=== PATIENT | female | born 1985 | race Hispanic/Latino ===

== ENCOUNTER 2020-01-22 12:43 | Outpatient (CLI) | payer MEDICARE, MEDICAID, SELFPAY ==
--- NOTE | ~2020-01-22 | US_ITS ---
EXAMINATION: US retroperitoneal comp DATE: 01/22/2020 13:31 INDICATION: Oliguria TECHNIQUE: Multiple ultrasound grayscale images of the kidneys were obtained. COMPARISON: None. FINDINGS: Again seen is enlargement of both kidneys secondary to innumerable anechoic cysts in both kidneys. Th e right kidney measures 6.4 x 8.5 by at least 9.5 cm and the left kidney measures 5.4 x 7.[address] 11.0 cm. The lengths of both kidneys appear underestimated with the true length of the kidneys not demonstrated on any single image. There is no hydronephrosis in either kidney. There is twinkle art ifact at a few locations in the lower pole of the left kidney consistent with renal stones. There vance ears be a hypoechoic fluid debris level in the dependent aspect of the otherwise normal bladder. IMPRESSION: 1. Polycystic kidney disease. No hydronephrosis. 2. Suggestion of layering debris in the dependent bladder. Correlate with urinalysis. Reviewed, dictated and finalized at location B. IMPRESSION: 1. Polycystic kidney disease. No hydronephrosis. 2. Suggestion of layering debris in the dependent bladder. Correlate with urina lysis.
== END 2020-01-22 12:44 | disposition home or self-care (01) ==
LOC: ANHIMG 12:49
PROVIDERS: PCP Nurse Practitioner Family; Visit Provider Nurse Practitioner Adult Health
DX: R34 Anuria and oliguria (principal); Q61.3 Polycystic kidney, unspecified
CPT/HCPCS: 76770

== ENCOUNTER 2020-02-01 11:21 | Outpatient (CLI) | payer MEDICARE, MEDICAID, SELFPAY ==
--- NOTE | ~2020-02-01 | XR_ITS ---
EXAMINATION: XR chest 1V EXAM DATE: 02/01/2020 11:52 INDICATION: Mid chest pain. TECHNIQUE: Portable AP frontal chest x-ray was obtained. Comparison is made to prior examination from 06/15/2018. FINDINGS: The lungs are clear. There are no pleural effusions. Cardiac silhouette is prominent but magnified on this AP technique. There is no pneumothorax suspected. Thoracolumbar Sewell rods. IMPRESSION: No acute cardiopulmonary findings. Reviewed, dictated and finalized at location B. UTIVE MEETING MANAGER
== END 2020-02-01 11:22 | disposition home or self-care (01) ==
PROVIDERS: PCP Nurse Practitioner Family; Visit Provider Nurse Practitioner Family
DX: R07.89 Other chest pain (principal)
CPT/HCPCS: 71045

== ENCOUNTER 2020-02-05 11:10 | Outpatient (CLI) | payer MEDICARE, MEDICAID, SELFPAY ==
--- NOTE | ~2020-02-05 | US_ITS ---
EXAMINATION: US retroperitoneal comp DATE: 02/05/2020 12:00 INDICATION: Oliguria TECHNIQUE: Multiple ultrasound grayscale images of the kidneys were obtained. COMPARISON: 01/22/2020 FINDINGS: The right kidney measures 12.3 x 7.9 x 7.3 cm. The left kidney measures at least 12.0 cm length by 8. 1 x 7.0 cm in maximal orthogonal dimensions with the upper pole partially obscured by shadowing bowel gas. Again seen are numerous anechoic cysts in both kidneys consistent with known history of polycys tic kidney disease. The largest renal cysts measures 3.0 cm in maximal diameter on the right and 3.4 cm on the left. There is no hydronephrosis in either kidney. No shadowing stones identified. Again seen is a hypoechoic likely layering debris without internal flow on color Doppler in the dependent a spect of the otherwise normal bladder. Small amount of fluid at the right adnexa along side the right ovary which is visualized on cine images with multiple small anechoic ovarian cysts/follicles, the l argest measuring up to 3.3 cm. IMPRESSION: 1. Polycystic kidney disease. No hydronephrosis. 2. Persistent focal lytic likely layering debris in the dependent bladder. Reviewed, dictated and finalized at location A. HOOKER
== END 2020-02-05 11:11 | disposition home or self-care (01) ==
PROVIDERS: PCP Nurse Practitioner Family; Visit Provider Nurse Practitioner Adult Health
DX: R34 Anuria and oliguria (principal); Q61.3 Polycystic kidney, unspecified
CPT/HCPCS: 76770

== ENCOUNTER 2022-04-29 12:41 | Outpatient (CLI) | payer OTHER, SELFPAY ==
--- NOTE | ~2022-04-29 | US_ITS ---
EXAMINATION: US renal BI DATE: 04/29/2022 14:03 INDICATION: Polycystic kidney disease TECHNIQUE: Multiple grayscale and Doppler ultrasound images of the kidneys were obtained. COMPARISON: 02/05/2020 FINDINGS: The right kidney measures 18.7 x 8.5 x 9.2 cm. There are innumerable cysts of the right kid mark. The left kidney measures 15.7 x 10.0 x 11.8 cm. There are innumerable cysts of the left kidney, the largest which measures 7.7 cm. The kidneys demonstrate normal parenchymal echogenicity. There is no hydronephrosis. The bladder is normal. IMPRESSION: 1. Polycystic kidney disease. No hydronephrosis identified. Reviewed, dictated and finalized at location L. AGE COMPILATION CLERK
--- NOTE | ~2022-04-29 | XR_ITS ---
EXAMINATION: XR lumbar spine 2-3V DATE: 04/29/2022 13:06 INDICATION: Low back pain TECHNIQUE: Two views of the lumbar spine were obtained. COMPARISON: CT, 02/06/2018 FINDINGS: There are changes of posterior thoracic through sacroiliac fusion. Bone alignment is normal . No fracture is identified. 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 There is moderate loss of intervert ebral disc space height throughout the visualized thoracic and lumbar spine. IMPRESSION: 1. Changes of posterior fusion and moderate thoracic and lumbar spondylosis without acute findings id entified. Reviewed, dictated and finalized at location L. [employer] NET DEVELOPER IMPRESSION: 1. Changes of posterior fusion and moderate thoracic and lumbar spondylosis wit hout acute findings identified.
== END 2022-04-29 12:42 | disposition home or self-care (01) ==
PROVIDERS: PCP Nurse Practitioner Family
DX: Q61.3 Polycystic kidney, unspecified (principal); Z98.1 Arthrodesis status; M47.894 Other spondylosis, thoracic region; M47.896 Other spondylosis, lumbar region
CPT/HCPCS: 72100; 76775

== ENCOUNTER 2024-09-05 10:51 | Outpatient (CLI) | payer MEDICARE, OTHER, SELFPAY ==
--- NOTE | ~2024-09-05 | US_ITS ---
Renal-Bladder ultrasound Clinical History: Polycystic kidneys COMPARISON: 04/29/2022 Technique: Real-time sonographic imaging of the kidneys and urinary bladder was performed. Findings: The right kidney measures 13.3 cm in length and the left kidney measures 15.1 cm. There is no hydronephrosis or renal calculus identified. Both kidneys are largely replaced by innumerable cyst s. The intervening parenchyma is echogenic.. The urinary bladder is moderately distended at the time of this exam. No intraluminal echoes are iden tified. No abnormal wall thickening is seen. Impression: Polycystic kidney disease with chronic medical renal disease. No definite hydronephrosis. Reviewed, dictated and finalized at location M. Impression: Polycystic kidney disease with chronic medical renal disease. No definite hydronephrosis.
--- OUTSIDE RECORDS SUMMARY | 2024-09-05 12:57 | XMS_ITS | Data Portability ---
Author Organization [facility]ore[facility] Address [address] [place] [address] Assessment No assessment recorded. Plan of Treatment Reminders Order Date Submit Date Provider Last Modified By Organization Details Last Modified Time Details Appointments None recorded. Lab CMP, serum or plasma 2015 016 [facility], [address], [address], [place], [address], 6 17:11:41 lipid panel, serum 2015 016 [facility], [address], [place], [address], 6 17:11:40 CBC w/ auto diff 2015 016 [facility], [address], [address], [place], [address], 6 17:11:41 unlisted lab - TSH reflex to t4f 2015 016 [facility], [address], [address], [place], [address], 6 15:53:54 CBC w/ auto diff 2015 016 [facility], [address], [address], [place], [address], 6 14:53:40 CMP, serum or plasma 2015 016 [facility], [address], [place], [address], 6 14:53:40 lipid panel, serum 2015 016 [facility], [address], [address], [place], [address], 6 14:53:41 Referral None recorded. Procedures None recorded. Surgeries None recorded. Imaging ultrasound , kidney - PCKD 2015 016 [facility], [address] [place], [address], 15:44:29 Medication Orders Metamucil (sugar) oral powder 2015 016 [facility], [address] [facility], [place], [address], 14:46:57 Patient TargetsNo targets recorded. Patient Instructions Encounter Date Encounter Id Patient Instructions Last Modified By Organization Details Last Modified Time 09/01/2015 [id number] constipation: care instructions mringor Not available 09/01/2015 17:49:18 Annual influenza vaccine was highly recommended. [facility] 09/01/2015 14:42:02 Reason for Referral None Reported. Results Created Date Observation Date Name Description Value Unit Range Abnormal Flag Note LastModifiedBy Organization Detail LastModifiedTime 09/23/19 16 09/24/2015 lipid panel , serum cholesterol, total 189 mg/dL 100-19 9 Not Available [facility] ([facility]) [address] [place], [address], 09/24/2015 17:11:40 09/23/19 16 09/24/2015 lipid panel , serum triglyceride s 151 mg/dL 0-149 above high normal Not Available [facility] ([facility]) [address] [place], [address], 09/24/2015 17:11:40 09/23/19 16 09/24/2015 lipid panel , serum LDL chol. (direct) 107 mg/dL 0-99 above high normal Not Available [facility] ([facility]) [address] [facility], [place], [address], 09/24/2015 17:11:40 09/23/19 16 09/24/2015 lipid panel , serum HDL cholesterol 57 mg/dL >39 ACCOR DING TO ATP-I II GUIDE LINES , HDL-C >59 MG/DL IS CONSI DERED A NEGAT JETT RISK FACTO R FOR CHD. Not Available [facility] ([facility]) [address] [facility], [place], [address], 09/24/2015 17:11:40 09/23/19 16 09/24/2015 lipid panel , serum VLDL cholesterol shivani 30 mg/dL 5-40 Not Available [facility] ([facility]) [address] [facility], [place], [address], 09/24/2015 17:11:40 09/23/19 16 09/24/2015 lipid panel , serum LDL cholesterol calc 102 mg/dL 0-99 above high normal Not Available [facility] ([facility]) [address] [facility], [place], [address], 09/24/2015 17:11:40 09/23/19 16 09/24/2015 lipid panel , serum comment: [employer] Not Available [facility] ([facility]) [address] [facility], [place], [address], 09/24/2015 17:11:40 09/23/19 16 09/24/2015 lipid panel , serum LDL/HDL ratio 1.8 ratio _unit s 0.0-3. 2 LDL/H DL RATIO MEN WOMEN 1/2 AVG.R ISK 1.0 1.5 AVG.R ISK 3.6 3.2 2X AVG.R ISK 6.2 5.0 3X AVG.R ISK 8.0 6.1 Not Available [facility] ([facility]) [address] [facility] [place], [address], 09/24/2015 17:11:40 09/23/19 16 09/24/2015 CBC w/ auto diff WBC 8.5 x10e3 /uL 3.4-10 .8 Not Available [facility] ([facility]) [address] [facility] [place], [address], 09/24/2015 17:11:41 09/23/19 16 09/24/2015 CBC w/ auto diff RBC 4.34 x10e6 /uL 3.77-5 .28 Not Available [facility] ([facility]) [address] [facility] [place], [address], 09/24/2015 17:11:41 09/23/19 16 09/24/2015 CBC w/ auto diff hemoglobin 10.3 g/dL 11.1-1 5.9 below low normal Not Available [facility] ([facility]) [address] [facility] [place], [address], 09/24/2015 17:11:41 09/23/19 16 09/24/2015 CBC w/ auto diff hematocrit 31.7 % 34.0-4 6.6 below low normal Not Available [facility] ([facility]) [address] [facility] [place], [address], 09/24/2015 17:11:41 09/23/19 16 09/24/2015 CBC w/ auto diff MCV 73 fL 79-97 below low normal Not Available [facility] ([facility]) [address] [facility] [place], [address], 09/24/2015 17:11:41 09/23/19 16 09/24/2015 CBC w/ auto diff MCH 23.7 pg 26.6-3 3.0 below low normal Not Available [facility] ([facility]) [address] [facility] [place], [address], 09/24/2015 17:11:41 09/23/19 16 09/24/2015 CBC w/ auto diff MCHC 32.5 g/dL 31.5-3 5.7 Not Available [facility] ([facility]) [address], [place], [address], 09/24/2015 17:11:41 09/23/19 16 09/24/2015 CBC w/ auto diff RDW 20.3 % 12.3-1 5.4 above high normal Not Available [facility] ([facility]) [address], [place], [address], 09/24/2015 17:11:41 09/23/19 16 09/24/2015 CBC w/ auto diff platelets 242 x10e3 /uL 150-37 9 Not Available [facility] ([facility]) [address] [facility], [place], [address], 09/24/2015 17:11:41 09/23/19 16 09/24/2015 CBC w/ auto diff neutrophils 68 % Not Available [facility] ([facility]) [address] [facility], [place], [address], 09/24/2015 17:11:41 09/23/19 16 09/24/2015 CBC w/ auto diff lymphs 26 % Not Available [facility] ([facility]) [address] [facility], [place], [address], 09/24/2015 17:11:41 09/23/19 16 09/24/2015 CBC w/ auto diff monocytes 5 % Not Available [facility] ([facility]) [address] [facility], [place], [address], 09/24/2015 17:11:41 09/23/19 16 09/24/2015 CBC w/ auto diff eos 1 % Not Available [facility] ([facility]) [address] [facility], [place], [address], 09/24/2015 17:11:41 09/23/19 16 09/24/2015 CBC w/ auto diff basos 0 % Not Available [facility] ([facility]) [address] [place], [address], 09/24/2015 17:11:41 09/23/19 16 09/24/2015 CBC w/ auto diff immature cells [employer] Not Available [facility] ([facility]) [address] [place], [address], 09/24/2015 17:11:41 09/23/19 16 09/24/2015 CBC w/ auto diff neutrophils (absolute) 5.6 x10e3 /uL 1.4-7. 0 Not Available [facility] ([facility]) [address] [place], [address], 09/24/2015 17:11:41 09/23/19 16 09/24/2015 CBC w/ auto diff lymphs (absolute) 2.2 x10e3 /uL 0.7-3. 1 Not Available [facility] ([facility]) [address] [place], [address], 09/24/2015 17:11:41 09/23/19 16 09/24/2015 CBC w/ auto diff monocytes(ab solute) 0.5 x10e3 /uL 0.1-0. 9 Not Available [facility] ([facility]) [address] [place], [address], 09/24/2015 17:11:41 09/23/19 16 09/24/2015 CBC w/ auto diff eos (absolute) 0.1 x10e3 /uL 0.0-0. 4 Not Available [facility] ([facility]) [address] [place], [address], 09/24/2015 17:11:41 09/23/19 16 09/24/2015 CBC w/ auto diff baso (absolute) 0.0 x10e3 /uL 0.0-0. 2 Not Available [facility] ([facility]) [address] [facility] [place], [address], 09/24/2015 17:11:41 09/23/19 16 09/24/2015 CBC w/ auto diff immature granulocytes 0 % Not Available [facility] ([facility]) [address] [facility] [place], [address], 09/24/2015 17:11:41 09/23/19 16 09/24/2015 CBC w/ auto diff immature grans (abs) 0.0 x10e3 /uL 0.0-0. 1 Not Available [facility] ([facility]) [address] [facility], [place], [address], 09/24/2015 17:11:41 09/23/19 16 09/24/2015 CBC w/ auto diff NRBC [employer] Not Available [facility] ([facility]) [address] [place], [address], 09/24/2015 17:11:41 09/23/19 16 09/24/2015 CBC w/ auto diff hematology comments: [employer] Not Available [facility] ([facility]) [address] [facility], [place], [address], 09/24/2015 17:11:41 09/23/19 16 09/24/2015 CMP, serum or plasm a glucose, serum 92 mg/dL 65-99 Not Available [facility] ([facility]) [address] [place], [address], 09/24/2015 17:11:41 09/23/19 16 09/24/2015 CMP, serum or plasm a BUN 28 mg/dL 6-20 above high normal Not Available [facility] ([facility]) [address] [place], [address], 09/24/2015 17:11:41 09/23/19 16 09/24/2015 CMP, serum or plasm a creatinine, serum 2.05 mg/dL 0.57-1 .00 above high normal Not Available [facility] ([facility]) [address] [facility] [place], [address], 09/24/2015 17:11:41 09/23/19 16 09/24/2015 CMP, serum or plasm a eGFR if nonafricn AM 32 mL/mi n/1.7 3 >59 below low normal Not Available [facility] ([facility]) [address] [facility] [place], [address], 09/24/2015 17:11:41 09/23/19 16 09/24/2015 CMP, serum or plasm a eGFR if africn AM 37 mL/mi n/1.7 3 >59 below low normal Not Available [facility] ([facility]) [address] [facility] [place], [address], 09/24/2015 17:11:41 09/23/19 16 09/24/2015 CMP, serum or plasm a BUN/creatini ne ratio 14 8-20 Not Available [facility] ([facility]) [address] [facility] [place], [address], 09/24/2015 17:11:41 09/23/19 16 09/24/2015 CMP, serum or plasm a sodium, serum 141 mmol/ L 134-14 4 Not Available [facility] ([facility]) [address] [facility] [place], [address], 09/24/2015 17:11:41 09/23/19 16 09/24/2015 CMP, serum or plasm a potassium, serum 4.9 mmol/ L 3.5-5. 2 Not Available [facility] ([facility]) [address] [facility] [place], [address], 09/24/2015 17:11:41 09/23/19 16 09/24/2015 CMP, serum or plasm a chloride, serum 104 mmol/ L 97-108 Not Available [facility] ([facility]) [address] [facility] [place], [address], 09/24/2015 17:11:41 09/23/19 16 09/24/2015 CMP, serum or plasm a carbon dioxide, total 16 mmol/ L 18-29 below low normal Not Available [facility] ([facility]) [address] [facility] [place], [address], 09/24/2015 17:11:41 09/23/19 16 09/24/2015 CMP, serum or plasm a calcium, serum 9.3 mg/dL 8.7-10 .2 Not Available [facility] ([facility]) [address] [place], [address], 09/24/2015 17:11:41 09/23/19 16 09/24/2015 CMP, serum or plasm a protein, total, serum 7.8 g/dL 6.0-8. 5 Not Available [facility] ([facility]) [address] [facility] [place], [address], 09/24/2015 17:11:41 09/23/19 16 09/24/2015 CMP, serum or plasm a albumin, serum 4.6 g/dL 3.5-5. 5 Not Available [facility] ([facility]) [address] [facility] [place], [address], 09/24/2015 17:11:41 09/23/19 16 09/24/2015 CMP, serum or plasm a globulin, total 3.2 g/dL 1.5-4. 5 Not Available [facility] ([facility]) [address] [place], [address], 09/24/2015 17:11:41 09/23/19 16 09/24/2015 CMP, serum or plasm a A/G ratio 1.4 1.1-2. 5 Not Available [facility] ([facility]) [address] [facility] [place], [address], 09/24/2015 17:11:41 09/23/19 16 09/24/2015 CMP, serum or plasm a bilirubin, total 0.2 mg/dL 0.0-1. 2 Not Available [facility] ([facility]) [address] [facility], [place], [address], 09/24/2015 17:11:41 09/23/19 16 09/24/2015 CMP, serum or plasm a alkaline phosphatase, S 82 IU/L 39-117 Not Available [facility] ([facility]) [address] [facility], [place], [address], 09/24/2015 17:11:41 09/23/19 16 09/24/2015 CMP, serum or plasm a AST (SGOT) 14 IU/L 0-40 Not Available [facility] ([facility]) [address] [facility], [place], [address], 09/24/2015 17:11:41 09/23/19 16 09/24/2015 CMP, serum or plasm a ALT (SGPT) 13 IU/L 0-32 Not Available [facility] ([facility]) [address] [facility], [place], [address], 09/24/2015 17:11:41 09/03/19 16 08/03/2012 elect akhil fagan am No observ ation record ed. [facility], [place], [address], 09/05/2015 09:33:34 09/05/19 16 09/05/2015 US kidne ys bilat marlo TURNER,NA RCIZJarvis FLANAGAN 8823 ADMIT/ SERVIC E DATE: ACCT: [id number] DISCHA RGE DATE: : 1985 SEX: F ORD SITE: [facility] PT TYPE: REG CLI SAMMIE BERGMAN MD: Katy ACOSTA MD STUDY DATE REPORT # ORDER # EXT ORDER ID [id number] 6.001 PROC CODE: KIDNEY BI PROCED URE DESCRI PTION: US KIDNEY S BILATE RAL ====== ====== ==IMPR ESSION :===== ====== = ADVANC ED POLYCY STIC REPLAC EMENT OF BOTH KIDNEY S. NO OBSTRU CTIVE UROPAT HY WITH JET FLOW PHENOM ENON FROM BOTH RIGHT AND LEFT URETER S OBSERV ED IN THE URINAR Y BLADDE R AND DUPLEX IMAGIN G. ====== ====== ====== ====== ====== ====== = EXAMIN ATION: RENAL ULTRAS OUND ACCESS ION: [id number] EXAM DATE/T SAMUEL: 016 10:15 AM CLINIC AL HISTOR Y: POLYCY STIC RENAL DISEAS E. COMPAR THOR: 014 TECHNI QUE: RIGHT AND LEFT KIDNEY S WERE EVALUA SARAH WITH TRANSA BDOMIN AL ULTRAS ONOGRA PHY. FINDIN GS: THE RIGHT KIDNEY MEASUR ES 15.8 X 10.5 X 10 CM WITH CYSTIC REPLAC EMENT OF THE RENAL PARENC HYMA CONSIS TENT WITH ADULT POLYCY STIC KIDNEY DISEAS E. NO OBVIOU S OBSTRU CTIVE UROPAT HY IS SEEN. THE LEFT KIDNEY MEASUR ES 15.4 X 8.6 X 9.7 WITH CYSTIC REPLAC EMENT OF THE RENAL PARENC HYMA CONSIS TENT WITH ADULT POLYCY STIC KIDNEY DISEAS E. NO OBVIOU S OBSTRU CTIVE UROPAT HY IS SEEN. THERE IS JET FLOW PHENOM ENON AND THE BLADDE R FROM THE RIGHT AND LEFT URETER S ON DUPLEX IMAGIN G OVER THE URINAR Y BLADDE R. ELECTR ONICAL LY SIGNED BY: HAYLEY MARTIN IER6/ 1:53 PM [facility], [place], [address], 09/23/2015 10:25:58 09/05/19 16 12/07/2013 ultra sound , kidne y No observ ation record ed. [facility] Scheduling 1 [facility], [place], [address], 09/23/2015 10:25:58 03/12/20 16 03/12/2016 ultra sound , kidne y No observ ation record ed. [facility], [place], [address], 03/14/2016 15:48:07 Result Notes None recorded. Problems Name Problem SNOMED Code Status Onset Date Resolution Date Notes Provider Name and Address Organization Details Recorded Time Benign hypertension 61264912 Active Abdirahman Acosta MD Attn: Zachary marcus,[address] [facility], [place], [address], [facility] 6 14:46:56 Polycystic kidney disease, adult type Active Abdirahman Acosta MD Attn: Zachary marcus,[address] 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, [place], [address], [facility] 6 14:46:56 Constipation 70703906 Active Abdirahman Acosta MD Attn: Zachary marcus,[address] [facility], [place], [address], [facility] 6 10:41:33 Congenital postural scoliosis 19443292 Active Abdirahman Acosta MD Attn: Zachary velazquez,[address] 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, [place], [address], [facility] 6 14:46:56 Anemia 105425072 Active Abdirahman Acosta MD Attn: Zachary velazquez,[address] [facility], [place], [address], [facility] 6 10:41:33 Hyperkalemia 08998993 Active Abdirahman Acosta MD Attn: Zachary velazquez,[address] [facility], [place], [address], [facility] 6 10:41:33 Chronic progressive renal failure 801586728 Active Abdirahman Acosta MD Attn: Zachary velazquez,[address] [facility], [place], [address], [facility] 6 10:41:33 Eruption 243340160 Active Abdirahman Acosta MD Attn: Zachary velazquez,[address] [facility], [place], [address], [facility] 6 10:41:33 Problem Notes None recorded. Procedures Surgical History Date Name Laterality Status Provider Name and Address Organization Details Recorded Time 06/18/2014 Other completed Abdirahman Acosta MD Attn: Accounting,[address] [place], [place], [address] [place] [address], [facility] 09/01/2015 13:54:44 Other completed Abdirahman Acosta MD Attn: Accounting,[address] [place], [address], [facility] 09/01/2015 14:19:29 Imaging Results None recorded. Procedure Notes None recorded. Medical Equipment None Reported. Allergies Allergen ID Allergen Name Allergen Category Reaction Reaction Severity Criticality Documentation Date Start Date Code Code System Note Provider Name and Address Organization Details Recorded Time 21744 bacitraci n / neomycin / polymyxin B medicatio n rash mild Not available 09/01/2015 80518 9 RxNorm [facility] 6 14:06:48 Medications Name Sig Start Date Stop Date Status Note LastModified by Organization Details LastModified Time ferrous sulfate 325 mg (65 mg iron) tablet Take 1 tablet 3 times a day by oral route. active Not Available Not Available No t Available triamcinolone acetonide 0.1 % topical ointment APPLY A THIN LAYER TO THE AFFECTED AREA(S) BY TOPICAL ROUTE 2 TIMES PER DAY active Not Available Not Available No t Available polyethylene glycol 1000 (bulk) powder active Not Available Not Availabl e Not Available docusate sodium 100 mg capsule Take 1 capsule every day by oral route. active Not Available Not Available No t Available Metamucil (sugar) oral powder Take 1 tsp every day by oral route for 30 days. 2015 active Not Available Not Available Not Avai lable lactulose 10 gram/15 mL (15 mL) oral solution Take 30 mL 3 times a day by oral route. active Not Available Not Available No t Available Vitals Date Recorded Body temperature Heart rate Respiratory rate Systolic blood pressure Diastolic blood pressure Provider Name and Address Organization Details Last Updated DateTime 97.1 [degF] 64 /min 16 /min 142 mm[Hg] 84 mm[Hg] June ELAYNE Jama [facility] 14:06:47 Date Recorded Oxygen saturation Oxygen saturation in Arterial blood by Pulse oximetry Body temperature Heart rate Systolic blood pressure Diastolic blood pressure Provider Name and Address Organization Details Last Updated DateTime 100 % 100 % 97.4 [degF] 86 /min 138 mm[Hg] 74 mm[Hg] June ELAYNE Jama [facility] 10:07:37 Social History Question Answer Notes LastModified by M-Audioizat ion Details LastModified Time Tobacco Smoking Status Never Smoker [facility] 09/01/2015 14:06:47 Do You Have An Advance Directive? No Information not available 09/01/2015 What Is Your Level Of Caffeine Consumption? Occasional Information not available 09/01/2015 How Much Tobacco Do You Chew? None Information not available 09/01/2015 Are There Any Guns Present In Your Home? No Information not available 09/01/2015 Hard Of Hearing Or Deaf In One Or Both Ears? No Information not available 09/01/2015 Legally Blind In One Or Both Eyes? No Information not available 09/01/2015 Marital Status Single Informatio n not available 09/01/2015 Performs Monthly Self-breast Exam? No Information not available 09/01/2015 Seat Belts Used Routinely Yes Information not available 09/01/2015 Smoke Alarm In Home Yes Information not available 09/01/2015 How Much Tobacco Do You Smoke? No Information not available 09/01/2015 Do You Use Sunscreen Routinely? Yes Information not available 09/01/2015 Sex: Unknown Functional Status Question Answer Note LastModified by Organization D etails LastModified Time What is your level of alcohol consumption? None Information not available 09/01/2015 Mental Status None recorded. Family History Nothing Reported. Medical History Condition Response Coronary Artery Disease N Other N High Blood Pressure Y Kidney or Bladder Problems Y Thyroid Problems N GI Problems N Depression N COPD N Blood Clots N Skin Problems N Anemia N Heart Attack ([place]) N Anxiety Disorder N Diabetes N Muscle, Joint, or Bone Problems N Seizures/Epilepsy Y Acid Reflux (GERD) N Cancer N Stroke N Asthma N Allergies N High Cholesterol N Hepatitis N Liver Disease Y Headaches N Heart Failure N Osteoporosis N Gynecological HistoryNo gynecological history recorded. Obstetrics History GPAL:G 0 P 0 0 0 0 Past Encounters Encounter ID Performer Location Encounter Start Date Encounter Closed Date Diagnosis/Indication Diagnosis SNOMED-CT Code Diagnosis ICD10 Code Diagnosis Note [id number] Abdirahman Acosta MD [facility] (Adult Med) [address] [place] [phone] 09/01/2015 13:49:33 09/02/2015 09:47:50 General examination of patient 087910102 Z00.01 29 y/o WF who presents with her mother, she previously saw Dr. Araujo ~ 2 years ago in [place], [place]. The records from her admission to [place] in May 2014 were reviewed. Benign hypertension 1072 5009 I10 Polycystic kidney disease, adult type 30885700 Q61.2 Diagnosed on US at [facility], she was seen by Dr. Trang lópez. Her mother would let us know where they would like her to follow up, either with Dr. Hartman or with her dad's doctor in [place]. Obtain follow up US for now. Spastic ce rebral palsy 977783724 G80.0 Multiple surgical procedures ~ 50 mainly orthopedic in nature. Constipation 46972870 K5 9.00 Discussed Congenital postural scoliosis 02441443 Q67.5 Congenital pelvic obliquity 298069132 Q74.2 [id number] MD Shyanne Olivas (Adult Med) [address] [place] [phone] 09/23/2015 09:47:37 09/23/2015 18:16:21 Anemia 923611139 D64.9 Constipation 25773323 K5 9.00 Discussed Hyperkalemia 14726897 E8 7.5 Polycystic kidney disease, adult type 66484091 Q61.2 Diagnosed on at [facility], the US results were discussed and she is scheduled to be seen at [facility] Chronic pr ogressive renal failure [id number] [id number] Eruption [id number] R21 On Triamcinol one Health Concerns Section Related Observation LastModified by Organization Detai ls LastModified Time None Recorded Concern Status LastModified by Organization Details LastModified Time None Recorded Advance Directives Directive N: Payers Encounter Date Sequence Insurance Name Policy Number Policy Pierce Covered Member ID Pierce Member ID Guarantor Name 09/01/2015 1 [place] Anne Collins [id number] 1 Anne Collins 09/23/2015 1 [place] Anne Collins [id number] Anne Collins OBGyn Episode No OBEpisode recorded.
--- OUTSIDE RECORDS SUMMARY | 2024-09-05 12:58 | XMS_ITS ---
Author Organization [facility] ([facility]) Address [address] [place] [id number] Care Team Providers Care Steeple Jack Name Role Phone Unavailable Unavailable Unavailable Allergies, Adverse Reactions, Alerts Allergy Name Allergy Type Status Severity Reaction(s) Onset Date Inactive Date Treating Clinician Comments No Known Allergies Allergy Active 2021-12 14:03:0 3 Medications Ordered Medication Name Filled Medication Name Start Date Stop Date Current Medication? Ordering Clinician Indication Dosage Frequency Signature (SIG) Comments Components Mircera 08-02 14:05: 50 Yes [id number] Number of Repeats Allowed: Frequency: PALOMA dosing, every three to four weeks Oxygen 06-01 18:00: 43 Yes [id number] Number of Repeats Allowed: Frequency: Every hour as needed acetaminoph en 06-01 17:59: 59 Yes [id number] Number of Repeats Allowed: Frequency: Every 4 hours as needed Venofer 06-01 17:59: 18 Yes [id number] Number of Repeats Allowed: Frequency: Every monthDoses Ordered: Maintenanc e Dose 100 Milligram Route: Intravenou s Cefdinir 11-03 19:14: 27 Yes Number of Repeats Allowed: 3Frequency : One time a day Amoxicillin 09-22 19:36: 11 Yes Number of Repeats Allowed: Frequency: One time only traMADol-Ac etaminophen 06-11 18:54: 51 Yes Number of Repeats Allowed: Frequency: Every six hours tiZANidine HCl 06-11 18:51: 24 Yes Number of Repeats Allowed: Frequency: Every eight hours Cholecalcif magda 12-17 05:00: 00 Yes Number of Repeats Allowed: Frequency: One time a day Gentamicin Sulfate 06-25 05:00: 00 Yes Number of Repeats Allowed: Frequency: One time a day Problems This patient has no known problems. Procedures Procedure Date / Time Performed Performing Clinician Charlotte hou Details PD Catheter 2017-10-18 05:00:00 Access Site Lower Quadrant (Righ t) Access Use Start Date 2021-06-18 05:00:0 0 DIALYSIS TREATMENT INFORMATION Conventional Hemodialysis Date Type Treatment Start Date Treatment End Date Pre-Treatment Vitals Post-Treatment Vitals Weight Gain BFR DFR Actual UF Dialysis Access September 04, 2024 [facility] BP Sitting (Pre-Dialysis) 125/76 mmHg Sitting Heart Rate Pre-Dialysis 105 BPM Temperature Pre-Dialysis 97.2 degF Weight Pre-Dialysis 26 kg September 04, 2024 [facility] September 03, 2024 [facility] September 02, 2024 [facility] September 01, 2024 [facility] August 31, 2024 [facility] August 30, 2024 [facility] August 29, 2024 [facility] August 28, 2024 [facility] August 27, 2024 [facility] August 26, 2024 [facility] August 25, 2024 [facility] August 24, 2024 [facility] August 23, 2024 [facility] August 22, 2024 [facility] August 21, 2024 [facility] August 20, 2024 [facility] August 19, 2024 [facility] August 18, 2024 [facility] August 17, 2024 [facility]CP BP Sitting (Pre-Dialysis) 130/92 mmHg Sitting Heart Rate Pre-Dialysis 102 BPM Temperature Pre-Dialysis 98.1 degF Weight Pre-Dialysis 26.1 kg August 17, 2024 [facility] August 16, 2024 [facility] August 15, 2024 [facility] August 14, 2024 [facility] August 13, 2024 [facility] August 12, 2024 [facility] August 11, 2024 [facility] August 10, 2024 [facility]D August 09, 2024 [facility]D August 08, 2024 [facility]D August 07, 2024 [facility]CPD August 06, 2024 [facility] August 05, 2024 [facility] August 04, 2024 [facility] August 03, 2024 [facility] August 02, 2024 [facility] August 01, 2024 [facility] July 31, 2024 [facility] BP Sitting (Pre-Dialysis) 142/101 mmHg Sitting Heart Rate Pre-Dialysis 100 BPM Temperature Pre-Dialysis 97.8 degF Weight Pre-Dialysis 26 kg July 31, 2024 [facility] July 30, 2024 [facility] July 29, 2024 [facility] July 28, 2024 [facility] July 27, 2024 [facility] July 26, 2024 [facility] July 25, 2024 [facility] July 24, 2024 [facility] July 23, 2024 [facility] July 22, 2024 [facility] July 21, 2024 [facility] July 20, 2024 [facility] BP Sitting (Pre-Dialysis) 142/107 mmHg Sitting Heart Rate Pre-Dialysis 78 BPM Temperature Pre-Dialysis 97.6 degF Weight Pre-Dialysis 26.1 kg July 20, 2024 [facility] BP Sitting (Pre-Dialysis) 142/107 mmHg Sitting Heart Rate Pre-Dialysis 78 BPM Temperature Pre-Dialysis 97.6 degF Weight Pre-Dialysis 26.1 kg July 20, 2024 [facility] July 19, 2024 [facility] July 18, 2024 [facility] July 17, 2024 [facility] July 16, 2024 [facility] July 15, 2024 [facility] July 14, 2024 [facility] July 13, 2024 [facility]D July 12, 2024 [facility]D July 11, 2024 [facility]D July 10, 2024 [facility] July 09, 2024 [facility] July 08, 2024 [facility]D July 07, 2024 [facility]D July 06, 2024 [facility]D July 05, 2024 [facility]D July 04, 2024 [facility]D July 03, 2024 [facility] July 02, 2024 [facility]D July 01, 2024 [facility] June 30, 2024 [facility] June 29, 2024 [facility] June 28, 2024 [facility] June 27, 2024 [facility]D June 26, 2024 [facility] June 25, 2024 [facility] June 24, 2024 [facility] June 23, 2024 [facility] June 22, 2024 [facility] June 21, 2024 [facility] June 20, 2024 [facility] June 19, 2024 [facility] June 18, 2024 [facility] June 17, 2024 [facility] June 16, 2024 [facility] June 15, 2024 [facility] BP Sitting (Pre-Dialysis) 110/88 mmHg Sitting Heart Rate Pre-Dialysis 80 BPM Temperature Pre-Dialysis 97.6 degF Weight Pre-Dialysis 26 kg June 15, 2024 [facility] June 14, 2024 [facility] June 13, 2024 [facility]CPD June 12, 2024 [facility]D June 11, 2024 [facility]CPD June 10, 2024 [facility]CPD June 09, 2024 [facility]CPD June 08, 2024 [facility]CPD June 07, 2024 [facility]CPD June 06, 2024 [facility]CPD June 05, 2024 [facility]CPD June 04, 2024 [facility]CPD June 03, 2024 [facility]CPD June 02, 2024 [facility]CPD June 01, 2024 [facility]CPD May 31, 2024 [facility] BP Sitting (Pre-Dialysis) 108/98 mmHg Sitting Heart Rate Pre-Dialysis 82 BPM Temperature Pre-Dialysis 97.7 degF Weight Pre-Dialysis 25.9 kg May 31, 2024 [facility] May 30, 2024 [facility]D May 29, 2024 [facility]CPD May 28, 2024 [facility]CPD May 27, 2024 [facility]CPD May 26, 2024 [facility]CPD May 25, 2024 [facility]CPD May 24, 2024 [facility]CPD May 23, 2024 [facility] May 22, 2024 [facility] May 21, 2024 [facility]CPD May 20, 2024 [facility] May 19, 2024 [facility]CPD May 18, 2024 [facility] BP Sitting (Pre-Dialysis) 138/100 mmH g Sitting Heart Rate Pre-Dialysis 80 BPM Temperature Pre-Dialysis 98.3 degF Weight Pre-Dialysis 26 kg May 18, 2024 [facility] May 17, 2024 [facility]CPD May 16, 2024 [facility]CPD May 15, 2024 [facility]CPD May 14, 2024 [facility]CPD May 13, 2024 [facility]D May 12, 2024 [facility]CPD May 11, 2024 CCPD May 10, 2024 CCPD May 09, 2024 CCPD May 08, 2024 [facility] BP Sitting (Pre-Dialysis) 148/90 mmHg Sitting Heart Rate Pre-Dialysis 100 BPM Temperature Pre-Dialysis 99.5 degF Weight Pre-Dialysis 25.8 kg May 08, 2024 [facility]CP[facility] May 07, 2024 [facility]CPD May 06, 2024 [facility]CPD May 05, 2024 CCPD May 04, 2024 CCPD May 03, 2024 CCPD May 02, 2024 CCPD May 01, 2024 CCPD April 30, 2024 CCPD April 29, 2024 [facility]CPD April 28, 2024 CCPD April 27, 2024 CCPD April 27, 2024 CCPD April 26, 2024 CCPD April 25, 2024 CCPD April 24, 2024 CCPD April 23, 2024 CCPD April 22, 2024 [facility]CPD April 21, 2024 CCPD April 20, 2024 CCPD April 19, 2024 CCPD April 18, 2024 CCPD April 17, 2024 CCPD April 16, 2024 CCPD April 15, 2024 CCPD April 14, 2024 CCPD April 13, 2024 CCPD April 12, 2024 CCPD April 11, 2024 CCPD April 10, 2024 CCPD April 09, 2024 CCPD April 08, 2024 CCPD April 07, 2024 CCPD April 06, 2024 CCPD April 05, 2024 CCPD April 04, 2024 [facility]CPD April 03, 2024 [facility]CPD April 02, 2024 CCPD April 01, 2024 CCPD March 31, 2024 [facility]CPD March 30, 2024 [facility] BP Sitting (Pre-Dialysis) 134/83 mmHg Sitting Heart Rate Pre-Dialysis 76 BPM Temperature Pre-Dialysis 98.2 degF Weight Pre-Dialysis 27.3 kg March 30, 2024 [facility] March 29, 2024 [facility]D March 28, 2024 [facility]CPD March 27, 2024 [facility]CPD March 26, 2024 [facility]CPD March 25, 2024 CCPD March 24, 2024 CCPD March 23, 2024 CCPD March 22, 2024 CCPD March 21, 2024 [facility]CPD March 20, 2024 [facility]CPD March 19, 2024 CCPD March 18, 2024 [facility]CPD March 17, 2024 [facility]CPD March 16, 2024 [facility] BP Sitting (Pre-Dialysis) 86/70 mmHg Sitting Heart Rate Pre-Dialysis 66 BPM Temperature Pre-Dialysis 98 degF Weight Pre-Dialysis 26 kg March 16, 2024 [facility]CPD March 15, 2024 [facility]CPD March 14, 2024 CCPD March 13, 2024 CCPD March 12, 2024 [facility]CPD March 11, 2024 CCPD March 10, 2024 CCPD March 09, 2024 CCPD March 08, 2024 CCPD March 07, 2024 CCPD March 06, 2024 CCPD March 05, 2024 CCPD March 04, 2024 CCPD March 03, 2024 CCPD March 02, 2024 CCPD March 01, 2024 [facility]CPD February 29, 2024 [facility]D February 28, 2024 [facility]D February 27, 2024 [facility]CPD February 26, 2024 [facility]D February 25, 2024 CCPD February 24, 2024 CCPD February 23, 2024 CCPD February 22, 2024 CCPD February 21, 2024 [facility]CPD February 20, 2024 [facility]CPD February 19, 2024 [facility]CPD February 18, 2024 [facility]CPD February 17, 2024 CCPD February 16, 2024 CCPD February 15, 2024 CCPD February 14, 2024 CCPD February 13, 2024 CCPD February 12, 2024 CCPD February 11, 2024 CCPD February 10, 2024 CCPD February 09, 2024 CCPD February 08, 2024 [facility]CPD February 07, 2024 [facility]CPD February 06, 2024 [facility]D February 05, 2024 [facility]D February 04, 2024 [facility]D February 03, 2024 [facility]CPD February 02, 2024 CCP BP Sitting (Pre-Dialysis) 113/62 mmHg Sitting Heart Rate Pre-Dialysis 88 BPM Temperature Pre-Dialysis 98.4 degF Weight Pre-Dialysis 27.4 kg February 02, 2024 [facility] February 01, 2024 [facility]D January 31, 2024 [facility]CPD January 30, 2024 [facility]CPD January 29, 2024 [facility]D January 28, 2024 [facility]D January 27, 2024 [facility]D January 26, 2024 [facility]CPD January 25, 2024 [facility]CPD January 24, 2024 [facility]D BP Sitting (Pre-Dialysis) 130/88 mmHg Sitting Heart Rate Pre-Dialysis 90 BPM Temperature Pre-Dialysis 98.2 degF Weight Pre-Dialysis 26 kg January 24, 2024 [facility] January 23, 2024 [facility] January 22, 2024 [facility]CPD January 21, 2024 [facility]D January 20, 2024 [facility]D January 19, 2024 [facility]D January 18, 2024 [facility]D January 17, 2024 [facility]D January 16, 2024 [facility]D January 15, 2024 [facility]CPD January 14, 2024 [facility]CPD January 13, 2024 [facility]D January 12, 2024 [facility]CPD January 11, 2024 [facility]CPD January 10, 2024 [facility]CPD January 09, 2024 CCPD January 08, 2024 CCPD January 07, 2024 CCPD January 06, 2024 CCPD January 05, 2024 CCPD January 04, 2024 CCPD January 03, 2024 CCPD January 02, 2024 CCPD January 01, 2024 CCPD December 31, 2023 CCPD December 30, 2023 CCPD December 29, 2023 [facility]D December 28, 2023 [facility]D December 27, 2023 [facility]D December 26, 2023 [facility] December 25, 2023 [facility]D December 24, 2023 [facility]D December 23, 2023 [facility]D December 22, 2023 [facility] BP Sitting (Pre-Dialysis) 100/78 mmH g Sitting Heart Rate Pre-Dialysis 90 BPM Temperature Pre-Dialysis 97.1 degF Weight Pre-Dialysis 26.4 kg December 22, 2023 [facility] December 21, 2023 [facility] December 20, 2023 [facility] BP Sitting (Pre-Dialysis) 99/80 mmHg Sitting Heart Rate Pre-Dialysis 100 BPM Temperature Pre-Dialysis 98.3 degF Weight Pre-Dialysis 26.2 kg December 20, 2023 [facility] BP Sitting (Pre-Dialysis) 99/80 mmHg Sitting Heart Rate Pre-Dialysis 100 BPM Temperature Pre-Dialysis 98.3 degF Weight Pre-Dialysis 26.2 kg December 20, 2023 [facility]CPD December 19, 2023 [facility]D December 18, 2023 [facility]D December 17, 2023 [facility]CPD December 16, 2023 [facility]CPD December 15, 2023 CCPD December 14, 2023 CCPD December 13, 2023 CCPD December 12, 2023 CCPD December 11, 2023 CCPD December 10, 2023 CCPD December 09, 2023 CCPD December 08, 2023 CCPD December 07, 2023 CCPD December 06, 2023 CCPD December 05, 2023 CCPD December 04, 2023 CCPD December 03, 2023 CCPD December 02, 2023 [facility]D December 01, 2023 C[facility]D November 30, 2023 CCPD November 29, 2023 [facility]CPD November 28, 2023 [facility]CPD November 27, 2023 [facility]D November 26, 2023 [facility]D November 25, 2023 [facility]D November 24, 2023 [facility]D November 23, 2023 [facility]CPD November 22, 2023 [facility] BP Sitting (Pre-Dialysis) 103/82 mmHg Sitting Heart Rate Pre-Dialysis 90 BPM Temperature Pre-Dialysis 99.3 degF Weight Pre-Dialysis 24.4 kg November 22, 2023 [facility] November 21, 2023 [facility]D November 20, 2023 [facility]D November 19, 2023 [facility]D November 18, 2023 [facility]D November 17, 2023 [facility]CPD November 16, 2023 CCPD November 15, 2023 [facility]CPD November 14, 2023 [facility]CPD November 13, 2023 [facility]CPD November 12, 2023 [facility]CPD November 11, 2023 [facility]CPD November 10, 2023 [facility]D November 09, 2023 [facility]CPD November 08, 2023 [facility]D BP Sitting (Pre-Dialysis) 113/86 mmHg Sitting Heart Rate Pre-Dialysis 91 BPM Temperature Pre-Dialysis 98 degF Weight Pre-Dialysis 25.4 kg November 08, 2023 [facility]D November 07, 2023 [facility]D November 06, 2023 [facility]D November 05, 2023 [facility]D November 04, 2023 [facility]CPD November 03, 2023 [facility]CPD November 02, 2023 [facility]D November 01, 2023 CCPD October 31, 2023 CCPD October 30, 2023 CCPD October 29, 2023 [facility]CPD October 28, 2023 [facility]CPD October 27, 2023 [facility]CPD October 26, 2023 [facility]D October 25, 2023 [facility] BP Sitting (Pre-Dialysis) 112/87 mmHg Sitting Heart Rate Pre-Dialysis 96 BPM Temperature Pre-Dialysis 98.8 degF Weight Pre-Dialysis 24.6 kg October 25, 2023 [facility]CPD October 24, 2023 [facility]D October 23, 2023 [facility]D October 22, 2023 [facility]D October 21, 2023 [facility]D October 20, 2023 [facility]D October 19, 2023 [facility]D October 18, 2023 CCPD 2023 CCPD October 16, 2023 C[facility]D October 15, 2023 [facility]D October 14, 2023 [facility]D October 13, 2023 [facility]D October 12, 2023 [facility]D October 11, 2023 [facility]CPD October 10, 2023 [facility]D October 09, 2023 [facility]CPD October 08, 2023 [facility]D October 07, 2023 [facility]D October 06, 2023 [facility]CPD October 05, 2023 [facility]CPD October 04, 2023 [facility] BP Sitting (Pre-Dialysis) 142/99 mmHg Sitting Heart Rate Pre-Dialysis 88 BPM Temperature Pre-Dialysis 97.3 degF Weight Pre-Dialysis 27.7 kg October 04, 2023 [facility]D October 03, 2023 [facility]D October 02, 2023 [facility]D October 01, 2023 CCPD September 30, 2023 [facility]D September 29, 2023 [facility]D September 28, 2023 [facility]D September 27, 2023 [facility]D September 26, 2023 [facility]D September 25, 2023 [facility]D September 24, 2023 [facility]CPD September 23, 2023 [facility] BP Sitting (Pre-Dialysis) 135/62 mmHg Sitting Heart Rate Pre-Dialysis 82 BPM Temperature Pre-Dialysis 97.7 degF Weight Pre-Dialysis 28 kg September 23, 2023 [facility]D September 22, 2023 [facility]D September 21, 2023 [facility]D September 20, 2023 [facility]D September 19, 2023 [facility]D September 18, 2023 [facility]D September 17, 2023 [facility]D September 16, 2023 [facility]D September 15, 2023 [facility]D September 14, 2023 [facility] BP Sitting (Pre-Dialysis) 94/61 mmHg Sitting Heart Rate Pre-Dialysis 76 BPM Temperature Pre-Dialysis 97.8 degF Weight Pre-Dialysis 27.4 kg September 14, 2023 [facility]D September 13, 2023 [facility]D September 12, 2023 [facility]D September 11, 2023 [facility]D September 10, 2023 [facility]D September 09, 2023 [facility]D September 08, 2023 [facility]CPD September 07, 2023 [facility] BP Sitting (Pre-Dialysis) 125/88 mmHg Sitting Heart Rate Pre-Dialysis 90 BPM Temperature Pre-Dialysis 98.5 degF Weight Pre-Dialysis 28.6 kg September 07, 2023 [facility]D September 06, 2023 [facility]D September 05, 2023 [facility] September 04, 2023 [facility]D September 03, 2023 [facility] September 02, 2023 [facility]D September 01, 2023 [facility]D August 31, 2023 [facility] BP Sitting (Pre-Dialysis) 112/88 mmHg Sitting Heart Rate Pre-Dialysis 91 BPM Temperature Pre-Dialysis 98.7 degF Weight Pre-Dialysis 28.6 kg August 31, 2023 [facility]D August 30, 2023 [facility]D August 29, 2023 [facility]D August 28, 2023 CCPD August 27, 2023 CCPD August 26, 2023 C[facility]D August 25, 2023 CCPD August 24, 2023 CCPD August 24, 2023 CCPD August 23, 2023 CCPD August 22, 2023 CCPD August 21, 2023 CCPD August 20, 2023 CCPD August 19, 2023 C[facility]D August 18, 2023 C[facility]D August 17, 2023 C[facility]D August 16, 2023 CCPD August 15, 2023 CCPD August 14, 2023 CCPD August 13, 2023 CCPD August 11, 2023 CCPD August 10, 2023 CCPD August 09, 2023 CCPD August 08, 2023 CCPD August 07, 2023 CCPD August 06, 2023 CCPD August 05, 2023 [facility]D August 04, 2023 [facility]CPD August 03, 2023 [facility] BP Sitting (Pre-Dialysis) 108/51 mmHg Sitting Heart Rate Pre-Dialysis 52 BPM Temperature Pre-Dialysis 98.5 degF Weight Pre-Dialysis 28.5 kg August 03, 2023 [facility] August 02, 2023 [facility]D August 01, 2023 [facility]D July 31, 2023 CCPD July 30, 2023 CCPD July 29, 2023 CCPD July 28, 2023 CCPD July 27, 2023 CCPD July 26, 2023 CCPD July 25, 2023 CCPD July 24, 2023 C[facility]D July 23, 2023 CCPD July 22, 2023 CCPD July 21, 2023 CCPD July 20, 2023 [facility] BP Sitting (Pre-Dialysis) 138/93 mmHg Sitting Heart Rate Pre-Dialysis 82 BPM Temperature Pre-Dialysis 98.8 degF Weight Pre-Dialysis 27.3 kg July 20, 2023 [facility]CPD July 19, 2023 [facility] July 18, 2023 [facility]D July 17, 2023 [facility]D July 16, 2023 [facility]CPD July 15, 2023 [facility]D July 14, 2023 [facility]D July 13, 2023 [facility] BP Sitting (Pre-Dialysis) 140/101 mmHg Sitting Heart Rate Pre-Dialysis 91 BPM Temperature Pre-Dialysis 99.2 degF Weight Pre-Dialysis 28.5 kg July 13, 2023 [facility]CPD July 12, 2023 [facility]D July 11, 2023 CCPD July 10, 2023 CCPD July 09, 2023 CCPD July 08, 2023 CCPD July 06, 2023 CCPD July 05, 2023 CCPD July 04, 2023 CCPD July 03, 2023 CCPD July 02, 2023 CCPD July 01, 2023 CCPD June 30, 2023 CCPD June 29, 2023 CCPD June 28, 2023 CCPD June 27, 2023 CCPD June 26, 2023 CCPD June 25, 2023 CCPD June 24, 2023 CCPD June 23, 2023 CCPD June 22, 2023 [facility]D BP Sitting (Pre-Dialysis) 128/97 mmHg Sitting Heart Rate Pre-Dialysis 89 BPM Temperature Pre-Dialysis 99.3 degF Weight Pre-Dialysis 28.5 kg June 22, 2023 [facility]CPD June 21, 2023 CCPD June 20, 2023 CCPD June 19, 2023 CCPD June 18, 2023 CCPD June 17, 2023 CCPD June 16, 2023 CCPD June 15, 2023 CCPD June 14, 2023 CCPD June 13, 2023 CCPD June 12, 2023 CCPD June 11, 2023 CCPD June 10, 2023 CCPD June 09, 2023 CCPD June 08, 2023 CCPD June 07, 2023 CCPD June 06, 2023 CCPD June 05, 2023 CCPD June 04, 2023 CCPD June 03, 2023 CCPD June 02, 2023 CCPD June 01, 2023 [facility]D BP Sitting (Pre-Dialysis) 132/95 mmHg Sitting Heart Rate Pre-Dialysis 103 BPM Temperature Pre-Dialysis 98.5 degF Weight Pre-Dialysis 26.3 kg June 01, 2023 [facility]CPD May 31, 2023 CCPD May 30, 2023 CCPD May 29, 2023 CCPD May 28, 2023 CCPD May 27, 2023 CCPD May 26, 2023 CCPD May 25, 2023 CCPD May 24, 2023 CCPD May 23, 2023 CCPD May 22, 2023 CCPD May 21, 2023 CCPD May 20, 2023 CCPD May 19, 2023 CCPD May 18, 2023 CCPD May 17, 2023 CCPD May 16, 2023 CCPD May 15, 2023 CCPD May 14, 2023 CCPD May 13, 2023 CCPD May 12, 2023 CCPD May 11, 2023 CCPD May 10, 2023 CCPD May 09, 2023 CCPD May 08, 2023 CCPD May 07, 2023 CCPD May 06, 2023 CCPD May 05, 2023 CCPD May 04, 2023 CCPD May 03, 2023 CCP BP Sitting (Pre-Dialysis) 122/94 mmHg Sitting Heart Rate Pre-Dialysis 80 BPM Temperature Pre-Dialysis 97.9 degF Weight Pre-Dialysis 28.6 kg May 03, 2023 [facility]CPD May 02, 2023 CCPD May 01, 2023 CCPD April 30, 2023 CCPD April 29, 2023 CCPD April 28, 2023 CCPD April 27, 2023 CCPD April 26, 2023 CCPD April 25, 2023 CCPD April 24, 2023 CCPD April 23, 2023 CCPD April 22, 2023 CCPD April 21, 2023 CCPD April 20, 2023 CCPD April 19, 2023 CCPD April 18, 2023 CCPD April 17, 2023 CCPD April 16, 2023 CCPD April 15, 2023 CCPD April 14, 2023 CCPD April 13, 2023 [facility]D BP Sitting (Pre-Dialysis) 126/95 mmHg Sitting Heart Rate Pre-Dialysis 75 BPM Temperature Pre-Dialysis 97.5 degF Weight Pre-Dialysis 28 kg April 13, 2023 CCPD April 12, 2023 [facility]D April 11, 2023 CCPD April 10, 2023 CCPD April 09, 2023 CCPD April 08, 2023 CCPD April 07, 2023 CCPD April 06, 2023 CCPD April 05, 2023 CCPD April 04, 2023 [facility] BP Sitting (Pre-Dialysis) 133/86 mmHg Sitting Heart Rate Pre-Dialysis 73 BPM Temperature Pre-Dialysis 98.7 degF Weight Pre-Dialysis 28.4 kg April 04, 2023 [facility]D April 03, 2023 [facility]D April 02, 2023 CCPD April 01, 2023 CCPD March 31, 2023 CCPD March 30, 2023 CCPD March 29, 2023 CCPD March 28, 2023 CCPD March 27, 2023 CCPD March 26, 2023 CCPD March 25, 2023 CCPD March 24, 2023 CCPD March 23, 2023 CCPD March 22, 2023 CCPD March 21, 2023 CCPD March 19, 2023 CCPD March 18, 2023 CCPD March 17, 2023 C[facility]D March 16, 2023 CCPD March 15, 2023 CCPD March 14, 2023 CCPD March 13, 2023 CCPD March 12, 2023 C[facility]D March 11, 2023 CCPD March 09, 2023 C[facility]D March 08, 2023 CCPD March 07, 2023 [facility]D BP Sitting (Pre-Dialysis) 139/99 mmHg Sitting Heart Rate Pre-Dialysis 89 BPM Temperature Pre-Dialysis 98.1 degF Weight Pre-Dialysis 28.9 kg March 07, 2023 [facility]CPD March 04, 2023 [facility]CPD March 03, 2023 CCPD March 02, 2023 CCPD March 01, 2023 C[facility]D February 28, 2023 C[facility]D February 27, 2023 C[facility]D February 26, 2023 CCPD February 25, 2023 CCPD February 24, 2023 CCPD February 23, 2023 C[facility]D February 22, 2023 [facility]D February 21, 2023 [facility] BP Sitting (Pre-Dialysis) 136/92 mmHg Sitting Heart Rate Pre-Dialysis 88 BPM Temperature Pre-Dialysis 99.1 degF Weight Pre-Dialysis 29.4 kg February 21, 2023 [facility]D February 20, 2023 [facility]D February 19, 2023 [facility]D February 18, 2023 [facility]D February 17, 2023 CCPD February 16, 2023 C[facility]D February 15, 2023 C[facility]D February 14, 2023 C[facility]D February 13, 2023 [facility]D February 12, 2023 [facility]D February 11, 2023 [facility] BP Sitting (Pre-Dialysis) 135/89 mmHg Sitting Heart Rate Pre-Dialysis 95 BPM Temperature Pre-Dialysis 97.8 degF Weight Pre-Dialysis 28.9 kg February 11, 2023 [facility]D February 10, 2023 [facility]D February 09, 2023 [facility]CPD February 08, 2023 [facility]CPD February 07, 2023 CCPD February 06, 2023 CCPD February 05, 2023 CCPD February 04, 2023 [facility]D BP Sitting (Pre-Dialysis) 141/90 mmHg Sitting Heart Rate Pre-Dialysis 94 BPM Temperature Pre-Dialysis 98.5 degF Weight Pre-Dialysis 28.7 kg February 04, 2023 [facility]CPD February 03, 2023 [facility]D February 02, 2023 [facility]CPD February 01, 2023 CCPD January 31, 2023 CCPD January 30, 2023 CCPD January 29, 2023 CCPD January 27, 2023 CCPD January 26, 2023 [facility]D January 25, 2023 CCPD January 24, 2023 [facility]D BP Sitting (Pre-Dialysis) 145/86 mmHg Sitting Heart Rate Pre-Dialysis 95 BPM Temperature Pre-Dialysis 97.7 degF Weight Pre-Dialysis 28.9 kg January 24, 2023 [facility] January 22, 2023 [facility]D January 20, 2023 CCPD January 19, 2023 CCPD January 18, 2023 CCPD January 17, 2023 CCPD January 16, 2023 CCPD January 15, 2023 CCPD January 14, 2023 CCPD January 13, 2023 CCPD January 12, 2023 [facility]CPD January 11, 2023 CCPD January 10, 2023 [facility]D BP Sitting (Pre-Dialysis) 148/104 mmHg Sitting Heart Rate Pre-Dialysis 85 BPM Temperature Pre-Dialysis 98.9 degF Weight Pre-Dialysis 29 kg January 10, 2023 [facility]CPD January 08, 2023 [facility]D January 07, 2023 CCPD January 05, 2023 CCPD January 04, 2023 CCPD January 03, 2023 CCPD January 02, 2023 CCPD January 01, 2023 CCPD December 31, 2022 CCPD December 30, 2022 CCPD December 29, 2022 CCPD December 28, 2022 CCPD December 27, 2022 CCPD December 26, 2022 [facility]CPD December 25, 2022 [facility]CPD December 24, 2022 [facility]CPD December 23, 2022 [facility]CPD December 22, 2022 [facility]D December 21, 2022 [facility]CPD December 20, 2022 [facility]D BP Sitting (Pre-Dialysis) 136/95 mmH g Sitting Heart Rate Pre-Dialysis 95 BPM Temperature Pre-Dialysis 98.1 degF Weight Pre-Dialysis 28.1 kg December 20, 2022 [facility]CPD December 19, 2022 [facility]D December 18, 2022 [facility]CPD December 17, 2022 CCPD December 16, 2022 CCPD December 15, 2022 CCPD December 14, 2022 CCPD December 13, 2022 CCPD December 12, 2022 CCPD December 11, 2022 CCPD December 10, 2022 CCPD December 09, 2022 CCPD December 08, 2022 CCPD December 07, 2022 CCPD December 06, 2022 [facility]D BP Sitting (Pre-Dialysis) 152/94 mmH g Sitting Heart Rate Pre-Dialysis 96 BPM Temperature Pre-Dialysis 98.9 degF Weight Pre-Dialysis 28 kg December 06, 2022 [facility]CPD December 05, 2022 [facility]CPD December 04, 2022 CCPD December 03, 2022 CCPD December 02, 2022 CCPD December 01, 2022 CCPD November 30, 2022 CCPD November 29, 2022 CCPD November 28, 2022 CCPD November 27, 2022 CCPD November 26, 2022 C[facility]D November 25, 2022 CCPD November 24, 2022 [facility]CPD November 23, 2022 CCPD November 22, 2022 [facility]CPD BP Sitting (Pre-Dialysis) 136/85 mmHg Sitting Heart Rate Pre-Dialysis 84 BPM Temperature Pre-Dialysis 97.5 degF Weight Pre-Dialysis 28.6 kg November 22, 2022 [facility]CPD November 21, 2022 CCPD November 20, 2022 CCPD November 19, 2022 CCPD November 18, 2022 CCPD November 17, 2022 CCPD November 16, 2022 CCPD November 15, 2022 CCPD November 14, 2022 CCPD November 13, 2022 CCPD November 12, 2022 CCPD November 11, 2022 CCPD November 10, 2022 CCPD November 09, 2022 CCPD November 08, 2022 [facility]CPD BP Sitting (Pre-Dialysis) 138/100 mmHg Sitting Heart Rate Pre-Dialysis 84 BPM Temperature Pre-Dialysis 97.3 degF Weight Pre-Dialysis 28.6 kg November 08, 2022 CCPD November 07, 2022 CCPD November 06, 2022 CCPD November 05, 2022 CCPD November 04, 2022 CCPD November 03, 2022 CCPD November 02, 2022 CCPD November 01, 2022 CCPD October 31, 2022 CCPD October 30, 2022 CCPD October 29, 2022 [facility] October 28, 2022 [facility] October 27, 2022 [facility] October 26, 2022 [facility] October 25, 2022 [facility] BP Sitting (Pre-Dialysis) 155/99 mmHg Sitting Heart Rate Pre-Dialysis 90 BPM Temperature Pre-Dialysis 97 degF Weight Pre-Dialysis 28.5 kg October 25, 2022 [facility] October 24, 2022 [facility] October 23, 2022 [facility] October 22, 2022 [facility] October 21, 2022 [facility] October 20, 2022 [facility] October 19, 2022 [facility] October 18, 2022 [facility] 2022 [facility] October 16, 2022 [facility] October 15, 2022 [facility] October 14, 2022 [facility] October 13, 2022 [facility] October 12, 2022 [facility] October 11, 2022 [facility] October 10, 2022 [facility] October 09, 2022 [facility] October 08, 2022 [facility] BP Sitting (Pre-Dialysis) 102/81 mmHg Sitting Heart Rate Pre-Dialysis 89 BPM Temperature Pre-Dialysis 98.9 degF Weight Pre-Dialysis 28.6 kg October 08, 2022 [facility] October 07, 2022 [facility] October 06, 2022 [facility] October 05, 2022 [facility] October 04, 2022 [facility] October 03, 2022 [facility] October 02, 2022 [facility] October 01, 2022 [facility] September 29, 2022 [facility] September 27, 2022 [facility] September 26, 2022 [facility] September 24, 2022 [facility] September 22, 2022 [facility] September 21, 2022 [facility] September 20, 2022 [facility] BP Sitting (Pre-Dialysis) 144/93 mmHg Sitting Heart Rate Pre-Dialysis 88 BPM Temperature Pre-Dialysis 97.8 degF Weight Pre-Dialysis 28.4 kg September 20, 2022 [facility] September 19, 2022 [facility] September 18, 2022 [facility] September 17, 2022 [facility] September 16, 2022 [facility] September 15, 2022 [facility] September 14, 2022 [facility] September 13, 2022 [facility] September 12, 2022 [facility] September 11, 2022 [facility] September 10, 2022 [facility] September 09, 2022 [facility] September 08, 2022 [facility] September 07, 2022 [facility] September 06, 2022 [facility] BP Sitting (Pre-Dialysis) 118/87 mmHg Sitting Heart Rate Pre-Dialysis 79 BPM Temperature Pre-Dialysis 97.9 degF Weight Pre-Dialysis 28.3 kg September 06, 2022 [facility] September 05, 2022 [facility] September 04, 2022 [facility] September 03, 2022 [facility] September 02, 2022 [facility] September 01, 2022 [facility] August 31, 2022 [facility] August 30, 2022 [facility] August 29, 2022 [facility] August 28, 2022 [facility] August 27, 2022 [facility] August 26, 2022 [facility] August 25, 2022 [facility] August 24, 2022 [facility] August 23, 2022 [facility] August 22, 2022 [facility] August 21, 2022 [facility] August 20, 2022 [facility] August 19, 2022 [facility] August 18, 2022 [facility] August 17, 2022 [facility] August 16, 2022 [facility] August 15, 2022 [facility] August 14, 2022 [facility] August 13, 2022 [facility] August 12, 2022 [facility] August 11, 2022 [facility] August 10, 2022 [facility] August 09, 2022 [facility] August 08, 2022 [facility] August 07, 2022 [facility] August 06, 2022 [facility] August 05, 2022 [facility] August 04, 2022 [facility] August 03, 2022 [facility] August 02, 2022 [facility] BP Sitting (Pre-Dialysis) 129/95 mmHg Sitting Heart Rate Pre-Dialysis 86 BPM Temperature Pre-Dialysis 97.2 degF Weight Pre-Dialysis 27.5 kg August 02, 2022 [facility] August 01, 2022 [facility] July 31, 2022 [facility] July 30, 2022 [facility] July 29, 2022 [facility] July 28, 2022 [facility] July 27, 2022 [facility] July 26, 2022 [facility] July 25, 2022 [facility] July 24, 2022 [facility] July 23, 2022 [facility] July 22, 2022 [facility] July 21, 2022 [facility] July 20, 2022 [facility] July 19, 2022 [facility] BP Sitting (Pre-Dialysis) 128/99 mmHg Sitting Heart Rate Pre-Dialysis 86 BPM Temperature Pre-Dialysis 98.1 degF Weight Pre-Dialysis 27 kg July 19, 2022 [facility] July 18, 2022 [facility] July 17, 2022 [facility] July 16, 2022 [facility] July 15, 2022 [facility] July 14, 2022 [facility] July 13, 2022 [facility] July 12, 2022 [facility] July 11, 2022 [facility] July 10, 2022 [facility] July 09, 2022 [facility] BP Sitting (Pre-Dialysis) 123/87 mmHg Sitting Heart Rate Pre-Dialysis 85 BPM Temperature Pre-Dialysis 97.2 degF Weight Pre-Dialysis 26.5 kg July 09, 2022 [facility] July 08, 2022 [facility] July 07, 2022 [facility] July 06, 2022 [facility] July 05, 2022 [facility] July 04, 2022 [facility] July 03, 2022 [facility] July 02, 2022 [facility] July 01, 2022 [facility] June 30, 2022 [facility] June 29, 2022 [facility] June 28, 2022 [facility] June 27, 2022 [facility] June 26, 2022 [facility] June 25, 2022 [facility] June 24, 2022 [facility] BP Sitting (Pre-Dialysis) 106/81 mmHg Sitting Heart Rate Pre-Dialysis 89 BPM Temperature Pre-Dialysis 98 degF Weight Pre-Dialysis 28.7 kg June 24, 2022 [facility] June 23, 2022 [facility] June 22, 2022 [facility] June 21, 2022 [facility] June 20, 2022 [facility] June 19, 2022 [facility] June 18, 2022 [facility] June 17, 2022 [facility] June 16, 2022 [facility] June 15, 2022 [facility] June 14, 2022 [facility] June 13, 2022 [facility] June 12, 2022 [facility] June 11, 2022 [facility] BP Sitting (Pre-Dialysis) 129/100 mmHg Sitting Heart Rate Pre-Dialysis 98 BPM Temperature Pre-Dialysis 99.1 degF Weight Pre-Dialysis 28.3 kg June 11, 2022 [facility] June 10, 2022 [facility] June 09, 2022 [facility] June 08, 2022 [facility] June 07, 2022 [facility] June 06, 2022 [facility] June 05, 2022 [facility] June 04, 2022 [facility] June 03, 2022 [facility] June 02, 2022 [facility] June 01, 2022 [facility] May 31, 2022 [facility] May 30, 2022 [facility] May 29, 2022 [facility] May 28, 2022 [facility] May 27, 2022 [facility] May 26, 2022 [facility] May 25, 2022 [facility] May 24, 2022 [facility] BP Sitting (Pre-Dialysis) 135/78 mmHg Sitting Heart Rate Pre-Dialysis 85 BPM Temperature Pre-Dialysis 97.8 degF Weight Pre-Dialysis 28.4 kg May 24, 2022 [facility] May 23, 2022 [facility] May 22, 2022 [facility] May 21, 2022 [facility] May 20, 2022 [facility] May 19, 2022 [facility] May 18, 2022 [facility] May 17, 2022 [facility] BP Sitting (Pre-Dialysis) 135/87 mmHg Sitting Heart Rate Pre-Dialysis 73 BPM Temperature Pre-Dialysis 97.5 degF Weight Pre-Dialysis 28.6 kg May 17, 2022 [facility] May 16, 2022 [facility] May 15, 2022 [facility] May 14, 2022 [facility] May 13, 2022 [facility] May 12, 2022 [facility] May 11, 2022 [facility] BP Sitting (Pre-Dialysis) 142/85 mmHg Sitting Heart Rate Pre-Dialysis 70 BPM Temperature Pre-Dialysis 98.5 degF Weight Pre-Dialysis 28.7 kg May 11, 2022 [facility] May 10, 2022 [facility] BP Sitting (Pre-Dialysis) 147/98 mmHg Sitting Heart Rate Pre-Dialysis 72 BPM Temperature Pre-Dialysis 99.1 degF Weight Pre-Dialysis 28.7 kg May 10, 2022 [facility] May 09, 2022 [facility] May 07, 2022 [facility] May 06, 2022 [facility] May 05, 2022 [facility] May 04, 2022 [facility] May 03, 2022 [facility] May 02, 2022 [facility] May 01, 2022 [facility] April 30, 2022 [facility] April 29, 2022 [facility] April 28, 2022 [facility] April 27, 2022 [facility] April 26, 2022 [facility] BP Sitting (Pre-Dialysis) 140/85 mmHg Sitting Heart Rate Pre-Dialysis 87 BPM Temperature Pre-Dialysis 98.7 degF Weight Pre-Dialysis 29 kg April 26, 2022 [facility] April 25, 2022 [facility] April 24, 2022 [facility] April 23, 2022 [facility] April 22, 2022 [facility] April 20, 2022 [facility] April 19, 2022 [facility] April 18, 2022 [facility] April 17, 2022 [facility] April 16, 2022 [facility] April 15, 2022 [facility] April 14, 2022 [facility] BP Sitting (Pre-Dialysis) 123/89 mmHg Sitting Heart Rate Pre-Dialysis 90 BPM Temperature Pre-Dialysis 98.8 degF Weight Pre-Dialysis 28.4 kg April 14, 2022 [facility] April 13, 2022 [facility] April 12, 2022 [facility] April 11, 2022 [facility] April 10, 2022 [facility] April 09, 2022 [facility] April 08, 2022 [facility] April 07, 2022 [facility] April 06, 2022 [facility] April 05, 2022 [facility] April 04, 2022 [facility] April 03, 2022 [facility] April 02, 2022 [facility] April 01, 2022 [facility] March 31, 2022 [facility] March 30, 2022 [facility] March 29, 2022 [facility] March 28, 2022 [facility] March 27, 2022 [facility] March 26, 2022 [facility] March 25, 2022 [facility] BP Sitting (Pre-Dialysis) 128/88 mmHg Sitting Heart Rate Pre-Dialysis 71 BPM Temperature Pre-Dialysis 97.8 degF Weight Pre-Dialysis 28.7 kg March 25, 2022 [facility] March 24, 2022 [facility] March 23, 2022 [facility] March 22, 2022 [facility] March 21, 2022 [facility] March 20, 2022 [facility] March 19, 2022 [facility] March 18, 2022 [facility] March 17, 2022 [facility] March 16, 2022 [facility] March 15, 2022 [facility] March 14, 2022 [facility] March 13, 2022 [facility] March 12, 2022 [facility] March 11, 2022 [facility] March 10, 2022 [facility] March 09, 2022 [facility] BP Sitting (Pre-Dialysis) 141/100 mmH g Sitting Heart Rate Pre-Dialysis 83 BPM Temperature Pre-Dialysis 97.8 degF Weight Pre-Dialysis 29 kg March 09, 2022 [facility] March 08, 2022 [facility] March 07, 2022 [facility] DIALYSIS ORDER Dialysis Procedure Orders Type of Dialysis Procedure Order Order Date/Time Observations [facility], 2024 Target Weight 26 kg Ordered Access Type Peritoneal dialysis catheter Vendor Sharp Total Fill Volume per 24 Hour 8000 mL Target Cycler Total Time 8hr Treatment Location Display At Patient's Home Target Weight with Prescribed Day Fill N o Training Element No Training Incremental Increase Flag No Day Exchange Delivery Method No Day Exch jose martin Overnight Exchange Delivery Method Cycle r Overnight Exchange Number of Exchanges 5 Overnight Exchange Calcium 2.5 mEq/L Overnight Exchange Magnesium 0.5 mEq/L Overnight Exchange Target Dwell TimeOver night Exchange Info 1 hr 30 Min Fill Number: 1 pd_solution_strength_code_id Varied-See Instruction(s) fill_instruction varied per fluid sta tus Fill Number: 2 fill_volume pd_solution_strength_code_id Varied-See Instruction(s) fill_instruction varied per fluid sta tus Fill Number: 3 fill_volume pd_solution_strength_code_id Varied-See Instruction(s) fill_instruction varied per fluid sta tus Fill Number: 4 fill_volume pd_solution_strength_code_id Varied-See Instruction(s) fill_instruction varied per fluid sta tus Fill Number: 5 fill_volume pd_solution_strength_code_id Varied-See Instruction(s) fill_instruction varied per fluid sta tus Results Adequacy Description Draw Date Result/Unit Status Ref Range Result Comments PCR PD FEMALE 2024-08-02 05:18:34 31 g/day F NPCR PD FEMALE 2024-08-02 05:18:34 1.04 G/KG/D F Urea Gen Rate 2024-08-02 05:18:34 5.9 GM/D F KT/V TOTAL (F) 2024-08-02 05:18:34 2.01 Kt/V F L/WK/1.73 TOTAL 2024-08-02 05:18:34 54.05 L/WK/B F PNA (PD) 2024-08-02 05:18:34 45.3 g/day F NPNA-PD FEMALE 2024-08-02 05:18:34 1.52 G/KG/D F KT/V PDF (F) 2024-08-02 05:18:34 2.01 Kt/V F L/WK PDF CC 2024-08-02 05:18:34 29.16 L/wk F L/WK/1.73 PDF 2024-08-02 05:18:34 54.05 L/WK/B F Urea nitrogen [Mass/volume] in Peritoneal fluid --24 hours post peritoneal dialysis 2024-08-02 03:33:26 52 mg/dL F Creatinine [Mass/volume] in Peritoneal dialysis fluid 2024-08-02 03:33:26 2.96 mg/dL F L/WK/1.73 RESID 2024-08-01 21:02:32 0 L/WK/B F UREA CLR UR 2024-08-01 21:02:32 0 mL/min F KT/V RESID (F) 2024-08-01 21:02:32 0 Kt/V F L/WK RESID CC 2024-08-01 21:02:32 0 L/wk F BUN/CREAT 2024-08-01 21:02:32 14.7 Calc F 8.2-46.0 UREA CLR UR/BSA 2024-08-01 21:02:32 0 mL/min F 64.0-99.0 CRE CLR UR/BSA 2024-08-01 21:02:32 0 mL/min F 75.0-115.0 CRE CLR UR 2024-08-01 21:02:32 0 mL/min F 88.0-128.0 Creatinine [Mass/volume] in Serum or Plasma 2024-08-01 21:01:24 5.45 mg/dL F 0.5-1.1 Urea nitrogen [Mass/volume] in Serum or Plasma 2024-08-01 21:01:24 80 mg/dL F 9.0-23.0 TBW GATES FEML 2024-08-01 19:26:04 17.35 Liters F BSA BRITTANY 2024-08-01 19:26:04 0.93 sq m F BODY WEIGHT (LBS) 2024-07-31 19:11:18 57.2 lbs F MINIMUM GOAL: KT/V PD 2024-07-31 19:11:18 1.7 F HEIGHT IN INCHES 2024-07-31 19:11:18 48 Inches F AMPUTATE FACTOR 2024-07-31 19:11:18 0 F COLLECTION TIME FOR URINE 2024-07-31 19:11:17 1440 min F TOTAL VOLUME-24 HR URINE 2024-07-31 19:11:17 0 mL F Total Volume of EFFL/DIAL 2024-07-31 19:11:17 7671 mLs F BUN/CREAT 2024-03-31 20:47:25 10.1 Calc F 8.2-46.0 Creatinine [Mass/volume] in Serum or Plasma 2024-03-31 20:34:16 6.85 mg/dL F 0.5-1.1 Urea nitrogen [Mass/volume] in Serum or Plasma 2024-03-31 20:34:16 69 mg/dL F 9.0-23.0 BUN/CREAT 2023-04-15 03:35:32 8.8 Calc F 8.2-46.0 Creatinine [Mass/volume] in Serum or Plasma 2023-04-15 03:35:22 7.93 mg/dL F 0.5-1.1 Urea nitrogen [Mass/volume] in Serum or Plasma 2023-04-15 03:35:22 70 mg/dL F 9.0-23.0 BUN/CREAT 2023-04-09 03:06:21 9.4 Calc F 8.2-46.0 Creatinine [Mass/volume] in Serum or Plasma 2023-04-09 03:05:10 6.91 mg/dL F 0.5-1.1 Urea nitrogen [Mass/volume] in Serum or Plasma 2023-04-09 03:05:10 65 mg/dL F 9.0-23.0 BUN/CREAT 2022-09-07 21:34:38 10.9 Calc F 8.2-46.0 Creatinine [Mass/volume] in Serum or Plasma 2022-09-07 21:34:11 8.13 mg/dL F 0.5-1.1 Urea nitrogen [Mass/volume] in Serum or Plasma 2022-09-07 21:34:11 89 mg/dL F 9.0-23.0 BUN/CREAT 2022-06-13 00:28:09 8.6 Calc F 8.2-46.0 Creatinine [Mass/volume] in Serum or Plasma 2022-06-13 00:27:14 7.12 mg/dL F 0.5-1.1 Urea nitrogen [Mass/volume] in Serum or Plasma 2022-06-13 00:27:14 61 mg/dL F 9.0-23.0 BUN/CREAT Urea nitrogen [Mass/volume] in Serum or Plasma Creatinine [Mass/volume] in Serum or Plasma Anemia Description Draw Date Result/Unit Status Ref Range Result Comments HCT CALC HGBX3 2024-09-05 17:26:11 21.3 % F 37.0-47.0 Hematocrit [Volume Fraction] of Blood by Automated count 2024-09-05 17:25:08 22.2 % F 37.0-47.0 MCH [Entitic mass] by Automated count 2024-09-05 17:25:08 29.2 pg F 25.9-34.2 Erythrocyte distribution width [Ratio] by Automated count 2024-09-05 17:25:08 13.9 % F 11.0-15.0 Reticulocytes/100 erythrocytes in Blood by Automated count 2024-09-05 17:25:08 2.66 % F 0.7-2.5 Hemoglobin [Mass/volume] in Blood 2024-09-05 17:25:08 7.1 g/dL F 12.0-16.0 MCV [Entitic volume] by Automated count 2024-09-05 17:25:08 91.3 fL F 80.0-100.0 MCHC [Mass/volume] by Automated count 2024-09-05 17:25:08 32 g/dL F 29.6-35.3 Erythrocytes [#/volume] in Blood by Automated count 2024-09-05 17:25:08 2.43 x 10^6 cells/uL F 3.85-5.2 Platelets [#/volume] in Blood by Automated count 2024-09-05 17:25:08 379 x 10^3 cells/uL F 140.0-450.0 IRON SATURATION 2024-08-02 01:10:49 31 % F 16.0-46.0 TIBC 2024-08-02 01:10:49 242 ug/dL F 250.0-425.0 Iron [Mass/volume] in Serum or Plasma 2024-08-01 23:37:46 74 ug/dL F 50.0-170.0 Iron binding capacity.unsaturated [Mass/volume] in Serum or Plasma 2024-08-01 23:37:46 168 ug/dL F 80.0-375.0 Ferritin [Mass/volume] in Serum or Plasma 2024-08-01 22:07:03 F CANCELED - TEST CANCELED HCT CALC HGBX3 2024-08-01 20:09:31 24.9 % F 37.0-47.0 Reticulocytes/100 erythrocytes in Blood by Automated count 2024-08-01 20:08:11 1.68 % F 0.7-2.5 Hemoglobin [Mass/volume] in Blood 2024-08-01 20:08:11 8.3 g/dL F 12.0-16.0 Platelets [#/volume] in Blood by Automated count 2024-08-01 20:08:11 348 x 10^3 cells/uL F 140.0-450.0 Erythrocyte distribution width [Ratio] by Automated count 2024-08-01 20:08:11 13.3 % F 11.0-15.0 MCH [Entitic mass] by Automated count 2024-08-01 20:08:11 29.1 pg F 25.9-34.2 MCHC [Mass/volume] by Automated count 2024-08-01 20:08:11 32.4 g/dL F 29.6-35.3 Erythrocytes [#/volume] in Blood by Automated count 2024-08-01 20:08:11 2.86 x 10^6 cells/uL F 3.85-5.2 Hematocrit [Volume Fraction] of Blood by Automated count 2024-08-01 20:08:11 25.7 % F 37.0-47.0 MCV [Entitic volume] by Automated count 2024-08-01 20:08:11 89.6 fL F 80.0-100.0 Ferritin [Mass/volume] in Serum or Plasma 2024-04-01 07:51:10 453 ng/mL F 10.0-291.0 IRON SATURATION 2024-04-01 06:45:22 29 % F 16.0-46.0 TIBC 2024-04-01 06:45:22 213 ug/dL F 250.0-425.0 Iron [Mass/volume] in Serum or Plasma 2024-04-01 06:35:37 61 ug/dL F 50.0-170.0 Iron binding capacity.unsaturated [Mass/volume] in Serum or Plasma 2024-04-01 06:35:32 152 ug/dL F 80.0-375.0 HCT CALC HGBX3 2024-03-31 18:40:26 27.6 % F 37.0-47.0 Reticulocytes/100 erythrocytes in Blood by Automated count 2024-03-31 18:39:17 1.46 % F 0.7-2.5 Erythrocyte distribution width [Ratio] by Automated count 2024-03-31 18:39:17 13.9 % F 11.0-15.0 Hemoglobin [Mass/volume] in Blood 2024-03-31 18:39:17 9.2 g/dL F 12.0-16.0 Platelets [#/volume] in Blood by Automated count 2024-03-31 18:39:17 349 x 10^3 cells/uL F 140.0-450.0 MCH [Entitic mass] by Automated count 2024-03-31 18:39:17 29.6 pg F 25.9-34.2 MCHC [Mass/volume] by Automated count 2024-03-31 18:39:17 31.9 g/dL F 29.6-35.3 Hematocrit [Volume Fraction] of Blood by Automated count 2024-03-31 18:39:17 28.9 % F 37.0-47.0 Erythrocytes [#/volume] in Blood by Automated count 2024-03-31 18:39:17 3.11 x 10'6 cells/uL F 3.85-5.2 MCV [Entitic volume] by Automated count 2024-03-31 18:39:17 92.8 fL F 80.0-100.0 IRON SATURATION 2023-04-15 08:36:14 50 % F 16.0-46.0 TIBC 2023-04-15 08:36:14 251 ug/dL F 250.0-425.0 Iron binding capacity.unsaturated [Mass/volume] in Serum or Plasma 2023-04-15 08:33:00 125 ug/dL F 80.0-375.0 Ferritin [Mass/volume] in Serum or Plasma 2023-04-15 05:31:27 578 ng/mL F 10.0-291.0 Iron [Mass/volume] in Serum or Plasma 2023-04-15 05:29:12 126 ug/dL F 50.0-170.0 HCT CALC HGBX3 2023-04-14 21:35:09 28.5 % F 37.0-47.0 Reticulocytes/100 erythrocytes in Blood by Automated count 2023-04-14 21:34:34 5.23 % F 0.7-2.5 Hemoglobin [Mass/volume] in Blood 2023-04-14 21:34:34 9.5 g/dL F 12.0-16.0 Erythrocyte distribution width [Ratio] by Automated count 2023-04-14 21:34:34 15.1 % F 11.0-15.0 Platelets [#/volume] in Blood by Automated count 2023-04-14 21:34:34 346 x 10^3 cells/uL F 140.0-450.0 MCH [Entitic mass] by Automated count 2023-04-14 21:34:34 29.8 pg F 25.9-34.2 MCHC [Mass/volume] by Automated count 2023-04-14 21:34:34 33.5 g/dL F 29.6-35.3 Erythrocytes [#/volume] in Blood by Automated count 2023-04-14 21:34:34 3.18 x 10'6 cells/uL F 3.85-5.2 Hematocrit [Volume Fraction] of Blood by Automated count 2023-04-14 21:34:34 28.2 % F 37.0-47.0 MCV [Entitic volume] by Automated count 2023-04-14 21:34:34 88.9 fL F 80.0-100.0 HCT CALC HGBX3 2023-04-09 08:35:09 F RECOLLECT - OUTDATED SPECIMEN IRON SATURATION 2023-04-09 08:35:09 F RECOLLECT - OUTDATED SPECIMEN TIBC 2023-04-09 08:35:09 F RECOLLECT - OUTDATED SPECIMEN Hemoglobin [Mass/volume] in Blood 2023-04-09 08:13:38 F RECOLLECT - OUTDATED SPECIMEN MCH [Entitic mass] by Automated count 2023-04-09 08:13:38 F RECOLLECT - OUTDATED SPECIMEN Hematocrit [Volume Fraction] of Blood by Automated count 2023-04-09 08:13:38 F RECOLLECT - OUTDATED SPECIMEN Erythrocytes [#/volume] in Blood by Automated count 2023-04-09 08:13:38 F RECOLLECT - OUTDATED SPECIMEN Platelets [#/volume] in Blood by Automated count 2023-04-09 08:13:38 F RECOLLECT - OUTDATED SPECIMEN MCV [Entitic volume] by Automated count 2023-04-09 08:13:38 F RECOLLECT - OUTDATED SPECIMEN MCHC [Mass/volume] by Automated count 2023-04-09 08:13:38 F RECOLLECT - OUTDATED SPECIMEN Erythrocyte distribution width [Ratio] by Automated count 2023-04-09 08:13:38 F RECOLLECT - OUTDATED SPECIMEN Reticulocytes/100 erythrocytes in Blood by Automated count 2023-04-09 08:13:38 F RECOLLECT - OUTDATED SPECIMEN Ferritin [Mass/volume] in Serum or Plasma 2023-04-09 08:10:27 F RECOLLECT - OUTDATED SPECIMEN Iron [Mass/volume] in Serum or Plasma 2023-04-09 08:10:27 F RECOLLECT - OUTDATED SPECIMEN Iron binding capacity.unsaturated [Mass/volume] in Serum or Plasma 2023-04-09 08:10:27 F RECOLLECT - OUTDATED SPECIMEN IRON SATURATION 2022-09-08 02:04:21 27 % F 16.0-46.0 TIBC 2022-09-08 02:04:21 259 ug/dL F 250.0-425.0 Iron [Mass/volume] in Serum or Plasma 2022-09-08 02:04:00 70 ug/dL F 50.0-170.0 Iron binding capacity.unsaturated [Mass/volume] in Serum or Plasma 2022-09-08 02:04:00 189 ug/dL F 80.0-375.0 HCT CALC HGBX3 2022-09-07 22:33:06 30.6 % F 37.0-47.0 Reticulocytes/100 erythrocytes in Blood by Automated count 2022-09-07 22:32:09 1.19 % F 0.7-2.5 Erythrocyte distribution width [Ratio] by Automated count 2022-09-07 22:32:09 14.9 % F 11.0-15.0 Hemoglobin [Mass/volume] in Blood 2022-09-07 22:32:09 10.2 g/dL F 12.0-16.0 Platelets [#/volume] in Blood by Automated count 2022-09-07 22:32:09 434 x 10^3 cells/uL F 140.0-450.0 MCH [Entitic mass] by Automated count 2022-09-07 22:32:09 29.7 pg F 25.9-34.2 Erythrocytes [#/volume] in Blood by Automated count 2022-09-07 22:32:09 3.44 x 10'6 cells/uL F 3.85-5.2 MCHC [Mass/volume] by Automated count 2022-09-07 22:32:09 32.4 g/dL F 29.6-35.3 Hematocrit [Volume Fraction] of Blood by Automated count 2022-09-07 22:32:09 31.6 % F 37.0-47.0 MCV [Entitic volume] by Automated count 2022-09-07 22:32:09 91.9 fL F 80.0-100.0 Ferritin [Mass/volume] in Serum or Plasma 2022-09-07 21:55:14 634 ng/mL F 10.0-291.0 IRON SATURATION 2022-06-13 03:29:47 32 % F 16.0-46.0 TIBC 2022-06-13 03:29:47 221 ug/dL F 250.0-425.0 Iron binding capacity.unsaturated [Mass/volume] in Serum or Plasma 2022-06-13 03:20:25 150 ug/dL F 80.0-375.0 Iron [Mass/volume] in Serum or Plasma 2022-06-13 03:20:24 71 ug/dL F 50.0-170.0 HCT CALC HGBX3 2022-06-13 02:15:07 31.2 % F 37.0-47.0 Reticulocytes/100 erythrocytes in Blood by Automated count 2022-06-13 02:14:09 0.64 % F 0.8-2.1 Erythrocyte distribution width [Ratio] by Automated count 2022-06-13 02:14:09 15.6 % F 11.0-15.0 Hemoglobin [Mass/volume] in Blood 2022-06-13 02:14:09 10.4 g/dL F 12.0-16.0 MCH [Entitic mass] by Automated count 2022-06-13 02:14:09 31.2 pg F 27.0-31.0 MCHC [Mass/volume] by Automated count 2022-06-13 02:14:09 33.9 g/dL F 32.0-36.0 Hematocrit [Volume Fraction] of Blood by Automated count 2022-06-13 02:14:09 30.6 % F 37.0-47.0 Erythrocytes [#/volume] in Blood by Automated count 2022-06-13 02:14:09 3.34 x 10'6 cells/uL F 4.2-5.4 Platelets [#/volume] in Blood by Automated count 2022-06-13 02:14:09 292 x 10^3 cells/uL F 150.0-400.0 MCV [Entitic volume] by Automated count 2022-06-13 02:14:09 91.8 fL F 80.0-100.0 Ferritin [Mass/volume] in Serum or Plasma 2022-06-12 23:51:15 667 ng/mL F 10.0-291.0 Iron binding capacity.unsaturated [Mass/volume] in Serum or Plasma TIBC IRON SATURATION Iron [Mass/volume] in Serum or Plasma Ferritin [Mass/volume] in Serum or Plasma FluidBP Description Draw Date Result/Unit Status Ref Range Result Comments Sodium [Moles/volume] in Serum or Plasma 2024-08-01 23:37:46 141 mEq/L F 132.0-146.0 Sodium [Moles/volume] in Serum or Plasma 2024-04-01 06:35:23 140 mEq/L F 132.0-146.0 Sodium [Moles/volume] in Serum or Plasma 2023-04-15 05:29:12 141 mEq/L F 132.0-146.0 Sodium [Moles/volume] in Serum or Plasma 2023-04-09 08:10:27 F RECOLLECT - OUTDATED SPECIMEN Sodium [Moles/volume] in Serum or Plasma 2022-09-07 21:34:11 142 mEq/L F 132.0-146.0 Sodium [Moles/volume] in Serum or Plasma 2022-06-13 00:27:14 138 mEq/L F 132.0-146.0 Sodium [Moles/volume] in Serum or Plasma General Description Draw Date Result/Unit Status Ref Range Result Comments FIDEL PD 2024-08-02 05:18:34 4 g/day F Aspartate aminotransferase [Enzymatic activity/volume] in Serum or Plasma 2024-08-01 21:01:24 16 U/L F 0.0-33.0 Alanine aminotransferase [Enzymatic activity/volume] in Serum or Plasma 2024-08-01 21:01:24 13 U/L F 10.0-49.0 Aluminum [Mass/volume] in Serum or Plasma 2024-04-03 15:18:12 10 ug/L F 0.0-9.0 Aspartate aminotransferase [Enzymatic activity/volume] in Serum or Plasma 2024-03-31 20:34:16 11 U/L F 0.0-33.0 Aspartate aminotransferase [Enzymatic activity/volume] in Serum or Plasma 2023-04-15 03:35:22 16 U/L F 0.0-33.0 Aspartate aminotransferase [Enzymatic activity/volume] in Serum or Plasma 2023-04-09 03:05:47 F RECOLLECT - OUTDATED SPECIMEN Aluminum [Mass/volume] in Serum or Plasma 2023-04-08 20:27:27 10 ug/L F 0.0-9.0 Aspartate aminotransferase [Enzymatic activity/volume] in Serum or Plasma 2022-09-07 21:34:11 14 U/L F 0.0-33.0 Aspartate aminotransferase [Enzymatic activity/volume] in Serum or Plasma 2022-06-13 00:27:14 16 U/L F 0.0-33.0 Aspartate aminotransferase [Enzymatic activity/volume] in Serum or Plasma Alanine aminotransferase [Enzymatic activity/volume] in Serum or Plasma InfectionVaccination Description Draw Date Result/Unit Status Ref Range Result Comments Basophils/100 leukocytes in Blood by Automated count 2024-09-05 17:25:08 0.6 % F Lymphocytes/100 leukocytes in Blood by Automated count 2024-09-05 17:25:08 32.4 % F Eosinophils [#/volume] in Blood by Automated count 2024-09-05 17:25:08 242 Cells/uL F 0.0-700.0 Basophils [#/volume] in Blood by Automated count 2024-09-05 17:25:08 45 Cells/uL F 0.0-400.0 Eosinophils/100 leukocytes in Blood by Automated count 2024-09-05 17:25:08 3.2 % F Monocytes/100 leukocytes in Blood by Automated count 2024-09-05 17:25:08 3.2 % F Leukocytes [#/volume] in Blood by Automated count 2024-09-05 17:25:08 7.6 x 10^3 cells/uL F 4.0-11.0 Neutrophils/100 leukocytes in Blood by Automated count 2024-09-05 17:25:08 60.5 % F Neutrophils [#/volume] in Blood by Automated count 2024-09-05 17:25:08 4580 Cells/uL F 2000.0-8800. 0 Lymphocytes [#/volume] in Blood by Automated count 2024-09-05 17:25:08 2453 Cells/uL F 620.0-3660.0 Monocytes [#/volume] in Blood by Automated count 2024-09-05 17:25:08 242 Cells/uL F 0.0-1100.0 Basophils/100 leukocytes in Blood by Automated count 2024-08-01 20:08:11 0.3 % F Neutrophils/100 leukocytes in Blood by Automated count 2024-08-01 20:08:11 62.6 % F Eosinophils/100 leukocytes in Blood by Automated count 2024-08-01 20:08:11 3.8 % F Lymphocytes/100 leukocytes in Blood by Automated count 2024-08-01 20:08:11 29.4 % F Monocytes/100 leukocytes in Blood by Automated count 2024-08-01 20:08:11 3.9 % F Monocytes [#/volume] in Blood by Automated count 2024-08-01 20:08:11 313 Cells/uL F 0.0-1100.0 Basophils [#/volume] in Blood by Automated count 2024-08-01 20:08:11 24 Cells/uL F 0.0-400.0 Eosinophils [#/volume] in Blood by Automated count 2024-08-01 20:08:11 305 Cells/uL F 0.0-700.0 Neutrophils [#/volume] in Blood by Automated count 2024-08-01 20:08:11 5027 Cells/uL F 2000.0-8800. 0 Leukocytes [#/volume] in Blood by Automated count 2024-08-01 20:08:11 8 x 10^3 cells/uL F 4.0-11.0 Lymphocytes [#/volume] in Blood by Automated count 2024-08-01 20:08:11 2361 Cells/uL F 620.0-3660.0 Eosinophils/100 leukocytes in Blood by Automated count 2024-03-31 18:39:17 1.7 % F Basophils/100 leukocytes in Blood by Automated count 2024-03-31 18:39:17 0.3 % F Monocytes/100 leukocytes in Blood by Automated count 2024-03-31 18:39:17 3.2 % F Neutrophils/100 leukocytes in Blood by Automated count 2024-03-31 18:39:17 62.3 % F Lymphocytes/100 leukocytes in Blood by Automated count 2024-03-31 18:39:17 32.5 % F Monocytes [#/volume] in Blood by Automated count 2024-03-31 18:39:17 241 Cells/uL F 0.0-1100.0 Eosinophils [#/volume] in Blood by Automated count 2024-03-31 18:39:17 128 Cells/uL F 0.0-700.0 Basophils [#/volume] in Blood by Automated count 2024-03-31 18:39:17 23 Cells/uL F 0.0-400.0 Neutrophils [#/volume] in Blood by Automated count 2024-03-31 18:39:17 4691 Cells/uL F 2000.0-8800. 0 Leukocytes [#/volume] in Blood by Automated count 2024-03-31 18:39:17 7.5 x 10^3 cells/uL F 4.0-11.0 Lymphocytes [#/volume] in Blood by Automated count 2024-03-31 18:39:17 2447 Cells/uL F 620.0-3660.0 Neutrophils/100 leukocytes in Blood by Automated count 2023-04-14 21:34:34 57.1 % F Monocytes/100 leukocytes in Blood by Automated count 2023-04-14 21:34:34 2.3 % F Eosinophils/100 leukocytes in Blood by Automated count 2023-04-14 21:34:34 2.8 % F Lymphocytes/100 leukocytes in Blood by Automated count 2023-04-14 21:34:34 36.8 % F Basophils/100 leukocytes in Blood by Automated count 2023-04-14 21:34:34 0.9 % F Monocytes [#/volume] in Blood by Automated count 2023-04-14 21:34:34 132 Cell/uL F 0.0-1100.0 Basophils [#/volume] in Blood by Automated count 2023-04-14 21:34:34 52 Cell/uL F 0.0-400.0 Eosinophils [#/volume] in Blood by Automated count 2023-04-14 21:34:34 161 Cell/uL F 0.0-700.0 Neutrophils [#/volume] in Blood by Automated count 2023-04-14 21:34:34 3283 Cell/uL F 2000.0-8800. 0 Leukocytes [#/volume] in Blood by Automated count 2023-04-14 21:34:34 5.8 x 10^3 cells/uL F 4.0-11.0 Lymphocytes [#/volume] in Blood by Automated count 2023-04-14 21:34:34 2116 Cell/uL F 620.0-3660.0 Basophils [#/volume] in Blood by Automated count 2023-04-09 08:13:38 F RECOLLECT - OUTDATED SPECIMEN Lymphocytes/100 leukocytes in Blood by Automated count 2023-04-09 08:13:38 F RECOLLECT - OUTDATED SPECIMEN Basophils/100 leukocytes in Blood by Automated count 2023-04-09 08:13:38 F RECOLLECT - OUTDATED SPECIMEN Leukocytes [#/volume] in Blood by Automated count 2023-04-09 08:13:38 F RECOLLECT - OUTDATED SPECIMEN Neutrophils/100 leukocytes in Blood by Automated count 2023-04-09 08:13:38 F RECOLLECT - OUTDATED SPECIMEN Neutrophils [#/volume] in Blood by Automated count 2023-04-09 08:13:38 F RECOLLECT - OUTDATED SPECIMEN Monocytes [#/volume] in Blood by Automated count 2023-04-09 08:13:38 F RECOLLECT - OUTDATED SPECIMEN Eosinophils [#/volume] in Blood by Automated count 2023-04-09 08:13:38 F RECOLLECT - OUTDATED SPECIMEN Eosinophils/100 leukocytes in Blood by Automated count 2023-04-09 08:13:38 F RECOLLECT - OUTDATED SPECIMEN Lymphocytes [#/volume] in Blood by Automated count 2023-04-09 08:13:38 F RECOLLECT - OUTDATED SPECIMEN Monocytes/100 leukocytes in Blood by Automated count 2023-04-09 08:13:38 F RECOLLECT - OUTDATED SPECIMEN Lymphocytes/100 leukocytes in Blood by Automated count 2022-09-07 22:32:09 21.5 % F Eosinophils/100 leukocytes in Blood by Automated count 2022-09-07 22:32:09 1.3 % F Basophils/100 leukocytes in Blood by Automated count 2022-09-07 22:32:09 0.5 % F Neutrophils/100 leukocytes in Blood by Automated count 2022-09-07 22:32:09 73.2 % F Monocytes/100 leukocytes in Blood by Automated count 2022-09-07 22:32:09 3.6 % F Monocytes [#/volume] in Blood by Automated count 2022-09-07 22:32:09 334.8 Cell/uL F 0.0-1100.0 Basophils [#/volume] in Blood by Automated count 2022-09-07 22:32:09 46.5 Cell/uL F 0.0-400.0 Eosinophils [#/volume] in Blood by Automated count 2022-09-07 22:32:09 120.9 Cell/uL F 0.0-700.0 Neutrophils [#/volume] in Blood by Automated count 2022-09-07 22:32:09 6807.6 Cell/uL F 2000.0-8800. 0 Leukocytes [#/volume] in Blood by Automated count 2022-09-07 22:32:09 9.3 x 10^3 cells/uL F 4.0-11.0 Lymphocytes [#/volume] in Blood by Automated count 2022-09-07 22:32:09 1999.5 Cell/uL F 620.0-3660.0 Eosinophils/100 leukocytes in Blood by Automated count 2022-06-13 02:14:09 3.8 % F Monocytes/100 leukocytes in Blood by Automated count 2022-06-13 02:14:09 3.8 % F Basophils/100 leukocytes in Blood by Automated count 2022-06-13 02:14:09 0.9 % F Neutrophils/100 leukocytes in Blood by Automated count 2022-06-13 02:14:09 61.3 % F Lymphocytes/100 leukocytes in Blood by Automated count 2022-06-13 02:14:09 30.2 % F Monocytes [#/volume] in Blood by Automated count 2022-06-13 02:14:09 218.5 Cell/uL F 0.0-1100.0 Basophils [#/volume] in Blood by Automated count 2022-06-13 02:14:09 51.75 Cell/uL F 0.0-400.0 Eosinophils [#/volume] in Blood by Automated count 2022-06-13 02:14:09 218.5 Cell/uL F 0.0-700.0 Lymphocytes [#/volume] in Blood by Automated count 2022-06-13 02:14:09 1736.5 Cell/uL F 1100.0-4800. 0 Neutrophils [#/volume] in Blood by Automated count 2022-06-13 02:14:09 3524.75 Cell/uL F 2000.0-8800. 0 Leukocytes [#/volume] in Blood by Automated count 2022-06-13 02:14:09 5.8 x 10^3 cells/uL F 4.5-11.0 MineralBone Disorder Description Draw Date Result/Unit Status Ref Range Result Comments CA CORRECTED 2024-08-02 13:57:24 9.6 mg/dL F CA/PHOS PRODUCT 2024-08-02 01:10:49 75.7 Calc F 21.0-53.0 CA*PO4 CORRCTD 2024-08-02 01:10:49 81.8 Calc F 21.0-53.0 Phosphate [Mass/volume] in Serum or Plasma 2024-08-01 23:37:46 8.5 mg/dL F 2.4-5.1 Calcium [Mass/volume] in Serum or Plasma 2024-08-01 23:37:46 8.9 mg/dL F 8.7-10.4 Parathyrin.intact [Mass/volume] in Serum or Plasma 2024-08-01 22:07:03 F CANCELED - TEST CANCELED Magnesium [Mass/volume] in Serum or Plasma 2024-08-01 21:01:24 2 mg/dL F 1.3-2.7 Alkaline phosphatase [Enzymatic activity/volume] in Serum or Plasma 2024-08-01 21:01:24 109 U/L F 46.0-116.0 CA CORRECTED 2024-04-01 06:46:43 9.4 mg/dL F CA/PHOS PRODUCT 2024-04-01 06:45:22 91.4 Calc F 21.0-53.0 CA*PO4 CORRCTD 2024-04-01 06:45:22 98.9 Calc F 21.0-53.0 Phosphate [Mass/volume] in Serum or Plasma 2024-04-01 06:35:37 10.5 mg/dL F 2.4-5.1 Calcium [Mass/volume] in Serum or Plasma 2024-04-01 06:35:37 8.7 mg/dL F 8.7-10.4 Parathyrin.intact [Mass/volume] in Serum or Plasma 2024-03-31 20:50:21 1942 pg/mL F 18.0-80.0 Magnesium [Mass/volume] in Serum or Plasma 2024-03-31 20:34:16 2.2 mg/dL F 1.3-2.7 Alkaline phosphatase [Enzymatic activity/volume] in Serum or Plasma 2024-03-31 20:34:16 116 U/L F 46.0-116.0 CA CORRECTED 2023-04-15 05:37:02 8.4 mg/dL F CA*PO4 CORRCTD 2023-04-15 05:33:30 37.8 Calc F 21.0-53.0 CA/PHOS PRODUCT 2023-04-15 05:33:30 34.7 Calc F 21.0-53.0 Parathyrin.intact [Mass/volume] in Serum or Plasma 2023-04-15 05:31:27 662 pg/mL F 18.0-80.0 Calcium [Mass/volume] in Serum or Plasma 2023-04-15 05:31:04 7.7 mg/dL F 8.7-10.4 Magnesium [Mass/volume] in Serum or Plasma 2023-04-15 03:35:22 2.3 mg/dL F 1.3-2.7 Phosphate [Mass/volume] in Serum or Plasma 2023-04-15 03:35:22 4.5 mg/dL F 2.4-5.1 Alkaline phosphatase [Enzymatic activity/volume] in Serum or Plasma 2023-04-15 03:35:22 95 U/L F 46.0-116.0 CA/PHOS PRODUCT 2023-04-09 08:23:20 see comments F 21.0-53.0 Unable to Calculate. CA*PO4 CORRCTD 2023-04-09 08:23:20 see comments F 21.0-53.0 Unable to Calculate. Calcium [Mass/volume] in Serum or Plasma 2023-04-09 08:10:27 F RECOLLECT - OUTDATED SPECIMEN Parathyrin.intact [Mass/volume] in Serum or Plasma 2023-04-09 08:10:27 F RECOLLECT - OUTDATED SPECIMEN Phosphate [Mass/volume] in Serum or Plasma 2023-04-09 03:05:47 F RECOLLECT - OUTDATED SPECIMEN Alkaline phosphatase [Enzymatic activity/volume] in Serum or Plasma 2023-04-09 03:05:47 F RECOLLECT - OUTDATED SPECIMEN Magnesium [Mass/volume] in Serum or Plasma 2023-04-09 03:05:47 F RECOLLECT - OUTDATED SPECIMEN CA CORRECTED 2022-09-08 02:07:43 9.7 mg/dL F CA/PHOS PRODUCT 2022-09-08 02:04:21 79.2 Calc F 21.0-53.0 CA*PO4 CORRCTD 2022-09-08 02:04:21 84.4 Calc F 21.0-53.0 Calcium [Mass/volume] in Serum or Plasma 2022-09-08 02:04:00 9.1 mg/dL F 8.7-10.4 Parathyrin.intact [Mass/volume] in Serum or Plasma 2022-09-07 21:55:14 1010 pg/mL F 18.0-80.0 Magnesium [Mass/volume] in Serum or Plasma 2022-09-07 21:34:11 2.2 mg/dL F 1.3-2.7 Phosphate [Mass/volume] in Serum or Plasma 2022-09-07 21:34:11 8.7 mg/dL F 2.4-5.1 Alkaline phosphatase [Enzymatic activity/volume] in Serum or Plasma 2022-09-07 21:34:11 93 U/L F 46.0-116.0 CA CORRECTED 2022-06-13 05:02:34 9 mg/dL F CA/PHOS PRODUCT 2022-06-13 03:29:47 52.1 Calc F 21.0-53.0 CA*PO4 CORRCTD 2022-06-13 03:29:47 55.8 Calc F 21.0-53.0 Calcium [Mass/volume] in Serum or Plasma 2022-06-13 03:20:24 8.4 mg/dL F 8.7-10.4 Magnesium [Mass/volume] in Serum or Plasma 2022-06-13 00:27:14 2.2 mg/dL F 1.3-2.7 Phosphate [Mass/volume] in Serum or Plasma 2022-06-13 00:27:14 6.2 mg/dL F 2.4-5.1 Alkaline phosphatase [Enzymatic activity/volume] in Serum or Plasma 2022-06-13 00:27:14 103 U/L F 46.0-116.0 Parathyrin.intact [Mass/volume] in Serum or Plasma 2022-06-12 23:51:15 380 pg/mL F 18.0-80.0 Magnesium [Mass/volume] in Serum or Plasma CA CORRECTED Phosphate [Mass/volume] in Serum or Plasma CA/PHOS PRODUCT Alkaline phosphatase [Enzymatic activity/volume] in Serum or Plasma Parathyrin.intact [Mass/volume] in Serum or Plasma CA*PO4 CORRCTD Calcium [Mass/volume] in Serum or Plasma CA CORRECTED F Nutrition Description Draw Date Result/Unit Status Ref Range Result Comments Potassium [Moles/volume] in Serum or Plasma 2024-08-01 23:37:46 4.5 mEq/L F 3.5-5.5 A/G RATIO 2024-08-01 21:02:32 1.2 Calc F 1.0-2.5 GLOBULIN 2024-08-01 21:02:32 2.6 g/dL F 0.9-5.0 Lactate dehydrogenase [Enzymatic activity/volume] in Serum or Plasma 2024-08-01 21:01:24 191 U/L F 120.0-246.0 Bicarbonate [Moles/volume] in Serum or Plasma 2024-08-01 21:01:24 28 mEq/L F 20.0-31.0 Albumin [Mass/volume] in Serum or Plasma by Bromocresol green (BCG) dye binding method 2024-08-01 21:01:24 3.1 g/dL F 3.4-4.8 Protein [Mass/volume] in Serum or Plasma 2024-08-01 21:01:24 5.7 g/dL F 5.7-8.2 Cobalamin (Vitamin B12) [Mass/volume] in Serum or Plasma 2024-04-01 07:51:16 577 pg/mL F 211.0-911.0 Folate [Mass/volume] in Serum or Plasma 2024-04-01 07:51:16 10.2 ng/mL F 5.5-16.0 Potassium [Moles/volume] in Serum or Plasma 2024-04-01 06:35:23 4.1 mEq/L F 3.5-5.5 VLDL-CHOL(CALC) 2024-03-31 20:47:25 39 mg/dL F 0.0-29.0 LDL-CHOLESTEROL 2024-03-31 20:47:25 163 mg/dL F 0.0-99.0 GLOBULIN 2024-03-31 20:47:25 2.5 g/dL F 0.9-5.0 A/G RATIO 2024-03-31 20:47:25 1.2 Calc F 1.0-2.5 CHOL/HDL RATIO 2024-03-31 20:47:25 5.4 Calc F 3.3-5.0 Protein [Mass/volume] in Serum or Plasma 2024-03-31 20:34:16 196 mg/dL F 0.0-149.0 Cholesterol [Mass/volume] in Serum or Plasma 2024-03-31 20:34:16 248 mg/dL F 0.0-199.0 Lactate dehydrogenase [Enzymatic activity/volume] in Serum or Plasma 2024-03-31 20:34:16 168 U/L F 120.0-246.0 Bicarbonate [Moles/volume] in Serum or Plasma 2024-03-31 20:34:16 24 mEq/L F 20.0-31.0 Albumin [Mass/volume] in Serum or Plasma by Bromocresol green (BCG) dye binding method 2024-03-31 20:34:16 3.1 g/dL F 3.4-4.8 Cholesterol in HDL [Mass/volume] in Serum or Plasma 2024-03-31 20:34:16 46 mg/dL F 40.0-60.0 Protein [Mass/volume] in Serum or Plasma 2024-03-31 20:34:16 5.6 g/dL F 5.7-8.2 Cobalamin (Vitamin B12) [Mass/volume] in Serum or Plasma 2023-04-15 06:36:01 486 pg/mL F 211.0-911.0 Folate [Mass/volume] in Serum or Plasma 2023-04-15 06:36:01 8.2 ng/mL F 5.5-16.0 Potassium [Moles/volume] in Serum or Plasma 2023-04-15 05:29:12 3.8 mEq/L F 3.5-5.5 VLDL-CHOL(CALC) 2023-04-15 03:35:32 34 mg/dL F 0.0-29.0 LDL-CHOLESTEROL 2023-04-15 03:35:32 155 mg/dL F 0.0-99.0 A/G RATIO 2023-04-15 03:35:32 1.3 Calc F 1.0-2.5 GLOBULIN 2023-04-15 03:35:32 2.3 g/dL F 0.9-5.0 CHOL/HDL RATIO 2023-04-15 03:35:32 4 Calc F 3.3-5.0 Protein [Mass/volume] in Serum or Plasma 2023-04-15 03:35:22 172 mg/dL F 0.0-149.0 Cholesterol [Mass/volume] in Serum or Plasma 2023-04-15 03:35:22 253 mg/dL F 0.0-199.0 Lactate dehydrogenase [Enzymatic activity/volume] in Serum or Plasma 2023-04-15 03:35:22 185 U/L F 120.0-246.0 Bicarbonate [Moles/volume] in Serum or Plasma 2023-04-15 03:35:22 29 mEq/L F 20.0-31.0 Albumin [Mass/volume] in Serum or Plasma by Bromocresol green (BCG) dye binding method 2023-04-15 03:35:22 3.1 g/dL F 3.4-4.8 Cholesterol in HDL [Mass/volume] in Serum or Plasma 2023-04-15 03:35:22 64 mg/dL F 40.0-60.0 Protein [Mass/volume] in Serum or Plasma 2023-04-15 03:35:22 5.4 g/dL F 5.7-8.2 VLDL-CHOL(CALC) 2023-04-09 08:35:09 F RECOLLECT - OUTDATED SPECIMEN LDL-CHOLESTEROL 2023-04-09 08:35:09 F RECOLLECT - OUTDATED SPECIMEN CHOL/HDL RATIO 2023-04-09 08:35:09 F RECOLLECT - OUTDATED SPECIMEN Potassium [Moles/volume] in Serum or Plasma 2023-04-09 08:10:27 F RECOLLECT - OUTDATED SPECIMEN Folate [Mass/volume] in Serum or Plasma 2023-04-09 05:39:52 F RECOLLECT - OUTDATED SPECIMEN Cobalamin (Vitamin B12) [Mass/volume] in Serum or Plasma 2023-04-09 05:39:52 F RECOLLECT - OUTDATED SPECIMEN A/G RATIO 2023-04-09 03:06:21 see comments F 1.0-2.5 Unable to Calculate. GLOBULIN 2023-04-09 03:06:21 see comments F 0.9-5.0 Unable to Calculate. Lactate dehydrogenase [Enzymatic activity/volume] in Serum or Plasma 2023-04-09 03:05:47 F RECOLLECT - OUTDATED SPECIMEN Cholesterol in HDL [Mass/volume] in Serum or Plasma 2023-04-09 03:05:47 F RECOLLECT - OUTDATED SPECIMEN Protein [Mass/volume] in Serum or Plasma 2023-04-09 03:05:47 F RECOLLECT - OUTDATED SPECIMEN Bicarbonate [Moles/volume] in Serum or Plasma 2023-04-09 03:05:47 F RECOLLECT - OUTDATED SPECIMEN Protein [Mass/volume] in Serum or Plasma 2023-04-09 03:05:47 F RECOLLECT - OUTDATED SPECIMEN Cholesterol [Mass/volume] in Serum or Plasma 2023-04-09 03:05:47 F RECOLLECT - OUTDATED SPECIMEN Albumin [Mass/volume] in Serum or Plasma by Bromocresol green (BCG) dye binding method 2023-04-09 03:05:47 F RECOLLECT - OUTDATED SPECIMEN GLOBULIN 2022-09-07 21:34:38 2.6 g/dL F 0.9-5.0 A/G RATIO 2022-09-07 21:34:38 1.3 Calc F 1.0-2.5 Lactate dehydrogenase [Enzymatic activity/volume] in Serum or Plasma 2022-09-07 21:34:11 210 U/L F 120.0-246.0 Bicarbonate [Moles/volume] in Serum or Plasma 2022-09-07 21:34:11 28 mEq/L F 20.0-31.0 Albumin [Mass/volume] in Serum or Plasma by Bromocresol green (BCG) dye binding method 2022-09-07 21:34:11 3.3 g/dL F 3.4-4.8 Potassium [Moles/volume] in Serum or Plasma 2022-09-07 21:34:11 4.2 mEq/L F 3.5-5.5 Protein [Mass/volume] in Serum or Plasma 2022-09-07 21:34:11 5.9 g/dL F 5.7-8.2 GLOBULIN 2022-06-13 00:28:09 2.6 g/dL F 0.9-5.0 A/G RATIO 2022-06-13 00:28:09 1.2 Calc F 1.0-2.5 Potassium [Moles/volume] in Serum or Plasma 2022-06-13 00:27:14 3.8 mEq/L F 3.5-5.5 Lactate dehydrogenase [Enzymatic activity/volume] in Serum or Plasma 2022-06-13 00:27:14 202 U/L F 120.0-246.0 Bicarbonate [Moles/volume] in Serum or Plasma 2022-06-13 00:27:14 30 mEq/L F 20.0-31.0 Albumin [Mass/volume] in Serum or Plasma by Bromocresol green (BCG) dye binding method 2022-06-13 00:27:14 3.2 g/dL F 3.4-4.8 Protein [Mass/volume] in Serum or Plasma 2022-06-13 00:27:14 5.8 g/dL F 5.7-8.2 Protein [Mass/volume] in Serum or Plasma Lactate dehydrogenase [Enzymatic activity/volume] in Serum or Plasma GLOBULIN Albumin [Mass/volume] in Serum or Plasma by Bromocresol green (BCG) dye binding method Potassium [Moles/volume] in Serum or Plasma A/G RATIO Bicarbonate [Moles/volume] in Serum or Plasma Encounters No encounter information to report Immunizations Ordered Immunization Name Filled Immunization Name Date Status Comments Refusal Reason TST-PPD intradermal 2024-07-20 15:20:00 Pneumococcal conjugate PCV20, polysaccharide QIX003 conjugate, adjuvant, PF 2024-02-02 16:30:00 Influenza, MDCK, trivalent, preservative 2024-01-24 18:30:00 TB Skin Test 2023-08-01 05:00:00 TST-PPD intradermal 2022-06-11 16:15:00 Plan of Treatment Planned Activity Provider Planned Date Details Commen ts Future Scheduled Test Cary Maier 2025-03-28 06:00:00 Cobalamin (Vitamin B12) [Mass/volume] in Serum or Plasma [code = 2132-9] Diagnostic Test Pending Cary Maier 2024-08-03 06:17:43 Hemoglobin [Mass/volume] in Blood [code = 718-7] Future Scheduled Test Cary Maier 2025-03-28 06:00:00 Folate [Mass/volume] in Serum or Plasma [code = 2284-8] Future Scheduled Test Cary Maier 2025-03-28 06:00:00 Aluminum [Mass/volume] in Serum or Plasma [code = 5574-9] Diagnostic Test Pending Cary Maier 2024-06-26 05:00:00 Parathyrin.intact [Mass/volume] in Serum or Plasma [code = 2731-8] Diagnostic Test Pending Cary Maier 2024-08-02 06:16:19 Calcium [Mass/volume] in Serum or Plasma [code = 21822-8] Diagnostic Test Pending Cary Maier 2024-06-26 05:00:00 Reticulocytes/100 erythrocytes in Blood by Automated count [code = 00112-5] Diagnostic Test Pending Cary Maier 2024-06-14 06:16:33 Alanine aminotransferase [Enzymatic activity/volume] in Serum or Plasma [code = 1742-6] Diagnostic Test Pending Cary Maier 2024-06-26 05:00:00 Ferritin [Mass/volume] in Serum or Plasma [code = 2276-4] Diagnostic Test Pending Cary Maier [facility] 2024-06-01 17:59:35 CCPD [code = PET509] Diet Order Cary Nguyen y [facility] June 06, 2024 Diet Calorie 40 kcal/kg Fluid Value 1000 mL/d Phosphorus Value 700 mg/d Potassium Value 2500 mg/d Protein Value 1.5 gm/kg Sodium Value 2000 mg/d Calculated Weight 34 kg
--- OUTSIDE RECORDS SUMMARY | 2024-09-05 12:59 | XMS_ITS | Data Portability ---
Author Organization [facility] [email or web address], Main Office Address [address] [place] [address] Care Team Providers Care Refrigerating Engineer Head Name Role Phone NORA PATEL Primary Care Provider [phone] Assessment No assessment recorded. Plan of Treatment Reminders Order Date Submit Date Provider Last Modified By Organization Details Last Modified Time Details Appointments None recorded. Lab CBC w/ auto diff [address] (Lab), [address] [place] [address], [id number], 5 17:28:24 CMP, serum or plasma [address] (Lab), [address] [place] [address], [id number], 5 17:28:24 lipid panel, serum [address] (Lab), [address] [place], [address], 5 08:47:56 TSH + free T4, serum [address] (Lab), [address] [place] [address], [address], 5 17:28:25 hepatitis C Ab, serum [address] (Lab), [address] [place] [address], [address], 5 08:47:56 HbA1c (hemoglobi n A1c), blood [address] (Lab), [address] [place] [address], [address], 5 08:47:56 ferritin, serum or plasma [address] (Lab), [address] [place] [address], [address], 5 08:47:56 iron, serum [address] (Lab), [address] [place] [address], [address], 5 08:47:56 TIBC (total iron-trey ng capacity), serum [address] (Lab), [address] [place] [address], [address], 5 08:47:56 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 2024 025 [email or web address] Mckinley Alvarado DPM, [address] [facility], [address], [place], [address], 5 08:58:02 Procedures None recorded. Surgeries None recorded. Imaging None recorded. Medication Orders Linzess 72 mcg capsule 2024 025 [facility] #[id number], [address], [place], [address], 5 17:24:16 tramadol 37.5 mg-acetami nophen 325 mg tablet 2024 025 [facility]acy #[id number], [address], [place], [address], 5 17:24:17 ciprofloxa ariel 500 mg tablet 2023 024 [id number], [address], [place], [address], 5 16:58:40 Linzess 72 mcg capsule 2023 024 [id number], [address], [place], [address], 4 14:30:40 Patient TargetsNo targets recorded. Patient Instructions Encounter Date Encounter Id Patient Instructions Last Modified By Organization Details Last Modified Time 11/10/2023 [id number] wheelchair seating services* [email or web address] Not available 03/15/2024 12:07:39 04/10/2024 [id number] Follow up in 3 months-Medicare Wellness Visit Prescription sent to pharmacy Obtain labs Tests: Referral: Dr. 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 Referring Physician: Nora Patel, Internal Medicine, Encounter Date: 04/10/2024 Results Created Date Observation Date Name Description Value Unit Range Abnormal Flag Note LastModifiedBy Organization Detail LastModifiedTime 04/29/1904/29/2022 XR, lumba r spine No observ ation record ed. [id number], [address], 05/26/2022 01:07:20 04/29/19 23 04/29/2022 US, renal No observ ation record ed. [id number], [address], 05/26/2022 01:07:20 Result Notes None recorded. 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 Nora Patel APRN [address], [address], [place], [address], [place] [facility] 4 13:27:10 Vitamin D deficiency 69087137 Active 2016 Nora Patel APRN [address], [address], [place], [address], [place] [facility] 4 13:27:14 Acquired polycystic kidney disease 49446308 Active 2018 Nora Patel APRN [address], [address], [place], [address], [place] [facility] 4 13:26:59 Dystrophia unguium 42085719 Active 2021 Nora Patel APRN [address], [address], [place], [address], [place] [facility] 4 13:27:47 Iron deficiency anemia 78461962 Active 2016 Nora Patel APRN [address], [address], [place], [address], [place] [facility] 4 13:27:06 Cerebral palsy 457557478 Completed 202204/10/2024 Nora Patel APRN [address], [address], [place], [address], [place] [facility] 5 17:22:48 Recurrent urinary tract infection 132447140 Active 2023 Nora Patel APRN [address], [address], [place], [address], [place] [facility] 4 13:27:08 Chronic peritoneal dialysis Active 2024 Nora Patel APRN [address], [address], [place], [address], [place] [facility] 5 17:05:41 Neuropathy 449807431 Active 2024 Nora Patel APRN [address], [address], [place], [address], [employer] 5 17:12:11 Chronic constipatio n 641228537 Active 2024 Nora Patel APRN [address], [address], [place], [address], [employer] [facility] [employer] 5 17:13:52 Chronic pain 65600317 Active 2024 Nora Patel APRN [address], [address], [place], [address], [employer] 5 17:23:13 Problem Notes None recorded. Procedures Surgical History Date Name Laterality Status Provider Name and Address Organization Details Recorded Time Orthopedic Surgery completed Not Available [facility] 05/26/2022 00:50:48 Imaging Results None recorded. Procedure Notes None recorded. Medical Equipment None Reported. Allergies Allergen ID Allergen Name Allergen Category Reaction Reaction Severity Criticality Documentation Date Start Date Code Code System Note Provider Name and Address Organization Details Recorded Time 1469 bacitraci n / neomycin / polymyxin B medicatio n Not available Not available Not available 05/26/2022 03377 9 RxNorm Not Available [facility] 3 01:06:45 Medications Name Sig Start Date Stop Date Status Note LastModified by Organization Details LastModified Time carisoprodo l 350 mg tablet Take 1 tablet 3 times a day by oral route as needed for 30 days. 09/29 completed Not Available Not Available Not Available amoxicillin 500 mg capsule TAKE 4 CAPSULES BY MOUTH 1 HOUR PRIOR TO DENTAL APPOINTME NT & 1 CAPSULE EVERY 6 HOURS AFTER X 2DOSES 11/09 completed Not Available Not Available Not Available furosemide 40 mg tablet TAKE 1 TABLET BY MOUTH EVERY DAY 11/09 completed Not Available Not Available Not Available fluconazole 100 mg tablet TAKE 1 TABLET BY MOUTH EVERY DAY FOR 7 DAYS active Not Available Not Available No t Available terbinafine HCl 1 % topical cream ASAEL EXT TO THE AFFECTED AND SURROUNDI NG AREAS QD active Not Available Not Available No t Available tizanidine 2 mg tablet TAKE 1 TABLET BY MOUTH EVERY 8 HOURS NEEDED FOR BACK PAIN 04/10 completed Not Available Not Available Not Available azithromyci n 250 mg tablet TAKE 2 TABLETS BY MOUTH TODAY, THEN TAKE 1 TABLET DAILY FOR 4 DAYS DIRECTED active Not Available Not Available No t Available tramadol 37.5 mg-acetamin ophen 325 mg tablet TK 1-2 TS PO D PRN. 2024 active Not Available Not Available Not Avai lable nystatin 100,000 unit/gram topical ointment active Not Available Not Available Not Available tizanidine 4 mg tablet 04/10 completed Not Available Not Available Not Available albuterol sulfate 1.25 mg/3 mL solution for nebulizatio n Inhale 3 mL 3 times a day by inhalatio n route. 07/12 completed Not Available Not Available Not Available cephalexin 250 mg capsule TAKE 1 CAPSULE BY MOUTH TWICE A DAY FOR 10 DAYS 11/09 completed Not Available Not Available Not Available minocycline 100 mg capsule Take 1 capsule every day by oral route for 30 days. 11/09 completed Not Available Not Available Not Available fluconazole 200 mg tablet active Not Available Not Available Not Available ciprofloxac in 250 mg tablet TAKE 1 TABLET BY MOUTH EVERY DAY 11/09 completed Not Available Not Available Not Available dextrometho rphan-guaif enesin 10 mg-100 mg/5 mL oral syrup Take 10 mL every 4 hours by oral route as needed. 07/12 completed Not Available Not Available Not Available amlodipine 5 mg tablet TK 1 T PO QD 01/28 completed Not Available Not Available Not Available ciprofloxac in 500 mg tablet TAKE 1 TABLET BY MOUTH EVERY 12 HOURS FOR 7 DAYS 04/10 completed Not Available Not Available Not Available clindamycin 1 %-benzoyl peroxide 5 % topical gel APPLY TO AFFECTED AREA TWICE A DAY IN THE MORNING AND IN THE EVENING 11/09 completed Not Available Not Available Not Available sulfamethox azole 800 mg-trimetho prim 160 mg tablet Take 1 tablet twice a day by oral route. active Not Available Not Available No t Available tramadol 50 mg tablet TAKE 1 TABLET BY MOUTH EVERY 6 HOURS NEEDED FOR PAIN 04/10 completed Not Available Not Available Not Available amoxicillin 500 mg tablet Take 1 tablet twice a day by oral route for 7 days. 03/24 completed Not Available Not Available Not Available Macrobid 100 mg capsule Take 1 capsule every 12 hours by oral route for 7 days. active Not Available Not Available No t Available Depo-Car Dumper a 150 mg/mL intramuscul ar suspension Inject 1 mL every 3 months by intramusc ular route. 04/10 completed Not Available Not Available Not Available ciprofloxac in 0.3 % eye drops INSTILL 1 DROP INTO AFFECTED EYE(S) BY OPHTHALMI C ROUTE EVERY 2 HOURSWHIL E AWAKE FOR 2 DAYS THEN 1 DROP EVERY 4 HRS WHILE AWAKE FOR 5 DAYS active Not Available Not Available No t Available sodium bicarbonate 650 mg tablet TK 1 T PO BID WC 08/09 completed Not Available Not Available Not Available hydrocodone 7.5 mg-acetamin ophen 325 mg tablet TAKE 1 TABLET BY MOUTH EVERY 6 HOURS NEEDED FOR PAIN 04/10 completed Not Available Not Available Not Available cephalexin 500 mg capsule TK ONE C PO BID 06/27 completed Not Available Not Available Not Available ferrous sulfate 325 mg (65 mg iron) tablet Take 1 tablet every day by oral route. 07/12 completed Not Available Not Available Not Available nitrofurant oin macrocrysta l 100 mg capsule TAKE 1 CAPSULE BY MOUTH EVERY DAY FOR UTI SYMPTOMS 11/09 completed Not Available Not Available Not Available losartan 25 mg tablet Take 1 tablet every day by oral route for 30 days. 07/12 completed Not Available Not Available Not Available gentamicin 0.1 % topical cream APPLY 1 APPLICATI ON ONTO THE AFFECTED AREA(S) ONCE DAILY active Not Available Not Available No t Available polyethylen e glycol 3350 17 gram/dose oral powder MIX AND DRINK 17 GRAMS BY MOUTH EVERY DAY active Not Available Not Available No t Available methylpredn isolone 4 mg tablets in a dose pack TK UTD 07/12 completed Not Available Not Available Not Available cefdinir 300 mg capsule TAKE 1 CAPSULE BY MOUTH EVERY DAY 11/09 completed Not Available Not Available Not Available amoxicillin 500 mg-potassiu m clavulanate 125 mg tablet TAKE 1 TABLET BY MOUTH EVERY DAY FOR 7 DAYS active Not Available Not Available No t Available Vitamin D3 25 mcg (1,000 unit) capsule Take 1 capsule every day by oral route. 07/12 completed Not Available Not Available Not Available lactulose 10 gram/15 mL oral solution 01/28 completed Not Available Not Available Not Available Tylenol 07/12 completed Not Available Not Available Not Available Stool Softener 07/12 completed Not Available Not Available Not Available oseltamivir 30 mg capsule 05/28 completed Not Available Not Available Not Available sevelamer carbonate 0.8 gram oral powder packet MIX IN 2-3 OZ OF COLD LIQUID AND DRINK 3 TIMES DAILY WITH MEALS active Not Available Not Available No t Available Linzess 145 mcg capsule TAKE 1 CAPSULE BY MOUTH EVERY DAY 11/09 completed Not Available Not Available Not Available Linzess 290 mcg capsule TK 1 C PO D 01/28 completed Not Available Not Available Not Available PreviDent 5000 Booster Plus 1.1 % dental paste U UTD 05/28 completed Not Available Not Available Not Available Velphoro 500 mg chewable tablet TAKE 1 TABLET BY MOUTH 3 (THREE) TIMES A DAY WITH MEALS 04/10 completed Not Available Not Available Not Available Linzess 72 mcg capsule Take 1 capsule every day by oral route. active Not Available Not Available No t Available Vitals Date Recorded Body height Body temperature Heart rate Oxygen saturation Oxygen saturation in Arterial blood by Pulse oximetry Provider Name and Address Organization Details Last Updated DateTime 5 142.24 cm 97.4 [degF] 85 /min 97 % 97 % Nayana Schofield MA [place] [employer] [facility] [email or web address] 5 16:57:36 Date Recorded Body height Body mass index (BMI) Body weight Body temperature Heart rate Oxygen saturation Oxygen saturation in Arterial blood by Pulse oximetry Systolic blood pressure Diastolic blood pressure Provider Name and Address Organization Details Last Updated DateTime 3 142.24 cm 14.1 kg/m2 97993.3 2 g 98.1 [degF] 87 /min 98 % 98 % 122 mm[Hg] 68 mm[Hg] Monie Blake MA [email or web address] 3 14:59:31 Date Recorded Body temperature Heart rate Oxygen saturation Oxygen saturation in Arterial blood by Pulse oximetry Systolic blood pressure Diastolic blood pressure Provider Name and Address Organization Details Last Updated DateTime 4 98.3 [degF] 79 /min 96 % 96 % 118 mm[Hg] 72 mm[Hg] Laurel Almanzar RN [facility] [email or web address] 4 14:04:47 Date Recorded Body height Heart rate Systolic blood pressure Diastolic blood pressure Provider Name and Address Organization Details Last Updated DateTime 01/07/2022 142.24 cm 58 /min 125 mm[Hg] 58 mm[Hg] Not Available [facility] 05/26/2022 00:53:54 Date Recorded Body mass index (BMI) Body height Oxygen saturation Oxygen saturation in Arterial blood by Pulse oximetry Heart rate Body temperature Body weight Systolic blood pressure Diastolic blood pressure Provider Name and Address Organization Details Last Updated DateTime 2 14.1 kg/m2 142.24 cm 96 % 96 % 89 /min 97.9 [degF] 18382.3 2 g 121 mm[Hg] 82 mm[Hg] Not Available [facility] 3 00:53:54 Social History Question Answer Notes LastModified by Organizat ion Details LastModified Time Tobacco Smoking Status Never Smoker Not Available [facility] 05/26/2022 00:47:15 Do You Have An Advance Directive? No [id number] Information not available 05/26/2022 If You Are , What Was Your Level Of Alcohol Consumption Prior To ? None [id number] Information not available 05/26/2022 What Is Your Level Of Caffeine Consumption? Occasional [id number] 9068 Information not available 05/26/2022 How Much Tobacco Do You Chew? None MIGRATION.[id number] 2469 Information not available 05/26/2022 In The 14 Days Before Symptom Onset, Have You Had Close Contact With A Laboratory-confirm ed COVID-19 While That Case Was Ill? No [id number].[id number] Information not available 05/26/2022 In The 14 Days Before Symptom Onset, Have You Had Close Contact With A Person Who Is Under Investigation For COVID-19 While That Person Was Ill? No [id number].545605 [id number] Information not available 05/26/2022 Which Illicit Or Recreational Drugs Have You Used? None [id number].[id number] Information not available 05/26/2022 Do You Use Insect Repellent Routinely? Yes MIGRATION.302501 6594 Information not available 05/26/2022 Are You Following A Low Salt Diet? No MIGRATION.597181 6605 Information not available 05/26/2022 What Was The Date Of Your Most Recent Tobacco Screening? 04/10/2024 Information not available 04/10/2024 What Is Your Relationship Status? Single Information not available 04/10/2024 Do You Have Smoke And Carbon Monoxide Detectors In Your Home? Yes [id number].[id number] 1874 Information not available 05/26/2022 How Much Tobacco Do You Smoke? No MIGRATION.021408 6151 Information not available 05/26/2022 Do You Use Sunscreen Routinely? Yes MIGRATION.261382 3989 Information not available 05/26/2022 Has Tobacco Cessation Counseling Been Provided? No MIGRATION.518519 4211 Information not available 05/26/2022 Have You Recently Traveled Abroad? No MIGRATION.132063 5376 Information not available 05/26/2022 Do You Have Any Dietary Restrictions? Yes MIGRATION.555260 5909 Information not available 05/26/2022 Sex: Unknown Functional Status Question Answer Note LastModified by [employer] Details LastModified Time Do you use any illicit or recreational drugs? No MIGRATION.630799 5751 Information not available 05/26/2022 Do you or have you ever used any other forms of tobacco or nicotine? No MIGRATION.187932 0755 Information not available 05/26/2022 What is your level of alcohol consumption? None MIGRATION.818239 5258 Information not available 05/26/2022 Do you or have you ever used smokeless tobacco? Never used smokeless tobacco MIGRATION.406344 4945 Information not available 05/26/2022 Are you currently employed? No Information not available 04/10/2024 Do you or have you ever used e-cigarettes or vape? Never used electronic cigarettes MIGRATION.369981 0924 Information not available 05/26/2022 What is your exercise level? None MIGRATION.878986 6004 Information not available 05/26/2022 Mental Status Question Answer Note LastModified by Organizat ion Details LastModified Time Do you feel stressed (tense, restless, nervous, or anxious, or unable to sleep at night)? [id number] [id number] Information not available 05/26/2022 Family History Relationship Description Onset Age of this Age Resolved Age Notes LastModified by Organization Details LastModified Time Maternal Grandmother Diabetes mellitus [id number] Not available 05/26/2022 00:50:51 Brother Diabetes mellitus [id number] Not available 05/26/2022 00:50:51 Medical History No medical history recorded. Gynecological HistoryNo gynecological history recorded. Obstetrics History GPAL:G 0 P 0 0 0 0 Type Value Multiple Births 0 Full Term 0 Induced 0 Spontaneous 0 Premature 0 Living 0 Ectopics 0 Total 0 Immunizations Vaccine Type Date Status Note Provider Nam e and Address Organization Details Recorded Time Tdap 3 completed Monie Blake MA [facility] [place] [facility] 05/28/2022 08:47:19 Influenza, split virus, quadrivalent, preservative 0 completed Not Available [facility] 05/26/2022 01:06:34 Influenza, split virus, quadrivalent, PF 7 completed Not Available [facility] 05/26/2022 01:06:34 Past Encounters Encounter ID Performer Location Encounter Start Date Encounter Closed Date Diagnosis/Indication Diagnosis SNOMED-CT Code Diagnosis ICD10 Code Diagnosis Note [id number] NATALIA Ordonez [facility] Primary Care [address] [place] [address] 05/28/2020 00:00:00 05/28/2020 21:01:22 [id number] NATALIA Ordonez [address] [place] [address] 09/16/2020 00:00:00 09/17/2020 18:50:26 [id number] Aguilar Navarro MD [facility]_[address] [address] 09/19/2020 00:00:00 09/19/2020 13:08:16 [id number] Lucinda Dickinson MD [facility]_[address] [place] [address] 11/18/2020 00:00:00 11/18/2020 21:28:49 [id number] Lucinda Dickinson MD [facility]_[address] [place] [address] 04/09/2021 00:00:00 04/09/2021 17:15:48 [id number] Mckinley Alvarado DPM [facility] Pod[facility] [place] [address] [place] [address] 08/06/2021 00:00:00 08/06/2021 15:50:28 [id number] Mckinley Alvarado DPM [facility] Pod[facility] [place] [address] [place] [address] 01/07/2022 00:00:00 01/21/2022 09:08:33 [id number] Lucinda Dickinson MD S_[facility] Primary Care [facility] [address] [address] [facility] [place] [address] 01/13/2022 00:00:00 01/13/2022 15:19:53 [id number] DAVID Proctor [facility] Primary [facility] [address] [place] [address] 05/26/2022 14:36:25 05/27/2022 11:48:09 Administration of diphtheria, pertussis, and tetanus vaccine 641678836 Z23 Already administer ed with order from old chart. Cerebral palsy 172352759 G80.9 Mom would like orders for new wheelchair that is hopefully senior technical support engineer in weight and new mattress. She would like to use [facility], states that is where thy have gotten it previously but she is going to check with them first and if not there will let us know DME company she would like to use.Martina t wheelchair is over 5 years old, she has been given other wheelchair s but they are molded to her body and she cannot use them for long because of the change in her muscle wasting/co ntractures which cause to much discomfort . Acquired p olycystic kidney disease 78226320 N28.1 Followed by nephrology (Dr. Gates). Increasing pain. Mom would like to get scripts back for tramadol and tizanidine . Paper scripts given today. [id number] CARISA Vale S_[facility] Primary Care [facility] [address] [facility] [address] [facility] [place] [place] [address] 11/10/2023 13:59:31 11/10/2023 15:11:56 Recurrent urinary tract infection 589966383 N39.0 Referral needed 25871917 9 Z76.89 Renewal of prescription 090281193 Z76.0 Acquired p olycystic kidney disease 14838318 N28.1 in home dialysis daily [id number] Cal davis MD [facility] [address] [facility] [place] [address] 04/10/2024 16:41:32 04/10/2024 17:29:29 Iron deficiency anemia 33087888 D50.9 Diabetes m ellitus screening 629004494 Z13.1 Hyperlipid emia screening 549462776 Z13.220 Screening for disorder 355687578 Z13.9 Thyroid di sorder screening 927984641 Z13.29 Hepatitis C screening 41 5209612 Z11.59 Neuropathy 803147432 G62 .9 Chronic constipation 236 629162 K59.09 Cerebral palsy 128030457 G80.9 Chronic pain 86860976 G8 9.29 Health Concerns Section Related Observation LastModified by Organization Detai ls LastModified Time None Recorded Concern Status LastModified by Organization Details LastModified Time None Recorded Advance Directives Directive N: Payers Encounter Date Sequence Insurance Name Policy Number Policy Pierce Covered Member ID Pierce Member ID Guarantor Name 05/26/2022 1 [facility] [place]IC[place] - [place]ICAID REPLACEMENT [facility] [id number] Anne Collins [id number] Anne Collins 11/10/2023 1 [facility] [place] - [place] [id number] Anne Collins [id number] Anne Collins 04/10/2024 1 [facility] [place] - [place] REPLAC[place] [facility] [id number] Anne Collins [id number] Anne Collins Notes Date Note Type Note Provider Name and Address Organization Details Recorded Time 05/26/2022 text/html Pt. accompanied by mother, here for f/u on cerebral palsy and getting new wheelchair. Mom also states she has seemed to be increased pain. She has also talked to her dialysis doctor and would like to get the TDAP shot. DAVID Proctor [address], [address], [place], [address], [employer] 05/26/2022 18:56:10 11/10/2023 text/html Patient is a 38 year old female that presents to the office in wheelchair with mother who is patient's caregiver. Patient has CP and follows up primarily with [facility]Patient is on daily dialysis that mother completes at home. Mom reports patient has cyst between buttock and vagina. Mother defers me examining area due to patient being on period. Mother reports she believes patient has UTI due to decrease in urine output which is patient's primary symptom of UTI due to being under developed. Mother denies foul odor. Mother reports patient use to see urology but due to a bad experience she no longer sees them and does not wish to see a new one. NATALIA Vale-C [address], [address], [place], [address], [facility] [employer] [facility] [employer] 11/10/2023 15:41:05 04/10/2024 text/html Anne presents today to establish care. Mother states that patient has a nodule on her left buttock. Small non-movable spongy nodule noted to left buttock at the ischium. Patient is very tiny individual with minimal muscle mass and no fat deposits. Nora Patel APRN [address], [facility] [address], [place], [address], [facility] [employer] [facility] [employer] 04/10/2024 17:26:14 OBGyn Episode No OBEpisode recorded.
== END 2024-09-05 10:52 | disposition home or self-care (01) ==
PROVIDERS: Visit Provider Internal Medicine Nephrology
DX: Q61.2 Polycystic kidney, adult type (principal); N18.9 Chronic kidney disease, unspecified
CPT/HCPCS: 76770

== ENCOUNTER 2024-12-02 17:49 | Emergency (ER) | payer OTHER, SELFPAY ==
--- OUTSIDE RECORDS SUMMARY | 2024-07-20 05:32 | XMS_ITS ---
Author Organization [facility] Address [address] [place] [phone] Care Team Providers Care Human Relations Manager Name Role Phone ROSIE MAIER Primary Care Provider [phone] ROSIE MAIER Unavailable Unavailable Problems Problem Type SNOMED Code ICD Code Onset Dates Problem Status W/U Status Risk Notes Problem End stage renal disease (48846970) End stage renal disease (N18.6) Active confirmed Problem Dependence on renal dialysis (086751503) Dependence on renal dialysis (Z99.2) Active confirmed Problem Underweight (502632433) Low body weight due to inadequate caloric intake (R63.6) Active confirmed Problem Chronic kidney disea se (906504994) Chronic kidney disease, unspecified (N18.9) Active confirmed Problem Anemia in chronic kidney disease (121852437) Anemia in chronic kidney disease (D63.1) Active confirmed Problem Hyperparathyroidism due to renal insufficiency (79995523) Hyperparathyroi dism, 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) Active confirmed 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 Problem 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) Active confirmed Problem Kidney, polycystic, 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) Active confirmed Encounters Encounter Location Date Provider Diagnosis [facility] [address] [place] [phone] 07/20/2024 ROSIE DARRION End stage renal disease N18.6 ; Dependence on renal dialysis Z99.2 ; Low body weight due to inadequate caloric intake R63.6 ; Chronic kidney disease, unspecified N18.9 ; Anemia in chronic kidney disease D63.1 ; Hyperparathyroidism, secondary renal N25.81 ; Spastic quadriplegic cerebral palsy G80.0 ; Moderate muscular atrophy M62.50 and Kidney, polycystic, autosomal dominant Q61.2 Assessments Encounter Date Diagnosis (ICD Code) Assessment Notes Treatment Notes Treatment Clinical Notes Section Notes 07/20/2024 End stage renal disease (ICD-10 - N18.6) 07/20/2024 Dependence on renal dialysis (ICD-10 - Z99.2) 07/20/2024 Low body weight due to inadequate caloric intake (ICD-10 - R63.6) 07/20/2024 Chronic kidney disease, unspecified (ICD-10 - N18.9) 07/20/2024 Anemia in chronic kidney disease (ICD-10 - D63.1) 07/20/2024 Hyperparathyroidi sm, secondary renal (ICD-10 - N25.81) 07/20/2024 Spastic quadriplegic cerebral palsy (ICD-10 - G80.0) 07/20/2024 Moderate muscular atrophy (ICD-10 - M62.50) 07/20/2024 Kidney, polycystic, autosomal dominant (ICD-10 - Q61.2) Plan Of Treatment Pending Test Test Name Order Date Ultrasound : Kidneys and Bladder 025 Progress Notes * YAMINI HSUB:1985 (39 yo F)Acc No.[id number]:07/20/2024 Progress Notes Patient: RIGOBERTO JAMA Provider: Wood Maier MD :1985 A ge:38 Y S ex:Female Date:07/20/2024 Address:[address] [place] [address] Subjective: * Chief Complaints: * * Medical History: Objective: * Vitals: Assessment: * Assessment: 1. E nd stage renal disease - N18.6 (Primary) 2 . D ependence on renal dialysis - Z99.2 3 . L ow body weight due to inadequate caloric intake - R63.6 ? 4 . C hronic kidney disease, unspecified - N18.9 5 . A nemia in chronic kidney disease - D63.1 6 . H yperparathyroidism, secondary renal - N25.81? 7. S pastic quadriplegic cerebral palsy - G80.0 8 . M oderate muscular atrophy - M62.50 9 . K idney, polycystic, autosomal dominant - Q61.2 Plan: * Treatment: * Billing Information: * Visit Code: * Procedure Codes: * Electronic signature of CODEY MAIER MD on 12/02/2024 at 06:58 PM CDT Sign off status: Pending * Provider: Wood Maier MD Date: 0 07/20/2024 Generated for Tasha pope/Keyla/Ariana on: 0 12/02/2024 06:58 PM CDT
--- NOTE | ~2024-12-02 | CT_ITS ---
EXAMINATION: CT abdomen pelvis w con DATE: 12/02/2024 21:38 INDICATION: Right inguinal crease swelling. Protrusion on back. History of chest pain, end-stage renal disease with polycystic kidney disease on peritoneal dialysis TECHNIQUE: Computed tomography (CT) of the abdomen and pelvis was performed with intravenous contrast. The dose-length product was 195.75 mGy-cm. COMPARISON: 02/06/2018 FINDINGS: Extensive hardware in the thoracolumbar spine which extends into the sacroiliac joints which causes extensive surrounding artifact which severely limits evaluation. Hardware is noted in the right proximal femur. Small opacities in the lower lungs. There is free intraperitoneal air in the abdomen and pelvis presumably due to history of peritoneal dialysis. Small amount of fluid in the abdomen and pelvis. Evidence of polycystic kidney disease. Large amount of stool in the rectum. No obvious dilated bowel loops. Visualized spleen is unremarkable. There is a 2.6 cm low-density lesion in the liver which was not seen in the prior study. In addition, there are a few additional too small to characterize low-attenuation lesions in the right lobe of the liver. An ultrasound of liver is suggested for further assessment. Pancreas is not visualized. No obvious dilated bowel loops. The level degenerative change in the visualized spine. Bones appear osteopenic. Thickening of the kay of the sigmoid colon. IMPRESSION: 1. Severely limited study as detailed above. 2. Thickening of the kay of the sigmoid colon. Differential includes incomplete bowel wall distention, colitis or mass. 3. Large amount of stool in the rectum. 4. There is free intraperitoneal air in the abdomen and pelvis presumably due to peritoneal dialysis. 5. Small amount of fluid in the abdomen and pelvis. 6. Evidence of polycystic kidney disease similar to the prior study. 7. There is a 2.6 cm low-density lesion in the liver which was not seen in the prior study. In addition, there are a few additional new too small to characterize low-attenuation lesions in the right lobe of the liver. An ultrasound of liver is suggested for further assessment. Reviewed, dictated and finalized at location Q. IMPRESSION: 1. Severely limited study as detailed above. 2. Thickening of the kay of the sigmoid colon. Differential includes incomple te bowel wall distention, colitis or mass. 3. Large amount of stool in the rectum. 4. There is free intraperitoneal air in the abdomen and pelvis presumably due t o peritoneal dialysis. 5. Small amount of fluid in the abdomen and pelvis. 6. Evidence of polycystic kidney disease similar to the prior study. 7. There is a 2.6 cm low-density lesion in the liver which was not seen in the prior study. In addition, there are a few additional new too small to character ize low-attenuation lesions in the right lobe of the liver. An ultrasound of [facility] is suggested for further assessment.
[2024-12-02 17:51] VITALS: BP 146/99; PULSE 114; RESP 18; TEMP 36.7; O2SAT 100
[2024-12-02 18:13] VITALS: BP 162/102; PULSE 95; RESP 20; TEMP 36.6
--- NOTE | 2024-12-02 18:34 | ED_ITS ---
HPI - Wound/Laceration General Chief Complaint: Wound/Laceration Stated Complaint: cyst near groin Time Seen by Provider: 12/02/24 18:07 Source: patient and other (guardian/caregiver) Mode of arrival: wheelchair Limitations: physical limitation History of Present Illness HPI narrative: Patient presents with concern for a cyst/lesion/growth near her groin. History of cerebral palsy and polycystic kidney disease for which she undergoes peritoneal dialysis nightly. This lesion was first noticed months ago. Only started complaining of it being painful on Tuesday. No appreciable drainage. A PCP in either Feb 2024 or Mar 2024 saw it and had discussed a dermatology referral but they didn't hear anything more. Saw a new PCP SENIOR PROGRAMMER on Tuesday who also appreciated the area in question. Discussed imaging but unclear what outcome was. Patient's rabble furnace tender is Dr Kristen ren [facility] in [place], no changes to her PD instructions/diasylate in years. History of spinal fusion and guardian also concerned about a growth on patient's back, unsure if bone or hardware. Deny the groin lesion to be red or pruritic. LMP approx 1 year ago, attributed to dialysis. No fevers or hills. Guardian also feels patient is a bit more puffy in her proximal thighs. Family note that when the ED RN looked at the area in question, the same growth/lesion at the groin was not seen by any of them any longer but present again. Related Data Allergies Allergy/AdvReac Type Severity Reaction Status Date / Time bacitracin Allergy Unknown BLISTERS Verified 12/02/24 18:18 neomycin Allergy Unknown BLISTERS Verified 12/02/24 18:18 polymyxin B Allergy Unknown BLISTERS Verified 12/02/24 18:18 [facility] Past Medical History Medical History Peritoneal dialysis catheter in place Polycystic kidney disease Cerebral palsy Surgical History Surgical History (Updated 12/02/24 @ 23:20 by Carole Liang MD) H/O Spinal surgery Social History Social History Smoking status: Never smoker Exam 2 Narrative: GENERAL: and in no acute distress. Thin, especially prominent bony structures in distal extremities (wrists/shins/etc) HEAD: atraumatic. EYES: Non injected, non icteric ENT: Nares clear, no rhinorrhea or epistaxis. Gross auditory acuity intact. NECK: No meningismus. CHEST: Speaking in full sentences. No respiratory distress. Strong femoral pulse on the right. HEART: Tachycardic rate and rhythm. . ABDOMEN: Soft, nondistended. Peritoneal dialysis catheter in place - clean/warm/dry/intat. No rigidity or guarding. EXTREMITIES: Contractures. BACK: Stage I decubitus ulcer. Also prominent firm palpable area, immobile but overlying skin intact and without overlying erythema. SKIN: Warm, dry. : Normal female external genitalia. Right inguinal crease with mild swelling, lymphadenopathy. Skin intact, edema is mild; area is hyperemic but without luis cellulitis and no induration present. No vesicles. No drainage. NEURO: Alert and oriented. Answering questions. Following commands. PSYCH: Congruent mood and affect. Course Vital Signs Vital signs: Vital Signs Temperature 98.1 F 12/02/24 17:51 Pulse Rate 114 H 12/02/24 17:51 Respiratory Rate 18 12/02/24 17:51 Blood Pressure 146/99 H 12/02/24 17:51 Pulse Oximetry 100 12/02/24 17:51 Oxygen Delivery Room Air 12/02/24 17:51 Temperature 97.9 F 12/02/24 18:13 Pulse Rate 95 12/02/24 23:10 Respiratory Rate 17 12/02/24 23:10 Blood Pressure 159/110 H 12/02/24 20:15 Pulse Oximetry 100 12/02/24 23:10 Oxygen Delivery Room Air 12/02/24 18:13 MDM - Wound/Laceration MDM Narrative Medical decision making narrative: Patient presents with guardian, concern for a growth/lesion noticed in right groin. ESRD on PD. Not seen on initial assessment by nurse but present (though small) on mine. In the emergency department she is afebrile vital signs notable for tachycardia hypertension. HR within normal limits on reassessment without interval intervention, HTN worse though. CRP and ESR elevated. Labs are consistent with patient's known end-stage renal disease from her polycystic kidney disease for which she is already on peritoneal dialysis daily. Patient has hypokalemia. Oral repletion ordered although will keep dose relatively low given ESRD. Normal magnesium. I did discuss with Stat Rad radiologist Murphy Vila at approximately 23:10 that patient has a history of spinal fusion surgeries and undergoes peritoneal dialysis for history ESRD d/t PCKD, the latter providing explanation for pneumoperitoneum. He notes that no skin marker was used (recommends in the future adhering a paperclip) to address the protrusion on the back. Otherwise, no clear emergent etiology of patient's symptoms. Advised follow up outpatient. SHe does have stool burden so bowel regiment prescribed. Stable for discharge. Differential Diagnosis Differential diagnosis: Likely abscess, abrasion and other (considered perirectal/perianal abscesses, bartholin gland cyst, labial cyst/abscess; lymphadenopathy; ascites; lymphedema) Lab Data Attestation: I reviewed the patient's lab results. Lab results narrative: CBC with mild abnormalities on the differential but otherwise without leukocytosis, anemia, thrombocytopenia Lactic acid normal 12/02/24 19:18 12/02/24 19:19 Labs: Lab Results 12/02/24 12/02/24 12/02/24 Range/Units 19:17 19:18 19:19 WBC 5.9 (4.5-10.0) K/mm3 RBC 4.78 (4.2-5.4) M/mm3 Hgb 13.4 (12.0-15.0) g/dL Hct 42.8 (37.0-47.0) % MCV 89.5 (80-100) fl MCH 28.0 (26-34) pg MCHC 31.3 L (32-36) g/dl RDW 13.2 (11.5-14.5) % Plt Count 309 (150-375) k/mm3 MPV 9.4 (7.4-10.4) fl Immature Gran % (Auto) 0.3 (0-0.5) % Neut % (Auto) 67.4 (45.5-73.1) % Lymph % (Auto) 25.5 (18.3-44.2) % [place] % (Auto) 5.5 (2.6-8.5) % Eos % (Auto) 1.0 (0-4.4) % Baso % (Auto) 0.3 (0.2-1.2) % Lymph # (Auto) 1.49 (0.9-3.2) K/mm3 [place] # (Auto) 0.3 (0.1-0.6) K/mm3 Eos # (Auto) 0.1 (0-0.3) K/mm3 Baso # (Auto) 0.0 (0.0-0.1) K/mm3 Abs Immat Gran (auto) 0.02 (0.00-0.031) K/mm3 Absolute Neuts (auto) 3.9 (1.3-6.7) K/mm3 Absolute Nucleated RBC 0.000 (0.0-0.012) K/mm3 Nucleated RBC % 0.0 (0.0-0.2) % ESR 53 H (0-20) mm/hr Sodium 132 L (137-145) mmol/L Potassium 3.1 L (3.4-5.0) mmol/L Chloride 96 L (98-107) mmol/L Carbon Dioxide 27 (22-30) mmol/L Anion Gap 9 (4-12) mmol/L BUN 55 H (7-17) mg/dL Creatinine 4.54 H (0.7-1.0) mg/dL Estim Creat Clear Calc Not Reportable Estimated GFR 11 L (59 - ) Glucose 91 (65-110) mg/dL Lactic Acid 0.9 (0.7-2.0) mmol/L Calcium 8.7 (8.4-10.2) mg/dL Magnesium 1.9 (1.6-2.3) mg/dL Total Bilirubin 0.4 (0.2-1.3) mg/dL AST 25 (14-36) U/L ALT 11 (6-35) U/L Alkaline Phosphatase 136 H (38-126) U/L C-Reactive Protein 8.3 H (<1.0) mg/dL Total Protein 6.0 L (6.3-8.2) g/dL Albumin 2.8 L (3.5-5.1) g/dL Imaging Data Radiologist's impression: CT STat Rad Abd Pelvis w/ contrast: Compared to prior from 02/06/2018. Severely limited due to artifact from extensive spine hardware, no metal artifact reduction technique images obtained. Peritoneal dialysis catheter with expected mild pneumoperitoneum, cannot exclude bowel perforation though this is thought less likely. Mild anasarca without definite fluid collection. Prominent rectal stool ball could be a cause for urinary retention. Mildly distended urinary bladder. Consider repeat with oral and IV contrast and metal artifact reduction techniques with marker on area of cutaneous concern. Bilateral palpable polycystic kidney disease limited evaluation. Possible enterocolitis or incidental bowel appearance. Discharge Plan Discharge Clinical Impression: Swelling of inguinal region, CRP elevated, Elevated erythrocyte sedimentation rate, ESRD on peritoneal dialysis, Hypokalemia, Rectal fullness due to feces Patient Disposition: Home Condition: Stable Instructions: Antibiotic Form, Constipation (ED), High Fiber Diet (ED), Dialysis Nutrition Plan (DC), Hypokalemia (ED), End Stage Kidney Disease (ED), Groin Pain (ED) Additional Instructions: Unclear cause of the episodic swelling in the right groin/inguinal crease. Possibly inflammatory versus small degree of slight volume overload. Follow up with rabble furnace tender to discuss if, in the future, patient's peritoneal regimen/diasylate needs to be altered. For now, continue performing PD as instructed and take all medications as prescribed. For patient's weight, 450mg acetaminophen every 6 hours (i.e. 4 times per day) is safe to take for pain Otherwise, follow up with new primary care provider and, if they proceed with dermatology referral, follow through with that. Incidentally, There was a fair amount of stool in the rectum ; this degree of constipation can cause discomfort. Use bowel regimen combination of fiber/psyllium/Metamucil, supplement with Miralax, and use laxatives/suppositories as necessary. Return to the emergency department with any new or worsening symptoms. Patient Language: Macedonian Prescriptions: New Metamucil 3.4 gram/5.4 gram powder 1 tbsp PO DAILY Qty: 660 0RF Rx Instructions: mix into at least 8 oz of water or juice before administering polyethylene glycol 3350 [Miralax] 17 gram/dose powder 17 g PO DAILY Qty: 119 0RF bisacodyl [Dulcolax (bisacodyl)] 10 mg suppository 10 mg RECTAL DAILY PRN (Reason: constipation) Qty: 12 0RF Follow-up/Referrals: Dr Peterson [Other] Referral Note: rabble furnace tender PHYSICIAN,MATERIAL CONTROLLER [Non-Staff, Internal Medicine] Stand Alone Forms: Work/School Release IP Time of Disposition: 23:33
--- OUTSIDE RECORDS SUMMARY | 2024-12-02 18:58 | XMS_ITS | Clinical Summary ---
Author Organization [facility] Address [address] [place] [address] Care Team Providers Care Sandblaster Paint Sprayer Name Role Phone Field, Alex Bernstein BLACK TOP MACHINE OPERATOR-DEHYDRATOR Primary Care Provider Source Comments [facility],non-owned Affiliates and Associated Physician Practices is amultiple site organization consisting of ambulatory clinics and hospital sitesin [place], [place], [place]. This disclosure is being madepursuant to the Care Everywhere program and may not contain all information available regarding this patient. Last updated 17.[facility] Allergies Active Allergy Reactions Criticality Noted Date Comments Occclugk-Fkcgzatxgd-Udwcxrgdm Rash Medium 2017 Medications * Be aware that medications may not be up to date on this document. Alwaysverify current medications with the patient. gentamicin (GARAMYCIN) 0.1 % cream Apply to affected area once daily 1 Active furosemide (LASIX) 40 MG tablet Take 40 mg by mouth once daily 2 Active cinacalcet (SENSIPAR) 30 MG tablet Take 30 mg by mouth daily with breakfast Active sevelamer carbonate (RENVELA) 0.8 GM pwd packet sevelamer carbonate 0.8 gram oral powder packet MIX IN 2-3 OUNCES OF COLD LIQUID AND DRINK 3 TIMES DAILY WITH MEALS Active HYDROcodone-ji taminophen (NORCO) 7.5-325 MG tablet Take 1 (one) tablet by mouth every 6 hours as needed for Pain 30 tablet 2 Active Additional Information Patient not taking.Reported on 11/05/2021 clindamycin-mahin zoyl peroxide (Benzaclin) 1-5 % gel clindamycin 1 %-benzoyl peroxide 5 % topical gel APPLY TO AFFECTED AREA TWICE A DAY IN THE MORNING AND IN THE EVENING Active Active Problems No known active problems Family History Medical History Relation Name Comments Diabetes - Type 1 Brother Diabetes - Type 2 Maternal Grandmother Relation Name Status Comments Brother Maternal Grandmother Social History Tobacco Use Types Packs/Day Years Used Date Smoking Tobacco: Never Smokeless Tobacco: Never Tobacco Cessation:Counseling Given: No Alcohol Use Standard Drinks/Week Comments Never 0 (1 standard drink = 0.6 oz pur e alcohol) AUDIT-C Answer Date Recorded Q1: How often do you have a drink containing alcohol? Never 10/22/2021 Q2: How many drinks containi ng alcohol do you have on a typical day when you are drinking? Patient does not drink Q3: How often do you have si x or more drinks on one occasion? Never 10/22/2021 Comments No Sex and Gender Information Value Date Recorded Sex Assigned at Not on file Legal Sex Female 5:33 AM LAST DIPPER Gender Identity Not on file Sexual Orientation Not on file Last Filed Vital Signs Vital Sign Reading Time Taken Comments Blood Pressure 117/87 10/22/2021 12:17 PM CDT Pulse 97 10/22/2021 12:17 PM CDT Temperature 36.5 C (97.7 F) 10/22/2021 11:45 AM CDT Respiratory Rate 18 10/22/2021 12:17 PM CDT Oxygen Saturation 100% 10/22/2021 12:17 PM CDT Inhaled Oxygen Concentration - - Weight 28.3 kg (62 lb 8 oz) 10/22/2021 8:56 AM C DT stated Height 121.9 cm (4') 10/22/2021 8:56 AM CDT Body Mass Index 19.07 10/22/2021 8:56 AM CDT Plan of Treatment Health Maintenance Due Date Last Done Comments LIPID TESTING 1984 MAMMOGRAM 1984 HIV SCREENING 10/18/1999 HEPATITIS C SCREENING 10/13/2002 DTAP/TDAP/TD VACCINES (1 - Tdap) 10/18/2003 HEPATITIS B VACCINE (1 of 3 - 19+ 3-dose series) 10/18/2003 HPV VACCINE (1 - 3-dose SCDM series) 10/18/2011 DEPRESSION SCREENING 03/28/2024 COVID-19 VACCINE (2023-2 5 season) 2024 INFLUENZA VACCINE (#1) 2024 0, 02/22/2017 ZOSTER VACCINE (1 of 2) 2034 HIB VACCINE Aged Out No longer eligi ble based on patient's age to complete this topic MENINGOCOCCAL (Group B) VACCINE SHARED DECISION-MAKING Aged Out No longer eligible based on patient's age to complete this topic MENINGOCOCCAL GROUPS A/C/Y/W VACCINE Aged Out No longer eligible b ased on patient's age to complete this topic PNEUMOCOCCAL VACCINE Aged Out No long er eligible based on patient's age to complete this topic Medical Devices Implanted Type Area Certified Pedorthotist Device Identifier Shelf Expiration Date Model / Serial / Lot Cath Dlys 62cm Qn Crlcth Peritoneum 2 Implanted:Qty: 1 on 10/22/2021 by Sam Reardon MD at [facility] N/A: Abdomen Covidien 03/13/2024 [id number] / / [id number] Cath Dlys 15fr 112.8cm 2 Cuf Clp Adpr Implanted:Qty: 1 on 10/22/2021 by Sam Reardon MD at [facility] N/A: Abdomen Covidien 09/07/2024 [id number] / / [id number] Insurance [facility] [place] MEDICARE DUAL ADV [place] Care Teams Sandblaster Paint Sprayer Relationship Specialty Start Date End Date Alex Field, BLACK TOP MACHINE OPERATOR-DEHYDRATOR [address] [place] [address] PCP - General Nurse Practitioner Family 10/05/21
--- OUTSIDE RECORDS SUMMARY | 2024-12-02 18:58 | XMS_ITS | Patient Health Record ---
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 Problem End stage renal disease (61218853) End stage renal disease (N18.6) Active confirmed Problem Chronic kidney disea se (833532263) Chronic kidney disease, unspecified (N18.9) Active confirmed Problem Dependence on renal dialysis (004564174) Dependence on renal dialysis (Z99.2) Active confirmed Problem Hyperparathyroidism due to renal insufficiency (06579390) Hyperparathyroi dism, 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) Active confirmed Problem Underweight (973511960) Low body weight due to inadequate caloric intake (R63.6) Active confirmed Problem 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) Active confirmed Problem Kidney, polycystic, 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
--- OUTSIDE RECORDS SUMMARY | 2024-12-02 18:59 | XMS_ITS | Clinical Summary ---
Author Organization [facility] Address [facility] [place] [address] Care Team Providers Care Technical Solution Architect Name Role Phone None, Provider MD Primary Care Provider Unavaila ble Allergies Active Allergy Reactions Criticality Noted Date Comments Neomycin-Bacitracin Zn-Polymyx Rash,Contact Dermatitis Low 01/31/2018 Prochlorperazine Unknown White Petrolatum Rash Medium 03/08/2018 Medications LINZESS 290 MCG capsule Take 1 tablet by mouth daily. 3 8 Active lactulose 10 GM/15ML solution Take 1 mL by mouth as needed for Constipation . 2 8 Active polyethylene glycol powder Take 1 g by mouth as needed for Constipation . 5 8 Active Calcium Citrate-Vitamin D (CALCITRATE PLUS D OR) Take 25 mcg/day by mouth daily. Active Sucroferric Oxyhydroxide (VELPHORO) 500 MG Chew Tab Chew 1 tablet by mouth daily. Active amlodipine 5 MG tablet TK 1 T PO QD 8 Active senna-docusate 8.6-50 MG tablet 2 times daily. 6 Active Phenylephrine-Min eral Oil-Pet 0.25-14-71.9 % Ointment 8 Active cholecalciferol (D3-50) 61376 units capsule Take 50,000 Units by mouth. Active calcitriol 0.25 MCG capsule Take 0.25 mcg by mouth daily. Active lactulose (ENULOSE) 10 GM/15ML solution Take 10 g by mouth. 6 Active traMADol-acetamin ophen 37.5-325 MG tabletIndications :Pain of both hip joints Take 2 tablets by mouth once as needed. 30 tablet 9 Active Active Problems Problem Noted Date Diagnosed Date Dystonia 03/01/2018 Seizure ([facility]) 03/01/2018 Cerebral palsy, unspecified ([facility]) Polycystic kidney disease 01/31/2018 CKD, patient preferred treat ment modality peritoneal dialysis 01/31/2018 Chronic constipation 01/31/2018 History of hip surgery 01/31/2018 Anemia of chronic disease 06/20/2017 ESRD on dialysis ([facility]) 12/08/2015 Renal osteodystrophy 12/08/2015 Scoliosis 12/27/2013 Arthralgia of hip 06/16/2009 Family History Medical History Relation Comments Depression Brother Kidney Disease Father Depression Maternal Grandfather Depression Maternal Grandmother Depression Paternal Grandfather Depression Paternal Grandmother Relation Status Comments Brother Type 1 Father Maternal Grandfather type2 Maternal Grandmother Type 2 Paternal Grandfather type2 Paternal Grandmother type2 Social History Tobacco Use Types Packs/Day Years Used Date Smoking Tobacco: Never Smokeless Tobacco: Never Tobacco Cessation:Counseling Given: No Alcohol Use Standard Drinks/Week Comments No 0 (1 standard drink = 0.6 oz pur e alcohol) AUDIT-C Answer Date Recorded Frequency of Alcohol Consumption Never 02/01/2018 Average Number of Drinks Not on file 018 Frequency of Binge Drinking Not on file 09/2017 Comments No Sex and Gender Information Value Date Recorded Sex Assigned at Not on file Legal Sex Female 6:28 PM CDT Gender Identity Not on file Sexual Orientation Not on file Last Filed Vital Signs Vital Sign Reading Time Taken Comments Blood Pressure 100/62 06/15/2018 1:09 PM CDT Pulse 100 06/15/2018 1:09 PM CDT Temperature 38.2 C (100.8 F) 06/15/2018 1:09 PM CDT Respiratory Rate 16 06/15/2018 1:09 PM CDT Oxygen Saturation 96% 06/15/2018 1:09 PM CDT Inhaled Oxygen Concentration - - Weight 31.9 kg (70 lb 6.4 oz) 01/31/2018 4:25 PM BUSINESS SYSTEMS CONSULTANT Height 134.6 cm (4' 5) 01/31/2018 4:25 PM BUSINESS SYSTEMS CONSULTANT Body Mass Index 17.62 01/31/2018 4:25 PM BUSINESS SYSTEMS CONSULTANT Plan of Treatment Health Maintenance Due Date Last Done Comments Annual Physical 10/18/1987 Hepatitis C 2002 DTaP, Tdap and Td Vaccines ( 1 - Tdap) 10/18/2003 Hepatitis B Vaccines (1 of 3 - 19+ 3-dose series) 10/18/2003 HPV Vaccines (1 - 3-dose SCD M series) 10/18/2011 Cervical Cancer Screening Pa p with HPV Testing (Age 30 to 64) Every 5 Years 2014 Cervical Cancer Screening with HPV 2014 Mammogram Screening 2024 COVID-19 Vaccine ( - 2023-2 5 season) 2024 Cervical Cancer Screening Pa p Smear (Age 30 to 64) Every 3 Years 02/01/2028 Postp oned from 1984 (Patient Refused) Meningococcal B Vaccine Aged Out No l onger eligible based on patient's age to complete this topic Meningococcal Vaccine Aged Out No torsten ericka eligible based on patient's age to complete this topic Pneumococcal Vaccine: Pediat rics (0 to 5 Years) and At-Risk Patients (6 to 49 Years) Aged Out No longer eligi ble based on patient's age to complete this topic RSV Immunizations Under 20 Months Aged Out No longer eligible based on patient's age to complete this topic Insurance MEDICARE MEDICAID Care Teams Technical Solution Architect Relationship Specialty Start Date End Date None, Provider, PCP - General UNKNOWN PHYSICIAN SPECIALTY 02/22/23
[2024-12-02 19:24] LABS: Hematocrit 42.8 % (37.0-47.0); Hemoglobin 13.4 g/dL (12.0-15.0); Immature Granulocyte Percent A 0.3 % (0-0.5); Lymphocytes Absolute Auto 1.49 K/mm3 (0.9-3.2); Mean Corpuscular HGB Conc 31.3 g/dl (32-36); Mean Corpuscular Hemoglobin 28.0 pg (26-34); Mean Corpuscular Volume 89.5 fl (80-100); Nucleated Red Blood Cells Absolute Auto 0.000 K/mm3 (0.0-0.012); Nucleated Red Blood Cells Perc 0.0 % (0.0-0.2); Platelet Count Result 309 k/mm3 (150-375); Red Blood Count 4.78 M/mm3 (4.2-5.4); White Blood Count 5.9 K/mm3 (4.5-10.0)
[2024-12-02 19:30] VITALS: BP 148/110; PULSE 110; RESP 21; O2SAT 100
--- NOTE | 2024-12-02 19:30 | PC.NURSE ---
assumed care of patient after receiving bedside report from BRIGID guerra @ 0129.
[2024-12-02] MEDS: ACETAMINOPHEN ELIXIR 325 MG/10.15 ML UDC 450 MG PO (19:35)
[2024-12-02 19:40] LABS: Alanine Aminotransferase 11 U/L (6-35); Albumin Level 2.8 g/dL (3.5-5.1); Alkaline Phosphatase 136 U/L (38-126); Anion Gap 9 mmol/L (4-12); Aspartate Amino Transferase 25 U/L (14-36); Bilirubin,Total 0.4 mg/dL (0.2-1.3); Blood Urea Nitrogen 55 mg/dL (7-17); CRP 8.3 mg/dL (<1.0); Calcium 8.7 mg/dL (8.4-10.2); Carbon Dioxide 27 mmol/L (22-30); Chloride 96 mmol/L (98-107); Glucose 91 mg/dL (65-110); Potassium 3.1 mmol/L (3.4-5.0); Sodium 132 mmol/L (137-145); Total Protein 6.0 g/dL (6.3-8.2)
[2024-12-02 19:52] LABS: Estimated Glomerular Filt Rate 11
[2024-12-02 20:15] VITALS: BP 159/110; PULSE 101; RESP 20; O2SAT 100
[2024-12-02 20:18] LABS: Magnesium 1.9 mg/dL (1.6-2.3)
[2024-12-02] MEDS: POTASSIUM BICARBONATE 25 MEQ TABEF 50 MEQ PO (20:31)
[2024-12-02 23:10] VITALS: PULSE 95; RESP 17; O2SAT 100
--- NOTE | 2024-12-03 00:28 | PC.NURSE ---
Patient mother refuses dulcolax dosage stating that she needs to check if it is compatible with her peritoneal dialysis. Pt mother stated she would rather give her some medication that she has at home.
== END 2024-12-03 00:31 | disposition home or self-care (01) ==
PROVIDERS: Emergency Provider Student in an Organized Health Care Education/Training Program
DX: R22.2 Localized swelling, mass and lump, trunk (principal); R79.82 Elevated C-reactive protein (CRP); R70.0 Elevated erythrocyte sedimentation rate; E87.6 Hypokalemia; N18.6 End stage renal disease; Z99.2 Dependence on renal dialysis; G80.9 Cerebral palsy, unspecified; Q61.3 Polycystic kidney, unspecified
CPT/HCPCS: 36415; 74177; 80053; 83605; 83735; 85025; 85652; 86140; 99284; A9270; Q9967

== ENCOUNTER 2024-12-16 13:29 | Inpatient (IN) | payer OTHER, SELFPAY ==
--- OUTSIDE RECORDS SUMMARY | 2024-07-20 05:32 | XMS_ITS ---
Author Organization [facility] Address [address] [place] [phone] Care Team Providers Care Engineering Officer Name Role Phone ROSIE MAIER Primary Care Provider [phone] ROSIE MAIER Unavailable Unavailable Problems Problem Type SNOMED Code ICD Code Onset Dates Problem Status W/U Status Risk Notes Problem End stage renal disease (23910501) End stage renal disease (N18.6) Active confirmed Problem Dependence on renal dialysis (786709427) Dependence on renal dialysis (Z99.2) Active confirmed Problem Underweight (571241202) Low body weight due to inadequate caloric intake (R63.6) Active confirmed Problem Chronic kidney disea se (006550835) Chronic kidney disease, unspecified (N18.9) Active confirmed Problem Anemia in chronic kidney disease (428006426) Anemia in chronic kidney disease (D63.1) Active confirmed Problem Hyperparathyroidism due to renal insufficiency (55753340) Hyperparathyroi dism, 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) Active confirmed Problem Spastic quadriplegic cerebral palsy (53261212) 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 Problem 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) Active confirmed Problem Kidney, polycystic, 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) Active confirmed Encounters Encounter Location Date Provider Diagnosis [facility] [address] [place] [phone] 07/20/2024 ROSIE DARRION End stage renal disease [...] Notes * YAMINI HSUB:1985 (39 yo F)Acc No.[id number]:07/20/2024 Progress Notes Patient: RIGOBERTO JAMA Provider: Wood Maier MD :1985 A ge:38 Y S ex:Female Date:07/20/2024 Address:[address] [place] [address] Subjective: * Chief Complaints: * * Medical [...] Electronic signature of CODEY MAIER MD on 12/16/2024 at 01:34 PM CDT Sign off status: Pending * Provider: Wood Maier MD Date: 0 07/20/2024 Generated for Tasha pope/Keyla/Ariana on: 0 12/16/2024 01:34 PM CDT
[2024-12-16] VITALS (38 sets, daily range): BP systolic 118–137; BP diastolic 92–105; PULSE 84–114; RESP 12–29; TEMP 36.6; O2SAT 92–100
--- NOTE | ~2024-12-16 | XR_ITS ---
EXAMINATION: XR chest 1V portable COMPARISON: No comparisons available. HISTORY: concern for aspiration FINDINGS: There are scattered perihilar interstitial airspace opacities. No pneumothorax. Heart is normal size. Mediastinal and hilar contours are within normal limits. Fusion noted of the visualized spine. Miscellaneous: None Impression: Early bilateral pneumonia Reviewed, dictated and finalized at location A. Impression: Early bilateral pneumonia
--- NOTE | ~2024-12-16 | CT_ITS ---
EXAMINATION: CT chest abdomen pelvis w con DATE: 12/19/2024 15:18 INDICATION: Nocturia peritonitis TECHNIQUE: Computed tomography (CT) of the chest, abdomen, and pelvis was performed with 100 mL Omnipaque-350 intravenous contrast. Automated exposure control and iterative reconstruction technique were employed. The dose-length product was 255.01 mGy-cm. COMPARISON: CT dated 12/16/2024 FINDINGS: CHEST CT: Extensive posterior spinal fusion extending from T2 through S1 with bilateral vertical rods with combination of mammographic wires and pedicle screws and right iliac screw. This results in streak artifact and paraspinal predominance the chest, abdomen and pelvis. Small lung volumes. Small posterior layering left pleural effusion with mild dependent atelectasis in the left lower lobe. Small calcified nodule in the right upper lobe consistent with old granulomatous disease. No suspicious pulmonary nodules, pneumonia, pulmonary edema or right- sided pleural effusion. Heart size is normal. No pericardial effusion. Thoracic aorta is normal in caliber with no dissection. No pathologically enlarged thoracic lymphadenopathy. ABDOMEN/PELVIS CT: Multiple low-attenuation hepatic cysts the largest measuring 2.4 cm. Spleen, pancreas and bilateral adrenal glands are normal. There is peripheral calcification associated with numerous renal cysts which have essentially completely replaced both kidneys. No dilated bowel to suggest obstruction. Small amount of ascites throughout the abdomen and pelvis with peritoneal dialysis catheter coiled in the anterior left lower quadrant. Chronic dependently layering milk of calcium including several of the renal cysts as well as in the bladder. Extensive body wall edema. 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 Lateral plate and screw with femoral neck screw fixation at the proximal right femur. Increased lucency consistent with loosening surrounding the distal aspect of the right iliac screw with unchanged nondisplaced fracture extending across the inferomedial aspect of the right iliac wing, portions of which appear to remain ununited. IMPRESSION: 1. Evaluation limited by extensive streak artifact throughout the chest, abdomen and pelvis related to extensive T2-S1 posterior spinal fusion. There appears to chronic loosening of an associated right iliac screw with. Chronic healing fracture extends across the inferomedial aspect of the right iliac wing. 2. Extensive body wall edema with small amount of ascites and small left pleural effusion. The ascites may be related to peritoneal dialysis with dialysis catheter coiled in the left lower quadrant. 3. 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 Reviewed, dictated and finalized at location A. IMPRESSION: 1. Evaluation limited by extensive streak artifact throughout the chest, abdome n and pelvis related to extensive T2-S1 posterior spinal fusion. There appears to chronic loosening of an associated right iliac screw with. Chronic healing f racture extends across the inferomedial aspect of the right iliac wing. 2. Extensive body wall edema with small amount of ascites and small left pleura l effusion. The ascites may be related to peritoneal dialysis with dialysis cat heter coiled in the left lower quadrant. 3. Likely autosomal dominant polycystic kidney disease with bilateral kidneys e ssentially completely replaced by multiple large renal cysts.
--- NOTE | ~2024-12-16 | CT_ITS ---
[facility] Collins EXAMINATION: CT abdomen pelvis w con COMPARISON: None HISTORY: LLQ pain TECHNIQUE: Axial images were obtained through the abdomen, pelvis post administration of IV contrast. Oral contrast was also administered. Coronal reconstruction images were obtained from the axial views. CT scan performed using dose optimization techniques including the following automated exposure control; adjustment of mA and/or kV; use of iterative reconstruction technique. Automatic exposure control was used to reduce radiation dose. Permanent radiation dose record is archived to PACS. FINDINGS: CT abdomen: LUNG BASES: The lung bases are clear. The visualized portions of the heart and pericardium are unremarkable. LIVER: Simple and complex appearing liver cysts the largest right ovary 2 x 2 cm. SPLEEN: Unremarkable. KIDNEYS: Right Kidney: Right kidney replaced by innumerable simple, complex and hemorrhagic renal cysts. Left Kidney: Left kidney replaced by innumerable simple, complex and hemorrhagic renal cysts. ADRENAL GLANDS: Adrenal glands not clearly evaluated. PANCREAS: Pancreas limited by artifact. GALLBLADDER/BILIARY: Gallbladder contracted. STOMACH AND ESOPHAGUS: There is hyperemia noted of the distal gastric mucosa with relative distention of the distal stomach. BOWEL/MESENTERY: No colitis or diverticulitis. The appendix is not clearly identified. There are mildly thickened several small bowel loops. There is a peritoneal dialysis catheter terminating in the pelvis. ADENOPATHY/RETROPERITONEUM: No lymphadenopathy. AORTA/VASCULATURE: Normal caliber aorta. FREE FLUID OR FREE AIR: Small amount of free fluid in the pelvis.. CT pelvis: SOLID ORGANS/REPRODUCTIVE: The uterine cavity is prominent. No gross adnexal mass. BLADDER: Within normal limits. OSSEOUS STRUCTURES: Postsurgical changes noted in the proximal right femur with deformity noted of the pelvis. There are postsurgical changes noted in the lumbar spine with scoliosis, artifact limits evaluation. No gross fracture identified with no gross sclerotic or lytic lesions. OVERLYING SOFT TISSUES: Moderate soft tissue anasarca. IMPRESSION: 1. Intra-abdominal free air which may relate to the patient's peritoneal dialysis catheter however distinction from a viscus perforation is limited and extensive artifact also obscures evaluation. Follow-up is recommended to assess as clinically warranted. 2. Incidental findings above Reviewed, dictated and finalized at location A. IMPRESSION: 1. Intra-abdominal free air which may relate to the patient's peritoneal dialys is catheter however distinction from a viscus perforation is limited and extens melody artifact also obscures evaluation. Follow-up is recommended to assess as cl inically warranted. 2. Incidental findings above
--- OUTSIDE RECORDS SUMMARY | 2024-12-16 13:33 | XMS_ITS | Patient Health Record ---
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 Problem End stage renal disease (28015096) End stage renal disease (N18.6) Active confirmed Problem Chronic kidney disea se (146280189) Chronic kidney disease, unspecified (N18.9) Active confirmed Problem Dependence on renal dialysis (050925702) Dependence on renal dialysis (Z99.2) Active confirmed Problem Hyperparathyroidism due to renal insufficiency (31277031) Hyperparathyroi dism, 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) Active confirmed Problem Underweight (618886633) Low body weight due to inadequate caloric intake (R63.6) Active confirmed Problem 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) Active confirmed Problem Kidney, polycystic, 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) Active confirmed Encounters Encounter Location Date Provider Diagnosis [facility] [address] [phone] 07/20/2024 ROSIE KOTHARI End stage renal disease [...] Insured Coverage Start Date Coverage End Date [facility] [address] [place], [place] [id number] RIGOBERTO HOYT Self - patient is the insured
--- OUTSIDE RECORDS SUMMARY | 2024-12-16 13:35 | XMS_ITS | Clinical Summary ---
Author Organization [facility] Address [facility] [place] [address] Care Team Providers Care Photographic Press Screwmaker Name Role Phone None, Provider MD Primary [...] 0.25-14-71.9 % Ointment 8 Active cholecalciferol (D3-50) 78337 units capsule Take 50,000 Units by mouth. Active calcitriol 0.25 MCG capsule Take 0.25 mcg by mouth daily. Active lactulose (ENULOSE) 10 GM/15ML solution Take 10 g by mouth. 6 Active traMADol-acetamin ophen 37.5-325 MG tabletIndications :Pain of both hip joints Take 2 tablets by mouth once as needed. 30 tablet 9 Active Active Problems Problem Noted Date Diagnosed Date Dystonia 03/01/2018 Seizure ([facility]) 03/01/2018 Cerebral palsy, unspecified ([facility]) Polycystic kidney disease 01/31/2018 CKD, patient preferred treat ment modality peritoneal dialysis 01/31/2018 Chronic constipation 01/31/2018 History of hip surgery 01/31/2018 Anemia of chronic disease 06/20/2017 ESRD on dialysis ([facility]) 12/08/2015 Renal osteodystrophy 12/08/2015 Scoliosis 12/27/2013 [...] (70 lb 6.4 oz) 01/31/2018 4:25 PM [employer] CONDITIONING INST[employer]ER Height 134.6 cm (4' 5) 01/31/2018 4:25 PM [employer] CONDITIONING INST[employer]ER Body Mass Index 17.62 01/31/2018 4:25 PM [employer] CONDITIONING INST[employer]ER Plan of Treatment Health Maintenance Due Date [...] this topic Insurance MEDICARE MEDICAID Care Teams Photographic Press Screwmaker Relationship Specialty Start Date End Date None, Provider, PCP - General UNKNOWN PHYSICIAN SPECIALTY 02/22/23
--- NOTE | 2024-12-16 14:52 | ED.GENADULT ---
HPI - General Adult General Chief complaint: Nausea/Vomiting/Diarrhea <Mariam Dykes APRN - Last Filed: 12/19/24 19:09> Stated complaint: infection? <Mariam Dykes APRN - Last Filed: 12/19/24 19:09> Time Seen by Provider: 12/16/24 14:16 <Mariam Dykes APRN - Last Filed: 12/19/24 19:09> History of Present Illness HPI narrative: Patient is a 39-year-old female who presents to the ER with complaints of left lower quadrant abdominal pain. Her mother reports she was here 2 weeks ago with abdominal pain. She reports they did a CT scan and noted that patient was constipated. Patient's mother reports she noticed patient's peritoneal bag was cloudy approximately 1-1/2 weeks ago so they brought her to the clinic and she was placed on ciprofloxacin and Diflucan. Her mother reports that the cultures have come back negative but patient has continued on ciprofloxacin. Patient's mother reports she has been vomiting every other night. She also reports patient has had a bowel movement every day and this morning she had a ?large one. Patient's mother denies any recent fevers, diarrhea, new onset back pain, or cough. Her mother endorses a history of peritoneal dialysis, cerebral palsy, and labial abscess. <Mariam Dykes APRN - Last Filed: 12/19/24 19:09> Related Data Home medications: Home Medications ?Medication ?Instructions ?Recorded ?Confirmed ?Last Taken ?Type calcium carbonate 500 mg PO BID-TID 12/17/24 12/17/24 Unknown History cholecalciferol (vitamin D3) 25 1,000 unit PO DAILY 12/17/24 12/17/24 Unknown History mcg (1,000 unit) capsule (Vitamin D3) cinacalcet 60 mg tablet 60 mg PO DAILY 12/17/24 12/17/24 12/16/24 History ciprofloxacin HCl 250 mg tablet 250 mg PO BID 12/17/24 12/17/24 12/16/24 History ferric citrate 210 mg iron tablet 210 mg PO TID 12/17/24 12/17/24 12/16/24 History (Auryxia) ferric citrate 210 mg iron tablet 210 mg PO TID 12/17/24 12/17/2425 History (Auryxia) fluconazole 100 mg tablet 100 mg PO Q48H 12/17/24 12/17/24 12/13/24 History tramadol 37.5 mg-acetaminophen 325 1 - 2 tablet PO ONCE PRN pain 12/17/24 12/17/24 Unknown History mg tablet <Mariam Dykes APRN - Last Filed: 12/19/24 19:09> Allergies/adverse reactions: Allergies Allergy/AdvReac Type Severity Reaction Status Date / Time bacitracin Allergy Unknown BLISTERS Verified 12/17/24 05:21 neomycin Allergy Unknown BLISTERS Verified 12/17/24 05:21 polymyxin B Allergy Unknown BLISTERS Verified 12/17/24 05:21 <Mariam Dykes APRN - Last Filed: 12/19/24 19:09> Review of Systems Review of Systems: All systems reviewed & are unremarkable except as noted in HPI and below <Mariam Dykes APRN - Last Filed: 12/19/24 19:09> [facility] Past Medical History Medical History: Medical History (Updated 12/18/24 @ 10:19 by Yefir Bush MD) Hypertension DJD (degenerative joint disease) Dystonia Underweight Anemia End stage renal disease Scoliosis Peritoneal dialysis catheter in place Polycystic kidney disease Cerebral palsy <Mariam Dykes APRN - Last Filed: 12/19/24 19:09> Surgical History Surgical History: Surgical History H/O Spinal surgery <Mariam Dykes APRN - Last Filed: 12/19/24 19:09> Family History Family History: Family History Grandparent Bipolar 1 disorder Mother COPD (chronic obstructive pulmonary disease) Father Polycystic dysplastic kidney Sibling Depression Other Depression <Mariam Dykes APRN - Last Filed: 12/19/24 19:09> Social History Social History: Social History Smoking status: Never smoker Alcohol intake: never Substance use: never Spiritual care concerns: No <Mariam Dykes APRN - Last Filed: 12/19/24 19:09> Exam Narrative: GENERAL: Thin, especially prominent bony structures in distal extremities (wrists/shins/etc), in no acute distress. HEAD: Normocephalic, atraumatic. NECK: Supple. No adenopathy, no masses. RESPIRATORY: Airway patent, respirations nonlabored. Clear to auscultation bilaterally, no rales, rhonchi, wheezing. CARDIOVASCULAR: Tachycardia without murmurs, rubs, or gallops. Peripheral pulses 2+ and equal bilaterally. ABDOMINAL: Soft, left lower quadrant tenderness, + distended. Normoactive BS, Peritoneal dialysis catheter in place - clean/warm/dry/intact. MUSCULOSKELETAL: Moves all extremities. + contractures SKIN: Warm, dry, normal color. No rashes. NEURO: A&O X3. Speech clear. PSYCHIATRIC: Appropriate mood and affect. Normal interaction. : Normal female external genitalia. Skin intact. <Mariam Dykes APRN - Last Filed: 12/19/24 19:09> Course BENDING ROLL HAND/PA Physician Supervision This visit was performed by both a physician and an APC. I performed all aspects of the MDM as documented. <Scotty Watson MD - Last Filed: 12/20/24 07:09> Vital Signs Vital signs: Vital Signs Temperature 97.8 F 12/16/24 14:11 Pulse Rate 104 H 12/16/24 14:11 Respiratory Rate 18 12/16/24 14:11 Blood Pressure 118/92 H 12/16/24 14:11 Pulse Oximetry 98 12/16/24 14:11 Temperature 96.3 F L 12/20/24 06:00 Pulse Rate 87 12/20/24 06:00 Respiratory Rate 18 12/20/24 06:00 Blood Pressure 127/88 12/20/24 06:00 Pulse Oximetry 98 12/20/24 06:00 Oxygen Delivery Room Air 12/19/24 08:00 <Mariam Dykes APRN - Last Filed: 12/19/24 19:09> Vital Signs Temperature 97.8 F 12/16/24 14:11 Pulse Rate 104 H 12/16/24 14:11 Respiratory Rate 18 12/16/24 14:11 Blood Pressure 118/92 H 12/16/24 14:11 Pulse Oximetry 98 12/16/24 14:11 Temperature 96.3 F L 12/20/24 06:00 Pulse Rate 87 12/20/24 06:00 Respiratory Rate 18 12/20/24 06:00 Blood Pressure 127/88 12/20/24 06:00 Pulse Oximetry 98 12/20/24 06:00 Oxygen Delivery Room Air 12/19/24 08:00 <Scotty Watson MD - Last Filed: 12/20/24 07:09> Vital Signs Temperature 97.8 F 12/16/24 14:11 Pulse Rate 104 H 12/16/24 14:11 Respiratory Rate 18 12/16/24 14:11 Blood Pressure 118/92 H 12/16/24 14:11 Pulse Oximetry 98 12/16/24 14:11 Temperature 96.3 F L 12/20/24 06:00 Pulse Rate 87 12/20/24 06:00 Respiratory Rate 18 12/20/24 06:00 Blood Pressure 127/88 12/20/24 06:00 Pulse Oximetry 98 12/20/24 06:00 Oxygen Delivery Room Air 12/19/24 08:00 <Kim Gold MD - Last Filed: 12/17/24 02:23> Procedures EJ/Peripheral Line Arm R: EJ/Peripheral Line Date: 12/17/24 <Kim Gold MD - Last Filed: 12/17/24 02:23> EJ/Peripheral Line Time: 02:22 <Kim Gold MD - Last Filed: 12/17/24 02:23> Skin Cleansed in Sterile Fashion: Yes <Kim Gold MD - Last Filed: 12/17/24 02:23> Ultrasound Guided: Yes <Kim Gold MD - Last Filed: 12/17/24 02:23> Size (gauge): 18 <Kim Gold MD - Last Filed: 12/17/24 02:23> IV Secured and Dressing Applied: Yes <Kim Gold MD - Last Filed: 12/17/24 02:23> Patient Tolerated Procedure: well and no complications <Kim Gold MD - Last Filed: 12/17/24 02:23> Medical Decision Making MDM Narrative Medical decision making narrative: Patient is a 39-year-old female who presents to the ER with complaints of left lower quadrant abdominal pain. Her mother reports she was here 2 weeks ago with abdominal pain. She reports they did a CT scan and noted that patient was constipated. Patient's mother reports she noticed patient's peritoneal bag was cloudy approximately 1-1/2 weeks ago so they brought her to the clinic and she was placed on ciprofloxacin and Diflucan. Her mother reports that the cultures have come back negative but patient has continued on ciprofloxacin. Patient's mother reports she has been vomiting every other night. She also reports patient has had a bowel movement every day and this morning she had a ?large one. Patient's mother denies any recent fevers, diarrhea, new onset back pain, or cough. Her mother endorses a history of peritoneal dialysis, cerebral palsy, and labial abscess. Labs Ordered: CBC, CMP, magnesium, ionized calcium, PTT, INR, lactic acid, CRP UA collected via purewick as nursing staff was unable to cath pt for a sample. Imaging Ordered: CT abdomen pelvis, chest x-ray Medications Ordered: Calcium gluconate 1 g IV, calcium gluconate 2 g IV, potassium chloride 40 mEq IV, potassium chloride 40 mEq p.o. Results: Patient's CBC is unremarkable for any acute abnormalities. Her coags were unremarkable. Patient's chemistry indicates a sodium of 130, potassium of 2.6, BUN of 39, creatinine of 4.46, GFR of 11, calcium of 5.7. Her alk-phos was 146. Patient's C-reactive protein was 6.3. Her total protein was 5.6 and albumin 2.4. Patient's lipase was 77. Urinalysis 2+ protein, 3+ blood, trace leukocytes, 21-50 rbcs. Pt's CRP is 6.3. Patient's CT scan indicates 1. Intra-abdominal free air which may relate to the patient's peritoneal dialysis catheter however distinction from a viscus perforation is limited and extensive artifact also obscures evaluation. Follow-up is recommended to assess as clinically warranted. 2. Incidental findings above Patient's chest x-ray indicates Early bilateral pneumonia Diagnosis: Hypocalcemia, hypokalemia, hyponatremia, left lower quadrant abdominal pain, early bilateral pneumonia Consults: 1800-spoke with Dr. Bush, who reports he will consult on pt. He reports he does not think he will be able to round up [employer] nurses to do pt's dialysis tonight, but they will plan to perform dialysis tomorrow once he speaks with pt's driver license agent, Dr. Maier. Dr. Bush reports all patients with peritoneal dialysis have some air in their abdomen and doesn't think general surgery will intervene. 1829- Spoke with hospitalist, ODALIS Sylvester, who had concerns about admitting pt to the hospital d/t her low calcium. Plan to re-draw pt's BMP after calcium gluconate administration and re-evaluate. Pt's calcium levels remain at 5.7 after first dose of Calcium gluconate 1g, so pt will receive Calcium gluconate 2g. 2014-Spoke with Dr. Bush again, who reports he will manage pt's kidneys and her electrolyte, but understands pt has multiple complicated issues and does not want the hospitalist to admit the pt to this hospital if they aren't comfortable with the admission. 2029- Spoke with Dr. Goodwin for further clarification on pt's diagnosis and condition. He reports he will speak to Dr. Bush about admission to the hospital. Dr. Goodwin also requests pt's BMP be redrawn after her second calcium administration. 2429- Pt's repeat BMP indicates a calcium of 6.1. Dr. Goodwin reports pt can be admitted to the med/surg floor with telemetry. He would also like Dr. Bsuh consulted for further orders at this time. Pt's chest x-ray indicates she has early pneumonia, so pt will be treated with IV abx. MDM: Patient's blood in her urine is most likely due to trauma to her urethra when nurses were attempting to collect a urine sample and were unable to obtain an I & O sample. Results of imaging and lab work shared with patient and her family. It was advised patient be admitted to the hospital for further evaluation and treatment. Patient's family verbalized understanding and is in agreement with plan. CRITICAL CARE ADDENDUM: Indication: electrolyte abnormalities Time type: intermittent I provided a total of 55 minutes of critical care excluding separately billable procedures. This includes time w/ EMS, initial bedside evaluation, reviewing old records, review of testing done while under my care, discussion w/ the family, nurses, salon sales consultant and guiding the patient?s care while in the emergency department. Approximate time distribution: 15 minutes ? Initial evaluation, d/w involved parties, attempting to gather old records. 10 minutes ? Documenting medical record 10 minutes ? Review of results (EKGs, labs, imaging) 10 minutes ? Serial repeat bedside evaluation 10 minutes ? Discussing case with multiple providers Please see main chart for details. 0220- Pt vomited x 1. She reports she does not feel as though she is going to vomit again. Pt also had diarrhea x 1. Her mother reports this is the first time she has had diarrhea, but pt has been on Ciprofloxacin so her stool will be sent for c. difficile. 0245- Call placed to Dr. Bush for consult on orders. Pt vomited for a second time. Zofran IV ordered. Dr. Goodwin in ER to evaluate pt. He requests pt receive Meropenem and Vancomycin IV to treat possible peritonitis. This visit was performed by both a physician and an APC. I performed all aspects of the MDM as documented. <Mariam Dykes APRN - Last Filed: 12/19/24 19:09> Patient is a 39-year-old female who presents to the ER with complaints of left lower quadrant abdominal pain. Her mother reports she was here 2 weeks ago with abdominal pain. She reports they did a CT scan and noted that patient was constipated. Patient's mother reports she noticed patient's peritoneal bag was cloudy approximately 1-1/2 weeks ago so they brought her to the clinic and she was placed on ciprofloxacin and Diflucan. Her mother reports that the cultures have come back negative but patient has continued on ciprofloxacin. Patient's mother reports she has been vomiting every other night. She also reports patient has had a bowel movement every day and this morning she had a ?large one. Patient's mother denies any recent fevers, diarrhea, new onset back pain, or cough. Her mother endorses a history of peritoneal dialysis, cerebral palsy, and labial abscess. Labs Ordered: CBC, CMP, magnesium, ionized calcium, PTT, INR, lactic acid, CRP Imaging Ordered: CT abdomen pelvis, chest x-ray Medications Ordered: Results: Diagnosis: Risks: HEART score, PECARN score, CURB-65 score Consults: 1800 This visit was performed by both a physician and an APC. I performed all aspects of the MDM as documented. <Scotty Watson MD - Last Filed: 12/20/24 07:09> Differential Diagnosis Differential Diagnosis: Hyponatremia, hypocalcemia, hypokalemia, small-bowel obstruction, gastroenteritis, sepsis <Mariam Dykes, AUTOMATIC CHIEF - Last Filed: 12/19/24 19:09> Vital Signs Vital Signs: Vital Signs Temperature 97.8 F 12/16/24 14:11 Pulse Rate 104 H 12/16/24 14:11 Respiratory Rate 18 12/16/24 14:11 Blood Pressure 118/92 H 12/16/24 14:11 Pulse Oximetry 98 12/16/24 14:11 Temperature 96.3 F L 12/20/24 06:00 Pulse Rate 87 12/20/24 06:00 Respiratory Rate 18 12/20/24 06:00 Blood Pressure 127/88 12/20/24 06:00 Pulse Oximetry 98 12/20/24 06:00 Oxygen Delivery Room Air 12/19/24 08:00 <Mariam Dykes, AUTOMATIC CHIEF - Last Filed: 12/19/24 19:09> Vital Signs Temperature 97.8 F 12/16/24 14:11 Pulse Rate 104 H 12/16/24 14:11 Respiratory Rate 18 12/16/24 14:11 Blood Pressure 118/92 H 12/16/24 14:11 Pulse Oximetry 98 12/16/24 14:11 Temperature 96.3 F L 12/20/24 06:00 Pulse Rate 87 12/20/24 06:00 Respiratory Rate 18 12/20/24 06:00 Blood Pressure 127/88 12/20/24 06:00 Pulse Oximetry 98 12/20/24 06:00 Oxygen Delivery Room Air 12/19/24 08:00 <Scotty Watson MD - Last Filed: 12/20/24 07:09> Vital Signs Temperature 97.8 F 12/16/24 14:11 Pulse Rate 104 H 12/16/24 14:11 Respiratory Rate 18 12/16/24 14:11 Blood Pressure 118/92 H 12/16/24 14:11 Pulse Oximetry 98 12/16/24 14:11 Temperature 96.3 F L 12/20/24 06:00 Pulse Rate 87 12/20/24 06:00 Respiratory Rate 18 12/20/24 06:00 Blood Pressure 127/88 12/20/24 06:00 Pulse Oximetry 98 12/20/24 06:00 Oxygen Delivery Room Air 12/19/24 08:00 <Kim Gold MD - Last Filed: 12/17/24 02:23> Lab Data Lab results reviewed: Yes I reviewed the patient's lab results. <Mariam Dykes APRN - Last Filed: 12/19/24 19:09> Result diagrams: 12/20/24 05:38 12/20/24 05:38 <Mariam Dykes APRN - Last Filed: 12/19/24 19:09> Labs: Lab Results 12/16/24 12/16/24 12/16/24 Range/Units 15:26 21:27 21:36 WBC 8.9 (4.5-10.0) K/mm3 RBC 4.76 (4.2-5.4) M/mm3 Hgb 13.4 (12.0-15.0) g/dL Hct 42.4 (37.0-47.0) % MCV 89.1 (80-100) fl MCH 28.2 (26-34) pg MCHC 31.6 L (32-36) g/dl RDW 13.9 (11.5-14.5) % Plt Count 333 (150-375) k/mm3 MPV 8.8 (7.4-10.4) fl Immature Gran % (Auto) 0.7 H (0-0.5) % Neut % (Auto) 72.6 (45.5-73.1) % Lymph % (Auto) 20.2 (18.3-44.2) % [place] % (Auto) 4.8 (2.6-8.5) % Eos % (Auto) 1.2 (0-4.4) % Baso % (Auto) 0.5 (0.2-1.2) % Lymph # (Auto) 1.79 (0.9-3.2) K/mm3 [place] # (Auto) 0.4 (0.1-0.6) K/mm3 Eos # (Auto) 0.1 (0-0.3) K/mm3 Baso # (Auto) 0.0 (0.0-0.1) K/mm3 Abs Immat Gran (auto) 0.06 H (0.00-0.031) K/mm3 Absolute Neuts (auto) 6.5 (1.3-6.7) K/mm3 Absolute Nucleated RBC 0.000 (0.0-0.012) K/mm3 Nucleated RBC % 0.0 (0.0-0.2) % PT 13.0 (11.1-14.7) Seconds INR 1.0 APTT 30.3 (22.3-36.8) Seconds Sodium 130 L 130 L (137-145) mmol/L Potassium 2.6 L* 4.8 (3.4-5.0) mmol/L Chloride 92 L 99 (98-107) mmol/L Carbon Dioxide 30 25 (22-30) mmol/L Anion Gap 8 6 (4-12) mmol/L BUN 39 H D 37 H (7-17) mg/dL Creatinine 4.46 H 4.04 H (0.7-1.0) mg/dL Estim Creat Clear Calc Not Reportable Not Reportable Estimated GFR 11 L 12 L (59 - ) Glucose 97 82 (65-110) mg/dL POC Capillary Glucose (65-105) mg/dl Lactic Acid 1.0 (0.7-2.0) mmol/L Calcium 5.7 L* 5.7 L* (8.4-10.2) mg/dL Ionized Calcium Cancelled Phosphorus (2.5-4.5) mg/dL Magnesium 1.7 (1.6-2.3) mg/dL Total Bilirubin 0.2 (0.2-1.3) mg/dL AST 20 (14-36) U/L ALT 11 (6-35) U/L Alkaline Phosphatase 146 H (38-126) U/L C-Reactive Protein 6.3 H (<1.0) mg/dL Total Protein 5.6 L (6.3-8.2) g/dL Albumin 2.4 L (3.5-5.1) g/dL Lipase (23-300) U/L Procalcitonin ng/mL Urine Color Yellow (Yellow) Urine Appearance Cloudy H (Clear) Urine pH 8.5 (5.0-9.0) Ur Specific [place] 1.008 (1.001-1.035) Urine Protein 2+ H (Negative) mg/dL Urine Glucose (UA) Negative (Negative) mg/dL Urine Ketones Negative (Negative) mg/dL Ur Blood (Man) 3+ H (Negative) Urine Nitrate Negative (Negative) Urine Bilirubin Negative (Negative) Urine Urobilinogen 0.2 (<2.0) mg/dL Leukocyte Esterase Rfl Trace H (Negative) HUMPHREY/UL Urine RBC 21-50 H (0-2) /hpf Urine WBC 0-5 (0-3) /hpf Ur Squamous Epith Cells Occasional (Few) /hpf Urine Bacteria None seen /hpf Urine Casts 3-5 Peritoneal Source Peritoneal Color (Colorless) Peritoneal Appearance (Clear) Peritoneal RBC (0-57009) /uL [place] Nuc Cells (0-500) /uL Periton Neutrophils (0-25) % Periton Lymphocytes % Peritoneal Monocytes % Nasal MRSA (PCR) (NOT DETECTE) Random Vancomycin (10-20) ug/mL Influenza A (RT-PCR) (Negative) Influenza B (RT-PCR) (Negative) RSV (RT-PCR) (Negative) SARS-CoV-2 RNA (RT-PCR) (Negative) 12/17/24 12/17/24 12/17/24 Range/Units 00:45 05:31 05:58 WBC 10.3 H (4.5-10.0) K/mm3 RBC 4.57 (4.2-5.4) M/mm3 Hgb 13.0 (12.0-15.0) g/dL Hct 42.4 (37.0-47.0) % MCV 92.8 (80-100) fl MCH 28.4 (26-34) pg MCHC 30.7 L (32-36) g/dl RDW 14.3 (11.5-14.5) % Plt Count 321 (150-375) k/mm3 MPV 9.1 (7.4-10.4) fl Immature Gran % (Auto) 0.5 (0-0.5) % Neut % (Auto) 82.8 H (45.5-73.1) % Lymph % (Auto) 11.5 L (18.3-44.2) % [place] % (Auto) 4.3 (2.6-8.5) % Eos % (Auto) 0.6 (0-4.4) % Baso % (Auto) 0.3 (0.2-1.2) % Lymph # (Auto) 1.19 (0.9-3.2) K/mm3 [place] # (Auto) 0.4 (0.1-0.6) K/mm3 Eos # (Auto) 0.1 (0-0.3) K/mm3 Baso # (Auto) 0.0 (0.0-0.1) K/mm3 Abs Immat Gran (auto) 0.05 H (0.00-0.031) K/mm3 Absolute Neuts (auto) 8.6 H (1.3-6.7) K/mm3 Absolute Nucleated RBC 0.000 (0.0-0.012) K/mm3 Nucleated RBC % 0.0 (0.0-0.2) % PT (11.1-14.7) Seconds INR APTT (22.3-36.8) Seconds Sodium 131 L 132 L (137-145) mmol/L Potassium 5.2 H 4.8 (3.4-5.0) mmol/L Chloride 102 103 (98-107) mmol/L Carbon Dioxide 25 22 (22-30) mmol/L Anion Gap 4 7 (4-12) mmol/L BUN 36 H 38 H (7-17) mg/dL Creatinine 4.21 H 4.26 H (0.7-1.0) mg/dL Estim Creat Clear Calc Not Reportable Not Reportable Estimated GFR 12 L 12 L (59 - ) Glucose 93 89 (65-110) mg/dL POC Capillary Glucose (65-105) mg/dl Lactic Acid (0.7-2.0) mmol/L Calcium 6.1 L 5.8 L* (8.4-10.2) mg/dL Ionized Calcium Phosphorus 4.2 (2.5-4.5) mg/dL Magnesium 1.6 1.7 (1.6-2.3) mg/dL Total Bilirubin 0.2 (0.2-1.3) mg/dL AST 19 (14-36) U/L ALT 9 (6-35) U/L Alkaline Phosphatase 134 H (38-126) U/L C-Reactive Protein (<1.0) mg/dL Total Protein 4.9 L (6.3-8.2) g/dL Albumin 2.1 L (3.5-5.1) g/dL Lipase 77 (23-300) U/L Procalcitonin 1.2 ng/mL Urine Color (Yellow) Urine Appearance (Clear) Urine pH (5.0-9.0) Ur Specific [place] (1.001-1.035) Urine Protein (Negative) mg/dL Urine Glucose (UA) (Negative) mg/dL Urine Ketones (Negative) mg/dL Ur Blood (Man) (Negative) Urine Nitrate (Negative) Urine Bilirubin (Negative) Urine Urobilinogen (<2.0) mg/dL Leukocyte Esterase Rfl (Negative) HUMPHREY/UL Urine RBC (0-2) /hpf Urine WBC (0-3) /hpf Ur Squamous Epith Cells (Few) /hpf Urine Bacteria /hpf Urine Casts Peritoneal Source Peritoneal Color (Colorless) Peritoneal Appearance (Clear) Peritoneal RBC (0-92910) /uL Periton Nuc Cells (0-500) /uL Periton Neutrophils (0-25) % Periton Lymphocytes % Peritoneal Monocytes % Nasal MRSA (PCR) Not detected (NOT DETECTE) Random Vancomycin (10-20) ug/mL Influenza A (RT-PCR) Negative (Negative) Influenza B (RT-PCR) Negative (Negative) RSV (RT-PCR) Negative (Negative) SARS-CoV-2 RNA (RT-PCR) Negative (Negative) 12/17/24 12/17/24 12/17/24 Range/Units 07:49 10:55 11:23 WBC (4.5-10.0) K/mm3 RBC (4.2-5.4) M/mm3 Hgb (12.0-15.0) g/dL Hct (37.0-47.0) % MCV (80-100) fl MCH (26-34) pg MCHC (32-36) g/dl RDW (11.5-14.5) % Plt Count (150-375) k/mm3 MPV (7.4-10.4) fl Immature Gran % (Auto) (0-0.5) % Neut % (Auto) (45.5-73.1) % Lymph % (Auto) (18.3-44.2) % [place] % (Auto) (2.6-8.5) % Eos % (Auto) (0-4.4) % Baso % (Auto) (0.2-1.2) % Lymph # (Auto) (0.9-3.2) K/mm3 [place] # (Auto) (0.1-0.6) K/mm3 Eos # (Auto) (0-0.3) K/mm3 Baso # (Auto) (0.0-0.1) K/mm3 Abs Immat Gran (auto) (0.00-0.031) K/mm3 Absolute Neuts (auto) (1.3-6.7) K/mm3 Absolute Nucleated RBC (0.0-0.012) K/mm3 Nucleated RBC % (0.0-0.2) % PT (11.1-14.7) Seconds INR APTT (22.3-36.8) Seconds Sodium (137-145) mmol/L Potassium (3.4-5.0) mmol/L Chloride (98-107) mmol/L Carbon Dioxide (22-30) mmol/L Anion Gap (4-12) mmol/L BUN (7-17) mg/dL Creatinine (0.7-1.0) mg/dL Estim Creat Clear Calc Estimated GFR (59 - ) Glucose (65-110) mg/dL POC Capillary Glucose 105 126 H (65-105) mg/dl Lactic Acid (0.7-2.0) mmol/L Calcium 5.9 L* (8.4-10.2) mg/dL Ionized Calcium Phosphorus (2.5-4.5) mg/dL Magnesium (1.6-2.3) mg/dL Total Bilirubin (0.2-1.3) mg/dL AST (14-36) U/L ALT (6-35) U/L Alkaline Phosphatase (38-126) U/L C-Reactive Protein (<1.0) mg/dL Total Protein (6.3-8.2) g/dL Albumin (3.5-5.1) g/dL Lipase (23-300) U/L Procalcitonin ng/mL Urine Color (Yellow) Urine Appearance (Clear) Urine pH (5.0-9.0) Ur Specific [place] (1.001-1.035) Urine Protein (Negative) mg/dL Urine Glucose (UA) (Negative) mg/dL Urine Ketones (Negative) mg/dL Ur Blood (Man) (Negative) Urine Nitrate (Negative) Urine Bilirubin (Negative) Urine Urobilinogen (<2.0) mg/dL Leukocyte Esterase Rfl (Negative) HUMPHREY/UL Urine RBC (0-2) /hpf Urine WBC (0-3) /hpf Ur Squamous Epith Cells (Few) /hpf Urine Bacteria /hpf Urine Casts Peritoneal Source Peritoneal Color (Colorless) Peritoneal Appearance (Clear) Peritoneal RBC (0-33422) /uL Periton Nuc Cells (0-500) /uL Periton Neutrophils (0-25) % Periton Lymphocytes % Peritoneal Monocytes % Nasal MRSA (PCR) (NOT DETECTE) Random Vancomycin (10-20) ug/mL Influenza A (RT-PCR) (Negative) Influenza B (RT-PCR) (Negative) RSV (RT-PCR) (Negative) SARS-CoV-2 RNA (RT-PCR) (Negative) 12/17/24 12/17/24 12/18/24 Range/Units 15:13 16:35 06:34 WBC 11.3 H (4.5-10.0) K/mm3 RBC 4.43 (4.2-5.4) M/mm3 Hgb 12.6 (12.0-15.0) g/dL Hct 41.0 (37.0-47.0) % MCV 92.6 (80-100) fl MCH 28.4 (26-34) pg MCHC 30.7 L (32-36) g/dl RDW 14.3 (11.5-14.5) % Plt Count 358 (150-375) k/mm3 MPV 9.1 (7.4-10.4) fl Immature Gran % (Auto) 0.6 H (0-0.5) % Neut % (Auto) 80.0 H (45.5-73.1) % Lymph % (Auto) 14.5 L (18.3-44.2) % [place] % (Auto) 3.2 (2.6-8.5) % Eos % (Auto) 1.3 (0-4.4) % Baso % (Auto) 0.4 (0.2-1.2) % Lymph # (Auto) 1.64 (0.9-3.2) K/mm3 [place] # (Auto) 0.4 (0.1-0.6) K/mm3 Eos # (Auto) 0.2 (0-0.3) K/mm3 Baso # (Auto) 0.0 (0.0-0.1) K/mm3 Abs Immat Gran (auto) 0.07 H (0.00-0.031) K/mm3 Absolute Neuts (auto) 9.1 H (1.3-6.7) K/mm3 Absolute Nucleated RBC 0.000 (0.0-0.012) K/mm3 Nucleated RBC % 0.0 (0.0-0.2) % PT (11.1-14.7) Seconds INR APTT (22.3-36.8) Seconds Sodium 131 L (137-145) mmol/L Potassium (3.4-5.0) mmol/L Chloride (98-107) mmol/L Carbon Dioxide (22-30) mmol/L Anion Gap (4-12) mmol/L BUN (7-17) mg/dL Creatinine (0.7-1.0) mg/dL Estim Creat Clear Calc Estimated GFR (59 - ) Glucose (65-110) mg/dL POC Capillary Glucose 86 (65-105) mg/dl Lactic Acid (0.7-2.0) mmol/L Calcium 6.5 L (8.4-10.2) mg/dL Ionized Calcium Phosphorus (2.5-4.5) mg/dL Magnesium (1.6-2.3) mg/dL Total Bilirubin (0.2-1.3) mg/dL AST (14-36) U/L ALT (6-35) U/L Alkaline Phosphatase (38-126) U/L C-Reactive Protein (<1.0) mg/dL Total Protein (6.3-8.2) g/dL Albumin (3.5-5.1) g/dL Lipase (23-300) U/L Procalcitonin ng/mL Urine Color (Yellow) Urine Appearance (Clear) Urine pH (5.0-9.0) Ur Specific [place] (1.001-1.035) Urine Protein (Negative) mg/dL Urine Glucose (UA) (Negative) mg/dL Urine Ketones (Negative) mg/dL Ur Blood (Man) (Negative) Urine Nitrate (Negative) Urine Bilirubin (Negative) Urine Urobilinogen (<2.0) mg/dL Leukocyte Esterase Rfl (Negative) HUMPHREY/UL Urine RBC (0-2) /hpf Urine WBC (0-3) /hpf Ur Squamous Epith Cells (Few) /hpf Urine Bacteria /hpf Urine Casts Peritoneal Source Peritoneal Color (Colorless) Peritoneal Appearance (Clear) Peritoneal RBC (0-72684) /uL [place] Nuc Cells (0-500) /uL [place] Neutrophils (0-25) % [place] Lymphocytes % Peritoneal Monocytes % Nasal MRSA (PCR) (NOT DETECTE) Random Vancomycin (10-20) ug/mL Influenza A (RT-PCR) (Negative) Influenza B (RT-PCR) (Negative) RSV (RT-PCR) (Negative) SARS-CoV-2 RNA (RT-PCR) (Negative) 12/18/24 12/18/24 12/18/24 Range/Units 06:34 06:34 06:34 WBC (4.5-10.0) K/mm3 RBC (4.2-5.4) M/mm3 Hgb (12.0-15.0) g/dL Hct (37.0-47.0) % MCV (80-100) fl MCH (26-34) pg MCHC (32-36) g/dl RDW (11.5-14.5) % Plt Count (150-375) k/mm3 MPV (7.4-10.4) fl Immature Gran % (Auto) (0-0.5) % Neut % (Auto) (45.5-73.1) % Lymph % (Auto) (18.3-44.2) % [place] % (Auto) (2.6-8.5) % Eos % (Auto) (0-4.4) % Baso % (Auto) (0.2-1.2) % Lymph # (Auto) (0.9-3.2) K/mm3 [place] # (Auto) (0.1-0.6) K/mm3 Eos # (Auto) (0-0.3) K/mm3 Baso # (Auto) (0.0-0.1) K/mm3 Abs Immat Gran (auto) (0.00-0.031) K/mm3 Absolute Neuts (auto) (1.3-6.7) K/mm3 Absolute Nucleated RBC (0.0-0.012) K/mm3 Nucleated RBC % (0.0-0.2) % PT (11.1-14.7) Seconds INR APTT (22.3-36.8) Seconds Sodium 130 L (137-145) mmol/L Potassium 4.3 4.4 (3.4-5.0) mmol/L Chloride 104 104 (98-107) mmol/L Carbon Dioxide 20 L (22-30) mmol/L Anion Gap (4-12) mmol/L BUN (7-17) mg/dL Creatinine (0.7-1.0) mg/dL Estim Creat Clear Calc Estimated GFR (59 - ) Glucose (65-110) mg/dL POC Capillary Glucose (65-105) mg/dl Lactic Acid (0.7-2.0) mmol/L Calcium (8.4-10.2) mg/dL Ionized Calcium Phosphorus (2.5-4.5) mg/dL Magnesium (1.6-2.3) mg/dL Total Bilirubin (0.2-1.3) mg/dL AST (14-36) U/L ALT (6-35) U/L Alkaline Phosphatase (38-126) U/L C-Reactive Protein (<1.0) mg/dL Total Protein (6.3-8.2) g/dL Albumin (3.5-5.1) g/dL Lipase (23-300) U/L Procalcitonin ng/mL Urine Color (Yellow) Urine Appearance (Clear) Urine pH (5.0-9.0) Ur Specific [place] (1.001-1.035) Urine Protein (Negative) mg/dL Urine Glucose (UA) (Negative) mg/dL Urine Ketones (Negative) mg/dL Ur Blood (Man) (Negative) Urine Nitrate (Negative) Urine Bilirubin (Negative) Urine Urobilinogen (<2.0) mg/dL Leukocyte Esterase Rfl (Negative) HUMPHREY/UL Urine RBC (0-2) /hpf Urine WBC (0-3) /hpf Ur Squamous Epith Cells (Few) /hpf Urine Bacteria /hpf Urine Casts Peritoneal Source Peritoneal Color (Colorless) Peritoneal Appearance (Clear) Peritoneal RBC (0-80684) /uL [place] Nuc Cells (0-500) /uL [place] Neutrophils (0-25) % [place] Lymphocytes % Peritoneal Monocytes % Nasal MRSA (PCR) (NOT DETECTE) Random Vancomycin (10-20) ug/mL Influenza A (RT-PCR) (Negative) Influenza B (RT-PCR) (Negative) RSV (RT-PCR) (Negative) SARS-CoV-2 RNA (RT-PCR) (Negative) 12/18/24 12/18/2425 Range/Units 06:34 06:34 06:34 WBC (4.5-10.0) K/mm3 RBC (4.2-5.4) M/mm3 Hgb (12.0-15.0) g/dL Hct (37.0-47.0) % MCV (80-100) fl MCH (26-34) pg MCHC (32-36) g/dl RDW (11.5-14.5) % Plt Count (150-375) k/mm3 MPV (7.4-10.4) fl Immature Gran % (Auto) (0-0.5) % Neut % (Auto) (45.5-73.1) % Lymph % (Auto) (18.3-44.2) % [place] % (Auto) (2.6-8.5) % Eos % (Auto) (0-4.4) % Baso % (Auto) (0.2-1.2) % Lymph # (Auto) (0.9-3.2) K/mm3 [place] # (Auto) (0.1-0.6) K/mm3 Eos # (Auto) (0-0.3) K/mm3 Baso # (Auto) (0.0-0.1) K/mm3 Abs Immat Gran (auto) (0.00-0.031) K/mm3 Absolute Neuts (auto) (1.3-6.7) K/mm3 Absolute Nucleated RBC (0.0-0.012) K/mm3 Nucleated RBC % (0.0-0.2) % PT (11.1-14.7) Seconds INR APTT (22.3-36.8) Seconds Sodium (137-145) mmol/L Potassium (3.4-5.0) mmol/L Chloride (98-107) mmol/L Carbon Dioxide 20 L (22-30) mmol/L Anion Gap 7 6 (4-12) mmol/L BUN 39 H 39 H (7-17) mg/dL Creatinine 4.72 H (0.7-1.0) mg/dL Estim Creat Clear Calc Estimated GFR (59 - ) Glucose (65-110) mg/dL POC Capillary Glucose (65-105) mg/dl Lactic Acid (0.7-2.0) mmol/L Calcium (8.4-10.2) mg/dL Ionized Calcium Phosphorus (2.5-4.5) mg/dL Magnesium (1.6-2.3) mg/dL Total Bilirubin (0.2-1.3) mg/dL AST (14-36) U/L ALT (6-35) U/L Alkaline Phosphatase (38-126) U/L C-Reactive Protein (<1.0) mg/dL Total Protein (6.3-8.2) g/dL Albumin (3.5-5.1) g/dL Lipase (23-300) U/L Procalcitonin ng/mL Urine Color (Yellow) Urine Appearance (Clear) Urine pH (5.0-9.0) Ur Specific [place] (1.001-1.035) Urine Protein (Negative) mg/dL Urine Glucose (UA) (Negative) mg/dL Urine Ketones (Negative) mg/dL Ur Blood (Man) (Negative) Urine Nitrate (Negative) Urine Bilirubin (Negative) Urine Urobilinogen (<2.0) mg/dL Leukocyte Esterase Rfl (Negative) HUMPHREY/UL Urine RBC (0-2) /hpf Urine WBC (0-3) /hpf Ur Squamous Epith Cells (Few) /hpf Urine Bacteria /hpf Urine Casts Peritoneal Source Peritoneal Color (Colorless) Peritoneal Appearance (Clear) Peritoneal RBC (0-83917) /uL [place] Nuc Cells (0-500) /uL [place] Neutrophils (0-25) % [place] Lymphocytes % Peritoneal Monocytes % Nasal MRSA (PCR) (NOT DETECTE) Random Vancomycin (10-20) ug/mL Influenza A (RT-PCR) (Negative) Influenza B (RT-PCR) (Negative) RSV (RT-PCR) (Negative) SARS-CoV-2 RNA (RT-PCR) (Negative) 12/18/24 12/18/24 12/18/24 Range/Units 06:34 06:34 06:34 WBC (4.5-10.0) K/mm3 RBC (4.2-5.4) M/mm3 Hgb (12.0-15.0) g/dL Hct (37.0-47.0) % MCV (80-100) fl MCH (26-34) pg MCHC (32-36) g/dl RDW (11.5-14.5) % Plt Count (150-375) k/mm3 MPV (7.4-10.4) fl Immature Gran % (Auto) (0-0.5) % Neut % (Auto) (45.5-73.1) % Lymph % (Auto) (18.3-44.2) % [place] % (Auto) (2.6-8.5) % Eos % (Auto) (0-4.4) % Baso % (Auto) (0.2-1.2) % Lymph # (Auto) (0.9-3.2) K/mm3 [place] # (Auto) (0.1-0.6) K/mm3 Eos # (Auto) (0-0.3) K/mm3 Baso # (Auto) (0.0-0.1) K/mm3 Abs Immat Gran (auto) (0.00-0.031) K/mm3 Absolute Neuts (auto) (1.3-6.7) K/mm3 Absolute Nucleated RBC (0.0-0.012) K/mm3 Nucleated RBC % (0.0-0.2) % PT (11.1-14.7) Seconds INR APTT (22.3-36.8) Seconds Sodium (137-145) mmol/L Potassium (3.4-5.0) mmol/L Chloride (98-107) mmol/L Carbon Dioxide (22-30) mmol/L Anion Gap (4-12) mmol/L BUN (7-17) mg/dL Creatinine 4.69 H (0.7-1.0) mg/dL Estim Creat Clear Calc Not Reportable Not Reportable Estimated GFR 10 L 10 L (59 - ) Glucose 86 (65-110) mg/dL POC Capillary Glucose (65-105) mg/dl Lactic Acid (0.7-2.0) mmol/L Calcium (8.4-10.2) mg/dL Ionized Calcium Phosphorus (2.5-4.5) mg/dL Magnesium (1.6-2.3) mg/dL Total Bilirubin (0.2-1.3) mg/dL AST (14-36) U/L ALT (6-35) U/L Alkaline Phosphatase (38-126) U/L C-Reactive Protein (<1.0) mg/dL Total Protein (6.3-8.2) g/dL Albumin (3.5-5.1) g/dL Lipase (23-300) U/L Procalcitonin ng/mL Urine Color (Yellow) Urine Appearance (Clear) Urine pH (5.0-9.0) Ur Specific [place] (1.001-1.035) Urine Protein (Negative) mg/dL Urine Glucose (UA) (Negative) mg/dL Urine Ketones (Negative) mg/dL Ur Blood (Man) (Negative) Urine Nitrate (Negative) Urine Bilirubin (Negative) Urine Urobilinogen (<2.0) mg/dL Leukocyte Esterase Rfl (Negative) HUMPHREY/UL Urine RBC (0-2) /hpf Urine WBC (0-3) /hpf Ur Squamous Epith Cells (Few) /hpf Urine Bacteria /hpf Urine Casts Peritoneal Source Peritoneal Color (Colorless) Peritoneal Appearance (Clear) Peritoneal RBC (0-83248) /uL [place] Nuc Cells (0-500) /uL [place] Neutrophils (0-25) % [place] Lymphocytes % Peritoneal Monocytes % Nasal MRSA (PCR) (NOT DETECTE) Random Vancomycin (10-20) ug/mL Influenza A (RT-PCR) (Negative) Influenza B (RT-PCR) (Negative) RSV (RT-PCR) (Negative) SARS-CoV-2 RNA (RT-PCR) (Negative) 12/18/24 12/18/24 12/18/24 Range/Units 06:34 06:34 09:41 WBC (4.5-10.0) K/mm3 RBC (4.2-5.4) M/mm3 Hgb (12.0-15.0) g/dL Hct (37.0-47.0) % MCV (80-100) fl MCH (26-34) pg MCHC (32-36) g/dl RDW (11.5-14.5) % Plt Count (150-375) k/mm3 MPV (7.4-10.4) fl Immature Gran % (Auto) (0-0.5) % Neut % (Auto) (45.5-73.1) % Lymph % (Auto) (18.3-44.2) % [place] % (Auto) (2.6-8.5) % Eos % (Auto) (0-4.4) % Baso % (Auto) (0.2-1.2) % Lymph # (Auto) (0.9-3.2) K/mm3 [place] # (Auto) (0.1-0.6) K/mm3 Eos # (Auto) (0-0.3) K/mm3 Baso # (Auto) (0.0-0.1) K/mm3 Abs Immat Gran (auto) (0.00-0.031) K/mm3 Absolute Neuts (auto) (1.3-6.7) K/mm3 Absolute Nucleated RBC (0.0-0.012) K/mm3 Nucleated RBC % (0.0-0.2) % PT (11.1-14.7) Seconds INR APTT (22.3-36.8) Seconds Sodium (137-145) mmol/L Potassium (3.4-5.0) mmol/L Chloride (98-107) mmol/L Carbon Dioxide (22-30) mmol/L Anion Gap (4-12) mmol/L BUN (7-17) mg/dL Creatinine (0.7-1.0) mg/dL Estim Creat Clear Calc Estimated GFR (59 - ) Glucose 86 (65-110) mg/dL POC Capillary Glucose (65-105) mg/dl Lactic Acid (0.7-2.0) mmol/L Calcium 6.9 L 6.8 L (8.4-10.2) mg/dL Ionized Calcium Phosphorus 4.0 (2.5-4.5) mg/dL Magnesium (1.6-2.3) mg/dL Total Bilirubin (0.2-1.3) mg/dL AST (14-36) U/L ALT (6-35) U/L Alkaline Phosphatase (38-126) U/L C-Reactive Protein (<1.0) mg/dL Total Protein (6.3-8.2) g/dL Albumin 2.0 L (3.5-5.1) g/dL Lipase (23-300) U/L Procalcitonin ng/mL Urine Color (Yellow) Urine Appearance (Clear) Urine pH (5.0-9.0) Ur Specific [place] (1.001-1.035) Urine Protein (Negative) mg/dL Urine Glucose (UA) (Negative) mg/dL Urine Ketones (Negative) mg/dL Ur Blood (Man) (Negative) Urine Nitrate (Negative) Urine Bilirubin (Negative) Urine Urobilinogen (<2.0) mg/dL Leukocyte Esterase Rfl (Negative) HUMPHREY/UL Urine RBC (0-2) /hpf Urine WBC (0-3) /hpf Ur Squamous Epith Cells (Few) /hpf Urine Bacteria /hpf Urine Casts Peritoneal Source Peritoneal fluid Peritoneal Color Yellow (Colorless) Peritoneal Appearance Cloudy A (Clear) Peritoneal RBC 2000 (0-38627) /uL [place] Nuc Cells 02349 H (0-500) /uL [place] Neutrophils 80 H (0-25) % [place] Lymphocytes 7 % Peritoneal Monocytes 13 % Nasal MRSA (PCR) (NOT DETECTE) Random Vancomycin (10-20) ug/mL Influenza A (RT-PCR) (Negative) Influenza B (RT-PCR) (Negative) RSV (RT-PCR) (Negative) SARS-CoV-2 RNA (RT-PCR) (Negative) 12/19/24 Range/Units 05:28 WBC 9.3 (4.5-10.0) K/mm3 RBC 4.22 (4.2-5.4) M/mm3 Hgb 11.8 L (12.0-15.0) g/dL Hct 38.5 (37.0-47.0) % MCV 91.2 (80-100) fl MCH 28.0 (26-34) pg MCHC 30.6 L (32-36) g/dl RDW 14.3 (11.5-14.5) % Plt Count 332 (150-375) k/mm3 MPV 8.9 (7.4-10.4) fl Immature Gran % (Auto) 0.6 H (0-0.5) % Neut % (Auto) 69.3 (45.5-73.1) % Lymph % (Auto) 23.0 (18.3-44.2) % [place] % (Auto) 4.2 (2.6-8.5) % Eos % (Auto) 2.3 (0-4.4) % Baso % (Auto) 0.6 (0.2-1.2) % Lymph # (Auto) 2.14 (0.9-3.2) K/mm3 [place] # (Auto) 0.4 (0.1-0.6) K/mm3 Eos # (Auto) 0.2 (0-0.3) K/mm3 Baso # (Auto) 0.1 (0.0-0.1) K/mm3 Abs Immat Gran (auto) 0.06 H (0.00-0.031) K/mm3 Absolute Neuts (auto) 6.5 (1.3-6.7) K/mm3 Absolute Nucleated RBC 0.000 (0.0-0.012) K/mm3 Nucleated RBC % 0.0 (0.0-0.2) % PT (11.1-14.7) Seconds INR APTT (22.3-36.8) Seconds Sodium 129 L (137-145) mmol/L Potassium 3.9 (3.4-5.0) mmol/L Chloride 101 (98-107) mmol/L Carbon Dioxide 22 (22-30) mmol/L Anion Gap 6 (4-12) mmol/L BUN 37 H (7-17) mg/dL Creatinine 4.06 H (0.7-1.0) mg/dL Estim Creat Clear Calc Not Reportable Estimated GFR 12 L (59 - ) Glucose 93 (65-110) mg/dL POC Capillary Glucose (65-105) mg/dl Lactic Acid (0.7-2.0) mmol/L Calcium 6.2 L (8.4-10.2) mg/dL Ionized Calcium Phosphorus (2.5-4.5) mg/dL Magnesium (1.6-2.3) mg/dL Total Bilirubin (0.2-1.3) mg/dL AST (14-36) U/L ALT (6-35) U/L Alkaline Phosphatase (38-126) U/L C-Reactive Protein (<1.0) mg/dL Total Protein (6.3-8.2) g/dL Albumin (3.5-5.1) g/dL Lipase (23-300) U/L Procalcitonin ng/mL Urine Color (Yellow) Urine Appearance (Clear) Urine pH (5.0-9.0) Ur Specific [place] (1.001-1.035) Urine Protein (Negative) mg/dL Urine Glucose (UA) (Negative) mg/dL Urine Ketones (Negative) mg/dL Ur Blood (Man) (Negative) Urine Nitrate (Negative) Urine Bilirubin (Negative) Urine Urobilinogen (<2.0) mg/dL Leukocyte Esterase Rfl (Negative) HUMPHREY/UL Urine RBC (0-2) /hpf Urine WBC (0-3) /hpf Ur Squamous Epith Cells (Few) /hpf Urine Bacteria /hpf Urine Casts Peritoneal Source Peritoneal Color (Colorless) Peritoneal Appearance (Clear) Peritoneal RBC (0-53831) /uL [place] Nuc Cells (0-500) /uL [place] Neutrophils (0-25) % [place] Lymphocytes % Peritoneal Monocytes % Nasal MRSA (PCR) (NOT DETECTE) Random Vancomycin 36.4 H (10-20) ug/mL Influenza A (RT-PCR) (Negative) Influenza B (RT-PCR) (Negative) RSV (RT-PCR) (Negative) SARS-CoV-2 RNA (RT-PCR) (Negative) <Mariam Dykes, [employer] - Last Filed: 12/19/24 19:09> Lab Results 12/16/24 12/16/24 12/16/24 Range/Units 15:26 21:27 21:36 WBC 8.9 (4.5-10.0) K/mm3 RBC 4.76 (4.2-5.4) M/mm3 Hgb 13.4 (12.0-15.0) g/dL Hct 42.4 (37.0-47.0) % MCV 89.1 (80-100) fl MCH 28.2 (26-34) pg MCHC 31.6 L (32-36) g/dl RDW 13.9 (11.5-14.5) % Plt Count 333 (150-375) k/mm3 MPV 8.8 (7.4-10.4) fl Immature Gran % (Auto) 0.7 H (0-0.5) % Neut % (Auto) 72.6 (45.5-73.1) % Lymph % (Auto) 20.2 (18.3-44.2) % [place] % (Auto) 4.8 (2.6-8.5) % Eos % (Auto) 1.2 (0-4.4) % Baso % (Auto) 0.5 (0.2-1.2) % Lymph # (Auto) 1.79 (0.9-3.2) K/mm3 [place] # (Auto) 0.4 (0.1-0.6) K/mm3 Eos # (Auto) 0.1 (0-0.3) K/mm3 Baso # (Auto) 0.0 (0.0-0.1) K/mm3 Abs Immat Gran (auto) 0.06 H (0.00-0.031) K/mm3 Absolute Neuts (auto) 6.5 (1.3-6.7) K/mm3 Absolute Nucleated RBC 0.000 (0.0-0.012) K/mm3 Nucleated RBC % 0.0 (0.0-0.2) % PT 13.0 (11.1-14.7) Seconds INR 1.0 APTT 30.3 (22.3-36.8) Seconds Sodium 130 L 130 L (137-145) mmol/L Potassium 2.6 L* 4.8 (3.4-5.0) mmol/L Chloride 92 L 99 (98-107) mmol/L Carbon Dioxide 30 25 (22-30) mmol/L Anion Gap 8 6 (4-12) mmol/L BUN 39 H D 37 H (7-17) mg/dL Creatinine 4.46 H 4.04 H (0.7-1.0) mg/dL Estim Creat Clear Calc Not Reportable Not Reportable Estimated GFR 11 L 12 L (59 - ) Glucose 97 82 (65-110) mg/dL POC Capillary Glucose (65-105) mg/dl Lactic Acid 1.0 (0.7-2.0) mmol/L Calcium 5.7 L* 5.7 L* (8.4-10.2) mg/dL Ionized Calcium Cancelled Phosphorus (2.5-4.5) mg/dL Magnesium 1.7 (1.6-2.3) mg/dL Total Bilirubin 0.2 (0.2-1.3) mg/dL AST 20 (14-36) U/L ALT 11 (6-35) U/L Alkaline Phosphatase 146 H (38-126) U/L C-Reactive Protein 6.3 H (<1.0) mg/dL Total Protein 5.6 L (6.3-8.2) g/dL Albumin 2.4 L (3.5-5.1) g/dL Lipase (23-300) U/L Procalcitonin ng/mL Urine Color Yellow (Yellow) Urine Appearance Cloudy H (Clear) Urine pH 8.5 (5.0-9.0) Ur Specific [place] 1.008 (1.001-1.035) Urine Protein 2+ H (Negative) mg/dL Urine Glucose (UA) Negative (Negative) mg/dL Urine Ketones Negative (Negative) mg/dL Ur Blood (Man) 3+ H (Negative) Urine Nitrate Negative (Negative) Urine Bilirubin Negative (Negative) Urine Urobilinogen 0.2 (<2.0) mg/dL Leukocyte Esterase Rfl Trace H (Negative) HUMPHREY/UL Urine RBC 21-50 H (0-2) /hpf Urine WBC 0-5 (0-3) /hpf Ur Squamous Epith Cells Occasional (Few) /hpf Urine Bacteria None seen /hpf Urine Casts 3-5 Peritoneal Source Peritoneal Color (Colorless) Peritoneal Appearance (Clear) Peritoneal RBC (0-10849) /uL [place] Nuc Cells (0-500) /uL [place] Neutrophils (0-25) % [place] Lymphocytes % Peritoneal Monocytes % Nasal MRSA (PCR) (NOT DETECTE) Random Vancomycin (10-20) ug/mL Influenza A (RT-PCR) (Negative) Influenza B (RT-PCR) (Negative) RSV (RT-PCR) (Negative) SARS-CoV-2 RNA (RT-PCR) (Negative) 12/17/24 12/17/24 12/17/24 Range/Units 00:45 05:31 05:58 WBC 10.3 H (4.5-10.0) K/mm3 RBC 4.57 (4.2-5.4) M/mm3 Hgb 13.0 (12.0-15.0) g/dL Hct 42.4 (37.0-47.0) % MCV 92.8 (80-100) fl MCH 28.4 (26-34) pg MCHC 30.7 L (32-36) g/dl RDW 14.3 (11.5-14.5) % Plt Count 321 (150-375) k/mm3 MPV 9.1 (7.4-10.4) fl Immature Gran % (Auto) 0.5 (0-0.5) % Neut % (Auto) 82.8 H (45.5-73.1) % Lymph % (Auto) 11.5 L (18.3-44.2) % [place] % (Auto) 4.3 (2.6-8.5) % Eos % (Auto) 0.6 (0-4.4) % Baso % (Auto) 0.3 (0.2-1.2) % Lymph # (Auto) 1.19 (0.9-3.2) K/mm3 [place] # (Auto) 0.4 (0.1-0.6) K/mm3 Eos # (Auto) 0.1 (0-0.3) K/mm3 Baso # (Auto) 0.0 (0.0-0.1) K/mm3 Abs Immat Gran (auto) 0.05 H (0.00-0.031) K/mm3 Absolute Neuts (auto) 8.6 H (1.3-6.7) K/mm3 Absolute Nucleated RBC 0.000 (0.0-0.012) K/mm3 Nucleated RBC % 0.0 (0.0-0.2) % PT (11.1-14.7) Seconds INR APTT (22.3-36.8) Seconds Sodium 131 L 132 L (137-145) mmol/L Potassium 5.2 H 4.8 (3.4-5.0) mmol/L Chloride 102 103 (98-107) mmol/L Carbon Dioxide 25 22 (22-30) mmol/L Anion Gap 4 7 (4-12) mmol/L BUN 36 H 38 H (7-17) mg/dL Creatinine 4.21 H 4.26 H (0.7-1.0) mg/dL Estim Creat Clear Calc Not Reportable Not Reportable Estimated GFR 12 L 12 L (59 - ) Glucose 93 89 (65-110) mg/dL POC Capillary Glucose (65-105) mg/dl Lactic Acid (0.7-2.0) mmol/L Calcium 6.1 L 5.8 L* (8.4-10.2) mg/dL Ionized Calcium Phosphorus 4.2 (2.5-4.5) mg/dL Magnesium 1.6 1.7 (1.6-2.3) mg/dL Total Bilirubin 0.2 (0.2-1.3) mg/dL AST 19 (14-36) U/L ALT 9 (6-35) U/L Alkaline Phosphatase 134 H (38-126) U/L C-Reactive Protein (<1.0) mg/dL Total Protein 4.9 L (6.3-8.2) g/dL Albumin 2.1 L (3.5-5.1) g/dL Lipase 77 (23-300) U/L Procalcitonin 1.2 ng/mL Urine Color (Yellow) Urine Appearance (Clear) Urine pH (5.0-9.0) Ur Specific [place] (1.001-1.035) Urine Protein (Negative) mg/dL Urine Glucose (UA) (Negative) mg/dL Urine Ketones (Negative) mg/dL Ur Blood (Man) (Negative) Urine Nitrate (Negative) Urine Bilirubin (Negative) Urine Urobilinogen (<2.0) mg/dL Leukocyte Esterase Rfl (Negative) HUMPHREY/UL Urine RBC (0-2) /hpf Urine WBC (0-3) /hpf Ur Squamous Epith Cells (Few) /hpf Urine Bacteria /hpf Urine Casts Peritoneal Source Peritoneal Color (Colorless) Peritoneal Appearance (Clear) Peritoneal RBC (0-08622) /uL [place] Nuc Cells (0-500) /uL [place] Neutrophils (0-25) % [place] Lymphocytes % Peritoneal Monocytes % Nasal MRSA (PCR) Not detected (NOT DETECTE) Random Vancomycin (10-20) ug/mL Influenza A (RT-PCR) Negative (Negative) Influenza B (RT-PCR) Negative (Negative) RSV (RT-PCR) Negative (Negative) SARS-CoV-2 RNA (RT-PCR) Negative (Negative) 12/17/24 12/17/24 12/17/24 Range/Units 07:49 10:55 11:23 WBC (4.5-10.0) K/mm3 RBC (4.2-5.4) M/mm3 Hgb (12.0-15.0) g/dL Hct (37.0-47.0) % MCV (80-100) fl MCH (26-34) pg MCHC (32-36) g/dl RDW (11.5-14.5) % Plt Count (150-375) k/mm3 MPV (7.4-10.4) fl Immature Gran % (Auto) (0-0.5) % Neut % (Auto) (45.5-73.1) % Lymph % (Auto) (18.3-44.2) % [place] % (Auto) (2.6-8.5) % Eos % (Auto) (0-4.4) % Baso % (Auto) (0.2-1.2) % Lymph # (Auto) (0.9-3.2) K/mm3 [place] # (Auto) (0.1-0.6) K/mm3 Eos # (Auto) (0-0.3) K/mm3 Baso # (Auto) (0.0-0.1) K/mm3 Abs Immat Gran (auto) (0.00-0.031) K/mm3 Absolute Neuts (auto) (1.3-6.7) K/mm3 Absolute Nucleated RBC (0.0-0.012) K/mm3 Nucleated RBC % (0.0-0.2) % PT (11.1-14.7) Seconds INR APTT (22.3-36.8) Seconds Sodium (137-145) mmol/L Potassium (3.4-5.0) mmol/L Chloride (98-107) mmol/L Carbon Dioxide (22-30) mmol/L Anion Gap (4-12) mmol/L BUN (7-17) mg/dL Creatinine (0.7-1.0) mg/dL Estim Creat Clear Calc Estimated GFR (59 - ) Glucose (65-110) mg/dL POC Capillary Glucose 105 126 H (65-105) mg/dl Lactic Acid (0.7-2.0) mmol/L Calcium 5.9 L* (8.4-10.2) mg/dL Ionized Calcium Phosphorus (2.5-4.5) mg/dL Magnesium (1.6-2.3) mg/dL Total Bilirubin (0.2-1.3) mg/dL AST (14-36) U/L ALT (6-35) U/L Alkaline Phosphatase (38-126) U/L C-Reactive Protein (<1.0) mg/dL Total Protein (6.3-8.2) g/dL Albumin (3.5-5.1) g/dL Lipase (23-300) U/L Procalcitonin ng/mL Urine Color (Yellow) Urine Appearance (Clear) Urine pH (5.0-9.0) Ur Specific [place] (1.001-1.035) Urine Protein (Negative) mg/dL Urine Glucose (UA) (Negative) mg/dL Urine Ketones (Negative) mg/dL Ur Blood (Man) (Negative) Urine Nitrate (Negative) Urine Bilirubin (Negative) Urine Urobilinogen (<2.0) mg/dL Leukocyte Esterase Rfl (Negative) HUMPHREY/UL Urine RBC (0-2) /hpf Urine WBC (0-3) /hpf Ur Squamous Epith Cells (Few) /hpf Urine Bacteria /hpf Urine Casts Peritoneal Source Peritoneal Color (Colorless) Peritoneal Appearance (Clear) Peritoneal RBC (0-75877) /uL [place] Nuc Cells (0-500) /uL [place] Neutrophils (0-25) % [place] Lymphocytes % Peritoneal Monocytes % Nasal MRSA (PCR) (NOT DETECTE) Random Vancomycin (10-20) ug/mL Influenza A (RT-PCR) (Negative) Influenza B (RT-PCR) (Negative) RSV (RT-PCR) (Negative) SARS-CoV-2 RNA (RT-PCR) (Negative) 12/17/24 12/17/24 12/18/24 Range/Units 15:13 16:35 06:34 WBC 11.3 H (4.5-10.0) K/mm3 RBC 4.43 (4.2-5.4) M/mm3 Hgb 12.6 (12.0-15.0) g/dL Hct 41.0 (37.0-47.0) % MCV 92.6 (80-100) fl MCH 28.4 (26-34) pg MCHC 30.7 L (32-36) g/dl RDW 14.3 (11.5-14.5) % Plt Count 358 (150-375) k/mm3 MPV 9.1 (7.4-10.4) fl Immature Gran % (Auto) 0.6 H (0-0.5) % Neut % (Auto) 80.0 H (45.5-73.1) % Lymph % (Auto) 14.5 L (18.3-44.2) % [place] % (Auto) 3.2 (2.6-8.5) % Eos % (Auto) 1.3 (0-4.4) % Baso % (Auto) 0.4 (0.2-1.2) % Lymph # (Auto) 1.64 (0.9-3.2) K/mm3 [place] # (Auto) 0.4 (0.1-0.6) K/mm3 Eos # (Auto) 0.2 (0-0.3) K/mm3 Baso # (Auto) 0.0 (0.0-0.1) K/mm3 Abs Immat Gran (auto) 0.07 H (0.00-0.031) K/mm3 Absolute Neuts (auto) 9.1 H (1.3-6.7) K/mm3 Absolute Nucleated RBC 0.000 (0.0-0.012) K/mm3 Nucleated RBC % 0.0 (0.0-0.2) % PT (11.1-14.7) Seconds INR APTT (22.3-36.8) Seconds Sodium 131 L (137-145) mmol/L Potassium (3.4-5.0) mmol/L Chloride (98-107) mmol/L Carbon Dioxide (22-30) mmol/L Anion Gap (4-12) mmol/L BUN (7-17) mg/dL Creatinine (0.7-1.0) mg/dL Estim Creat Clear Calc Estimated GFR (59 - ) Glucose (65-110) mg/dL POC Capillary Glucose 86 (65-105) mg/dl Lactic Acid (0.7-2.0) mmol/L Calcium 6.5 L (8.4-10.2) mg/dL Ionized Calcium Phosphorus (2.5-4.5) mg/dL Magnesium (1.6-2.3) mg/dL Total Bilirubin (0.2-1.3) mg/dL AST (14-36) U/L ALT (6-35) U/L Alkaline Phosphatase (38-126) U/L C-Reactive Protein (<1.0) mg/dL Total Protein (6.3-8.2) g/dL Albumin (3.5-5.1) g/dL Lipase (23-300) U/L Procalcitonin ng/mL Urine Color (Yellow) Urine Appearance (Clear) Urine pH (5.0-9.0) Ur Specific [place] (1.001-1.035) Urine Protein (Negative) mg/dL Urine Glucose (UA) (Negative) mg/dL Urine Ketones (Negative) mg/dL Ur Blood (Man) (Negative) Urine Nitrate (Negative) Urine Bilirubin (Negative) Urine Urobilinogen (<2.0) mg/dL Leukocyte Esterase Rfl (Negative) HUMPHREY/UL Urine RBC (0-2) /hpf Urine WBC (0-3) /hpf Ur Squamous Epith Cells (Few) /hpf Urine Bacteria /hpf Urine Casts Peritoneal Source Peritoneal Color (Colorless) Peritoneal Appearance (Clear) Peritoneal RBC (0-08635) /uL [place] Nuc Cells (0-500) /uL [place] Neutrophils (0-25) % [place] Lymphocytes % Peritoneal Monocytes % Nasal MRSA (PCR) (NOT DETECTE) Random Vancomycin (10-20) ug/mL Influenza A (RT-PCR) (Negative) Influenza B (RT-PCR) (Negative) RSV (RT-PCR) (Negative) SARS-CoV-2 RNA (RT-PCR) (Negative) 12/18/24 12/18/24 12/18/24 Range/Units 06:34 06:34 06:34 WBC (4.5-10.0) K/mm3 RBC (4.2-5.4) M/mm3 Hgb (12.0-15.0) g/dL Hct (37.0-47.0) % MCV (80-100) fl MCH (26-34) pg MCHC (32-36) g/dl RDW (11.5-14.5) % Plt Count (150-375) k/mm3 MPV (7.4-10.4) fl Immature Gran % (Auto) (0-0.5) % Neut % (Auto) (45.5-73.1) % Lymph % (Auto) (18.3-44.2) % [place] % (Auto) (2.6-8.5) % Eos % (Auto) (0-4.4) % Baso % (Auto) (0.2-1.2) % Lymph # (Auto) (0.9-3.2) K/mm3 [place] # (Auto) (0.1-0.6) K/mm3 Eos # (Auto) (0-0.3) K/mm3 Baso # (Auto) (0.0-0.1) K/mm3 Abs Immat Gran (auto) (0.00-0.031) K/mm3 Absolute Neuts (auto) (1.3-6.7) K/mm3 Absolute Nucleated RBC (0.0-0.012) K/mm3 Nucleated RBC % (0.0-0.2) % PT (11.1-14.7) Seconds INR APTT (22.3-36.8) Seconds Sodium 130 L (137-145) mmol/L Potassium 4.3 4.4 (3.4-5.0) mmol/L Chloride 104 104 (98-107) mmol/L Carbon Dioxide 20 L (22-30) mmol/L Anion Gap (4-12) mmol/L BUN (7-17) mg/dL Creatinine (0.7-1.0) mg/dL Estim Creat Clear Calc Estimated GFR (59 - ) Glucose (65-110) mg/dL POC Capillary Glucose (65-105) mg/dl Lactic Acid (0.7-2.0) mmol/L Calcium (8.4-10.2) mg/dL Ionized Calcium Phosphorus (2.5-4.5) mg/dL Magnesium (1.6-2.3) mg/dL Total Bilirubin (0.2-1.3) mg/dL AST (14-36) U/L ALT (6-35) U/L Alkaline Phosphatase (38-126) U/L C-Reactive Protein (<1.0) mg/dL Total Protein (6.3-8.2) g/dL Albumin (3.5-5.1) g/dL Lipase (23-300) U/L Procalcitonin ng/mL Urine Color (Yellow) Urine Appearance (Clear) Urine pH (5.0-9.0) Ur Specific [place] (1.001-1.035) Urine Protein (Negative) mg/dL Urine Glucose (UA) (Negative) mg/dL Urine Ketones (Negative) mg/dL Ur Blood (Man) (Negative) Urine Nitrate (Negative) Urine Bilirubin (Negative) Urine Urobilinogen (<2.0) mg/dL Leukocyte Esterase Rfl (Negative) HUMPHREY/UL Urine RBC (0-2) /hpf Urine WBC (0-3) /hpf Ur Squamous Epith Cells (Few) /hpf Urine Bacteria /hpf Urine Casts Peritoneal Source Peritoneal Color (Colorless) Peritoneal Appearance (Clear) Peritoneal RBC (0-60772) /uL [place] Nuc Cells (0-500) /uL [place] Neutrophils (0-25) % [place] Lymphocytes % Peritoneal Monocytes % Nasal MRSA (PCR) (NOT DETECTE) Random Vancomycin (10-20) ug/mL Influenza A (RT-PCR) (Negative) Influenza B (RT-PCR) (Negative) RSV (RT-PCR) (Negative) SARS-CoV-2 RNA (RT-PCR) (Negative) 12/18/24 12/18/24 12/18/24 Range/Units 06:34 06:34 06:34 WBC (4.5-10.0) K/mm3 RBC (4.2-5.4) M/mm3 Hgb (12.0-15.0) g/dL Hct (37.0-47.0) % MCV (80-100) fl MCH (26-34) pg MCHC (32-36) g/dl RDW (11.5-14.5) % Plt Count (150-375) k/mm3 MPV (7.4-10.4) fl Immature Gran % (Auto) (0-0.5) % Neut % (Auto) (45.5-73.1) % Lymph % (Auto) (18.3-44.2) % [place] % (Auto) (2.6-8.5) % Eos % (Auto) (0-4.4) % Baso % (Auto) (0.2-1.2) % Lymph # (Auto) (0.9-3.2) K/mm3 [place] # (Auto) (0.1-0.6) K/mm3 Eos # (Auto) (0-0.3) K/mm3 Baso # (Auto) (0.0-0.1) K/mm3 Abs Immat Gran (auto) (0.00-0.031) K/mm3 Absolute Neuts (auto) (1.3-6.7) K/mm3 Absolute Nucleated RBC (0.0-0.012) K/mm3 Nucleated RBC % (0.0-0.2) % PT (11.1-14.7) Seconds INR APTT (22.3-36.8) Seconds Sodium (137-145) mmol/L Potassium (3.4-5.0) mmol/L Chloride (98-107) mmol/L Carbon Dioxide 20 L (22-30) mmol/L Anion Gap 7 6 (4-12) mmol/L BUN 39 H 39 H (7-17) mg/dL Creatinine 4.72 H (0.7-1.0) mg/dL Estim Creat Clear Calc Estimated GFR (59 - ) Glucose (65-110) mg/dL POC Capillary Glucose (65-105) mg/dl Lactic Acid (0.7-2.0) mmol/L Calcium (8.4-10.2) mg/dL Ionized Calcium Phosphorus (2.5-4.5) mg/dL Magnesium (1.6-2.3) mg/dL Total Bilirubin (0.2-1.3) mg/dL AST (14-36) U/L ALT (6-35) U/L Alkaline Phosphatase (38-126) U/L C-Reactive Protein (<1.0) mg/dL Total Protein (6.3-8.2) g/dL Albumin (3.5-5.1) g/dL Lipase (23-300) U/L Procalcitonin ng/mL Urine Color (Yellow) Urine Appearance (Clear) Urine pH (5.0-9.0) Ur Specific [place] (1.001-1.035) Urine Protein (Negative) mg/dL Urine Glucose (UA) (Negative) mg/dL Urine Ketones (Negative) mg/dL Ur Blood (Man) (Negative) Urine Nitrate (Negative) Urine Bilirubin (Negative) Urine Urobilinogen (<2.0) mg/dL Leukocyte Esterase Rfl (Negative) HUMPHREY/UL Urine RBC (0-2) /hpf Urine WBC (0-3) /hpf Ur Squamous Epith Cells (Few) /hpf Urine Bacteria /hpf Urine Casts Peritoneal Source Peritoneal Color (Colorless) Peritoneal Appearance (Clear) Peritoneal RBC (0-16155) /uL [place] Nuc Cells (0-500) /uL [place] Neutrophils (0-25) % [place] Lymphocytes % Peritoneal Monocytes % Nasal MRSA (PCR) (NOT DETECTE) Random Vancomycin (10-20) ug/mL Influenza A (RT-PCR) (Negative) Influenza B (RT-PCR) (Negative) RSV (RT-PCR) (Negative) SARS-CoV-2 RNA (RT-PCR) (Negative) 12/18/24 12/18/24 12/18/24 Range/Units 06:34 06:34 06:34 WBC (4.5-10.0) K/mm3 RBC (4.2-5.4) M/mm3 Hgb (12.0-15.0) g/dL Hct (37.0-47.0) % MCV (80-100) fl MCH (26-34) pg MCHC (32-36) g/dl RDW (11.5-14.5) % Plt Count (150-375) k/mm3 MPV (7.4-10.4) fl Immature Gran % (Auto) (0-0.5) % Neut % (Auto) (45.5-73.1) % Lymph % (Auto) (18.3-44.2) % [place] % (Auto) (2.6-8.5) % Eos % (Auto) (0-4.4) % Baso % (Auto) (0.2-1.2) % Lymph # (Auto) (0.9-3.2) K/mm3 [place] # (Auto) (0.1-0.6) K/mm3 Eos # (Auto) (0-0.3) K/mm3 Baso # (Auto) (0.0-0.1) K/mm3 Abs Immat Gran (auto) (0.00-0.031) K/mm3 Absolute Neuts (auto) (1.3-6.7) K/mm3 Absolute Nucleated RBC (0.0-0.012) K/mm3 Nucleated RBC % (0.0-0.2) % PT (11.1-14.7) Seconds INR APTT (22.3-36.8) Seconds Sodium (137-145) mmol/L Potassium (3.4-5.0) mmol/L Chloride (98-107) mmol/L Carbon Dioxide (22-30) mmol/L Anion Gap (4-12) mmol/L BUN (7-17) mg/dL Creatinine 4.69 H (0.7-1.0) mg/dL Estim Creat Clear Calc Not Reportable Not Reportable Estimated GFR 10 L 10 L (59 - ) Glucose 86 (65-110) mg/dL POC Capillary Glucose (65-105) mg/dl Lactic Acid (0.7-2.0) mmol/L Calcium (8.4-10.2) mg/dL Ionized Calcium Phosphorus (2.5-4.5) mg/dL Magnesium (1.6-2.3) mg/dL Total Bilirubin (0.2-1.3) mg/dL AST (14-36) U/L ALT (6-35) U/L Alkaline Phosphatase (38-126) U/L C-Reactive Protein (<1.0) mg/dL Total Protein (6.3-8.2) g/dL Albumin (3.5-5.1) g/dL Lipase (23-300) U/L Procalcitonin ng/mL Urine Color (Yellow) Urine Appearance (Clear) Urine pH (5.0-9.0) Ur Specific [place] (1.001-1.035) Urine Protein (Negative) mg/dL Urine Glucose (UA) (Negative) mg/dL Urine Ketones (Negative) mg/dL Ur Blood (Man) (Negative) Urine Nitrate (Negative) Urine Bilirubin (Negative) Urine Urobilinogen (<2.0) mg/dL Leukocyte Esterase Rfl (Negative) HUMPHREY/UL Urine RBC (0-2) /hpf Urine WBC (0-3) /hpf Ur Squamous Epith Cells (Few) /hpf Urine Bacteria /hpf Urine Casts Peritoneal Source Peritoneal Color (Colorless) Peritoneal Appearance (Clear) Peritoneal RBC (0-22711) /uL [place] Nuc Cells (0-500) /uL [place] Neutrophils (0-25) % [place] Lymphocytes % Peritoneal Monocytes % Nasal MRSA (PCR) (NOT DETECTE) Random Vancomycin (10-20) ug/mL Influenza A (RT-PCR) (Negative) Influenza B (RT-PCR) (Negative) RSV (RT-PCR) (Negative) SARS-CoV-2 RNA (RT-PCR) (Negative) 12/18/24 12/18/24 12/18/24 Range/Units 06:34 06:34 09:41 WBC (4.5-10.0) K/mm3 RBC (4.2-5.4) M/mm3 Hgb (12.0-15.0) g/dL Hct (37.0-47.0) % MCV (80-100) fl MCH (26-34) pg MCHC (32-36) g/dl RDW (11.5-14.5) % Plt Count (150-375) k/mm3 MPV (7.4-10.4) fl Immature Gran % (Auto) (0-0.5) % Neut % (Auto) (45.5-73.1) % Lymph % (Auto) (18.3-44.2) % [place] % (Auto) (2.6-8.5) % Eos % (Auto) (0-4.4) % Baso % (Auto) (0.2-1.2) % Lymph # (Auto) (0.9-3.2) K/mm3 [place] # (Auto) (0.1-0.6) K/mm3 Eos # (Auto) (0-0.3) K/mm3 Baso # (Auto) (0.0-0.1) K/mm3 Abs Immat Gran (auto) (0.00-0.031) K/mm3 Absolute Neuts (auto) (1.3-6.7) K/mm3 Absolute Nucleated RBC (0.0-0.012) K/mm3 Nucleated RBC % (0.0-0.2) % PT (11.1-14.7) Seconds INR APTT (22.3-36.8) Seconds Sodium (137-145) mmol/L Potassium (3.4-5.0) mmol/L Chloride (98-107) mmol/L Carbon Dioxide (22-30) mmol/L Anion Gap (4-12) mmol/L BUN (7-17) mg/dL Creatinine (0.7-1.0) mg/dL Estim Creat Clear Calc Estimated GFR (59 - ) Glucose 86 (65-110) mg/dL POC Capillary Glucose (65-105) mg/dl Lactic Acid (0.7-2.0) mmol/L Calcium 6.9 L 6.8 L (8.4-10.2) mg/dL Ionized Calcium Phosphorus 4.0 (2.5-4.5) mg/dL Magnesium (1.6-2.3) mg/dL Total Bilirubin (0.2-1.3) mg/dL AST (14-36) U/L ALT (6-35) U/L Alkaline Phosphatase (38-126) U/L C-Reactive Protein (<1.0) mg/dL Total Protein (6.3-8.2) g/dL Albumin 2.0 L (3.5-5.1) g/dL Lipase (23-300) U/L Procalcitonin ng/mL Urine Color (Yellow) Urine Appearance (Clear) Urine pH (5.0-9.0) Ur Specific [place] (1.001-1.035) Urine Protein (Negative) mg/dL Urine Glucose (UA) (Negative) mg/dL Urine Ketones (Negative) mg/dL Ur Blood (Man) (Negative) Urine Nitrate (Negative) Urine Bilirubin (Negative) Urine Urobilinogen (<2.0) mg/dL Leukocyte Esterase Rfl (Negative) HUMPHREY/UL Urine RBC (0-2) /hpf Urine WBC (0-3) /hpf Ur Squamous Epith Cells (Few) /hpf Urine Bacteria /hpf Urine Casts Peritoneal Source Peritoneal fluid Peritoneal Color Yellow (Colorless) Peritoneal Appearance Cloudy A (Clear) Peritoneal RBC 2000 (0-47352) /uL [place] Nuc Cells 70277 H (0-500) /uL [place] Neutrophils 80 H (0-25) % [place] Lymphocytes 7 % Peritoneal Monocytes 13 % Nasal MRSA (PCR) (NOT DETECTE) Random Vancomycin (10-20) ug/mL Influenza A (RT-PCR) (Negative) Influenza B (RT-PCR) (Negative) RSV (RT-PCR) (Negative) SARS-CoV-2 RNA (RT-PCR) (Negative) 12/19/24 Range/Units 05:28 WBC 9.3 (4.5-10.0) K/mm3 RBC 4.22 (4.2-5.4) M/mm3 Hgb 11.8 L (12.0-15.0) g/dL Hct 38.5 (37.0-47.0) % MCV 91.2 (80-100) fl MCH 28.0 (26-34) pg MCHC 30.6 L (32-36) g/dl RDW 14.3 (11.5-14.5) % Plt Count 332 (150-375) k/mm3 MPV 8.9 (7.4-10.4) fl Immature Gran % (Auto) 0.6 H (0-0.5) % Neut % (Auto) 69.3 (45.5-73.1) % Lymph % (Auto) 23.0 (18.3-44.2) % [place] % (Auto) 4.2 (2.6-8.5) % Eos % (Auto) 2.3 (0-4.4) % Baso % (Auto) 0.6 (0.2-1.2) % Lymph # (Auto) 2.14 (0.9-3.2) K/mm3 [place] # (Auto) 0.4 (0.1-0.6) K/mm3 Eos # (Auto) 0.2 (0-0.3) K/mm3 Baso # (Auto) 0.1 (0.0-0.1) K/mm3 Abs Immat Gran (auto) 0.06 H (0.00-0.031) K/mm3 Absolute Neuts (auto) 6.5 (1.3-6.7) K/mm3 Absolute Nucleated RBC 0.000 (0.0-0.012) K/mm3 Nucleated RBC % 0.0 (0.0-0.2) % PT (11.1-14.7) Seconds INR APTT (22.3-36.8) Seconds Sodium 129 L (137-145) mmol/L Potassium 3.9 (3.4-5.0) mmol/L Chloride 101 (98-107) mmol/L Carbon Dioxide 22 (22-30) mmol/L Anion Gap 6 (4-12) mmol/L BUN 37 H (7-17) mg/dL Creatinine 4.06 H (0.7-1.0) mg/dL Estim Creat Clear Calc Not Reportable Estimated GFR 12 L (59 - ) Glucose 93 (65-110) mg/dL POC Capillary Glucose (65-105) mg/dl Lactic Acid (0.7-2.0) mmol/L Calcium 6.2 L (8.4-10.2) mg/dL Ionized Calcium Phosphorus (2.5-4.5) mg/dL Magnesium (1.6-2.3) mg/dL Total Bilirubin (0.2-1.3) mg/dL AST (14-36) U/L ALT (6-35) U/L Alkaline Phosphatase (38-126) U/L C-Reactive Protein (<1.0) mg/dL Total Protein (6.3-8.2) g/dL Albumin (3.5-5.1) g/dL Lipase (23-300) U/L Procalcitonin ng/mL Urine Color (Yellow) Urine Appearance (Clear) Urine pH (5.0-9.0) Ur Specific [place] (1.001-1.035) Urine Protein (Negative) mg/dL Urine Glucose (UA) (Negative) mg/dL Urine Ketones (Negative) mg/dL Ur Blood (Man) (Negative) Urine Nitrate (Negative) Urine Bilirubin (Negative) Urine Urobilinogen (<2.0) mg/dL Leukocyte Esterase Rfl (Negative) UHMPHREY/UL Urine RBC (0-2) /hpf Urine WBC (0-3) /hpf Ur Squamous Epith Cells (Few) /hpf Urine Bacteria /hpf Urine Casts Peritoneal Source Peritoneal Color (Colorless) Peritoneal Appearance (Clear) Peritoneal RBC (0-09791) /uL [place] Nuc Cells (0-500) /uL [place] Neutrophils (0-25) % [place] Lymphocytes % Peritoneal Monocytes % Nasal MRSA (PCR) (NOT DETECTE) Random Vancomycin 36.4 H (10-20) ug/mL Influenza A (RT-PCR) (Negative) Influenza B (RT-PCR) (Negative) RSV (RT-PCR) (Negative) SARS-CoV-2 RNA (RT-PCR) (Negative) <Scotty Watson MD - Last Filed: 12/20/24 07:09> Lab Results 12/16/24 12/16/24 12/16/24 Range/Units 15:26 21:27 21:36 WBC 8.9 (4.5-10.0) K/mm3 RBC 4.76 (4.2-5.4) M/mm3 Hgb 13.4 (12.0-15.0) g/dL Hct 42.4 (37.0-47.0) % MCV 89.1 (80-100) fl MCH 28.2 (26-34) pg MCHC 31.6 L (32-36) g/dl RDW 13.9 (11.5-14.5) % Plt Count 333 (150-375) k/mm3 MPV 8.8 (7.4-10.4) fl Immature Gran % (Auto) 0.7 H (0-0.5) % Neut % (Auto) 72.6 (45.5-73.1) % Lymph % (Auto) 20.2 (18.3-44.2) % [place] % (Auto) 4.8 (2.6-8.5) % Eos % (Auto) 1.2 (0-4.4) % Baso % (Auto) 0.5 (0.2-1.2) % Lymph # (Auto) 1.79 (0.9-3.2) K/mm3 [place] # (Auto) 0.4 (0.1-0.6) K/mm3 Eos # (Auto) 0.1 (0-0.3) K/mm3 Baso # (Auto) 0.0 (0.0-0.1) K/mm3 Abs Immat Gran (auto) 0.06 H (0.00-0.031) K/mm3 Absolute Neuts (auto) 6.5 (1.3-6.7) K/mm3 Absolute Nucleated RBC 0.000 (0.0-0.012) K/mm3 Nucleated RBC % 0.0 (0.0-0.2) % PT 13.0 (11.1-14.7) Seconds INR 1.0 APTT 30.3 (22.3-36.8) Seconds Sodium 130 L 130 L (137-145) mmol/L Potassium 2.6 L* 4.8 (3.4-5.0) mmol/L Chloride 92 L 99 (98-107) mmol/L Carbon Dioxide 30 25 (22-30) mmol/L Anion Gap 8 6 (4-12) mmol/L BUN 39 H D 37 H (7-17) mg/dL Creatinine 4.46 H 4.04 H (0.7-1.0) mg/dL Estim Creat Clear Calc Not Reportable Not Reportable Estimated GFR 11 L 12 L (59 - ) Glucose 97 82 (65-110) mg/dL POC Capillary Glucose (65-105) mg/dl Lactic Acid 1.0 (0.7-2.0) mmol/L Calcium 5.7 L* 5.7 L* (8.4-10.2) mg/dL Ionized Calcium Cancelled Phosphorus (2.5-4.5) mg/dL Magnesium 1.7 (1.6-2.3) mg/dL Total Bilirubin 0.2 (0.2-1.3) mg/dL AST 20 (14-36) U/L ALT 11 (6-35) U/L Alkaline Phosphatase 146 H (38-126) U/L C-Reactive Protein 6.3 H (<1.0) mg/dL Total Protein 5.6 L (6.3-8.2) g/dL Albumin 2.4 L (3.5-5.1) g/dL Lipase (23-300) U/L Procalcitonin ng/mL Urine Color Yellow (Yellow) Urine Appearance Cloudy H (Clear) Urine pH 8.5 (5.0-9.0) Ur Specific [place] 1.008 (1.001-1.035) Urine Protein 2+ H (Negative) mg/dL Urine Glucose (UA) Negative (Negative) mg/dL Urine Ketones Negative (Negative) mg/dL Ur Blood (Man) 3+ H (Negative) Urine Nitrate Negative (Negative) Urine Bilirubin Negative (Negative) Urine Urobilinogen 0.2 (<2.0) mg/dL Leukocyte Esterase Rfl Trace H (Negative) HUMPHREY/UL Urine RBC 21-50 H (0-2) /hpf Urine WBC 0-5 (0-3) /hpf Ur Squamous Epith Cells Occasional (Few) /hpf Urine Bacteria None seen /hpf Urine Casts 3-5 Peritoneal Source Peritoneal Color (Colorless) Peritoneal Appearance (Clear) Peritoneal RBC (0-99538) /uL [place] Nuc Cells (0-500) /uL [place] Neutrophils (0-25) % [place] Lymphocytes % Peritoneal Monocytes % Nasal MRSA (PCR) (NOT DETECTE) Random Vancomycin (10-20) ug/mL Influenza A (RT-PCR) (Negative) Influenza B (RT-PCR) (Negative) RSV (RT-PCR) (Negative) SARS-CoV-2 RNA (RT-PCR) (Negative) 12/17/24 12/17/24 12/17/24 Range/Units 00:45 05:31 05:58 WBC 10.3 H (4.5-10.0) K/mm3 RBC 4.57 (4.2-5.4) M/mm3 Hgb 13.0 (12.0-15.0) g/dL Hct 42.4 (37.0-47.0) % MCV 92.8 (80-100) fl MCH 28.4 (26-34) pg MCHC 30.7 L (32-36) g/dl RDW 14.3 (11.5-14.5) % Plt Count 321 (150-375) k/mm3 MPV 9.1 (7.4-10.4) fl Immature Gran % (Auto) 0.5 (0-0.5) % Neut % (Auto) 82.8 H (45.5-73.1) % Lymph % (Auto) 11.5 L (18.3-44.2) % [place] % (Auto) 4.3 (2.6-8.5) % Eos % (Auto) 0.6 (0-4.4) % Baso % (Auto) 0.3 (0.2-1.2) % Lymph # (Auto) 1.19 (0.9-3.2) K/mm3 [place] # (Auto) 0.4 (0.1-0.6) K/mm3 Eos # (Auto) 0.1 (0-0.3) K/mm3 Baso # (Auto) 0.0 (0.0-0.1) K/mm3 Abs Immat Gran (auto) 0.05 H (0.00-0.031) K/mm3 Absolute Neuts (auto) 8.6 H (1.3-6.7) K/mm3 Absolute Nucleated RBC 0.000 (0.0-0.012) K/mm3 Nucleated RBC % 0.0 (0.0-0.2) % PT (11.1-14.7) Seconds INR APTT (22.3-36.8) Seconds Sodium 131 L 132 L (137-145) mmol/L Potassium 5.2 H 4.8 (3.4-5.0) mmol/L Chloride 102 103 (98-107) mmol/L Carbon Dioxide 25 22 (22-30) mmol/L Anion Gap 4 7 (4-12) mmol/L BUN 36 H 38 H (7-17) mg/dL Creatinine 4.21 H 4.26 H (0.7-1.0) mg/dL Estim Creat Clear Calc Not Reportable Not Reportable Estimated GFR 12 L 12 L (59 - ) Glucose 93 89 (65-110) mg/dL POC Capillary Glucose (65-105) mg/dl Lactic Acid (0.7-2.0) mmol/L Calcium 6.1 L 5.8 L* (8.4-10.2) mg/dL Ionized Calcium Phosphorus 4.2 (2.5-4.5) mg/dL Magnesium 1.6 1.7 (1.6-2.3) mg/dL Total Bilirubin 0.2 (0.2-1.3) mg/dL AST 19 (14-36) U/L ALT 9 (6-35) U/L Alkaline Phosphatase 134 H (38-126) U/L C-Reactive Protein (<1.0) mg/dL Total Protein 4.9 L (6.3-8.2) g/dL Albumin 2.1 L (3.5-5.1) g/dL Lipase 77 (23-300) U/L Procalcitonin 1.2 ng/mL Urine Color (Yellow) Urine Appearance (Clear) Urine pH (5.0-9.0) Ur Specific [place] (1.001-1.035) Urine Protein (Negative) mg/dL Urine Glucose (UA) (Negative) mg/dL Urine Ketones (Negative) mg/dL Ur Blood (Man) (Negative) Urine Nitrate (Negative) Urine Bilirubin (Negative) Urine Urobilinogen (<2.0) mg/dL Leukocyte Esterase Rfl (Negative) HUMPHREY/UL Urine RBC (0-2) /hpf Urine WBC (0-3) /hpf Ur Squamous Epith Cells (Few) /hpf Urine Bacteria /hpf Urine Casts Peritoneal Source Peritoneal Color (Colorless) Peritoneal Appearance (Clear) Peritoneal RBC (0-12359) /uL [place] Nuc Cells (0-500) /uL [place] Neutrophils (0-25) % [place] Lymphocytes % Peritoneal Monocytes % Nasal MRSA (PCR) Not detected (NOT DETECTE) Random Vancomycin (10-20) ug/mL Influenza A (RT-PCR) Negative (Negative) Influenza B (RT-PCR) Negative (Negative) RSV (RT-PCR) Negative (Negative) SARS-CoV-2 RNA (RT-PCR) Negative (Negative) 12/17/24 12/17/24 12/17/24 Range/Units 07:49 10:55 11:23 WBC (4.5-10.0) K/mm3 RBC (4.2-5.4) M/mm3 Hgb (12.0-15.0) g/dL Hct (37.0-47.0) % MCV (80-100) fl MCH (26-34) pg MCHC (32-36) g/dl RDW (11.5-14.5) % Plt Count (150-375) k/mm3 MPV (7.4-10.4) fl Immature Gran % (Auto) (0-0.5) % Neut % (Auto) (45.5-73.1) % Lymph % (Auto) (18.3-44.2) % [place] % (Auto) (2.6-8.5) % Eos % (Auto) (0-4.4) % Baso % (Auto) (0.2-1.2) % Lymph # (Auto) (0.9-3.2) K/mm3 [place] # (Auto) (0.1-0.6) K/mm3 Eos # (Auto) (0-0.3) K/mm3 Baso # (Auto) (0.0-0.1) K/mm3 Abs Immat Gran (auto) (0.00-0.031) K/mm3 Absolute Neuts (auto) (1.3-6.7) K/mm3 Absolute Nucleated RBC (0.0-0.012) K/mm3 Nucleated RBC % (0.0-0.2) % PT (11.1-14.7) Seconds INR APTT (22.3-36.8) Seconds Sodium (137-145) mmol/L Potassium (3.4-5.0) mmol/L Chloride (98-107) mmol/L Carbon Dioxide (22-30) mmol/L Anion Gap (4-12) mmol/L BUN (7-17) mg/dL Creatinine (0.7-1.0) mg/dL Estim Creat Clear Calc Estimated GFR (59 - ) Glucose (65-110) mg/dL POC Capillary Glucose 105 126 H (65-105) mg/dl Lactic Acid (0.7-2.0) mmol/L Calcium 5.9 L* (8.4-10.2) mg/dL Ionized Calcium Phosphorus (2.5-4.5) mg/dL Magnesium (1.6-2.3) mg/dL Total Bilirubin (0.2-1.3) mg/dL AST (14-36) U/L ALT (6-35) U/L Alkaline Phosphatase (38-126) U/L C-Reactive Protein (<1.0) mg/dL Total Protein (6.3-8.2) g/dL Albumin (3.5-5.1) g/dL Lipase (23-300) U/L Procalcitonin ng/mL Urine Color (Yellow) Urine Appearance (Clear) Urine pH (5.0-9.0) Ur Specific [place] (1.001-1.035) Urine Protein (Negative) mg/dL Urine Glucose (UA) (Negative) mg/dL Urine Ketones (Negative) mg/dL Ur Blood (Man) (Negative) Urine Nitrate (Negative) Urine Bilirubin (Negative) Urine Urobilinogen (<2.0) mg/dL Leukocyte Esterase Rfl (Negative) HUMPHREY/UL Urine RBC (0-2) /hpf Urine WBC (0-3) /hpf Ur Squamous Epith Cells (Few) /hpf Urine Bacteria /hpf Urine Casts Peritoneal Source Peritoneal Color (Colorless) Peritoneal Appearance (Clear) Peritoneal RBC (0-19734) /uL [place] Nuc Cells (0-500) /uL [place] Neutrophils (0-25) % [place] Lymphocytes % Peritoneal Monocytes % Nasal MRSA (PCR) (NOT DETECTE) Random Vancomycin (10-20) ug/mL Influenza A (RT-PCR) (Negative) Influenza B (RT-PCR) (Negative) RSV (RT-PCR) (Negative) SARS-CoV-2 RNA (RT-PCR) (Negative) 12/17/24 12/17/24 12/18/24 Range/Units 15:13 16:35 06:34 WBC 11.3 H (4.5-10.0) K/mm3 RBC 4.43 (4.2-5.4) M/mm3 Hgb 12.6 (12.0-15.0) g/dL Hct 41.0 (37.0-47.0) % MCV 92.6 (80-100) fl MCH 28.4 (26-34) pg MCHC 30.7 L (32-36) g/dl RDW 14.3 (11.5-14.5) % Plt Count 358 (150-375) k/mm3 MPV 9.1 (7.4-10.4) fl Immature Gran % (Auto) 0.6 H (0-0.5) % Neut % (Auto) 80.0 H (45.5-73.1) % Lymph % (Auto) 14.5 L (18.3-44.2) % [place] % (Auto) 3.2 (2.6-8.5) % Eos % (Auto) 1.3 (0-4.4) % Baso % (Auto) 0.4 (0.2-1.2) % Lymph # (Auto) 1.64 (0.9-3.2) K/mm3 [place] # (Auto) 0.4 (0.1-0.6) K/mm3 Eos # (Auto) 0.2 (0-0.3) K/mm3 Baso # (Auto) 0.0 (0.0-0.1) K/mm3 Abs Immat Gran (auto) 0.07 H (0.00-0.031) K/mm3 Absolute Neuts (auto) 9.1 H (1.3-6.7) K/mm3 Absolute Nucleated RBC 0.000 (0.0-0.012) K/mm3 Nucleated RBC % 0.0 (0.0-0.2) % PT (11.1-14.7) Seconds INR APTT (22.3-36.8) Seconds Sodium 131 L (137-145) mmol/L Potassium (3.4-5.0) mmol/L Chloride (98-107) mmol/L Carbon Dioxide (22-30) mmol/L Anion Gap (4-12) mmol/L BUN (7-17) mg/dL Creatinine (0.7-1.0) mg/dL Estim Creat Clear Calc Estimated GFR (59 - ) Glucose (65-110) mg/dL POC Capillary Glucose 86 (65-105) mg/dl Lactic Acid (0.7-2.0) mmol/L Calcium 6.5 L (8.4-10.2) mg/dL Ionized Calcium Phosphorus (2.5-4.5) mg/dL Magnesium (1.6-2.3) mg/dL Total Bilirubin (0.2-1.3) mg/dL AST (14-36) U/L ALT (6-35) U/L Alkaline Phosphatase (38-126) U/L C-Reactive Protein (<1.0) mg/dL Total Protein (6.3-8.2) g/dL Albumin (3.5-5.1) g/dL Lipase (23-300) U/L Procalcitonin ng/mL Urine Color (Yellow) Urine Appearance (Clear) Urine pH (5.0-9.0) Ur Specific [place] (1.001-1.035) Urine Protein (Negative) mg/dL Urine Glucose (UA) (Negative) mg/dL Urine Ketones (Negative) mg/dL Ur Blood (Man) (Negative) Urine Nitrate (Negative) Urine Bilirubin (Negative) Urine Urobilinogen (<2.0) mg/dL Leukocyte Esterase Rfl (Negative) HUMPHREY/UL Urine RBC (0-2) /hpf Urine WBC (0-3) /hpf Ur Squamous Epith Cells (Few) /hpf Urine Bacteria /hpf Urine Casts Peritoneal Source Peritoneal Color (Colorless) Peritoneal Appearance (Clear) Peritoneal RBC (0-57658) /uL [place] Nuc Cells (0-500) /uL [place] Neutrophils (0-25) % [place] Lymphocytes % Peritoneal Monocytes % Nasal MRSA (PCR) (NOT DETECTE) Random Vancomycin (10-20) ug/mL Influenza A (RT-PCR) (Negative) Influenza B (RT-PCR) (Negative) RSV (RT-PCR) (Negative) SARS-CoV-2 RNA (RT-PCR) (Negative) 12/18/24 12/18/24 12/18/24 Range/Units 06:34 06:34 06:34 WBC (4.5-10.0) K/mm3 RBC (4.2-5.4) M/mm3 Hgb (12.0-15.0) g/dL Hct (37.0-47.0) % MCV (80-100) fl MCH (26-34) pg MCHC (32-36) g/dl RDW (11.5-14.5) % Plt Count (150-375) k/mm3 MPV (7.4-10.4) fl Immature Gran % (Auto) (0-0.5) % Neut % (Auto) (45.5-73.1) % Lymph % (Auto) (18.3-44.2) % [place] % (Auto) (2.6-8.5) % Eos % (Auto) (0-4.4) % Baso % (Auto) (0.2-1.2) % Lymph # (Auto) (0.9-3.2) K/mm3 [place] # (Auto) (0.1-0.6) K/mm3 Eos # (Auto) (0-0.3) K/mm3 Baso # (Auto) (0.0-0.1) K/mm3 Abs Immat Gran (auto) (0.00-0.031) K/mm3 Absolute Neuts (auto) (1.3-6.7) K/mm3 Absolute Nucleated RBC (0.0-0.012) K/mm3 Nucleated RBC % (0.0-0.2) % PT (11.1-14.7) Seconds INR APTT (22.3-36.8) Seconds Sodium 130 L (137-145) mmol/L Potassium 4.3 4.4 (3.4-5.0) mmol/L Chloride 104 104 (98-107) mmol/L Carbon Dioxide 20 L (22-30) mmol/L Anion Gap (4-12) mmol/L BUN (7-17) mg/dL Creatinine (0.7-1.0) mg/dL Estim Creat Clear Calc Estimated GFR (59 - ) Glucose (65-110) mg/dL POC Capillary Glucose (65-105) mg/dl Lactic Acid (0.7-2.0) mmol/L Calcium (8.4-10.2) mg/dL Ionized Calcium Phosphorus (2.5-4.5) mg/dL Magnesium (1.6-2.3) mg/dL Total Bilirubin (0.2-1.3) mg/dL AST (14-36) U/L ALT (6-35) U/L Alkaline Phosphatase (38-126) U/L C-Reactive Protein (<1.0) mg/dL Total Protein (6.3-8.2) g/dL Albumin (3.5-5.1) g/dL Lipase (23-300) U/L Procalcitonin ng/mL Urine Color (Yellow) Urine Appearance (Clear) Urine pH (5.0-9.0) Ur Specific [place] (1.001-1.035) Urine Protein (Negative) mg/dL Urine Glucose (UA) (Negative) mg/dL Urine Ketones (Negative) mg/dL Ur Blood (Man) (Negative) Urine Nitrate (Negative) Urine Bilirubin (Negative) Urine Urobilinogen (<2.0) mg/dL Leukocyte Esterase Rfl (Negative) HUMPHREY/UL Urine RBC (0-2) /hpf Urine WBC (0-3) /hpf Ur Squamous Epith Cells (Few) /hpf Urine Bacteria /hpf Urine Casts Peritoneal Source Peritoneal Color (Colorless) Peritoneal Appearance (Clear) Peritoneal RBC (0-70203) /uL [place] Nuc Cells (0-500) /uL [place] Neutrophils (0-25) % [place] Lymphocytes % Peritoneal Monocytes % Nasal MRSA (PCR) (NOT DETECTE) Random Vancomycin (10-20) ug/mL Influenza A (RT-PCR) (Negative) Influenza B (RT-PCR) (Negative) RSV (RT-PCR) (Negative) SARS-CoV-2 RNA (RT-PCR) (Negative) 12/18/24 12/18/24 12/18/24 Range/Units 06:34 06:34 06:34 WBC (4.5-10.0) K/mm3 RBC (4.2-5.4) M/mm3 Hgb (12.0-15.0) g/dL Hct (37.0-47.0) % MCV (80-100) fl MCH (26-34) pg MCHC (32-36) g/dl RDW (11.5-14.5) % Plt Count (150-375) k/mm3 MPV (7.4-10.4) fl Immature Gran % (Auto) (0-0.5) % Neut % (Auto) (45.5-73.1) % Lymph % (Auto) (18.3-44.2) % [place] % (Auto) (2.6-8.5) % Eos % (Auto) (0-4.4) % Baso % (Auto) (0.2-1.2) % Lymph # (Auto) (0.9-3.2) K/mm3 [place] # (Auto) (0.1-0.6) K/mm3 Eos # (Auto) (0-0.3) K/mm3 Baso # (Auto) (0.0-0.1) K/mm3 Abs Immat Gran (auto) (0.00-0.031) K/mm3 Absolute Neuts (auto) (1.3-6.7) K/mm3 Absolute Nucleated RBC (0.0-0.012) K/mm3 Nucleated RBC % (0.0-0.2) % PT (11.1-14.7) Seconds INR APTT (22.3-36.8) Seconds Sodium (137-145) mmol/L Potassium (3.4-5.0) mmol/L Chloride (98-107) mmol/L Carbon Dioxide 20 L (22-30) mmol/L Anion Gap 7 6 (4-12) mmol/L BUN 39 H 39 H (7-17) mg/dL Creatinine 4.72 H (0.7-1.0) mg/dL Estim Creat Clear Calc Estimated GFR (59 - ) Glucose (65-110) mg/dL POC Capillary Glucose (65-105) mg/dl Lactic Acid (0.7-2.0) mmol/L Calcium (8.4-10.2) mg/dL Ionized Calcium Phosphorus (2.5-4.5) mg/dL Magnesium (1.6-2.3) mg/dL Total Bilirubin (0.2-1.3) mg/dL AST (14-36) U/L ALT (6-35) U/L Alkaline Phosphatase (38-126) U/L C-Reactive Protein (<1.0) mg/dL Total Protein (6.3-8.2) g/dL Albumin (3.5-5.1) g/dL Lipase (23-300) U/L Procalcitonin ng/mL Urine Color (Yellow) Urine Appearance (Clear) Urine pH (5.0-9.0) Ur Specific [place] (1.001-1.035) Urine Protein (Negative) mg/dL Urine Glucose (UA) (Negative) mg/dL Urine Ketones (Negative) mg/dL Ur Blood (Man) (Negative) Urine Nitrate (Negative) Urine Bilirubin (Negative) Urine Urobilinogen (<2.0) mg/dL Leukocyte Esterase Rfl (Negative) HUMPHREY/UL Urine RBC (0-2) /hpf Urine WBC (0-3) /hpf Ur Squamous Epith Cells (Few) /hpf Urine Bacteria /hpf Urine Casts Peritoneal Source Peritoneal Color (Colorless) Peritoneal Appearance (Clear) Peritoneal RBC (0-87439) /uL [place] Nuc Cells (0-500) /uL [place] Neutrophils (0-25) % [place] Lymphocytes % Peritoneal Monocytes % Nasal MRSA (PCR) (NOT DETECTE) Random Vancomycin (10-20) ug/mL Influenza A (RT-PCR) (Negative) Influenza B (RT-PCR) (Negative) RSV (RT-PCR) (Negative) SARS-CoV-2 RNA (RT-PCR) (Negative) 12/18/24 12/18/24 12/18/24 Range/Units 06:34 06:34 06:34 WBC (4.5-10.0) K/mm3 RBC (4.2-5.4) M/mm3 Hgb (12.0-15.0) g/dL Hct (37.0-47.0) % MCV (80-100) fl MCH (26-34) pg MCHC (32-36) g/dl RDW (11.5-14.5) % Plt Count (150-375) k/mm3 MPV (7.4-10.4) fl Immature Gran % (Auto) (0-0.5) % Neut % (Auto) (45.5-73.1) % Lymph % (Auto) (18.3-44.2) % [place] % (Auto) (2.6-8.5) % Eos % (Auto) (0-4.4) % Baso % (Auto) (0.2-1.2) % Lymph # (Auto) (0.9-3.2) K/mm3 [place] # (Auto) (0.1-0.6) K/mm3 Eos # (Auto) (0-0.3) K/mm3 Baso # (Auto) (0.0-0.1) K/mm3 Abs Immat Gran (auto) (0.00-0.031) K/mm3 Absolute Neuts (auto) (1.3-6.7) K/mm3 Absolute Nucleated RBC (0.0-0.012) K/mm3 Nucleated RBC % (0.0-0.2) % PT (11.1-14.7) Seconds INR APTT (22.3-36.8) Seconds Sodium (137-145) mmol/L Potassium (3.4-5.0) mmol/L Chloride (98-107) mmol/L Carbon Dioxide (22-30) mmol/L Anion Gap (4-12) mmol/L BUN (7-17) mg/dL Creatinine 4.69 H (0.7-1.0) mg/dL Estim Creat Clear Calc Not Reportable Not Reportable Estimated GFR 10 L 10 L (59 - ) Glucose 86 (65-110) mg/dL POC Capillary Glucose (65-105) mg/dl Lactic Acid (0.7-2.0) mmol/L Calcium (8.4-10.2) mg/dL Ionized Calcium Phosphorus (2.5-4.5) mg/dL Magnesium (1.6-2.3) mg/dL Total Bilirubin (0.2-1.3) mg/dL AST (14-36) U/L ALT (6-35) U/L Alkaline Phosphatase (38-126) U/L C-Reactive Protein (<1.0) mg/dL Total Protein (6.3-8.2) g/dL Albumin (3.5-5.1) g/dL Lipase (23-300) U/L Procalcitonin ng/mL Urine Color (Yellow) Urine Appearance (Clear) Urine pH (5.0-9.0) Ur Specific [place] (1.001-1.035) Urine Protein (Negative) mg/dL Urine Glucose (UA) (Negative) mg/dL Urine Ketones (Negative) mg/dL Ur Blood (Man) (Negative) Urine Nitrate (Negative) Urine Bilirubin (Negative) Urine Urobilinogen (<2.0) mg/dL Leukocyte Esterase Rfl (Negative) HUMPHREY/UL Urine RBC (0-2) /hpf Urine WBC (0-3) /hpf Ur Squamous Epith Cells (Few) /hpf Urine Bacteria /hpf Urine Casts Peritoneal Source Peritoneal Color (Colorless) Peritoneal Appearance (Clear) Peritoneal RBC (0-65610) /uL [place] Nuc Cells (0-500) /uL [place] Neutrophils (0-25) % [place] Lymphocytes % Peritoneal Monocytes % Nasal MRSA (PCR) (NOT DETECTE) Random Vancomycin (10-20) ug/mL Influenza A (RT-PCR) (Negative) Influenza B (RT-PCR) (Negative) RSV (RT-PCR) (Negative) SARS-CoV-2 RNA (RT-PCR) (Negative) 12/18/24 12/18/24 12/18/24 Range/Units 06:34 06:34 09:41 WBC (4.5-10.0) K/mm3 RBC (4.2-5.4) M/mm3 Hgb (12.0-15.0) g/dL Hct (37.0-47.0) % MCV (80-100) fl MCH (26-34) pg MCHC (32-36) g/dl RDW (11.5-14.5) % Plt Count (150-375) k/mm3 MPV (7.4-10.4) fl Immature Gran % (Auto) (0-0.5) % Neut % (Auto) (45.5-73.1) % Lymph % (Auto) (18.3-44.2) % [place] % (Auto) (2.6-8.5) % Eos % (Auto) (0-4.4) % Baso % (Auto) (0.2-1.2) % Lymph # (Auto) (0.9-3.2) K/mm3 [place] # (Auto) (0.1-0.6) K/mm3 Eos # (Auto) (0-0.3) K/mm3 Baso # (Auto) (0.0-0.1) K/mm3 Abs Immat Gran (auto) (0.00-0.031) K/mm3 Absolute Neuts (auto) (1.3-6.7) K/mm3 Absolute Nucleated RBC (0.0-0.012) K/mm3 Nucleated RBC % (0.0-0.2) % PT (11.1-14.7) Seconds INR APTT (22.3-36.8) Seconds Sodium (137-145) mmol/L Potassium (3.4-5.0) mmol/L Chloride (98-107) mmol/L Carbon Dioxide (22-30) mmol/L Anion Gap (4-12) mmol/L BUN (7-17) mg/dL Creatinine (0.7-1.0) mg/dL Estim Creat Clear Calc Estimated GFR (59 - ) Glucose 86 (65-110) mg/dL POC Capillary Glucose (65-105) mg/dl Lactic Acid (0.7-2.0) mmol/L Calcium 6.9 L 6.8 L (8.4-10.2) mg/dL Ionized Calcium Phosphorus 4.0 (2.5-4.5) mg/dL Magnesium (1.6-2.3) mg/dL Total Bilirubin (0.2-1.3) mg/dL AST (14-36) U/L ALT (6-35) U/L Alkaline Phosphatase (38-126) U/L C-Reactive Protein (<1.0) mg/dL Total Protein (6.3-8.2) g/dL Albumin 2.0 L (3.5-5.1) g/dL Lipase (23-300) U/L Procalcitonin ng/mL Urine Color (Yellow) Urine Appearance (Clear) Urine pH (5.0-9.0) Ur Specific [place] (1.001-1.035) Urine Protein (Negative) mg/dL Urine Glucose (UA) (Negative) mg/dL Urine Ketones (Negative) mg/dL Ur Blood (Man) (Negative) Urine Nitrate (Negative) Urine Bilirubin (Negative) Urine Urobilinogen (<2.0) mg/dL Leukocyte Esterase Rfl (Negative) HUMPHREY/UL Urine RBC (0-2) /hpf Urine WBC (0-3) /hpf Ur Squamous Epith Cells (Few) /hpf Urine Bacteria /hpf Urine Casts Peritoneal Source Peritoneal fluid Peritoneal Color Yellow (Colorless) Peritoneal Appearance Cloudy A (Clear) Peritoneal RBC 2000 (0-87457) /uL [place] Nuc Cells 01700 H (0-500) /uL [place] Neutrophils 80 H (0-25) % [place] Lymphocytes 7 % Peritoneal Monocytes 13 % Nasal MRSA (PCR) (NOT DETECTE) Random Vancomycin (10-20) ug/mL Influenza A (RT-PCR) (Negative) Influenza B (RT-PCR) (Negative) RSV (RT-PCR) (Negative) SARS-CoV-2 RNA (RT-PCR) (Negative) 12/19/24 Range/Units 05:28 WBC 9.3 (4.5-10.0) K/mm3 RBC 4.22 (4.2-5.4) M/mm3 Hgb 11.8 L (12.0-15.0) g/dL Hct 38.5 (37.0-47.0) % MCV 91.2 (80-100) fl MCH 28.0 (26-34) pg MCHC 30.6 L (32-36) g/dl RDW 14.3 (11.5-14.5) % Plt Count 332 (150-375) k/mm3 MPV 8.9 (7.4-10.4) fl Immature Gran % (Auto) 0.6 H (0-0.5) % Neut % (Auto) 69.3 (45.5-73.1) % Lymph % (Auto) 23.0 (18.3-44.2) % [place] % (Auto) 4.2 (2.6-8.5) % Eos % (Auto) 2.3 (0-4.4) % Baso % (Auto) 0.6 (0.2-1.2) % Lymph # (Auto) 2.14 (0.9-3.2) K/mm3 [place] # (Auto) 0.4 (0.1-0.6) K/mm3 Eos # (Auto) 0.2 (0-0.3) K/mm3 Baso # (Auto) 0.1 (0.0-0.1) K/mm3 Abs Immat Gran (auto) 0.06 H (0.00-0.031) K/mm3 Absolute Neuts (auto) 6.5 (1.3-6.7) K/mm3 Absolute Nucleated RBC 0.000 (0.0-0.012) K/mm3 Nucleated RBC % 0.0 (0.0-0.2) % PT (11.1-14.7) Seconds INR APTT (22.3-36.8) Seconds Sodium 129 L (137-145) mmol/L Potassium 3.9 (3.4-5.0) mmol/L Chloride 101 (98-107) mmol/L Carbon Dioxide 22 (22-30) mmol/L Anion Gap 6 (4-12) mmol/L BUN 37 H (7-17) mg/dL Creatinine 4.06 H (0.7-1.0) mg/dL Estim Creat Clear Calc Not Reportable Estimated GFR 12 L (59 - ) Glucose 93 (65-110) mg/dL POC Capillary Glucose (65-105) mg/dl Lactic Acid (0.7-2.0) mmol/L Calcium 6.2 L (8.4-10.2) mg/dL Ionized Calcium Phosphorus (2.5-4.5) mg/dL Magnesium (1.6-2.3) mg/dL Total Bilirubin (0.2-1.3) mg/dL AST (14-36) U/L ALT (6-35) U/L Alkaline Phosphatase (38-126) U/L C-Reactive Protein (<1.0) mg/dL Total Protein (6.3-8.2) g/dL Albumin (3.5-5.1) g/dL Lipase (23-300) U/L Procalcitonin ng/mL Urine Color (Yellow) Urine Appearance (Clear) Urine pH (5.0-9.0) Ur Specific [place] (1.001-1.035) Urine Protein (Negative) mg/dL Urine Glucose (UA) (Negative) mg/dL Urine Ketones (Negative) mg/dL Ur Blood (Man) (Negative) Urine Nitrate (Negative) Urine Bilirubin (Negative) Urine Urobilinogen (<2.0) mg/dL Leukocyte Esterase Rfl (Negative) HUMPHREY/UL Urine RBC (0-2) /hpf Urine WBC (0-3) /hpf Ur Squamous Epith Cells (Few) /hpf Urine Bacteria /hpf Urine Casts Peritoneal Source Peritoneal Color (Colorless) Peritoneal Appearance (Clear) Peritoneal RBC (0-65990) /uL [place] Nuc Cells (0-500) /uL [place] Neutrophils (0-25) % [place] Lymphocytes % Peritoneal Monocytes % Nasal MRSA (PCR) (NOT DETECTE) Random Vancomycin 36.4 H (10-20) ug/mL Influenza A (RT-PCR) (Negative) Influenza B (RT-PCR) (Negative) RSV (RT-PCR) (Negative) SARS-CoV-2 RNA (RT-PCR) (Negative) <Kim Gold MD - Last Filed: 12/17/24 02:23> Imaging Data Attestation: I personally reviewed and interpreted this imaging study as follows: <Mariam Dykes APRN - Last Filed: 12/19/24 19:09> Radiologist's impression: Impressions Chest X-Ray 12/16/24 15:13 Impression: Early bilateral pneumonia Abdomen/Pelvis CT 12/16/24 17:08 IMPRESSION: 1. Intra-abdominal free air which may relate to the patient's peritoneal dialysis catheter however distinction from a viscus perforation is limited and extensive artifact also obscures evaluation. Follow-up is recommended to assess as clinically warranted. 2. Incidental findings above <Mariam Dykes APRN - Last Filed: 12/19/24 19:09> Critical Care Time Critical Care Time Critical Care Time: Yes <Kim Gold MD - Last Filed: 12/17/24 02:23> Total Critical Care Time: 55 <Kim Gold MD - Last Filed: 12/17/24 02:23> Discharge Plan Discharge Clinical Impression: Hypocalcemia, Hypokalemia, Pneumonia, Hyponatremia <Mariam Dykes APRN - Last Filed: 12/19/24 19:09> Patient Disposition: Still a Patient <Mariam Dykes APRN - Last Filed: 12/19/24 19:09> Condition: Serious <Mariam Dykes APRN - Last Filed: 12/19/24 19:09>
[2024-12-16] MEDS: SODIUM CHLORIDE 0.9% IV 1,000 ML 999 ML IV CONT (15:29)
[2024-12-16 15:35] LABS: Hematocrit 42.4 % (37.0-47.0); Hemoglobin 13.4 g/dL (12.0-15.0); Immature Granulocyte Percent A 0.7 % (0-0.5); Lymphocytes Absolute Auto 1.79 K/mm3 (0.9-3.2); Mean Corpuscular HGB Conc 31.6 g/dl (32-36); Mean Corpuscular Hemoglobin 28.2 pg (26-34); Mean Corpuscular Volume 89.1 fl (80-100); Nucleated Red Blood Cells Absolute Auto 0.000 K/mm3 (0.0-0.012); Nucleated Red Blood Cells Perc 0.0 % (0.0-0.2); Platelet Count Result 333 k/mm3 (150-375); Red Blood Count 4.76 M/mm3 (4.2-5.4); White Blood Count 8.9 K/mm3 (4.5-10.0)
[2024-12-16 15:48] LABS: INR 1.0; Prothrombin Time 13.0 Seconds (11.1-14.7)
[2024-12-16 15:49] LABS: Partial Thromboplastin Time 30.3 Seconds (22.3-36.8)
[2024-12-16 16:00] LABS: Alanine Aminotransferase 11 U/L (6-35); Albumin Level 2.4 g/dL (3.5-5.1); Alkaline Phosphatase 146 U/L (38-126); Anion Gap 8 mmol/L (4-12); Aspartate Amino Transferase 20 U/L (14-36); Bilirubin,Total 0.2 mg/dL (0.2-1.3); Blood Urea Nitrogen 39 mg/dL (7-17); CRP 6.3 mg/dL (<1.0); Calcium 5.7 mg/dL (8.4-10.2); Carbon Dioxide 30 mmol/L (22-30); Chloride 92 mmol/L (98-107); Estimated Glomerular Filt Rate 11; Glucose 97 mg/dL (65-110); Potassium 2.6 mmol/L (3.4-5.0); Sodium 130 mmol/L (137-145); Total Protein 5.6 g/dL (6.3-8.2)
[2024-12-16] MEDS: CALCIUM GLUCONATE 1,000 MG/10 ML VIAL 1000 MG IV PUSH (16:13)
[2024-12-16 17:12] LABS: Magnesium 1.7 mg/dL (1.6-2.3)
[2024-12-16] MEDS: POTASSIUM CHLORIDE INJ 40 MEQ in SODIUM CHLORIDE 0.9% IV 500 ML 130 MEQ IVPB (17:39)
[2024-12-16] MEDS: POTASSIUM CHLORIDE 20 MEQ PACKET (FOR LIQUID) 40 MEQ PO (17:41)
--- NOTE | 2024-12-16 21:40 | PC.NURSE ---
dinner tray provided
[2024-12-16 21:48] LABS: Add Urine Microscopic? YES; Appearance Urine Cloudy (Clear); Glucose Urine UA Negative (Negative); Leukocyte Esterase Ur Trace LEU/UL (Negative); Nitrate Urine Negative (Negative); Specific Grav Ur 1.008 (1.001-1.035)
[2024-12-16 22:09] LABS: Anion Gap 6 mmol/L (4-12); Blood Urea Nitrogen 37 mg/dL (7-17); Calcium 5.7 mg/dL (8.4-10.2); Carbon Dioxide 25 mmol/L (22-30); Chloride 99 mmol/L (98-107); Estimated Glomerular Filt Rate 12; Glucose 82 mg/dL (65-110); Potassium 4.8 mmol/L (3.4-5.0); Sodium 130 mmol/L (137-145)
[2024-12-16] MEDS: CALCIUM GLUCONATE 1,000 MG/10 ML VIAL 2000 MG IV PUSH (22:20)
[2024-12-16] MEDS: SODIUM CHLORIDE 0.9% IV 100 ML (22:20)
[2024-12-17] VITALS (32 sets, daily range): BP systolic 91–129; BP diastolic 69–97; PULSE 82–138; RESP 11–29; TEMP 36.1–37.2; O2SAT 97–100; BMI 22.6
--- NOTE | 2024-12-17 00:40 | PC.NURSE ---
ionized calcium send out per lab
[2024-12-17 01:02] LABS: Lipase 77 U/L (23-300)
[2024-12-17 01:03] LABS: Anion Gap 4 mmol/L (4-12); Blood Urea Nitrogen 36 mg/dL (7-17); Calcium 6.1 mg/dL (8.4-10.2); Carbon Dioxide 25 mmol/L (22-30); Chloride 102 mmol/L (98-107); Estimated Glomerular Filt Rate 12; Glucose 93 mg/dL (65-110); Magnesium 1.6 mg/dL (1.6-2.3); Potassium 5.2 mmol/L (3.4-5.0); Sodium 131 mmol/L (137-145)
[2024-12-17] MEDS: cefTRIAXone 1 GM in SODIUM CHLORIDE 0.9% IV 50 ML 100 ML IVPB (01:39)
[2024-12-17] MEDS: AZITHROMYCIN IV 500 MG in SODIUM CHLORIDE 0.9% IV 250 ML IVPB (01:40)
--- NOTE | 2024-12-17 01:41 | PC.NURSE ---
estelita blackwell placed 18g iv in right upper arm for abx usage. Left arm iv should only be used for calcium. Please do not give rocephin in left arm iv.
[2024-12-17] MEDS: ONDANSETRON INJ 4 MG/2 ML VIAL IV PUSH (03:17)
[2024-12-17] MEDS: MEROPENEM 1 GM in SODIUM CHLORIDE 0.9% IV 100 ML 200 ML IVPB (03:17)
[2024-12-17] MEDS: VANCOMYCIN 750 MG/NS 250 ML 750 MG/250 ML BAG 250 MG IVPB (06:26)
[2024-12-17 06:36] LABS: Hematocrit 42.4 % (37.0-47.0); Hemoglobin 13.0 g/dL (12.0-15.0); Immature Granulocyte Percent A 0.5 % (0-0.5); Lymphocytes Absolute Auto 1.19 K/mm3 (0.9-3.2); Mean Corpuscular HGB Conc 30.7 g/dl (32-36); Mean Corpuscular Hemoglobin 28.4 pg (26-34); Mean Corpuscular Volume 92.8 fl (80-100); Nucleated Red Blood Cells Absolute Auto 0.000 K/mm3 (0.0-0.012); Nucleated Red Blood Cells Perc 0.0 % (0.0-0.2); Platelet Count Result 321 k/mm3 (150-375); Red Blood Count 4.57 M/mm3 (4.2-5.4); White Blood Count 10.3 K/mm3 (4.5-10.0)
[2024-12-17 06:37] LABS: Influenza A QL RT-PCR Negative (Negative); Influenza B QL RT-PCR Negative (Negative); RSV RNA, RT-PCR Negative (Negative); SARS-CoV-2 RNA PCR Negative (Negative)
[2024-12-17 07:02] LABS: Alanine Aminotransferase 9 U/L (6-35); Albumin Level 2.1 g/dL (3.5-5.1); Alkaline Phosphatase 134 U/L (38-126); Anion Gap 7 mmol/L (4-12); Aspartate Amino Transferase 19 U/L (14-36); Bilirubin,Total 0.2 mg/dL (0.2-1.3); Blood Urea Nitrogen 38 mg/dL (7-17); Calcium 5.8 mg/dL (8.4-10.2); Carbon Dioxide 22 mmol/L (22-30); Chloride 103 mmol/L (98-107); Estimated Glomerular Filt Rate 12; Glucose 89 mg/dL (65-110); Magnesium 1.7 mg/dL (1.6-2.3); Potassium 4.8 mmol/L (3.4-5.0); Sodium 132 mmol/L (137-145); Total Protein 4.9 g/dL (6.3-8.2)
[2024-12-17 07:13] LABS: MRSA (PCR) NOT DETECTED (NOT DETECTE)
[2024-12-17 07:34] LABS: Procalcitonin 1.2 ng/mL
[2024-12-17] MEDS: PANTOPRAZOLE SODIUM IV 40 MG VIAL IV PUSH ×2 (09:11→21:25)
[2024-12-17] MEDS: CALCIUM CARBONATE (TUMS) 500 MG (200 MG ELEMENTAL) PO ×3 (09:11→16:59)
[2024-12-17] MEDS: CALCIUM GLUC 1,000 MG/NS 50 ML 1,000 MG/50 ML BAG 100 MG IVPB (09:11)
--- NOTE | 2024-12-17 09:52 | P.CONNP_ITS ---
Assessment and Plan Assessment and plan (1) End stage renal disease: Code(s): N18.6 - End stage renal disease Status: Acute Assessment and Plan: * continue nightly CCPD while hospitalized * follow electrolytes, volume status, and clearance * due to polycystic kidney disease * outpatient dialysis center = [facility] * primary leaf coverer = Dr. Cary Maier (2) Abdominal pain: Code(s): R10.9 - Unspecified abdominal pain Status: Acute Assessment and Plan: * etiology not clear * peritonitits? * bowel perforation? * from diarrhea? * other? * admission CT imaging noted * Surgery evaluation noted * C. diff toxin assay ordered * follow clinical symptoms (3) Peritonitis: Code(s): K65.9 - Peritonitis, unspecified Status: Acute Assessment and Plan: * as reported by history (from primary leaf coverer and outpatient PD nurse) * per review with outpatient PD nurse: * cloudy PD fluid noted on 12/05 * initial PD fluid WBC/neutrophils of 7413 (on 12/05) * initiated on treatment with intraperitoneal vancomycin + ceftazidime; continued on IP vancomycin but added oral ciprofloxcin and diflucan * repeat PD fluid WBC/neutrophil count 5 days later down to 395 (on 12/10) * preliminary PD culture results with gram negative cocci * despite improvement in PD fluid (by cell count and appearance), developed abdominal pain on Tuesday/Tuesday * concern was possible bowel microperforation versus transmural transmission/translocation of bacteria * plan repeat PD fluid sample cell count, gram stain, and culture * continue broad spectrum antibiotics for now * follow-up on outpatient culture results (4) Pneumonia: Code(s): J18.9 - Pneumonia, unspecified organism Status: Acute Assessment and Plan: * as suggested by admission imaging * no evidence of hypoxia * follow culture data * on antibiotics (5) Hypocalcemia: Code(s): E83.51 - Hypocalcemia Status: Acute Assessment and Plan: * quite significant on presentation (5.7mg/dL) * however, given hypoalbuminia, corrected calcium closer to 7.0mg/dL * given IV calcium and started on oral calcium supplements * check PTH and 25-OH Vitamin D levels * calcium on ER visit on 12/02 normal at 8.7mg/dL (6) Hypokalemia: Code(s): E87.6 - Hypokalemia Status: Acute Assessment and Plan: * corrected with supplementation * due to poor nutrition versus GI loss? * follow trend of repeat K+ levels (7) Anemia: Code(s): D64.9 - Anemia, unspecified Status: Acute Assessment and Plan: * H/H supratherapeutic for ESRD status * no need for PALOMA * follow trend of H/H (8) Cerebral palsy: Qualifiers: Cerebral palsy type: unspecified type Qualified Code(s): G80.9 - Cerebral palsy, unspecified Code(s): G80.9 - Cerebral palsy, unspecified Status: Chronic Assessment and Plan: * chronic issue Long extensive discussion (greater than 20 minutes) with the patient's mother at bedside, the ER physician yesterday evening, the rn delivery yesterday evening, as well as the patient's primary leaf coverer and outpatient peritoneal dialysis nurse given the somewhat complex history and sequence of events that led to her presentation and subsequent admission to hospital with ongoing interventions/therapy as outlined above. I will continue to follow the patient with you while she remains hospitalized and make further recommendations as deemed necessary. Thank you for allowing me to participate in the care of this patient. L History of Present Illness Reason for Consult Consult date: 12/17/24 Reason for consult: end stage renal disease Chief Complaint Chief complaint: low Ca, K; PNA History of Present Illness Narrative: A great majority of the history that I have obtained with regard to this patient comes from her primary leaf coverer, Dr. Cary Maier and her peritoneal dialysis nurse along was supplementation from the ER physician who saw the patient yesterday evening, as well as the rn delivery, and the patient's mother at bedside today. The patient is a 39-year-old female with an extensive past medical history as outlined below who presented to [facility] Emergency Room with complaints of abdominal pain. About a week and a half ago, the patient's mother noted that her peritoneal dialysis fluid was cloudy. She subsequently went to see her peritoneal dialysis nurse who confirmed the cloudy fluid with a concern that this represented acute peritonitis. A PD fluid sample was collected and she was empirically started on antibiotic therapy in the form of intraperitoneal vancomycin, oral ciprofloxacin, and oral Diflucan. I am unclear if the patient had abdominal pain at that time. Her antibiotic therapy started on 09/11 and repeat PD fluid sample testing did show improvement in the white blood cell count and her PD fluid did seem to clear up as well. However, more recently in the last few days, the patient has been having issues and problems with nausea and vomiting and increased abdominal pain localized to the left lower quadrant. Her PD fluid analysis has demonstrated evidence of Gram-positive organism but the final identification is still pending. Her mother denies any symptoms of fevers, chills, diarrhea, productive cough, dysuria, melena, or hematochezia. Given the concern that outpatient antibiotic therapy has failed to improve her peritonitis or perhaps that there may be some other issue/problem causing her abdominal pain other than the peritonitis, Dr. Maier instructed the patient's mother brought her to the emergency room for further assessment. Workup and evaluation in the emergency room demonstrated the patient to be hemodynamically stable and afebrile but she was tachycardic. Routine blood work demonstrated white blood cell count of 8.9, hemoglobin 13.4, platelet count 333, sodium 130, potassium 2.6, bicarb 30, BUN 39, creatinine 4.46, glucose 97, lactic acid 1.0, calcium 5.7, magnesium 1.7, CRP 6.3, alkaline phosphatase 146, albumin 2.4. Her chest x-ray demonstrated evidence of early bilateral pneumonia and her CT scan of the abdomen pelvis was only significant for intra-abdominal free air likely related to the patient's peritoneal dialysis catheter, moderate soft tissue anasarca, contracted gallbladder, and innumerable simple and complex as well as hemorrhagic renal cysts bilaterally consistent with her known history of polycystic kidney disease. While in the emergency room, she received supplemental potassium as well as calcium given her laboratory findings as noted. Her repeat labs done in the ER showed improvement in her potassium and mild improvement in her calcium level. While in the emergency room, she received IV antiemetics due to episodes of vomiting and was given IV meropenem and vancomycin due to concerns of possible recurrent peritonitis. She was subsequently admitted to the hospital for further evaluation and therapy. Renal consultation was requested due to her end-stage renal disease. The patient currently does peritoneal dialysis every evening for treatment of her end-stage renal disease and follows with Dr. Cary Maier for management of her end-stage renal disease through [facility]. She has been on dialysis for about 8 and half years with the etiology of her kidney disease due to polycystic kidney disease. She was initially followed by [facility] but then subsequently switched to [facility] due to proximity to her home with Dr. Flavio Gates following her for her ESRD management. She subsequently switched to Dr. Cary Maier sometime later and has continued to follow with her for ongoing management of her kidney disease. Currently, at the time my evaluation, she does not appear to be in any acute distress. Review of Systems 2 Review of Systems: As per HPI. [facility] Past Medical History Medical History (Updated 12/18/24 @ 10:19 by Yefri Bush MD) Hypertension DJD (degenerative joint disease) Dystonia Underweight Anemia End stage renal disease Scoliosis Peritoneal dialysis catheter in place Polycystic kidney disease Cerebral palsy Surgical History Surgical History H/O Spinal surgery Family History Family History Grandparent Bipolar 1 disorder Mother COPD (chronic obstructive pulmonary disease) Father Polycystic dysplastic kidney Sibling Depression Other Depression Social History Social History Smoking status: Never smoker Alcohol intake: never Substance use: never Spiritual care concerns: No Meds Home Medications and Allergies Home Medications ?Medication ?Instructions ?Recorded ?Confirmed ?Type calcium carbonate 500 mg PO BID-TID 12/17/24 0 12/17/24 History cholecalciferol (vitamin D3) 25 1,000 unit PO DAILY 12/17/24 History mcg (1,000 unit) capsule (Vitamin D3) cinacalcet 60 mg tablet 60 mg PO DAILY 12/17/2411/27 History ciprofloxacin HCl 250 mg tablet 250 mg PO BID 12/17/24 12/17/24 History ferric citrate 210 mg iron tablet 210 mg PO TID 12/17/24 History (Auryxia) ferric citrate 210 mg iron tablet 210 mg PO TID 12/17/24 History (Auryxia) fluconazole 100 mg tablet 100 mg PO Q48H 12/17/2411/27 History tramadol 37.5 mg-acetaminophen 325 1 - 2 tablet PO ONC E PRN pain 12/17/24 12/17/24 History mg tablet Allergies Allergy/AdvReac Type Severity Reaction Status Date / Time bacitracin Allergy Unknown BLISTERS Verified 12/17/24 05:21 neomycin Allergy Unknown BLISTERS Verified 12/17/24 05:21 polymyxin B Allergy Unknown BLISTERS Verified 12/17/24 05:21 Vital Signs Vital Signs - 24 hr 12/16/24 14:11 12/16/24 15:08 12/16/24 15:31 Temperature 97.8 F Pulse Rate 104 H 92 109 H Respiratory Rate 18 23 H 28 H Blood Pressure 118/92 H 127/99 H Pulse Oximetry 98 100 100 Oxygen Delivery 12/16/24 15:57 12/16/24 15:58 12/16/24 16:00 Temperature Pulse Rate 111 H 104 H 104 H Respiratory Rate 29 H 25 H 25 H Blood Pressure Pulse Oximetry 99 99 98 Oxygen Delivery 12/16/24 16:16 12/16/24 16:28 12/16/24 16:30 Temperature Pulse Rate 96 84 96 Respiratory Rate 22 H 16 14 Blood Pressure 131/105 H Pulse Oximetry 99 96 97 Oxygen Delivery 12/16/24 16:45 12/16/24 17:03 12/16/24 17:15 Temperature Pulse Rate 85 89 86 Respiratory Rate 20 25 H 20 Blood Pressure Pulse Oximetry 92 100 99 Oxygen Delivery 12/16/24 17:30 12/16/24 18:06 12/16/24 18:21 Temperature Pulse Rate 89 93 92 Respiratory Rate 20 12 22 H Blood Pressure 137/101 H Pulse Oximetry 99 100 Oxygen Delivery 12/16/24 18:30 12/16/24 19:07 12/16/24 19:16 Temperature Pulse Rate 93 98 98 Respiratory Rate 17 23 H 19 Blood Pressure 133/96 H Pulse Oximetry 96 Oxygen Delivery 12/16/24 19:43 12/16/24 19:46 12/16/24 20:00 Temperature Pulse Rate 97 93 110 H Respiratory Rate 24 H 12 18 Blood Pressure Pulse Oximetry Oxygen Delivery 12/16/24 20:17 12/16/24 20:31 12/16/24 20:45 Temperature Pulse Rate 114 H 114 H 114 H Respiratory Rate 18 19 15 Blood Pressure Pulse Oximetry Oxygen Delivery 12/16/24 21:00 12/16/24 21:39 12/16/24 21:45 Temperature Pulse Rate 103 H 99 105 H Respiratory Rate 12 12 17 Blood Pressure Pulse Oximetry Oxygen Delivery 12/16/24 22:01 12/16/24 22:04 12/16/24 22:15 Temperature Pulse Rate 105 H 105 H Respiratory Rate 19 24 H Blood Pressure 134/99 H Pulse Oximetry Oxygen Delivery 12/16/24 22:30 12/16/24 22:45 12/16/24 22:46 Temperature Pulse Rate 108 H 102 H 100 Respiratory Rate 24 H 22 H 20 Blood Pressure 131/94 H Pulse Oximetry Oxygen Delivery 12/16/24 23:00 12/16/24 23:15 12/16/24 23:30 Temperature Pulse Rate 100 94 86 Respiratory Rate 23 H 16 15 Blood Pressure 123/97 H Pulse Oximetry Oxygen Delivery 12/16/24 23:31 12/16/24 23:45 12/17/24 00:00 Temperature Pulse Rate 95 85 82 Respiratory Rate 16 12 14 Blood Pressure Pulse Oximetry Oxygen Delivery 12/17/24 00:15 12/17/24 00:16 12/17/24 00:30 Temperature Pulse Rate 85 90 99 Respiratory Rate 13 14 Blood Pressure 129/90 Pulse Oximetry Oxygen Delivery 12/17/24 00:45 12/17/24 01:00 12/17/24 01:01 Temperature Pulse Rate 93 87 86 Respiratory Rate 21 H 14 15 Blood Pressure 128/97 H Pulse Oximetry Oxygen Delivery 12/17/24 01:15 12/17/24 01:30 12/17/24 01:45 Temperature Pulse Rate 87 95 100 Respiratory Rate 11 L 27 H 24 H Blood Pressure Pulse Oximetry Oxygen Delivery 12/17/24 02:00 12/17/24 02:15 12/17/24 02:30 Temperature Pulse Rate 123 H 138 H 125 H Respiratory Rate 20 20 13 Blood Pressure Pulse Oximetry Oxygen Delivery 12/17/24 02:45 12/17/24 02:46 12/17/24 03:00 Temperature Pulse Rate 115 H 119 H 121 H Respiratory Rate 24 H 13 Blood Pressure 91/76 L 107/91 H Pulse Oximetry 97 Oxygen Delivery 12/17/24 03:01 12/17/24 03:15 12/17/24 03:30 Temperature Pulse Rate 126 H 114 H 102 H Respiratory Rate 29 H 18 17 Blood Pressure Pulse Oximetry Oxygen Delivery 12/17/24 03:45 12/17/24 03:46 12/17/24 04:00 Temperature Pulse Rate 99 97 98 Respiratory Rate 18 17 13 Blood Pressure 113/91 H Pulse Oximetry 100 100 100 Oxygen Delivery 12/17/24 04:15 12/17/24 04:32 12/17/24 06:00 Temperature 98.9 F 98.9 F 97.2 F L Pulse Rate 99 99 94 Respiratory Rate 19 19 12 Blood Pressure 113/91 H 121/88 Pulse Oximetry 100 100 100 Oxygen Delivery 12/17/24 08:00 12/17/24 08:00 Temperature Pulse Rate 94 Respiratory Rate Blood Pressure Pulse Oximetry Oxygen Delivery Room Air Exam 2 Narrative: GENERAL APPEARANCE: thin and frail female in no acute distress HEENT: normocephalic, atraumatic, normal conjunctiva and sclera, nares patient NECK: no lymphadenopathy, thyromegaly, or JVD MOUTH: normal lips, teeth, and gums CARDIOVASCULAR: RRR, normal S1 and S2, no rub RESPIRATORY: clear anteriorly ABDOMEN: soft, nontender, nondistended, positive bowel sounds present; + PD catheter EXTREMITIES: no evidence of cyanosis, clubbing, or edema; ++ contractures and poor muscle mass NEUROLOGICAL: awake and alert; limited by known history of cerebral palsy Results Lab Results 12/18/24 06:34 12/18/24 06:34 Lab results: Most recent lab results Calcium 5.9 mg/dL (8.4-10.2) L* 12/17/24 10:55 Phosphorus 4.2 mg/dL (2.5-4.5) 12/17/24 05:58 Magnesium 1.7 mg/dL (1.6-2.3) 12/17/24 05:58
--- NOTE | 2024-12-17 10:16 | PM.CNGS ---
Assessment and Plan Assessment and plan (1) Abnormal CT of the abdomen: Code(s): R93.5 - Abnormal findings on diagnostic imaging of other abdominal regions, including retroperitoneum Status: Acute Assessment and Plan: Patient with history of cerebral palsy presented to the ED yesterday with one day of left lower quadrant pain. Reportedly, patient has also been having episodes of emesis every other night for the past 10 days. Rhea output from peritoneal dialysis bag reported. Previously treated with antibiotics for this. Denies fevers. Had 2 episodes of diarrhea last night in the ED. Labs today demonstrated blood cell count of 10.3. CT demonstrated intra-abdominal free air, which may relate to the patient's peritoneal dialysis catheter, however distinction from a viscus perforation is limited. Extensive artifact obscuring evaluation. On previous CT from 12/03/2024 free intraperitoneal air in the abdomen and pelvis presumably due to peritoneal dialysis was also noted. On exam patient is mildly distended with tenderness to left lower quadrant. No signs of acute surgical abdomen. No indication for surgical intervention at this time. CT findings likely free air related to peritoneal dialysis catheter. Pneumoperitoneum from bowel perforation unlikely as no peritoneal signs present. We will continue to follow with serial abdominal exams and labs. (2) Swelling of inguinal region: Code(s): R19.09 - Other intra-abdominal and pelvic swelling, mass and lump Status: Inactive Assessment and Plan: Mother at bedside states that she 1st noted a ?knot? to patient has right-sided groin roughly a year ago. It had continued to grow in 2 weeks ago patient presented to the ED and a CT was obtained. Study was severely limited due to artifact from extensive hardware in patient's thoracolumbar spine, but no specific abscess or cyst to the area was noted. Mother denies any redness or drainage from the area. Upon exam, minimal swelling noted. No abscess or fluctuance appreciated. (3) Hypocalcemia: Code(s): E83.51 - Hypocalcemia Status: Acute Assessment and Plan: Critical calcium level of 5.8, being treated with calcium carbonate and calcium gluconate. Hyperkalemia from yesterday corrected today. Still hyponatremic at 132. BUN and creatinine chronically elevated. (4) Pneumonia: Code(s): J18.9 - Pneumonia, unspecified organism Status: Acute Assessment and Plan: Patient noted to have early bilateral pneumonia on chest x-ray yesterday. Treated with azithromycin and ceftriaxone in the ED. Continue management per hospitalist team. (5) Cerebral palsy: Qualifiers: Cerebral palsy type: unspecified type Qualified Code(s): G80.9 - Cerebral palsy, unspecified Code(s): G80.9 - Cerebral palsy, unspecified Status: Acute Plan Discussed patient's case and plan of care with Dr. Guaman. History of Present Illness Consult details Consult date: 12/17/24 Reason for consult: other (Abdominal pain, distended stomach) Requesting physician: Sindy Butterfield MD Narrative: Patient is a 39-year-old female with history of cerebral palsy, end-stage renal disease (peritoneal dialysis x 8.5 years), and swelling to inguinal region we have been asked to see in surgical consultation for abdominal pain and distension. Patient's history provided by mother at bedside. She reports that two weeks ago for years she took her daughter to the ED for a ?knot to her right groin area that was swollen. Reportedly, this lesion had been present for roughly a year. No drainage appreciated. A CT of the abdomen and pelvis was obtained and was severely limited due to extensive artifact from hardware in thoracolumbar spine. There was a large amount of stool in the rectum. Free intraperitoneal air in the abdomen and pelvis presumably due to peritoneal dialysis. Small amount of fluid in the abdomen and pelvis. Polycystic kidney disease similar to prior study. 2.6 cm low-density lesion in the liver. Few additional new too small to characterize low-attenuation lesions in the right lobe of the liver. She was discharged from the ED with prescriptions for Metamucil, MiraLax, and Dulcolax for constipation. Mother states that the growth on patient's groin went away on its own and the next morning after its disappearance she noticed that the dialysis bag was cloudy. She states that she was given antibiotics through the peritoneal dialysis catheter and also put on an oral antibiotic prescription for ciprofloxacin and Diflucan. She reports that the Cipro was just stopped. Mother at bedside states that patient started complaining of left lower quadrant pain on Tuesday. She again noted the ?knot? to patient's groin. This ultimately led to her bringing patient to the ED yesterday. Denies fevers. Mother states that the patient has been vomiting every other night for the past 10 days. Her last episode of emesis was last night and mother states that this was the largest amount. Patient has regular daily bowel movements. She reportedly had to episodes of diarrhea last night the ED. a CT was obtained in the ED and demonstrated intra-abdominal free air which may relate to the patient's peritoneal dialysis catheter, however distinction from a viscus perforation is limited an extensive artifact also obscures evaluation. General surgery team was consulted at this time. A chest x-ray was also obtained and demonstrated early bilateral pneumonia. Lab work showed a white blood cell count of 10.3. Critical calcium level of 5.8 today, currently being repleted. Elevated BUN and creatinine. Mother states that patient's last dialysis was Tuesday night. Azithromycin and ceftriaxone given in the ED. p.r.n. vancomycin for peritoneal dialysis. [facility] Past Medical History Medical History Peritoneal dialysis catheter in place Polycystic kidney disease Cerebral palsy Surgical History Surgical History H/O Spinal surgery Family History Family History (Updated 12/17/24 @ 05:53 by Tess Johnson RN) Grandparent Bipolar 1 disorder Mother COPD (chronic obstructive pulmonary disease) Father Polycystic dysplastic kidney Sibling Depression Other Depression Social History Social History Smoking status: Never smoker Alcohol intake: never Substance use: never Spiritual care concerns: No Meds Home Medications and Allergies Home Medications ?Medication ?Instructions ?Recorded ?Confirmed ?Type calcium carbonate 500 mg PO BID-TID 12/17/24 12/17/24 History cholecalciferol (vitamin D3) 25 1,000 unit PO DAILY 12/17/24 12/17/24 History mcg (1,000 unit) capsule (Vitamin D3) cinacalcet 60 mg tablet 60 mg PO DAILY 12/17/24 12/17/24 History ciprofloxacin HCl 250 mg tablet 250 mg PO BID 12/17/24 12/17/24 History ferric citrate 210 mg iron tablet 210 mg PO TID 12/17/24 12/17/24 History (Auryxia) ferric citrate 210 mg iron tablet 210 mg PO TID 12/17/24 12/17/24 History (Auryxia) fluconazole 100 mg tablet 100 mg PO Q48H 12/17/24 12/17/24 History tramadol 37.5 mg-acetaminophen 325 1 - 2 tablet PO ONCE PRN pain 12/17/24 12/17/24 History mg tablet Allergies Allergy/AdvReac Type Severity Reaction Status Date / Time bacitracin Allergy Unknown BLISTERS Verified 12/17/24 05:21 neomycin Allergy Unknown BLISTERS Verified 12/17/24 05:21 polymyxin B Allergy Unknown BLISTERS Verified 12/17/24 05:21 Vital Signs Vital Signs - 24 hr 12/16/24 14:11 12/16/24 15:08 12/16/24 15:31 Temperature 97.8 F Pulse Rate 104 H 92 109 H Respiratory Rate 18 23 H 28 H Blood Pressure 118/92 H 127/99 H Pulse Oximetry 98 100 100 Oxygen Delivery 12/16/24 15:57 12/16/24 15:58 12/16/24 16:00 Temperature Pulse Rate 111 H 104 H 104 H Respiratory Rate 29 H 25 H 25 H Blood Pressure Pulse Oximetry 99 99 98 Oxygen Delivery 12/16/24 16:16 12/16/24 16:28 12/16/24 16:30 Temperature Pulse Rate 96 84 96 Respiratory Rate 22 H 16 14 Blood Pressure 131/105 H Pulse Oximetry 99 96 97 Oxygen Delivery 12/16/24 16:45 12/16/24 17:03 12/16/24 17:15 Temperature Pulse Rate 85 89 86 Respiratory Rate 20 25 H 20 Blood Pressure Pulse Oximetry 92 100 99 Oxygen Delivery 12/16/24 17:30 12/16/24 18:06 12/16/24 18:21 Temperature Pulse Rate 89 93 92 Respiratory Rate 20 12 22 H Blood Pressure 137/101 H Pulse Oximetry 99 100 Oxygen Delivery 12/16/24 18:30 12/16/24 19:07 12/16/24 19:16 Temperature Pulse Rate 93 98 98 Respiratory Rate 17 23 H 19 Blood Pressure 133/96 H Pulse Oximetry 96 Oxygen Delivery 12/16/24 19:43 12/16/24 19:46 12/16/24 20:00 Temperature Pulse Rate 97 93 110 H Respiratory Rate 24 H 12 18 Blood Pressure Pulse Oximetry Oxygen Delivery 12/16/24 20:17 12/16/24 20:31 12/16/24 20:45 Temperature Pulse Rate 114 H 114 H 114 H Respiratory Rate 18 19 15 Blood Pressure Pulse Oximetry Oxygen Delivery 12/16/24 21:00 12/16/24 21:39 12/16/24 21:45 Temperature Pulse Rate 103 H 99 105 H Respiratory Rate 12 12 17 Blood Pressure Pulse Oximetry Oxygen Delivery 12/16/24 22:01 12/16/24 22:04 12/16/24 22:15 Temperature Pulse Rate 105 H 105 H Respiratory Rate 19 24 H Blood Pressure 134/99 H Pulse Oximetry Oxygen Delivery 12/16/24 22:30 12/16/24 22:45 12/16/24 22:46 Temperature Pulse Rate 108 H 102 H 100 Respiratory Rate 24 H 22 H 20 Blood Pressure 131/94 H Pulse Oximetry Oxygen Delivery 12/16/24 23:00 12/16/24 23:15 12/16/24 23:30 Temperature Pulse Rate 100 94 86 Respiratory Rate 23 H 16 15 Blood Pressure 123/97 H Pulse Oximetry Oxygen Delivery 12/16/24 23:31 12/16/24 23:45 12/17/24 00:00 Temperature Pulse Rate 95 85 82 Respiratory Rate 16 12 14 Blood Pressure Pulse Oximetry Oxygen Delivery 12/17/24 00:15 12/17/24 00:16 12/17/24 00:30 Temperature Pulse Rate 85 90 99 Respiratory Rate 13 14 Blood Pressure 129/90 Pulse Oximetry Oxygen Delivery 12/17/24 00:45 12/17/24 01:00 12/17/24 01:01 Temperature Pulse Rate 93 87 86 Respiratory Rate 21 H 14 15 Blood Pressure 128/97 H Pulse Oximetry Oxygen Delivery 12/17/24 01:15 12/17/24 01:30 12/17/24 01:45 Temperature Pulse Rate 87 95 100 Respiratory Rate 11 L 27 H 24 H Blood Pressure Pulse Oximetry Oxygen Delivery 12/17/24 02:00 12/17/24 02:15 12/17/24 02:30 Temperature Pulse Rate 123 H 138 H 125 H Respiratory Rate 20 20 13 Blood Pressure Pulse Oximetry Oxygen Delivery 12/17/24 02:45 12/17/24 02:46 12/17/24 03:00 Temperature Pulse Rate 115 H 119 H 121 H Respiratory Rate 24 H 13 Blood Pressure 91/76 L 107/91 H Pulse Oximetry 97 Oxygen Delivery 12/17/24 03:01 12/17/24 03:15 12/17/24 03:30 Temperature Pulse Rate 126 H 114 H 102 H Respiratory Rate 29 H 18 17 Blood Pressure Pulse Oximetry Oxygen Delivery 12/17/24 03:45 12/17/24 03:46 12/17/24 04:00 Temperature Pulse Rate 99 97 98 Respiratory Rate 18 17 13 Blood Pressure 113/91 H Pulse Oximetry 100 100 100 Oxygen Delivery 12/17/24 04:15 12/17/24 04:32 12/17/24 06:00 Temperature 98.9 F 98.9 F 97.2 F L Pulse Rate 99 99 94 Respiratory Rate 19 19 12 Blood Pressure 113/91 H 121/88 Pulse Oximetry 100 100 100 Oxygen Delivery 12/17/24 08:00 12/17/24 08:00 Temperature Pulse Rate 94 Respiratory Rate Blood Pressure Pulse Oximetry Oxygen Delivery Room Air Exam Const: General: comfortable and no acute distress Eyes: General: appearance normal, both eyes and all related structures Neck: Neck: supple Resp: Effort & Inspection: normal respiratory effort Cardio: Rate: regular rate GI: Inspection: distended GI Palp: Yes Soft to palpation and Yes Tenderness to palpation present (GI) (LLQ) Auscultation: abnormal bowel sounds (hypoactive) Other: mild distention Urinary Catheter: Urinary Catheter: patent and draining Skin: General skin exam: normal color and no rashes or lesions noted Extrem: General: normal to inspection Psych: Other: Patient can answer some questions, but most of history provided by mother at bedside. Results Labs 12/17/24 05:58 12/17/24 05:58 Labs: Abnormal lab results 12/16/24 12/16/24 12/16/24 Range/Units 15:26 21:27 21:36 WBC (4.5-10.0) K/mm3 MCHC 31.6 L (32-36) g/dl Immature Gran % (Auto) 0.7 H (0-0.5) % Neut % (Auto) (45.5-73.1) % Lymph % (Auto) (18.3-44.2) % Abs Immat Gran (auto) 0.06 H (0.00-0.031) K/mm3 Absolute Neuts (auto) (1.3-6.7) K/mm3 Sodium 130 L 130 L (137-145) mmol/L Potassium 2.6 L* (3.4-5.0) mmol/L Chloride 92 L (98-107) mmol/L BUN 39 H D 37 H (7-17) mg/dL Creatinine 4.46 H 4.04 H (0.7-1.0) mg/dL Estimated GFR 11 L 12 L (59 - ) Calcium 5.7 L* 5.7 L* (8.4-10.2) mg/dL Alkaline Phosphatase 146 H (38-126) U/L C-Reactive Protein 6.3 H (<1.0) mg/dL Total Protein 5.6 L (6.3-8.2) g/dL Albumin 2.4 L (3.5-5.1) g/dL Urine Appearance Cloudy H (Clear) Urine Protein 2+ H (Negative) mg/dL Ur Blood (Man) 3+ H (Negative) Leukocyte Esterase Rfl Trace H (Negative) HUMPHREY/UL Urine RBC 21-50 H (0-2) /hpf 12/17/24 12/17/24 Range/Units 00:45 05:58 WBC 10.3 H (4.5-10.0) K/mm3 MCHC 30.7 L (32-36) g/dl Immature Gran % (Auto) (0-0.5) % Neut % (Auto) 82.8 H (45.5-73.1) % Lymph % (Auto) 11.5 L (18.3-44.2) % Abs Immat Gran (auto) 0.05 H (0.00-0.031) K/mm3 Absolute Neuts (auto) 8.6 H (1.3-6.7) K/mm3 Sodium 131 L 132 L (137-145) mmol/L Potassium 5.2 H (3.4-5.0) mmol/L Chloride (98-107) mmol/L BUN 36 H 38 H (7-17) mg/dL Creatinine 4.21 H 4.26 H (0.7-1.0) mg/dL Estimated GFR 12 L 12 L (59 - ) Calcium 6.1 L 5.8 L* (8.4-10.2) mg/dL Alkaline Phosphatase 134 H (38-126) U/L C-Reactive Protein (<1.0) mg/dL Total Protein 4.9 L (6.3-8.2) g/dL Albumin 2.1 L (3.5-5.1) g/dL Urine Appearance (Clear) Urine Protein (Negative) mg/dL Ur Blood (Man) (Negative) Leukocyte Esterase Rfl (Negative) HUMPHREY/UL Urine RBC (0-2) /hpf Diabetes panel 12/16/24 12/16/24 12/17/24 Range/Units 15:26 21:27 00:45 Sodium 130 L 130 L 131 L (137-145) mmol/L Potassium 2.6 L* 4.8 5.2 H (3.4-5.0) mmol/L Chloride 92 L 99 102 (98-107) mmol/L Carbon Dioxide 30 25 25 (22-30) mmol/L BUN 39 H D 37 H 36 H (7-17) mg/dL Creatinine 4.46 H 4.04 H 4.21 H (0.7-1.0) mg/dL Glucose 97 82 93 (65-110) mg/dL Calcium 5.7 L* 5.7 L* 6.1 L (8.4-10.2) mg/dL AST 20 (14-36) U/L ALT 11 (6-35) U/L Alkaline Phosphatase 146 H (38-126) U/L Total Protein 5.6 L (6.3-8.2) g/dL Albumin 2.4 L (3.5-5.1) g/dL 12/17/24 Range/Units 05:58 Sodium 132 L (137-145) mmol/L Potassium 4.8 (3.4-5.0) mmol/L Chloride 103 (98-107) mmol/L Carbon Dioxide 22 (22-30) mmol/L BUN 38 H (7-17) mg/dL Creatinine 4.26 H (0.7-1.0) mg/dL Glucose 89 (65-110) mg/dL Calcium 5.8 L* (8.4-10.2) mg/dL AST 19 (14-36) U/L ALT 9 (6-35) U/L Alkaline Phosphatase 134 H (38-126) U/L Total Protein 4.9 L (6.3-8.2) g/dL Albumin 2.1 L (3.5-5.1) g/dL Calcium panel 12/16/24 12/16/24 12/17/24 Range/Units 15:26 21:27 00:45 Calcium 5.7 L* 5.7 L* 6.1 L (8.4-10.2) mg/dL Phosphorus (2.5-4.5) mg/dL Albumin 2.4 L (3.5-5.1) g/dL 12/17/24 Range/Units 05:58 Calcium 5.8 L* (8.4-10.2) mg/dL Phosphorus 4.2 (2.5-4.5) mg/dL Albumin 2.1 L (3.5-5.1) g/dL Pituitary panel 12/16/24 12/16/24 12/17/24 Range/Units 15:26 21: 00:45 Sodium 130 L 130 L 131 L (137-145) mmol/L Potassium 2.6 L* 4.8 5.2 H (3.4-5.0) mmol/L Chloride 92 L 99 102 (98-107) mmol/L Carbon Dioxide 30 25 25 (22-30) mmol/L BUN 39 H D 37 H 36 H (7-17) mg/dL Creatinine 4.46 H 4.04 H 4.21 H (0.7-1.0) mg/dL Glucose 97 82 93 (65-110) mg/dL Calcium 5.7 L* 5.7 L* 6.1 L (8.4-10.2) mg/dL 12/17/24 Range/Units 05:58 Sodium 132 L (137-145) mmol/L Potassium 4.8 (3.4-5.0) mmol/L Chloride 103 (98-107) mmol/L Carbon Dioxide 22 (22-30) mmol/L BUN 38 H (7-17) mg/dL Creatinine 4.26 H (0.7-1.0) mg/dL Glucose 89 (65-110) mg/dL Calcium 5.8 L* (8.4-10.2) mg/dL Adrenal panel 12/16/24 12/16/24 12/17/24 Range/Units 15: 21:27 00:45 Sodium 130 L 130 L 131 L (137-145) mmol/L Potassium 2.6 L* 4.8 5.2 H (3.4-5.0) mmol/L Chloride 92 L 99 102 (98-107) mmol/L Carbon Dioxide 30 25 25 (22-30) mmol/L BUN 39 H D 37 H 36 H (7-17) mg/dL Creatinine 4.46 H 4.04 H 4.21 H (0.7-1.0) mg/dL Glucose 97 82 93 (65-110) mg/dL Calcium 5.7 L* 5.7 L* 6.1 L (8.4-10.2) mg/dL Total Bilirubin 0.2 (0.2-1.3) mg/dL AST 20 (14-36) U/L ALT 11 (6-35) U/L Alkaline Phosphatase 146 H (38-126) U/L Total Protein 5.6 L (6.3-8.2) g/dL Albumin 2.4 L (3.5-5.1) g/dL 12/17/24 Range/Units 05:58 Sodium 132 L (137-145) mmol/L Potassium 4.8 (3.4-5.0) mmol/L Chloride 103 (98-107) mmol/L Carbon Dioxide 22 (22-30) mmol/L BUN 38 H (7-17) mg/dL Creatinine 4.26 H (0.7-1.0) mg/dL Glucose 89 (65-110) mg/dL Calcium 5.8 L* (8.4-10.2) mg/dL Total Bilirubin 0.2 (0.2-1.3) mg/dL AST 19 (14-36) U/L ALT 9 (6-35) U/L Alkaline Phosphatase 134 H (38-126) U/L Total Protein 4.9 L (6.3-8.2) g/dL Albumin 2.1 L (3.5-5.1) g/dL All other labs normal.
--- NOTE | 2024-12-17 10:32 | PHAR ---
Drug Name:Auryxia Ingredients:??Ferric Citrate?-- 1 GM Related Documents:? DRUGDEX Evaluations -?Ironhttps://www.Med Access/ProteoTechedex2/supervising librarian/[email or web address]/ND_PR/evidencexpert/ND_P/evidencexpert/DUPLICATIONSHIELDSYNC/[email or web address]/ND_PG/evidencexpert/ND_B/evidencexpert/ND_AppProduct/evidencexpert/ND_T/evidencexpert/PFActionId/evidencexpe rt.IntermediateToDocumentLink?dreCx=[email or web address]&contentSetId=31 Color:?Light OrangeShape:?OvalImprint:??[id number]:?Oral Tablet
[2024-12-17 11:26] LABS: Calcium 5.9 mg/dL (8.4-10.2)
--- NOTE | 2024-12-17 12:28 | PM.IMHP ---
H&P: HPI History of Present Illness Date/Time: 12/17/24 12:28 Chief Complaint: Abdominal pain Nausea/vomiting Loose stool Narrative: 39-year-old female with past medical history of cerebral palsy presented to the ER with complaints of left lower quadrant abdominal pain. Her mother reports she was here 2 weeks ago with abdominal pain. She reports they did a CT scan and noted that patient was constipated. Patient's mother reports she noticed patient's peritoneal bag was cloudy approximately 1-1/2 weeks ago so they brought her to the clinic and she was placed on ciprofloxacin and Diflucan. Her mother reports that the cultures have come back negative but patient has continued on ciprofloxacin. Patient's mother reports she has been vomiting every other night. Her mother endorses a history of peritoneal dialysis, cerebral palsy, and labial abscess. Review of Systems Review of Systems: ROS unobtainable: Yes unobtainable due to medical condition PMFSH Past Medical History Medical History Peritoneal dialysis catheter in place Polycystic kidney disease Cerebral palsy Surgical History Surgical History H/O Spinal surgery Family History Family History Grandparent Bipolar 1 disorder Mother COPD (chronic obstructive pulmonary disease) Father Polycystic dysplastic kidney Sibling Depression Other Depression Social History Social History Smoking status: Never smoker Alcohol intake: never Substance use: never Spiritual care concerns: No Meds Home Medications and Allergies Home Medications ?Medication ?Instructions ?Recorded ?Confirmed ?Type calcium carbonate 500 mg PO BID-TID 12/17/24 12/17/24 History cholecalciferol (vitamin D3) 25 1,000 unit PO DAILY 12/17/24 12/17/24 History mcg (1,000 unit) capsule (Vitamin D3) cinacalcet 60 mg tablet 60 mg PO DAILY 12/17/24 12/17/24 History ciprofloxacin HCl 250 mg tablet 250 mg PO BID 12/17/24 12/17/24 History ferric citrate 210 mg iron tablet 210 mg PO TID 12/17/24 12/17/24 History (Auryxia) ferric citrate 210 mg iron tablet 210 mg PO TID 12/17/24 12/17/24 History (Auryxia) fluconazole 100 mg tablet 100 mg PO Q48H 12/17/24 12/17/24 History tramadol 37.5 mg-acetaminophen 325 1 - 2 tablet PO ONCE PRN pain 12/17/24 12/17/24 History mg tablet Allergies Allergy/AdvReac Type Severity Reaction Status Date / Time bacitracin Allergy Unknown BLISTERS Verified 12/17/24 05:21 neomycin Allergy Unknown BLISTERS Verified 12/17/24 05:21 polymyxin B Allergy Unknown BLISTERS Verified 12/17/24 05:21 Vital Signs Vital Signs - 24 hr 12/16/24 14:11 12/16/24 15:08 12/16/24 15:31 Temperature 97.8 F Pulse Rate 104 H 92 109 H Respiratory Rate 18 23 H 28 H Blood Pressure 118/92 H 127/99 H Pulse Oximetry 98 100 100 Oxygen Delivery 12/16/24 15:57 12/16/24 15:58 12/16/24 16:00 Temperature Pulse Rate 111 H 104 H 104 H Respiratory Rate 29 H 25 H 25 H Blood Pressure Pulse Oximetry 99 99 98 Oxygen Delivery 12/16/24 16:16 12/16/24 16:28 12/16/24 16:30 Temperature Pulse Rate 96 84 96 Respiratory Rate 22 H 16 14 Blood Pressure 131/105 H Pulse Oximetry 99 96 97 Oxygen Delivery 12/16/24 16:45 12/16/24 17:03 12/16/24 17:15 Temperature Pulse Rate 85 89 86 Respiratory Rate 20 25 H 20 Blood Pressure Pulse Oximetry 92 100 99 Oxygen Delivery 12/16/24 17:30 12/16/24 18:06 12/16/24 18:21 Temperature Pulse Rate 89 93 92 Respiratory Rate 20 12 22 H Blood Pressure 137/101 H Pulse Oximetry 99 100 Oxygen Delivery 12/16/24 18:30 12/16/24 19:07 12/16/24 19:16 Temperature Pulse Rate 93 98 98 Respiratory Rate 17 23 H 19 Blood Pressure 133/96 H Pulse Oximetry 96 Oxygen Delivery 12/16/24 19:43 12/16/24 19:46 12/16/24 20:00 Temperature Pulse Rate 97 93 110 H Respiratory Rate 24 H 12 18 Blood Pressure Pulse Oximetry Oxygen Delivery 12/16/24 20:17 12/16/24 20:31 12/16/24 20:45 Temperature Pulse Rate 114 H 114 H 114 H Respiratory Rate 18 19 15 Blood Pressure Pulse Oximetry Oxygen Delivery 12/16/24 21:00 12/16/24 21:39 12/16/24 21:45 Temperature Pulse Rate 103 H 99 105 H Respiratory Rate 12 12 17 Blood Pressure Pulse Oximetry Oxygen Delivery 12/16/24 22:01 12/16/24 22:04 12/16/24 22:15 Temperature Pulse Rate 105 H 105 H Respiratory Rate 19 24 H Blood Pressure 134/99 H Pulse Oximetry Oxygen Delivery 12/16/24 22:30 12/16/24 22:45 12/16/24 22:46 Temperature Pulse Rate 108 H 102 H 100 Respiratory Rate 24 H 22 H 20 Blood Pressure 131/94 H Pulse Oximetry Oxygen Delivery 12/16/24 23:00 12/16/24 23:15 12/16/24 23:30 Temperature Pulse Rate 100 94 86 Respiratory Rate 23 H 16 15 Blood Pressure 123/97 H Pulse Oximetry Oxygen Delivery 12/16/24 23:31 12/16/24 23:45 12/17/24 00:00 Temperature Pulse Rate 95 85 82 Respiratory Rate 16 12 14 Blood Pressure Pulse Oximetry Oxygen Delivery 12/17/24 00:15 12/17/24 00:16 12/17/24 00:30 Temperature Pulse Rate 85 90 99 Respiratory Rate 13 14 Blood Pressure 129/90 Pulse Oximetry Oxygen Delivery 12/17/24 00:45 12/17/24 01:00 12/17/24 01:01 Temperature Pulse Rate 93 87 86 Respiratory Rate 21 H 14 15 Blood Pressure 128/97 H Pulse Oximetry Oxygen Delivery 12/17/24 01:15 12/17/24 01:30 12/17/24 01:45 Temperature Pulse Rate 87 95 100 Respiratory Rate 11 L 27 H 24 H Blood Pressure Pulse Oximetry Oxygen Delivery 12/17/24 02:00 12/17/24 02:15 12/17/24 02:30 Temperature Pulse Rate 123 H 138 H 125 H Respiratory Rate 20 20 13 Blood Pressure Pulse Oximetry Oxygen Delivery 12/17/24 02:45 12/17/24 02:46 12/17/24 03:00 Temperature Pulse Rate 115 H 119 H 121 H Respiratory Rate 24 H 13 Blood Pressure 91/76 L 107/91 H Pulse Oximetry 97 Oxygen Delivery 12/17/24 03:01 12/17/24 03:15 12/17/24 03:30 Temperature Pulse Rate 126 H 114 H 102 H Respiratory Rate 29 H 18 17 Blood Pressure Pulse Oximetry Oxygen Delivery 12/17/24 03:45 12/17/24 03:46 12/17/24 04:00 Temperature Pulse Rate 99 97 98 Respiratory Rate 18 17 13 Blood Pressure 113/91 H Pulse Oximetry 100 100 100 Oxygen Delivery 12/17/24 04:15 12/17/24 04:32 12/17/24 06:00 Temperature 98.9 F 98.9 F 97.2 F L Pulse Rate 99 99 94 Respiratory Rate 19 19 12 Blood Pressure 113/91 H 121/88 Pulse Oximetry 100 100 100 Oxygen Delivery 12/17/24 08:00 12/17/24 08:00 Temperature Pulse Rate 94 Respiratory Rate Blood Pressure Pulse Oximetry Oxygen Delivery Room Air Exam Narrative: GENERAL: Thin, HEAD: Normocephalic, atraumatic. NECK: Supple. RESPIRATORY: Airway patent, respirations nonlabored. Clear to auscultation bilaterally, no rales, rhonchi, wheezing. CARDIOVASCULAR: S1-S2 ABDOMINAL: Soft, left lower quadrant tenderness, + distended. Normoactive BS, Peritoneal dialysis catheter in place - clean/warm/dry/intact. MUSCULOSKELETAL: Moves all extremities. + contractures SKIN: Warm, dry, normal color. No rashes. NEURO: Alert PSYCHIATRIC: Appropriate mood H&P: Results Labs Labs: Short CBC 12/16/24 12/17/24 Range/Units 15:26 05:58 WBC 8.9 10.3 H (4.5-10.0) K/mm3 Hgb 13.4 13.0 (12.0-15.0) g/dL Hct 42.4 42.4 (37.0-47.0) % Plt Count 333 321 (150-375) k/mm3 BMP 12/16/24 12/16/24 12/17/24 15:26 21:27 00:45 Sodium 130 L 130 L 131 L Potassium 2.6 L* 4.8 5.2 H Chloride 92 L 99 102 Carbon Dioxide 30 25 25 BUN 39 H D 37 H 36 H Creatinine 4.46 H 4.04 H 4.21 H Glucose 97 82 93 Calcium 5.7 L* 5.7 L* 6.1 L 12/17/24 12/17/24 05:58 10:55 Sodium 132 L Potassium 4.8 Chloride 103 Carbon Dioxide 22 BUN 38 H Creatinine 4.26 H Glucose 89 Calcium 5.8 L* 5.9 L* Liver Function 12/16/24 12/17/24 Range/Units 15:26 05:58 Total Bilirubin 0.2 0.2 (0.2-1.3) mg/dL AST 20 19 (14-36) U/L ALT 11 9 (6-35) U/L Alkaline Phosphatase 146 H 134 H (38-126) U/L Albumin 2.4 L 2.1 L (3.5-5.1) g/dL Urine 12/16/24 Range/Units 21:36 Urine Color Yellow (Yellow) Urine Appearance Cloudy H (Clear) Urine pH 8.5 (5.0-9.0) Ur Specific [place] 1.008 (1.001-1.035) Urine Protein 2+ H (Negative) mg/dL Urine Glucose (UA) Negative (Negative) mg/dL Assessment and Plan Assessment and plan (1) Hyponatremia: Code(s): E87.1 - Hypo-osmolality and hyponatremia Status: Acute (2) Abnormal CT of the abdomen: Code(s): R93.5 - Abnormal findings on diagnostic imaging of other abdominal regions, including retroperitoneum Status: Acute (3) Hypocalcemia: Code(s): E83.51 - Hypocalcemia Status: Acute (4) Hypokalemia: Code(s): E87.6 - Hypokalemia Status: Acute (5) Cerebral palsy: Qualifiers: Cerebral palsy type: unspecified type Qualified Code(s): G80.9 - Cerebral palsy, unspecified Code(s): G80.9 - Cerebral palsy, unspecified Status: Acute (6) Pneumonia: Code(s): J18.9 - Pneumonia, unspecified organism Status: Acute Plan 39 years old F with cerebral palsy presented to the ED yesterday with one day of left lower quadrant pain. Reportedly, patient has also been having episodes of emesis every other night for the past 10 days. Cloudy output from peritoneal dialysis bag reported. Previously treated with antibiotics for this. Denies fevers. Had 2 episodes of diarrhea last night in the ED. CT demonstrated intra-abdominal free air, which may relate to the patient's peritoneal dialysis catheter, however distinction from a viscus perforation is limited. Extensive artifact obscuring evaluation. On previous CT from 12/03/2024 free intraperitoneal air in the abdomen and pelvis presumably due to peritoneal dialysis was also noted. Found to be severly hypocalcemic 1. Abdominal Pain: Admit to tele medicine ? peritonintis ? free air, concern for viscus perforation distended stomach ?Cdif with h/o diarrhea, recent abx use Surgery has been consulted Follow-up blood cultures, peritoneal cultures Continue with vancomycin, add meropenem Will add PPI Await C diff Very mild leukocytosis 2. Severe hypocalcemia: Received several doses of IV calcium Add oral Tums Continue to replete IV calcium for with frequent calcium levels Nephrology following 3. ESRD on peritoneal dialysis: Nephrology following 4.?Early B/L PNA: On room air Follow blood cultures Continue with vancomycin, meropenem Obtain urine strep, Legionella antigen Very mild leukocytosis 5. DVT prophylaxis: Heparin subQ 6. Code status: Full 7. Disposition: Admit to telemetry floor Quality VTE Prophylaxis VTE prophylaxis: pharmacologic ordered Hospitalist MIPS Advance Care Plan I have confirmed that the patient's Advanced Care Plan is present, code status is documented, or surrogate decision maker is listed in patient medical record.: Yes Medication Reconciliation I have utilized all available resources to obtain, update and review the patients current medications (includes all prescriptions, OTC, herbals, cannabis, and nutritional supplements).: Yes
[2024-12-17] MEDS: CINACALCET 30 MG TABLET 60 MG PO (12:37)
[2024-12-17] MEDS: CALCIUM GLUC 2,000 MG/NS 100ML 2,000 MG/100 ML BAG 100 MG IVPB (12:37)
[2024-12-17 15:30] LABS: Calcium 6.5 mg/dL (8.4-10.2)
[2024-12-17] MEDS: CALCIUM CHLOR 1,000MG/100ML NS 1,000 MG/100 ML BAG 100 MG IVPB (16:59)
[2024-12-17] MEDS: IRON PO (16:59)
[2024-12-17] MEDS: FERRIC CITRATE 210 MG PO (16:59)
[2024-12-18] VITALS (9 sets, daily range): BP systolic 126–143; BP diastolic 86–91; PULSE 93–118; RESP 18–20; TEMP 36.6–36.9; O2SAT 97–100
--- NOTE | 2024-12-18 02:35 | PC.NURSE ---
Patient's mother was concerned about how much the patient was draining from PD. Patient was set up at approximately 2100 and was still on the 1st drain of 5. Mother states that drainage output on PD machine was fluctuating between 983 and 1028. Mother obviously concerned. This nurse attempted to call several [facility] numbers including the number for the heavy antiarmor weapons infantryman nurse from the mother. Was unsuccessful in reaching a live person. supervisor car and yard was notified that we were looking for an on-call number for [facility]. supervisor car and yard then told this nurse to disconnect patient from PD machine and call the hospitalist. We informed the warehouse person that we are not allowed to touch any dialysis machines. Problem is not with the machine. Problem is with the outflow from the patient. Dialysis nurse had difficulty attaching patient. This nurse called Dr. Bush and left a message for him to make the ultimate decision. Mother came to desk, still distraught that patient is not draining. Advised her at this time that this nurse had contacted Dr. Bush and that she was probably not going to be able to finish treatment for the night and to stop treatment at this time. Will call Dr. Bush back as necessary.
[2024-12-18] MEDS: MEROPENEM 500 MG in SODIUM CHLORIDE 0.9% IV 100 ML 200 ML IVPB (06:13)
[2024-12-18 06:56] LABS: Hematocrit 41.0 % (37.0-47.0); Hemoglobin 12.6 g/dL (12.0-15.0); Immature Granulocyte Percent A 0.6 % (0-0.5); Lymphocytes Absolute Auto 1.64 K/mm3 (0.9-3.2); Mean Corpuscular HGB Conc 30.7 g/dl (32-36); Mean Corpuscular Hemoglobin 28.4 pg (26-34); Mean Corpuscular Volume 92.6 fl (80-100); Nucleated Red Blood Cells Absolute Auto 0.000 K/mm3 (0.0-0.012); Nucleated Red Blood Cells Perc 0.0 % (0.0-0.2); Platelet Count Result 358 k/mm3 (150-375); Red Blood Count 4.43 M/mm3 (4.2-5.4); White Blood Count 11.3 K/mm3 (4.5-10.0)
[2024-12-18 07:10] LABS: Anion Gap 7 mmol/L (4-12); Blood Urea Nitrogen 39 mg/dL (7-17); Calcium 6.9 mg/dL (8.4-10.2); Carbon Dioxide 20 mmol/L (22-30); Chloride 104 mmol/L (98-107); Estimated Glomerular Filt Rate 10; Glucose 86 mg/dL (65-110); Potassium 4.3 mmol/L (3.4-5.0); Sodium 131 mmol/L (137-145)
[2024-12-18 07:14] LABS: Albumin Level 2.0 g/dL (3.5-5.1); Anion Gap 6 mmol/L (4-12); Blood Urea Nitrogen 39 mg/dL (7-17); Calcium 6.8 mg/dL (8.4-10.2); Carbon Dioxide 20 mmol/L (22-30); Chloride 104 mmol/L (98-107); Estimated Glomerular Filt Rate 10; Glucose 86 mg/dL (65-110); Potassium 4.4 mmol/L (3.4-5.0); Sodium 130 mmol/L (137-145)
[2024-12-18] MEDS: CINACALCET 30 MG TABLET 60 MG PO (09:30)
[2024-12-18] MEDS: CALCIUM GLUC 1,000 MG/NS 50 ML 1,000 MG/50 ML BAG 100 MG IVPB (09:32)
[2024-12-18] MEDS: CALCIUM CARBONATE (TUMS) 500 MG (200 MG ELEMENTAL) PO ×3 (09:32→16:59)
[2024-12-18] MEDS: PANTOPRAZOLE SODIUM IV 40 MG VIAL IV PUSH ×2 (09:33→20:56)
[2024-12-18 11:00] LABS: Source Peritoneal Fluid Peritoneal Fluid
[2024-12-18 11:01] LABS: Appearance Peritoneal Fluid Cloudy (Clear); Color Peritoneal Fluid Yellow (Colorless); Lymphocytes Peritoneal Fluid 7 %; Monocytes Peritoneal Fluid 13 %; Neutrophils Peritoneal Fluid 80 % (0-25); Nucleated Cells Peritoneal Flu 13623 /uL (0-500)
--- NOTE | 2024-12-18 11:08 | P.PNNP_ITS ---
Progress Note: A&P Assessment and Plan (1) End stage renal disease: Code(s): N18.6 - End stage renal disease Status: Acute Assessment and Plan: * continue nightly CCPD while hospitalized * will attempt to use home PD cycler given issues with hospital PD machine/cycler last night * follow electrolytes, volume status, and clearance * due to polycystic kidney disease * outpatient dialysis center = [facility] * primary director of marketing operations = Dr. Cary Maier (2) Abdominal pain: Code(s): R10.9 - Unspecified abdominal pain Status: Acute Assessment and Plan: * etiology not clear * peritonitits? * bowel perforation? * from diarrhea? * other? * admission CT imaging reviewed * Surgery evaluation noted * C. diff toxin assay ordered * follow clinical symptoms (3) Peritonitis: Code(s): K65.9 - Peritonitis, unspecified Status: Acute Assessment and Plan: * as reported by history (from primary director of marketing operations and outpatient PD nurse) * per review with outpatient PD nurse: * cloudy PD fluid noted on 12/05 * initial PD fluid WBC/neutrophils of 7413 (on 12/05) * initiated on treatment with intraperitoneal vancomycin + ceftazidime; continued on IP vancomycin but added oral ciprofloxcin and diflucan * repeat PD fluid WBC/neutrophil count 5 days later down to 395 (on 12/10) * preliminary PD culture results with gram negative cocci * despite improvement in PD fluid (by cell count and appearance), developed abdominal pain on Tuesday/Tuesday * concern was possible bowel microperforation versus transmural transmission/translocation of bacteria * repeat PD fluid sample cell count noted.... * repeat gram stain and culture pending * continue broad spectrum antibiotics for now * follow-up on outpatient PD fluid testing/results (4) Pneumonia: Code(s): J18.9 - Pneumonia, unspecified organism Status: Acute Assessment and Plan: * as suggested by admission imaging * no evidence of hypoxia * follow culture data * on antibiotics (5) Hypocalcemia: Code(s): E83.51 - Hypocalcemia Status: Acute Assessment and Plan: * quite significant on presentation (5.7mg/dL) * however, given hypoalbuminia, corrected calcium closer to 7.0mg/dL * given IV calcium and started on oral calcium supplements * check PTH and 25-OH Vitamin D levels * calcium on ER visit on 12/02 normal at 8.7mg/dL (6) Hypokalemia: Code(s): E87.6 - Hypokalemia Status: Acute Assessment and Plan: * corrected with supplementation * due to poor nutrition versus GI loss? * follow trend of repeat K+ levels (7) Anemia: Code(s): D64.9 - Anemia, unspecified Status: Acute Assessment and Plan: * H/H supratherapeutic for ESRD status * no need for PALOMA * follow trend of H/H (8) Cerebral palsy: Qualifiers: Cerebral palsy type: unspecified type Qualified Code(s): G80.9 - Cerebral palsy, unspecified Code(s): G80.9 - Cerebral palsy, unspecified Status: Chronic Assessment and Plan: * chronic issue Will continue to follow. L Subjective Date/time seen: 12/18/24 11:08 Interval history: Follow-up for end stage renal disease on peritoneal dialysis. Tolerated partial peritoneal dialysis treatment last night -- treatment halted ~ 2:30am ([facility] supervised and seen at 11:00am); mother not present at the time of my visit; PD fluid sample collected this morning and is as noted; no apparent distress noted at the time of my visit. Exam 2 Narrative: General: thin and frail female in NAD Heart: normal S1 and S2; no rub Lungs: clear to auscultation Abdomen: mild TTP noted; mild distension, positive bowel sounds Extremities: no cyanosis or clubbing; no edema Skin: warm and dry Objective Data Vital Signs Vital Signs: Vital Signs Temp Pulse Pulse Resp BP Pulse Ox O2 Del Method 12/18/24 08:00 102 H 12/18/24 08:00 Room Air 12/18/24 05:34 98.0 F 98 18 143/86 H 100 12/18/24 04:00 93 12/18/24 00:00 99 12/17/24 22:00 98.8 F 106 H 18 125/91 H 97 12/17/24 21:04 96.9 F L 90 16 12/17/24 20:00 116 H 12/17/24 20:00 116 H 16 99 Room Air 12/17/24 16:00 103 H 12/17/24 14:00 96.9 F L 95 18 105/69 99 Intake/Output Intake/Output: Intake & Output 12/15/24 12/16/24 12/17/24 12/18/24 23:59 23:59 23:59 23:59 Intake Total 1620 1120 220 Output Total 469 Balance 1620 1120 -249 Meds/Results Medications: Active Medications Generic Name Dose Route Start Last Admin Trade Name Freq PRN Reason Stop Dose Admin Acetaminophen 500 mg 12/18/24 10:29 Acetaminophen 500 Mg Tablet PO Q6H PRN Mild Pain (1-3) or Fever Calcium Carbonate 200 mg 12/17/24 09:00 12/18/24 09:32 Calcium Carbonate (Tums) 500 Mg (200 Mg Elemental) PO 200 mg TID CHACORTA Administration Cinacalcet 60 mg 12/17/24 10:30 12/18/24 09:30 Cinacalcet 30 Mg Tablet PO 60 mg DAILY CHACORTA Administration Heparin Sodium (Porcine) 5,000 units 12/17/24 21:00 12/18/24 09:33 Heparin Sodium 5,000 Units/Ml Vial SUB-Q 5,000 units Q12HR CHACORTA Administration Meropenem 500 mg/ Sodium 100 mls @ 200 mls/hr 12/18/24 06:00 12/18/24 07:03 Chloride IVPB Infused Q24H CHACORTA Infusion (Ferric Citrate [ 210 mg 12/17/24 12:00 12/18/24 09:53 Auryxia] 210 Mg Iron PO 01/16/25 11:59 Not Given Tablet)Home Med TIDWM CHACORTA Pantoprazole Sodium 40 mg 12/17/24 09:00 12/18/24 09:33 Pantoprazole Sodium Iv 40 Mg Vial IV PUSH 40 mg Q12HR CHACORTA Administration Vancomycin HCl 1 each 12/17/24 03:28 Vancomycin For Peritoneal Dialysis IVPB PRN PRN Vancomycin Protocol Radiology Results: ITS Impressions Chest X-Ray 12/16/24 15:13 Impression: Early bilateral pneumonia Abdomen/Pelvis CT 12/16/24 17:08 IMPRESSION: 1. Intra-abdominal free air which may relate to the patient's peritoneal dialysis catheter however distinction from a viscus perforation is limited and extensive artifact also obscures evaluation. Follow-up is recommended to assess as clinically warranted. 2. Incidental findings above Labs Labs: Laboratory Tests 12/18/24 06:34 12/18/24 06:34 Calcium 6.8 L Phosphorus 4.0 Albumin 2.0 L 12/18/24 09:41 Peritoneal Source Peritoneal fluid Peritoneal Color Yellow Peritoneal Appearance Cloudy A Peritoneal RBC 2000 Periton Nuc Cells 44424 H Periton Neutrophils 80 H Periton Lymphocytes 7 Peritoneal Monocytes 13
--- NOTE | 2024-12-18 11:24 | PM.PNGS ---
Progress Note: A&P Assessment and Plan (1) Abnormal CT of the abdomen: Code(s): R93.5 - Abnormal findings on diagnostic imaging of other abdominal regions, including retroperitoneum Status: Acute Assessment and Plan: -CT 12/16 demonstrated intra-abdominal free air, which may relate to the patient's peritoneal dialysis catheter, however distinction from a viscus perforation is limited. Extensive artifact obscuring evaluation. Abdominal exam positivee for ssome RLQ pain. No signs of acute surgical abdomen. No peritoneal signs. This is likely an ileus or free air related to peritoneal dialysis catheter. Will continue to monitor with serial abdominal exams and labs. (2) Hypocalcemia: Code(s): E83.51 - Hypocalcemia Status: Acute Assessment and Plan: Calcium 6.8 today. Continue repletion with calcium gluconate. (3) Pneumonia: Code(s): J18.9 - Pneumonia, unspecified organism Status: Acute Assessment and Plan: Patient noted to have early bilateral pneumonia on chest x-ray yesterday. Treated with azithromycin and ceftriaxone in the ED. Continue management per hospitalist team. (4) Cerebral palsy: Qualifiers: Cerebral palsy type: unspecified type Qualified Code(s): G80.9 - Cerebral palsy, unspecified Code(s): G80.9 - Cerebral palsy, unspecified Status: Chronic (5) End stage renal disease: Code(s): N18.6 - End stage renal disease Status: Acute Assessment and Plan: Mother at bedside states there were issues with peritoneal dialysis drainage overnight. BUN and creatinine still elevated this morning. Continue per nephrology recommendations. Plan Discussed patient's case and plan of care with Dr. Guaman. Subjective Subjective Date/Time Seen: 12/18/24 11:24 Patient reports: no new complaints and tolerating a regular diet (Renal dialysis diet with dietary supplement) Interval history: Patient's mother at bedside states that there were issues with peritoneal dialysis last night and it was not fully completed. BUN and Cr remain elevated. Peritoneal fluid culture obtained this morning and pending. Blood culture still pending. Exam GI: Inspection: distended Auscultation: abnormal bowel sounds (hypoactive) Other: mild distention. Peritoneal dialysis catheter in place. Objective Data Vital Signs Vital Signs: Vital Signs - 24 hr 12/17/24 12:00 12/17/24 14:00 12/17/24 16:00 Temperature 96.9 F L Pulse Rate 112 H 95 103 H Pulse Rate [Apical] Respiratory Rate 18 Blood Pressure 105/69 Pulse Oximetry 99 Oxygen Delivery 12/17/24 20:00 12/17/24 20:00 12/17/24 21:04 Temperature 96.9 F L Pulse Rate 116 H 116 H Pulse Rate [Apical] 90 Respiratory Rate 16 16 Blood Pressure Pulse Oximetry 99 Oxygen Delivery Room Air 12/17/24 22:00 12/18/24 00:00 12/18/24 04:00 Temperature 98.8 F Pulse Rate 106 H 99 93 Pulse Rate [Apical] Respiratory Rate 18 Blood Pressure 125/91 H Pulse Oximetry 97 Oxygen Delivery 12/18/24 05:34 12/18/24 08:00 12/18/24 08:00 Temperature 98.0 F Pulse Rate 98 102 H Pulse Rate [Apical] Respiratory Rate 18 Blood Pressure 143/86 H Pulse Oximetry 100 Oxygen Delivery Room Air Intake/Output Intake/Output: Intake & Output 12/15/24 12/16/24 12/17/24 12/18/24 23:59 23:59 23:59 23:59 Intake Total 1620 1120 220 Output Total 469 Balance 1620 1120 -249 Meds/Results Medications: Active Medications Generic Name Dose Route Start Last Admin Trade Name Freq PRN Reason Stop Dose Admin Acetaminophen 500 mg 12/18/24 10:29 Acetaminophen 500 Mg Tablet PO Q6H PRN Mild Pain (1-3) or Fever Calcium Carbonate 200 mg 12/17/24 09:00 12/18/24 09:32 Calcium Carbonate (Tums) 500 Mg (200 Mg Elemental) PO 200 mg TID CHACORTA Administration Cinacalcet 60 mg 12/17/24 10:30 12/18/24 09:30 Cinacalcet 30 Mg Tablet PO 60 mg DAILY CHACORTA Administration Heparin Sodium (Porcine) 5,000 units 12/17/24 21:00 12/18/24 09:33 Heparin Sodium 5,000 Units/Ml Vial SUB-Q 5,000 units Q12HR CHACORTA Administration Meropenem 500 mg/ Sodium 100 mls @ 200 mls/hr 12/18/24 06:00 12/18/24 07:03 Chloride IVPB Infused Q24H CH[facility]ORTA Infusion (Ferric Citrate [ 210 mg 12/17/24 12:00 12/18/24 09:53 Auryxia] 210 Mg Iron PO 01/16/25 11:59 Not Given Tablet)Home Med TIDWM CHACORTA Pantoprazole Sodium 40 mg 12/17/24 09:00 12/18/24 09:33 Pantoprazole Sodium Iv 40 Mg Vial IV PUSH 40 mg Q12HR CHACORTA Administration Vancomycin HCl 1 each 12/17/24 03:28 Vancomycin For Peritoneal Dialysis IVPB PRN PRN Vancomycin Protocol Radiology Results: ITS Impressions Chest X-Ray 12/16/24 15:13 Impression: Early bilateral pneumonia Abdomen/Pelvis CT 12/16/24 17:08 IMPRESSION: 1. Intra-abdominal free air which may relate to the patient's peritoneal dialysis catheter however distinction from a viscus perforation is limited and extensive artifact also obscures evaluation. Follow-up is recommended to assess as clinically warranted. 2. Incidental findings above Labs Labs: Laboratory Results - last 24 hr 12/17/24 12/17/24 12/17/24 10:55 11:23 15:13 WBC RBC Hgb Hct MCV MCH MCHC RDW Plt Count MPV Immature Gran % (Auto) Neut % (Auto) Lymph % (Auto) [place] % (Auto) Eos % (Auto) Baso % (Auto) Lymph # (Auto) [place] # (Auto) Eos # (Auto) Baso # (Auto) Abs Immat Gran (auto) Absolute Neuts (auto) Absolute Nucleated RBC Nucleated RBC % Sodium Potassium Chloride Carbon Dioxide Anion Gap BUN Creatinine Estim Creat Clear Calc Estimated GFR Glucose POC Capillary Glucose 126 H Calcium 5.9 L* 6.5 L Phosphorus Albumin Peritoneal Source Peritoneal Color Peritoneal Appearance Peritoneal RBC Periton Nuc Cells Periton Neutrophils Periton Lymphocytes Peritoneal Monocytes 12/17/24 12/18/24 12/18/24 16:35 06:34 06:34 WBC 11.3 H RBC 4.43 Hgb 12.6 Hct 41.0 MCV 92.6 MCH 28.4 MCHC 30.7 L RDW 14.3 Plt Count 358 MPV 9.1 Immature Gran % (Auto) 0.6 H Neut % (Auto) 80.0 H Lymph % (Auto) 14.5 L [place] % (Auto) 3.2 Eos % (Auto) 1.3 Baso % (Auto) 0.4 Lymph # (Auto) 1.64 [place] # (Auto) 0.4 Eos # (Auto) 0.2 Baso # (Auto) 0.0 Abs Immat Gran (auto) 0.07 H Absolute Neuts (auto) 9.1 H Absolute Nucleated RBC 0.000 Nucleated RBC % 0.0 Sodium 131 L 130 L Potassium 4.3 Chloride Carbon Dioxide Anion Gap BUN Creatinine Estim Creat Clear Calc Estimated GFR Glucose POC Capillary Glucose 86 Calcium Phosphorus Albumin Peritoneal Source Peritoneal Color Peritoneal Appearance Peritoneal RBC Periton Nuc Cells Periton Neutrophils Periton Lymphocytes Peritoneal Monocytes 12/18/24 12/18/24 12/18/24 06:34 06:34 06:34 WBC RBC Hgb Hct MCV MCH MCHC RDW Plt Count MPV Immature Gran % (Auto) Neut % (Auto) Lymph % (Auto) [place] % (Auto) Eos % (Auto) Baso % (Auto) Lymph # (Auto) [place] # (Auto) Eos # (Auto) Baso # (Auto) Abs Immat Gran (auto) Absolute Neuts (auto) Absolute Nucleated RBC Nucleated RBC % Sodium Potassium 4.4 Chloride 104 104 Carbon Dioxide 20 L 20 L Anion Gap 7 BUN Creatinine Estim Creat Clear Calc Estimated GFR Glucose POC Capillary Glucose Calcium Phosphorus Albumin Peritoneal Source Peritoneal Color Peritoneal Appearance Peritoneal RBC Periton Nuc Cells Periton Neutrophils Periton Lymphocytes Peritoneal Monocytes 12/18/24 12/18/24 12/18/24 06:34 06:34 06:34 WBC RBC Hgb Hct MCV MCH MCHC RDW Plt Count MPV Immature Gran % (Auto) Neut % (Auto) Lymph % (Auto) [place] % (Auto) Eos % (Auto) Baso % (Auto) Lymph # (Auto) [place] # (Auto) Eos # (Auto) Baso # (Auto) Abs Immat Gran (auto) Absolute Neuts (auto) Absolute Nucleated RBC Nucleated RBC % Sodium Potassium Chloride Carbon Dioxide Anion Gap 6 BUN 39 H 39 H Creatinine 4.72 H 4.69 H Estim Creat Clear Calc Not Reportable Estimated GFR Glucose POC Capillary Glucose Calcium Phosphorus Albumin Peritoneal Source Peritoneal Color Peritoneal Appearance Peritoneal RBC Periton Nuc Cells Periton Neutrophils Periton Lymphocytes Peritoneal Monocytes 12/18/24 12/18/24 12/18/24 06:34 06:34 06:34 WBC RBC Hgb Hct MCV MCH MCHC RDW Plt Count MPV Immature Gran % (Auto) Neut % (Auto) Lymph % (Auto) [place] % (Auto) Eos % (Auto) Baso % (Auto) Lymph # (Auto) [place] # (Auto) Eos # (Auto) Baso # (Auto) Abs Immat Gran (auto) Absolute Neuts (auto) Absolute Nucleated RBC Nucleated RBC % Sodium Potassium Chloride Carbon Dioxide Anion Gap BUN Creatinine Estim Creat Clear Calc Not Reportable Estimated GFR 10 L 10 L Glucose 86 86 POC Capillary Glucose Calcium 6.9 L Phosphorus Albumin Peritoneal Source Peritoneal Color Peritoneal Appearance Peritoneal RBC Periton Nuc Cells Periton Neutrophils Periton Lymphocytes Peritoneal Monocytes 12/18/24 12/18/24 06:34 09:41 WBC RBC Hgb Hct MCV MCH MCHC RDW Plt Count MPV Immature Gran % (Auto) Neut % (Auto) Lymph % (Auto) [place] % (Auto) Eos % (Auto) Baso % (Auto) Lymph # (Auto) [place] # (Auto) Eos # (Auto) Baso # (Auto) Abs Immat Gran (auto) Absolute Neuts (auto) Absolute Nucleated RBC Nucleated RBC % Sodium Potassium Chloride Carbon Dioxide Anion Gap BUN Creatinine Estim Creat Clear Calc Estimated GFR Glucose POC Capillary Glucose Calcium 6.8 L Phosphorus 4.0 Albumin 2.0 L Peritoneal Source Peritoneal fluid Peritoneal Color Yellow Peritoneal Appearance Cloudy A Peritoneal RBC 2000 Periton Nuc Cells 54092 H Periton Neutrophils 80 H Periton Lymphocytes 7 Peritoneal Monocytes 13
[2024-12-18] MEDS: FERRIC CITRATE 210 MG PO ×2 (13:00→17:31)
[2024-12-18] MEDS: IRON PO ×2 (13:00→17:31)
--- NOTE | 2024-12-18 13:18 | P.PNIM_ITS ---
Progress Note: A&P Assessment and Plan (1) Hyponatremia: Code(s): E87.1 - Hypo-osmolality and hyponatremia Status: Acute (2) Abdominal pain: Code(s): R10.9 - Unspecified abdominal pain Status: Acute (3) End stage renal disease: Code(s): N18.6 - End stage renal disease Status: Acute (4) Hypocalcemia: Code(s): E83.51 - Hypocalcemia Status: Acute (5) Hypokalemia: Code(s): E87.6 - Hypokalemia Status: Acute (6) Cerebral palsy: Qualifiers: Cerebral palsy type: unspecified type Qualified Code(s): G80.9 - Cerebral palsy, unspecified Code(s): G80.9 - Cerebral palsy, unspecified Status: Chronic Plan 39 years old F with cerebral palsy presented to the ED yesterday with one day of left lower quadrant pain. Reportedly, patient has also been having episodes of emesis every other night for the past 10 days. Cloudy output from peritoneal dialysis bag reported. Previously treated with antibiotics for this. Denies fevers. Had 2 episodes of diarrhea last night in the ED. CT demonstrated intra- abdominal free air, which may relate to the patient's peritoneal dialysis catheter, however distinction from a viscus perforation is limited. Extensive artifact obscuring evaluation. On previous CT from 12/03/2024 free intraperitoneal air in the abdomen and pelvis presumably due to peritoneal dialysis was also noted. Found to be severly hypocalcemic 1. Abdominal Pain: ? peritonintis ? free air, concern for viscus perforation distended stomach ?Cdif with h/o diarrhea, recent abx use Appreciate surgery help, no concerns for viscus perforation as per surgery Follow-up blood cultures, Peritoneal fluid with neutrophilia, cloudy Continue with vancomycin, meropenem Will get ID consult Continue with PPI Await C diff Monitor leukocytosis 2. Severe hypocalcemia: Received several doses of IV calcium Improved Continue with oral Tums Supplement IV calcium today as well Nephrology following 3. ESRD on peritoneal dialysis: Nephrology following 4.?Early B/L PNA: On room air Follow blood cultures Continue with vancomycin, meropenem Monitor leukocytosis 5. DVT prophylaxis: Heparin subQ 6. Code status: Full 7. Disposition: Pending improvement Time Spent With Patient Time: 39 minutes Subjective Date/time seen: 12/18/24 13:18 Interval history: Was not able to complete peritoneal dialysis yesterday Continues to have abdominal pain Review of Systems Review of Systems: ROS unobtainable: Yes unobtainable due to medical condition Exam Narrative: GENERAL: Thin, HEAD: Normocephalic, atraumatic. NECK: Supple. RESPIRATORY: Airway patent, respirations nonlabored. Clear to auscultation bilaterally, no rales, rhonchi, wheezing. CARDIOVASCULAR: S1-S2 ABDOMINAL: Soft, left lower quadrant tenderness, + distended. Normoactive BS, Peritoneal dialysis catheter in place - clean/warm/dry/intact. MUSCULOSKELETAL: Moves all extremities. + contractures SKIN: Warm, dry, normal color. No rashes. NEURO: Alert PSYCHIATRIC: Appropriate mood Objective Data Vital Signs Vital Signs: Vital Signs - 24 hr 12/17/24 14:00 12/17/24 16:00 12/17/24 20:00 Temperature 96.9 F L Pulse Rate 95 103 H 116 H Pulse Rate [Apical] Respiratory Rate 18 16 Blood Pressure 105/69 Pulse Oximetry 99 99 Oxygen Delivery Room Air 12/17/24 20:00 12/17/24 21:04 12/17/24 22:00 Temperature 96.9 F L 98.8 F Pulse Rate 116 H 106 H Pulse Rate [Apical] 90 Respiratory Rate 16 18 Blood Pressure 125/91 H Pulse Oximetry 97 Oxygen Delivery 12/18/24 00:00 12/18/24 04:00 12/18/24 05:34 Temperature 98.0 F Pulse Rate 99 93 98 Pulse Rate [Apical] Respiratory Rate 18 Blood Pressure 143/86 H Pulse Oximetry 100 Oxygen Delivery 12/18/24 08:00 12/18/24 08:00 Temperature Pulse Rate 102 H Pulse Rate [Apical] Respiratory Rate Blood Pressure Pulse Oximetry Oxygen Delivery Room Air Intake/Output Intake/Output: Intake & Output 12/15/24 12/16/24 12/17/24 12/18/24 23:59 23:59 23:59 23:59 Intake Total 1620 1120 220 Output Total 469 Balance 1620 1120 -249 Meds/Results Medications: Active Medications Generic Name Dose Route Start Last Admin Trade Name Freq PRN Reason Stop Dose Admin Acetaminophen 500 mg 12/18/24 10:29 Acetaminophen 500 Mg Tablet PO Q6H PRN Mild Pain (1-3) or Fever Calcium Carbonate 200 mg 12/17/24 09:00 12/18/24 09:32 Calcium Carbonate (Tums) 500 Mg (200 Mg Elemental) PO 200 mg TID CHACORTA Administration Cinacalcet 60 mg 12/17/24 10:30 12/18/24 09:30 Cinacalcet 30 Mg Tablet PO 60 mg DAILY CHACORTA Administration Heparin Sodium (Porcine) 5,000 units 12/17/24 21:00 12/18/24 09:33 Heparin Sodium 5,000 Units/Ml Vial SUB-Q 5,000 units Q12HR [facility]A Administration Meropenem 500 mg/ Sodium 100 mls @ 200 mls/hr 12/18/24 06:00 12/18/24 07:03 Chloride IVPB Infused Q24H [facility] Infusion (Ferric Citrate [ 210 mg 12/17/24 12:00 12/18/24 09:53 Auryxia] 210 Mg Iron PO 01/16/25 11:59 Not Given Tablet)Home Med TIDWM [facility] Pantoprazole Sodium 40 mg 12/17/24 09:00 12/18/24 09:33 Pantoprazole Sodium Iv 40 Mg Vial IV PUSH 40 mg Q12HR [facility]A Administration Vancomycin HCl 1 each 12/17/24 03:28 Vancomycin For Peritoneal Dialysis IVPB PRN PRN Vancomycin Protocol Radiology Results: ITS Impressions Chest X-Ray 12/16/24 15:13 Impression: Early bilateral pneumonia Abdomen/Pelvis CT 12/16/24 17:08 IMPRESSION: 1. Intra-abdominal free air which may relate to the patient's peritoneal dialysis catheter however distinction from a viscus perforation is limited and extensive artifact also obscures evaluation. Follow-up is recommended to assess as clinically warranted. 2. Incidental findings above Labs Labs: Laboratory Results - last 24 hr 12/17/24 12/17/24 12/18/24 15:13 16:35 06:34 WBC 11.3 H RBC 4.43 Hgb 12.6 Hct 41.0 MCV 92.6 MCH 28.4 MCHC 30.7 L RDW 14.3 Plt Count 358 MPV 9.1 Immature Gran % (Auto) 0.6 H Neut % (Auto) 80.0 H Lymph % (Auto) 14.5 L [place] % (Auto) 3.2 Eos % (Auto) 1.3 Baso % (Auto) 0.4 Lymph # (Auto) 1.64 [place] # (Auto) 0.4 Eos # (Auto) 0.2 Baso # (Auto) 0.0 Abs Immat Gran (auto) 0.07 H Absolute Neuts (auto) 9.1 H Absolute Nucleated RBC 0.000 Nucleated RBC % 0.0 Sodium 131 L Potassium Chloride Carbon Dioxide Anion Gap BUN Creatinine Estim Creat Clear Calc Estimated GFR Glucose POC Capillary Glucose 86 Calcium 6.5 L Phosphorus Albumin Peritoneal Source Peritoneal Color Peritoneal Appearance Peritoneal RBC Periton Nuc Cells Periton Neutrophils Periton Lymphocytes Peritoneal Monocytes 12/18/24 12/18/24 12/18/24 06:34 06:34 06:34 WBC RBC Hgb Hct MCV MCH MCHC RDW Plt Count MPV Immature Gran % (Auto) Neut % (Auto) Lymph % (Auto) [place] % (Auto) Eos % (Auto) Baso % (Auto) Lymph # (Auto) [place] # (Auto) Eos # (Auto) Baso # (Auto) Abs Immat Gran (auto) Absolute Neuts (auto) Absolute Nucleated RBC Nucleated RBC % Sodium 130 L Potassium 4.3 4.4 Chloride 104 104 Carbon Dioxide 20 L Anion Gap BUN Creatinine Estim Creat Clear Calc Estimated GFR Glucose POC Capillary Glucose Calcium Phosphorus Albumin Peritoneal Source Peritoneal Color Peritoneal Appearance Peritoneal RBC Periton Nuc Cells Periton Neutrophils Periton Lymphocytes Peritoneal Monocytes 12/18/24 12/18/24 12/18/24 06:34 06:34 06:34 WBC RBC Hgb Hct MCV MCH MCHC RDW Plt Count MPV Immature Gran % (Auto) Neut % (Auto) Lymph % (Auto) [place] % (Auto) Eos % (Auto) Baso % (Auto) Lymph # (Auto) [place] # (Auto) Eos # (Auto) Baso # (Auto) Abs Immat Gran (auto) Absolute Neuts (auto) Absolute Nucleated RBC Nucleated RBC % Sodium Potassium Chloride Carbon Dioxide 20 L Anion Gap 7 6 BUN 39 H 39 H Creatinine 4.72 H Estim Creat Clear Calc Estimated GFR Glucose POC Capillary Glucose Calcium Phosphorus Albumin Peritoneal Source Peritoneal Color Peritoneal Appearance Peritoneal RBC Periton Nuc Cells Periton Neutrophils Periton Lymphocytes Peritoneal Monocytes 12/18/24 12/18/24 12/18/24 06:34 06:34 06:34 WBC RBC Hgb Hct MCV MCH MCHC RDW Plt Count MPV Immature Gran % (Auto) Neut % (Auto) Lymph % (Auto) [place] % (Auto) Eos % (Auto) Baso % (Auto) Lymph # (Auto) [place] # (Auto) Eos # (Auto) Baso # (Auto) Abs Immat Gran (auto) Absolute Neuts (auto) Absolute Nucleated RBC Nucleated RBC % Sodium Potassium Chloride Carbon Dioxide Anion Gap BUN Creatinine 4.69 H Estim Creat Clear Calc Not Reportable Not Reportable Estimated GFR 10 L 10 L Glucose 86 POC Capillary Glucose Calcium Phosphorus Albumin Peritoneal Source Peritoneal Color Peritoneal Appearance Peritoneal RBC Periton Nuc Cells Periton Neutrophils Periton Lymphocytes Peritoneal Monocytes 12/18/24 12/18/24 12/18/24 06:34 06:34 09:41 WBC RBC Hgb Hct MCV MCH MCHC RDW Plt Count MPV Immature Gran % (Auto) Neut % (Auto) Lymph % (Auto) [place] % (Auto) Eos % (Auto) Baso % (Auto) Lymph # (Auto) [place] # (Auto) Eos # (Auto) Baso # (Auto) Abs Immat Gran (auto) Absolute Neuts (auto) Absolute Nucleated RBC Nucleated RBC % Sodium Potassium Chloride Carbon Dioxide Anion Gap BUN Creatinine Estim Creat Clear Calc Estimated GFR Glucose 86 POC Capillary Glucose Calcium 6.9 L 6.8 L Phosphorus 4.0 Albumin 2.0 L Peritoneal Source Peritoneal fluid Peritoneal Color Yellow Peritoneal Appearance Cloudy A Peritoneal RBC 2000 Periton Nuc Cells 42010 H Periton Neutrophils 80 H Periton Lymphocytes 7 Peritoneal Monocytes 13 Quality VTE Prophylaxis VTE prophylaxis: pharmacologic ordered
[2024-12-18] MEDS: ACETAMINOPHEN 500 MG TABLET PO ×2 (13:27→20:56)
--- NOTE | 2024-12-18 14:53 | WPDIDCN ---
Assessment and Plan Assessment and plan (1) End stage renal disease: Code(s): N18.6 - End stage renal disease Status: Acute Assessment and Plan: ESRD secondary to polycystic kidney disease On PD x 8 years Management as per Nephrology service (2) Abdominal pain: Code(s): R10.9 - Unspecified abdominal pain Status: Acute Assessment and Plan: Suspect pain multifactorial due to PD catheter peritonitis, PD catheter dysfunction, and possible ileus Management as per primary service (3) Peritonitis: Code(s): K65.9 - Peritonitis, unspecified Status: Acute Assessment and Plan: -Worsening PD catheter peritonitis as PD fluid nucleated cell count significantly increased despite outpatient therapy -Await PD fluid cultures obtained on admission -Agree with Vancomycin and Meropenem for broad coverage -Consider removal of PD catheter given persistent symptoms, PD catheter dysfunction, and worsening peritonitis as per PD cell count (4) Pneumonia: Code(s): J18.9 - Pneumonia, unspecified organism Status: Acute Assessment and Plan: -CXR shows bibasilar infiltrates -Patient minimally symptomatic -This may reflect atelectasis vs. aspiration pneumonia in setting of recent emesis -Continue Meropenem for empiric coverage. (5) Cerebral palsy: Qualifiers: Cerebral palsy type: unspecified type Qualified Code(s): G80.9 - Cerebral palsy, unspecified Code(s): G80.9 - Cerebral palsy, unspecified Status: Chronic Plan -Continue Vancomycin IV by levels and Meropenem for broad coverage of worsening PD catheter peritonitis and possible aspiration pneumonia -Await PD fluid culture results -Consider PD catheter removal if no improvement in peritonitis Discussed in detail with patient and mother. All questions answered. Patient was seen via video telehealth consultation with the assistance of staff. Chart, data, and patient independently reviewed. Patient was located at [facility] while I was located in my [place] office. Received verbal consent from patient. HPI Data of Consult Date/Time: 12/18/24 14:53 Requesting Physician: Carolee Goodwin MD Primary Care Provider: Kacie De La Garza PA-C Consult Narrative Reason for consult: PD catheter peritonitis Narrative: Anne Collins is a 39 year old female with history of motor cerebral palsy, spinal instrumentation, polycystic kidney disease, end state renal disease (ESRD) on peritoneal dialysisi (PD) for 8 years. About 12 days ago, patient was noted to have cloudy peritoneal dialysis fluid in the morning after overnight PD at home. This was followed by symptoms of lower quadrant abdominal pain. She was seen at the PD clinic and given Vancomycin and Ceftazidime intraperitoneal (IP). PD culture grew gram-negative coccus but it was not identified further. She was subsequently placed on Ciprofloxacin and Fluconazole PO. She had initial improvement in peritoneal fluid cell count but developed worsening abdominal symptoms. Furthermore, she was noted to have episode of emesis at night time during PD. Her mother has noted that the PD catheter is not functioning as well over time and there is difficulty with instillation of dialysate that did not occur before. Repeat PD fluid cell count on hospital admission shows significant elevation [place] nucleated [place] [id number] with peritoneal fluid cultures pending. CT scan showed possible free air, possible ileus changes, and bowel thickening. General Surgery was consulted and they do not feel patient has perforated viscus at this time. Patient has intermittent lower abdominal pain but reports some back pain today. She still makes urine and denies dysuria. Review of Systems Review of Systems: All systems reviewed & are unremarkable except as noted in HPI and below PMFSH Past Medical History Medical History (Updated 12/18/24 @ 10:19 by Yefri Bush MD) Hypertension DJD (degenerative joint disease) Dystonia Underweight Anemia End stage renal disease Scoliosis Peritoneal dialysis catheter in place Polycystic kidney disease Cerebral palsy Surgical History Surgical History H/O Spinal surgery Family History Family History Grandparent Bipolar 1 disorder Mother COPD (chronic obstructive pulmonary disease) Father Polycystic dysplastic kidney Sibling Depression Other Depression Social History Social History Smoking status: Never smoker Alcohol intake: never Substance use: never Spiritual care concerns: No Meds Home Medications and Allergies Home Medications ?Medication ?Instructions ?Recorded ?Confirmed ?Type calcium carbonate 500 mg PO BID-TID 12/17/24 12/17/24 History cholecalciferol (vitamin D3) 25 1,000 unit PO DAILY 12/17/24 12/17/24 History mcg (1,000 unit) capsule (Vitamin D3) cinacalcet 60 mg tablet 60 mg PO DAILY 12/17/24 12/17/24 History ciprofloxacin HCl 250 mg tablet 250 mg PO BID 12/17/24 12/17/24 History ferric citrate 210 mg iron tablet 210 mg PO TID 12/17/24 12/17/24 History (Auryxia) ferric citrate 210 mg iron tablet 210 mg PO TID 12/17/24 12/17/24 History (Auryxia) fluconazole 100 mg tablet 100 mg PO Q48H 12/17/24 12/17/24 History tramadol 37.5 mg-acetaminophen 325 1 - 2 tablet PO ONCE PRN pain 12/17/24 12/17/24 History mg tablet Allergies Allergy/AdvReac Type Severity Reaction Status Date / Time bacitracin Allergy Unknown BLISTERS Verified 12/17/24 05:21 neomycin Allergy Unknown BLISTERS Verified 12/17/24 05:21 polymyxin B Allergy Unknown BLISTERS Verified 12/17/24 05:21 Vital Signs Vital Signs - 24 hr 12/17/24 16:00 12/17/24 20:00 12/17/24 20:00 Temperature Pulse Rate 103 H 116 H 116 H Pulse Rate [Apical] Respiratory Rate 16 Blood Pressure Pulse Oximetry 99 Oxygen Delivery Room Air 12/17/24 21:04 12/17/24 22:00 12/18/24 00:00 Temperature 96.9 F L 98.8 F Pulse Rate 106 H 99 Pulse Rate [Apical] 90 Respiratory Rate 16 18 Blood Pressure 125/91 H Pulse Oximetry 97 Oxygen Delivery 12/18/24 04:00 12/18/24 05:34 12/18/24 08:00 Temperature 98.0 F Pulse Rate 93 98 Pulse Rate [Apical] Respiratory Rate 18 Blood Pressure 143/86 H Pulse Oximetry 100 Oxygen Delivery Room Air 12/18/24 08:00 12/18/24 12:00 12/18/24 14:25 Temperature 97.9 F Pulse Rate 102 H 102 H 97 Pulse Rate [Apical] Respiratory Rate 18 Blood Pressure 133/91 H Pulse Oximetry 97 Oxygen Delivery Exam Narrative: Gen: alert, NAD Pulm: no tachypnea or conversational dyspnea Abd: distended, PD catheter intact Ext: limb contractures noted Results Labs 12/18/24 06:34 12/18/24 06:34 Labs: Short CBC 12/18/24 Range/Units 06:34 WBC 11.3 H (4.5-10.0) K/mm3 Hgb 12.6 (12.0-15.0) g/dL Hct 41.0 (37.0-47.0) % Plt Count 358 (150-375) k/mm3 BMP 12/17/24 12/18/24 12/18/24 15:13 06:34 06:34 Sodium 131 L 130 L Potassium 4.3 Chloride Carbon Dioxide BUN Creatinine Glucose Calcium 6.5 L 12/18/24 12/18/24 12/18/24 06:34 06:34 06:34 Sodium Potassium 4.4 Chloride 104 104 Carbon Dioxide 20 L 20 L BUN 39 H Creatinine Glucose Calcium 12/18/24 12/18/24 12/18/24 06:34 06:34 06:34 Sodium Potassium Chloride Carbon Dioxide BUN 39 H Creatinine 4.72 H 4.69 H Glucose 86 86 Calcium 6.9 L 12/18/24 06:34 Sodium Potassium Chloride Carbon Dioxide BUN Creatinine Glucose Calcium 6.8 L Liver Function 12/18/24 Range/Units 06:34 Albumin 2.0 L (3.5-5.1) g/dL
--- NOTE | 2024-12-18 16:33 | PM.EVENT ---
Event Note Event Note Event Note: Preliminary outpatient PD fluid results: gram stain - gram variable organism culture - Neisseria species susceptibility to follow.... Based on this abnormal result, will consider further abdominal imaging...
--- NOTE | 2024-12-18 16:33 | P.PNCROSS_ITS ---
Event Note Event Note Event Note: Preliminary outpatient PD fluid results: * gram stain - gram variable organism * culture - Neisseria species * susceptibility to follow.... Based on this abnormal result, will consider further abdominal imaging...
[2024-12-19] VITALS (9 sets, daily range): BP systolic 111–139; BP diastolic 84–90; PULSE 82–110; RESP 18–20; TEMP 36.3–36.6; O2SAT 98–99
[2024-12-19 05:41] LABS: Hematocrit 38.5 % (37.0-47.0); Hemoglobin 11.8 g/dL (12.0-15.0); Immature Granulocyte Percent A 0.6 % (0-0.5); Lymphocytes Absolute Auto 2.14 K/mm3 (0.9-3.2); Mean Corpuscular HGB Conc 30.6 g/dl (32-36); Mean Corpuscular Hemoglobin 28.0 pg (26-34); Mean Corpuscular Volume 91.2 fl (80-100); Nucleated Red Blood Cells Absolute Auto 0.000 K/mm3 (0.0-0.012); Nucleated Red Blood Cells Perc 0.0 % (0.0-0.2); Platelet Count Result 332 k/mm3 (150-375); Red Blood Count 4.22 M/mm3 (4.2-5.4); White Blood Count 9.3 K/mm3 (4.5-10.0)
[2024-12-19] MEDS: MEROPENEM 500 MG in SODIUM CHLORIDE 0.9% IV 100 ML 200 ML IVPB (05:43)
[2024-12-19 05:54] LABS: Anion Gap 6 mmol/L (4-12); Blood Urea Nitrogen 37 mg/dL (7-17); Calcium 6.2 mg/dL (8.4-10.2); Carbon Dioxide 22 mmol/L (22-30); Chloride 101 mmol/L (98-107); Estimated Glomerular Filt Rate 12; Glucose 93 mg/dL (65-110); Potassium 3.9 mmol/L (3.4-5.0); Sodium 129 mmol/L (137-145)
--- NOTE | 2024-12-19 10:18 | WPDINFPN2 ---
Progress Note: A&P Assessment and Plan (1) End stage renal disease: Code(s): N18.6 - End stage renal disease Status: Acute Assessment and Plan: Management as per Nephrology service (2) Abdominal pain: Code(s): R10.9 - Unspecified abdominal pain Status: Acute Assessment and Plan: Improving abdominal pain Suspect abdominal pain due to PD catheter peritonitis, possible ileus changes. Management as per primary service (3) Peritonitis: Code(s): K65.9 - Peritonitis, unspecified Status: Acute Assessment and Plan: -PD catheter peritonitis due to Neisserial species (outpatient culture) -Await susceptibilities -Await inpatient PD fluid cultures -Continue Vancomycin and Meropenem for broad coverage -Consider removal of PD catheter if symptoms worsen, PD catheter dysfunction persists -Consider repeating PD fluid analysis in a few days (4) Pneumonia: Code(s): J18.9 - Pneumonia, unspecified organism Status: Acute Assessment and Plan: -CXR shows bibasilar infiltrates -Patient minimally symptomatic -This may reflect atelectasis vs. aspiration pneumonia in setting of recent emesis -Continue Meropenem for empiric coverage. (5) Cerebral palsy: Qualifiers: Cerebral palsy type: unspecified type Qualified Code(s): G80.9 - Cerebral palsy, unspecified Code(s): G80.9 - Cerebral palsy, unspecified Status: Chronic Assessment and Plan: Management as per primary service Plan -Continue Vancomycin IV by levels and Meropenem for broad coverage of worsening PD catheter peritonitis and possible aspiration pneumonia -Await PD fluid culture results -Consider PD catheter removal if no improvement in peritonitis symptoms or if catheter dysfunction persists -Consider repeat PD fluid analysis and culture in a few days Discussed in detail with patient and mother. All questions answered. Patient was seen via video telehealth consultation with the assistance of staff. Chart, data, and patient independently reviewed. Patient was located at [facility] while I was located in my [place] office. Received verbal consent from patient. Subjective Date/time seen: 12/19/24 10:18 Interval history: Patient afebrile. Outpatient PD fluid culture grew Neisseria species. Current PD fluid cultures are pending. Patient with no abdominal or back pain today. She was able to complete overnight PD session Review of Systems Review of Systems: All systems reviewed & are unremarkable except as noted in HPI and below Exam Narrative: Gen: alert, NAD Pulm: no tachypnea or conversational dyspnea Abd: distended, PD catheter intact, no TTP or guarding/rebound per nurse examination during telemed visit Ext: limb contractures noted Objective Data Vital Signs Vital Signs: Vital Signs - 24 hr 12/18/24 12:00 12/18/24 14:25 12/18/24 16:00 Temperature 97.9 F Pulse Rate 102 H 97 118 H Respiratory Rate 18 Blood Pressure 133/91 H Pulse Oximetry 97 12/18/24 20:05 12/18/24 21:19 12/19/24 00:05 Temperature 98.4 F Pulse Rate 104 H 105 H 88 Respiratory Rate 20 Blood Pressure 126/91 H Pulse Oximetry 98 12/19/24 04:00 12/19/24 06:00 Temperature 97.6 F Pulse Rate 91 82 Respiratory Rate 20 Blood Pressure 111/84 Pulse Oximetry 99 Intake/Output Intake/Output: Intake & Output 12/16/24 12/17/24 12/18/24 12/19/24 23:59 23:59 23:59 23:59 Intake Total 1620 1120 340 240 Output Total 469 Balance 1620 1120 -129 240 Meds/Results Medications: Active Medications Generic Name Dose Route Start Last Admin Trade Name Freq PRN Reason Stop Dose Admin Acetaminophen 500 mg 12/18/24 10:29 12/18/24 20:56 Acetaminophen 500 Mg Tablet PO 500 mg Q6H PRN Administration Mild Pain (1-3) or Fever Calcium Carbonate 200 mg 12/17/24 09:00 12/18/24 16:59 Calcium Carbonate (Tums) 500 Mg (200 Mg Elemental) PO 200 mg TID CHACORTA Administration Cinacalcet 60 mg 12/17/24 10:30 12/18/24 09:30 Cinacalcet 30 Mg Tablet PO 60 mg DAILY CHACORTA Administration Heparin Sodium (Porcine) 5,000 units 12/17/24 21:00 12/18/24 20:56 Heparin Sodium 5,000 Units/Ml Vial SUB-Q 5,000 units Q12HR CHACORTA Administration Meropenem 500 mg/ Sodium 100 mls @ 200 mls/hr 12/18/24 06:00 12/19/24 05:43 Chloride IVPB 200 mls/hr Q24H CHACORTA Administration (Ferric Citrate [ 210 mg 12/17/24 12:00 12/18/24 17:31 Auryxia] 210 Mg Iron PO 01/16/25 11:59 210 mg Tablet)Home Med TIDWM CHACORTA Administration Pantoprazole Sodium 40 mg 12/17/24 09:00 12/18/24 20:56 Pantoprazole Sodium Iv 40 Mg Vial IV PUSH 40 mg Q12HR CHACORTA Administration Vancomycin HCl 1 each 12/17/24 03:28 Vancomycin For Peritoneal Dialysis IVPB PRN PRN Vancomycin Protocol Radiology Results: ITS Impressions Chest X-Ray 12/16/24 15:13 Impression: Early bilateral pneumonia Abdomen/Pelvis CT 12/16/24 17:08 IMPRESSION: 1. Intra-abdominal free air which may relate to the patient's peritoneal dialysis catheter however distinction from a viscus perforation is limited and extensive artifact also obscures evaluation. Follow-up is recommended to assess as clinically warranted. 2. Incidental findings above Labs Labs: Laboratory Results - last 24 hr 12/18/24 12/19/24 09:41 05:28 WBC 9.3 RBC 4.22 Hgb 11.8 L Hct 38.5 MCV 91.2 MCH 28.0 MCHC 30.6 L RDW 14.3 Plt Count 332 MPV 8.9 Immature Gran % (Auto) 0.6 H Neut % (Auto) 69.3 Lymph % (Auto) 23.0 [place] % (Auto) 4.2 Eos % (Auto) 2.3 Baso % (Auto) 0.6 Lymph # (Auto) 2.14 [place] # (Auto) 0.4 Eos # (Auto) 0.2 Baso # (Auto) 0.1 Abs Immat Gran (auto) 0.06 H Absolute Neuts (auto) 6.5 Absolute Nucleated RBC 0.000 Nucleated RBC % 0.0 Sodium 129 L Potassium 3.9 Chloride 101 Carbon Dioxide 22 Anion Gap 6 BUN 37 H Creatinine 4.06 H Estim Creat Clear Calc Not Reportable Estimated GFR 12 L Glucose 93 Calcium 6.2 L Peritoneal Source Peritoneal fluid Peritoneal Color Yellow Peritoneal Appearance Cloudy A Peritoneal RBC 2000 Periton Nuc Cells [id number] H Periton Neutrophils 80 H Periton Lymphocytes 7 Peritoneal Monocytes 13 Random Vancomycin 36.4 H
--- NOTE | 2024-12-19 10:25 | PM.IMPN ---
Progress Note: A&P Assessment and Plan (1) Hyponatremia: Code(s): E87.1 - Hypo-osmolality and hyponatremia Status: Acute (2) Abdominal pain: Code(s): R10.9 - Unspecified abdominal pain Status: Acute (3) End stage renal disease: Code(s): N18.6 - End stage renal disease Status: Acute (4) Hypocalcemia: Code(s): E83.51 - Hypocalcemia Status: Acute (5) Hypokalemia: Code(s): E87.6 - Hypokalemia Status: Acute (6) Cerebral palsy: Qualifiers: Cerebral palsy type: unspecified type Qualified Code(s): G80.9 - Cerebral palsy, unspecified Code(s): G80.9 - Cerebral palsy, unspecified Status: Chronic Plan 39 years old F with cerebral palsy presented to the ED yesterday with one day of left lower quadrant pain. Reportedly, patient has also been having episodes of emesis every other night for the past 10 days. Cloudy output from peritoneal dialysis bag reported. Previously treated with antibiotics for this. Denies fevers. Had 2 episodes of diarrhea last night in the ED. CT demonstrated intra-abdominal free air, which may relate to the patient's peritoneal dialysis catheter, however distinction from a viscus perforation is limited. Extensive artifact obscuring evaluation. On previous CT from 12/03/2024 free intraperitoneal air in the abdomen and pelvis presumably due to peritoneal dialysis was also noted. Found to be severly hypocalcemic Abdominal Pain: Peritonitis ID and nephrology following, appreciate recommendations free air, concern for viscus perforation distended stomach ?Cdif with h/o diarrhea, recent abx use Appreciate surgery help, no concerns for viscus perforation as per surgery Follow-up blood cultures, Peritoneal fluid with neutrophilia, cloudy Continue with vancomycin, meropenem Will get ID consult Continue with PPI Await C diff Monitor leukocytosis Severe hypocalcemia: Received several doses of IV calcium Improved Continue with oral Tums Supplement IV calcium today as well. Started PO calcium Nephrology following ESRD on peritoneal dialysis: Nephrology following Early B/L PNA: On room air Follow blood cultures Continue with vancomycin, meropenem Monitor leukocytosis 5. DVT prophylaxis: Heparin subQ 6. Code status: Full 7. Disposition: Pending improvement Time Spent With Patient Time: 56 minutes Subjective Date/time seen: 12/19/24 17:15 Interval history: Overnight events VSS, afebrile Sodium 129. Calcium trending down slowly Overall feeling ok. Had a BM Reason for hospitalization 39 y/o female who presented for LLQ abdominal pain, cloudy dialysis fluid, treating for PD catheter associated peritonitis. CT showed constipation. ID consulted. Continuing Meropenem for PD catheter peritonitis. IV Vancomycin discontinued per ID recs Outpatient PD fluid culture grew Neisseria species. Current PD fluid cultures are pending Renal consulted and following hypocalcemia Review of Systems Review of Systems: ROS unobtainable: Yes unobtainable due to medical condition Exam Narrative: GENERAL: Thin, HEAD: Normocephalic, atraumatic. NECK: Supple. RESPIRATORY: Airway patent, respirations nonlabored. Clear to auscultation bilaterally, no rales, rhonchi, wheezing. CARDIOVASCULAR: S1-S2 ABDOMINAL: Soft, left lower quadrant tenderness, + distended. Normoactive BS, Peritoneal dialysis catheter in place - clean/warm/dry/intact. MUSCULOSKELETAL: Moves all extremities. + contractures SKIN: Warm, dry, normal color. No rashes. NEURO: Alert PSYCHIATRIC: Appropriate mood Objective Data Vital Signs Vital Signs: Vital Signs - 24 hr 12/18/24 12:00 12/18/24 14:25 12/18/24 16:00 Temperature 97.9 F Pulse Rate 102 H 97 118 H Respiratory Rate 18 Blood Pressure 133/91 H Pulse Oximetry 97 12/18/24 20:05 12/18/24 21:19 12/19/24 00:05 Temperature 98.4 F Pulse Rate 104 H 105 H 88 Respiratory Rate 20 Blood Pressure 126/91 H Pulse Oximetry 98 12/19/24 04:00 12/19/24 06:00 Temperature 97.6 F Pulse Rate 91 82 Respiratory Rate 20 Blood Pressure 111/84 Pulse Oximetry 99 Intake/Output Intake/Output: Intake & Output 12/16/24 12/17/24 12/18/24 12/19/24 23:59 23:59 23:59 23:59 Intake Total 1620 1120 340 240 Output Total 469 Balance 1620 1120 -129 240 Meds/Results Medications: Active Medications Generic Name Dose Route Start Last Admin Trade Name Freq PRN Reason Stop Dose Admin Acetaminophen 500 mg 12/18/24 10:29 12/18/24 20:56 Acetaminophen 500 Mg Tablet PO 500 mg Q6H PRN Administration Mild Pain (1-3) or Fever Calcium Carbonate 200 mg 12/17/24 09:00 12/18/24 16:59 Calcium Carbonate (Tums) 500 Mg (200 Mg Elemental) PO 200 mg TID CHACORTA Administration Cinacalcet 60 mg 12/17/24 10:30 12/18/24 09:30 Cinacalcet 30 Mg Tablet PO 60 mg DAILY CHACORTA Administration Heparin Sodium (Porcine) 5,000 units 12/17/24 21:00 12/18/24 20:56 Heparin Sodium 5,000 Units/Ml Vial SUB-Q 5,000 units Q12HR CHACORTA Administration Meropenem 500 mg/ Sodium 100 mls @ 200 mls/hr 12/18/24 06:00 12/19/24 05:43 Chloride IVPB 200 mls/hr Q24H CHACORTA Administration (Ferric Citrate [ 210 mg 12/17/24 12:00 12/18/24 17:31 Auryxia] 210 Mg Iron PO 01/16/25 11:59 210 mg Tablet)Home Med TIDWM CHACORTA Administration Pantoprazole Sodium 40 mg 12/17/24 09:00 12/18/24 20:56 Pantoprazole Sodium Iv 40 Mg Vial IV PUSH 40 mg Q12HR CHACORTA Administration Vancomycin HCl 1 each 12/17/24 03:28 Vancomycin For Peritoneal Dialysis IVPB PRN PRN Vancomycin Protocol Radiology Results: ITS Impressions Chest X-Ray 12/16/24 15:13 Impression: Early bilateral pneumonia Abdomen/Pelvis CT 12/16/24 17:08 IMPRESSION: 1. Intra-abdominal free air which may relate to the patient's peritoneal dialysis catheter however distinction from a viscus perforation is limited and extensive artifact also obscures evaluation. Follow-up is recommended to assess as clinically warranted. 2. Incidental findings above Labs Labs: Laboratory Results - last 24 hr 12/18/24 12/19/24 09:41 05:28 WBC 9.3 RBC 4.22 Hgb 11.8 L Hct 38.5 MCV 91.2 MCH 28.0 MCHC 30.6 L RDW 14.3 Plt Count 332 MPV 8.9 Immature Gran % (Auto) 0.6 H Neut % (Auto) 69.3 Lymph % (Auto) 23.0 [place] % (Auto) 4.2 Eos % (Auto) 2.3 Baso % (Auto) 0.6 Lymph # (Auto) 2.14 [place] # (Auto) 0.4 Eos # (Auto) 0.2 Baso # (Auto) 0.1 Abs Immat Gran (auto) 0.06 H Absolute Neuts (auto) 6.5 Absolute Nucleated RBC 0.000 Nucleated RBC % 0.0 Sodium 129 L Potassium 3.9 Chloride 101 Carbon Dioxide 22 Anion Gap 6 BUN 37 H Creatinine 4.06 H Estim Creat Clear Calc Not Reportable Estimated GFR 12 L Glucose 93 Calcium 6.2 L Peritoneal Source Peritoneal fluid Peritoneal Color Yellow Peritoneal Appearance Cloudy A Peritoneal RBC 2000 Periton Nuc Cells 30866 H Periton Neutrophils 80 H Periton Lymphocytes 7 Peritoneal Monocytes 13 Random Vancomycin 36.4 H Quality VTE Prophylaxis VTE prophylaxis: pharmacologic ordered
[2024-12-19] MEDS: FERRIC CITRATE 210 MG PO ×3 (10:54→17:30)
[2024-12-19] MEDS: PANTOPRAZOLE SODIUM IV 40 MG VIAL IV PUSH ×2 (10:54→21:00)
[2024-12-19] MEDS: CALCIUM CARBONATE (TUMS) 500 MG (200 MG ELEMENTAL) PO ×3 (10:54→17:30)
[2024-12-19] MEDS: CINACALCET 30 MG TABLET 60 MG PO (10:54)
[2024-12-19] MEDS: IRON PO ×3 (10:54→17:30)
--- NOTE | 2024-12-19 12:45 | P.PNNP_ITS ---
Progress Note: A&P Assessment and Plan (1) End stage renal disease: Code(s): N18.6 - End stage renal disease Status: Acute Assessment and Plan: * continue nightly CCPD while hospitalized * using home PD cycler/machine given issues with hospital PD cycler on the evening of 12/17 * follow electrolytes, volume status, and clearance * due to polycystic kidney disease * outpatient dialysis center = [facility] * primary tire wrapper = Dr. Cary Maier (2) Abdominal pain: Code(s): R10.9 - Unspecified abdominal pain Status: Acute Assessment and Plan: * etiology not clear * peritonitits? * bowel perforation? * from diarrhea? * other? * admission CT imaging reviewed * Surgery evaluation noted * C. diff toxin assay ordered * follow clinical symptoms (3) Peritonitis: Code(s): K65.9 - Peritonitis, unspecified Status: Acute Assessment and Plan: * as reported by history (from primary tire wrapper and outpatient PD nurse) * per review with outpatient PD nurse: * cloudy PD fluid noted on 12/05 * initial PD fluid WBC/neutrophils of 7413 (on 12/05) * initiated on treatment with intraperitoneal vancomycin + ceftazidime; continued on IP vancomycin but added oral ciprofloxcin and diflucan * repeat PD fluid WBC/neutrophil count 5 days later down to 395 (on 12/10) * outpatient PD culture results with Neisseria (I have never see this organism before with PD associated peritonitis!) * despite improvement in PD fluid (by cell count and appearance), developed abdominal pain on Tuesday/Tuesday * repeat PD fluid sample cell count noted.... * repeat gram stain and culture pending * blood culture negative to date * continue broad spectrum antibiotics for now * further imaging needed?? (i.e. contrast of CT chest/abdomen/pelvis?) (4) Pneumonia: Code(s): J18.9 - Pneumonia, unspecified organism Status: Acute Assessment and Plan: * as suggested by admission imaging * no evidence of hypoxia * follow culture data * on antibiotics (5) Hypocalcemia: Code(s): E83.51 - Hypocalcemia Status: Acute Assessment and Plan: * quite significant on presentation (5.7mg/dL) * however, given hypoalbuminia, corrected calcium closer to 7.0mg/dL * follow CORRECTED calcium levels... * s/p IV calcium and started on oral calcium supplements * interestingly., calcium on ER visit on 12/02 normal at 8.7mg/dL (6) Hypokalemia: Code(s): E87.6 - Hypokalemia Status: Acute Assessment and Plan: * corrected with supplementation * due to poor nutrition versus GI loss? * follow trend of repeat K+ levels (7) Anemia: Code(s): D64.9 - Anemia, unspecified Status: Acute Assessment and Plan: * H/H supratherapeutic for ESRD status * no need for PALOMA * follow trend of H/H (8) Cerebral palsy: Qualifiers: Cerebral palsy type: unspecified type Qualified Code(s): G80.9 - Cerebral palsy, unspecified Code(s): G80.9 - Cerebral palsy, unspecified Status: Chronic Assessment and Plan: * chronic issue Will continue to follow. L Subjective Date/time seen: 12/19/24 12:45 Interval history: Follow-up for end stage renal disease on peritoneal dialysis. Better peritoneal dialysis treatment overnight with use of home PD cycler/machine; no apparent distress noted at the time of my visit; results of PD fluid culture results discussed with mother at bedside; PD fluid still remains somewhat cloudy from my view, some mild worsening LE edema noted when seen. Exam 2 Narrative: General: thin and frail female in NAD Heart: normal S1 and S2; no rub Lungs: clear to auscultation Abdomen: mild TTP noted; mild distension, positive bowel sounds Extremities: no cyanosis or clubbing; trace edema Skin: warm and intact Objective Data Vital Signs Vital Signs: Vital Signs Temp Pulse Resp BP Pulse Ox O2 Del Method 12/19/24 08:00 82 12/19/24 08:00 82 20 99 Room Air 12/19/24 06:00 97.6 F 82 20 111/84 99 12/19/24 04:00 91 12/19/24 00:05 88 12/18/24 21:19 98.4 F 105 H 20 126/91 H 98 12/18/24 20:05 104 H 12/18/24 16:00 118 H 12/18/24 14:25 97.9 F 97 18 133/91 H 97 Intake/Output Intake/Output: Intake & Output 12/16/24 12/17/24 12/18/24 12/19/24 23:59 23:59 23:59 23:59 Intake Total 1620 1120 340 240 Output Total 469 376 Balance 1620 1120 -129 -136 Meds/Results Medications: Active Medications Generic Name Dose Route Start Last Admin Trade Name Freq PRN Reason Stop Dose Admin Acetaminophen 500 mg 12/18/24 10:29 12/18/24 20:56 Acetaminophen 500 Mg Tablet PO 500 mg Q6H PRN Administration Mild Pain (1-3) or Fever Calcium Carbonate 200 mg 12/17/24 09:00 12/19/24 10:54 Calcium Carbonate (Tums) 500 Mg (200 Mg Elemental) PO 200 mg TID CHACORTA Administration Cinacalcet 60 mg 12/17/24 10:30 12/19/24 10:54 Cinacalcet 30 Mg Tablet PO 60 mg DAILY CHACORTA Administration Heparin Sodium (Porcine) 5,000 units 12/17/24 21:00 12/19/24 10:54 Heparin Sodium 5,000 Units/Ml Vial SUB-Q 5,000 units Q12HR CHACORTA Administration Meropenem 500 mg/ Sodium 100 mls @ 200 mls/hr 12/18/24 06:00 12/19/24 05:43 Chloride IVPB 200 mls/hr Q24H CHACORTA Administration (Ferric Citrate [ 210 mg 12/17/24 12:00 12/19/24 10:54 Auryxia] 210 Mg Iron PO 01/16/25 11:59 210 mg Tablet)Home Med TIDWM CHACORTA Administration Pantoprazole Sodium 40 mg 12/17/24 09:00 12/19/24 10:54 Pantoprazole Sodium Iv 40 Mg Vial IV PUSH 40 mg Q12HR CHACORTA Administration Vancomycin HCl 1 each 12/17/24 03:28 Vancomycin For Peritoneal Dialysis IVPB PRN PRN Vancomycin Protocol Radiology Results: ITS Impressions Chest X-Ray 12/16/24 15:13 Impression: Early bilateral pneumonia Abdomen/Pelvis CT 12/16/24 17:08 IMPRESSION: 1. Intra-abdominal free air which may relate to the patient's peritoneal dialysis catheter however distinction from a viscus perforation is limited and extensive artifact also obscures evaluation. Follow-up is recommended to assess as clinically warranted. 2. Incidental findings above Labs Labs: Laboratory Tests 12/19/24 05:28 12/19/24 05:28 Calcium 6.2 L Random Vancomycin 36.4 H Microbiology 12/16/24 15:26 Blood Blood Culture - Preliminary 12/16/24 15:27 Blood Blood Culture - Preliminary
[2024-12-19 15:50] LABS: MRSA (PCR) NOT DETECTED (NOT DETECTE)
[2024-12-19] MEDS: HEPARIN SODIUM IV CONT (18:14)
[2024-12-19] MEDS: PERITONEAL DIALYSIS IV CONT (18:14)
--- NOTE | 2024-12-19 18:14 | PC.NURSE ---
RN consult note: CCPD supplies provided to patient's mother. Dianeal bags with heparin added per pharmacy. Minicaps, drain bags and disinfectant fluids provided to family. No questions or concerns per patient's family. Total time: 15 minutes.
[2024-12-19] MEDS: ACETAMINOPHEN 500 MG TABLET PO (19:24)
[2024-12-20] VITALS (10 sets, daily range): BP systolic 122–140; BP diastolic 88–95; PULSE 87–98; RESP 12–18; TEMP 35.7–37; O2SAT 98–99
[2024-12-20] MEDS: MEROPENEM 500 MG in SODIUM CHLORIDE 0.9% IV 100 ML 200 ML IVPB (05:18)
[2024-12-20 05:46] LABS: Hematocrit 37.3 % (37.0-47.0); Hemoglobin 11.6 g/dL (12.0-15.0); Immature Granulocyte Percent A 0.5 % (0-0.5); Lymphocytes Absolute Auto 2.09 K/mm3 (0.9-3.2); Mean Corpuscular HGB Conc 31.1 g/dl (32-36); Mean Corpuscular Hemoglobin 28.1 pg (26-34); Mean Corpuscular Volume 90.3 fl (80-100); Nucleated Red Blood Cells Absolute Auto 0.000 K/mm3 (0.0-0.012); Nucleated Red Blood Cells Perc 0.0 % (0.0-0.2); Platelet Count Result 334 k/mm3 (150-375); Red Blood Count 4.13 M/mm3 (4.2-5.4); White Blood Count 9.6 K/mm3 (4.5-10.0)
[2024-12-20 06:07] LABS: Albumin Level 1.8 g/dL (3.5-5.1); Anion Gap 5 mmol/L (4-12); Blood Urea Nitrogen 35 mg/dL (7-17); Calcium 5.6 mg/dL (8.4-10.2); Carbon Dioxide 24 mmol/L (22-30); Chloride 98 mmol/L (98-107); Estimated Glomerular Filt Rate 12; Glucose 90 mg/dL (65-110); Potassium 3.5 mmol/L (3.4-5.0); Sodium 127 mmol/L (137-145)
[2024-12-20 06:17] LABS: Parathyroid Intact 82.3 pg/mL (14.5-75.2)
[2024-12-20] MEDS: CALCIUM GLUC 1,000 MG/NS 50 ML 1,000 MG/50 ML BAG 100 MG IVPB (06:35)
[2024-12-20 06:37] LABS: Hepatitis B Surface Antigen Negative (Negative)
[2024-12-20 06:55] LABS: Hepatitis B Surface Anti Res Positive
--- NOTE | 2024-12-20 07:54 | P.PNINF_ITS ---
Progress Note: A&P Assessment and Plan (1) End stage renal disease: Code(s): N18.6 - End stage renal disease Status: Acute Assessment and Plan: Management as per Nephrology service (2) Abdominal pain: Code(s): R10.9 - Unspecified abdominal pain Status: Acute Assessment and Plan: Improving abdominal pain Suspect abdominal pain due to PD catheter peritonitis, possible ileus changes on admission Management as per primary service (3) Peritonitis: Code(s): K65.9 - Peritonitis, unspecified Status: Acute Assessment and Plan: -PD catheter peritonitis due to Neisseria species (outpatient culture) -Await susceptibilities -Await inpatient PD fluid cultures -Continue Meropenem for broad coverage -Discontinue Vancomycin IV as no evidence of MRSA or resistant gram_positive infection thus far -Consider removal of PD catheter if symptoms worsen, PD catheter dysfunction persists -PD fluid analsysis sent this morning; await results (4) Pneumonia: Code(s): J18.9 - Pneumonia, unspecified organism Status: Acute Assessment and Plan: -CXR shows bibasilar infiltrates -Patient minimally symptomatic -This may reflect atelectasis vs. aspiration pneumonia in setting of recent emesis -Continue Meropenem for empiric coverage. (5) Cerebral palsy: Qualifiers: Cerebral palsy type: unspecified type Qualified Code(s): G80.9 - Cerebral palsy, unspecified Code(s): G80.9 - Cerebral palsy, unspecified Status: Chronic Assessment and Plan: Management as per primary service Plan -Continue Vancomycin IV by levels and Meropenem for broad coverage of worsening PD catheter peritonitis and possible aspiration pneumonia -Await PD fluid culture results from admission -Await repeat PD fluid studies obtained on 12/20/24 -Consider PD catheter removal if no improvement in peritonitis symptoms or if catheter dysfunction persists Discussed in detail with patient and mother. All questions answered. Patient was seen via video telehealth consultation with the assistance of staff. Chart, data, and patient independently reviewed. Patient was located at [facility] while I was located in my [place] office. Received verbal consent from patient. Subjective Date/time seen: 12/20/24 07:54 Interval history: Patient afebrile. Feeling better. Tolerating PD better. Repeat CT shows ascites and PD catheter coiled in lower quadrant. No obvious evidence of bowel perforation or abscess. Review of Systems Review of Systems: All systems reviewed & are unremarkable except as noted in HPI and below Exam Narrative: Gen: alert, NAD Pulm: no tachypnea or conversational dyspnea Abd: distended, PD catheter intact, no TTP or guarding/rebound per nurse examination during telemed visit Ext: limb contractures noted Objective Data Vital Signs Vital Signs: Vital Signs - 24 hr 12/19/24 08:00 12/19/24 08:00 12/19/24 12:00 Temperature Pulse Rate 82 82 96 Respiratory Rate 20 Blood Pressure Pulse Oximetry 99 Oxygen Delivery Room Air 12/19/24 14:00 12/19/24 16:00 12/19/24 20:00 Temperature 97.4 F L Pulse Rate 100 86 110 H Respiratory Rate 18 Blood Pressure 139/85 Pulse Oximetry 99 Oxygen Delivery 12/19/24 21:32 12/20/24 00:00 12/20/24 04:00 Temperature 97.8 F Pulse Rate 102 H 91 89 Respiratory Rate 18 Blood Pressure 122/90 Pulse Oximetry 98 Oxygen Delivery 12/20/24 06:00 Temperature 96.3 F L Pulse Rate 87 Respiratory Rate 18 Blood Pressure 127/88 Pulse Oximetry 98 Oxygen Delivery Intake/Output Intake/Output: Intake & Output 12/17/24 12/18/24 12/19/24 12/20/24 23:59 23:59 23:59 23:59 Intake Total 1120 340 820 100 Output Total 469 376 Balance 1120 -129 444 100 Meds/Results Medications: Active Medications Generic Name Dose Route Start Last Admin Trade Name Freq PRN Reason Stop Dose Admin Acetaminophen 500 mg 12/18/24 10:29 12/19/24 19:24 Acetaminophen 500 Mg Tablet PO 500 mg Q6H PRN Administration Mild Pain (1-3) or Fever Calcium Carbonate 400 mg 12/20/24 09:00 Calcium Carbonate (Tums) 500 Mg (200 Mg Elemental) PO TID CHACORTA Cinacalcet 60 mg 12/17/24 10:30 12/19/24 10:54 Cinacalcet 30 Mg Tablet PO 60 mg On Hold: 12/19/24 14:29 DAILY CHACORTA Administration Heparin Sodium (Porcine) 5,000 units 12/17/24 21:00 12/19/24 20:59 Heparin Sodium 5,000 Units/Ml Vial SUB-Q 5,000 units Q12HR CHACORTA Administration Meropenem 500 mg/ Sodium 100 mls @ 200 mls/hr 12/18/24 06:00 12/20/24 05:48 Chloride IVPB Infused Q24H CHACORTA Infusion Calcium Gluconate 2,000 mg in 100 mls @ 100 mls/hr 12/20/24 13:28 Calcium Gluc 2,000 Mg/Ns 100ml IVPB 12/20/24 14:27 ONCE ONE (Ferric Citrate [ 210 mg 12/17/24 12:00 12/19/24 17:30 Auryxia] 210 Mg Iron PO 01/16/25 11:59 210 mg Tablet)Home Med TIDWM CHACORTA Administration Pantoprazole Sodium 40 mg 12/17/24 09:00 12/19/24 21:00 Pantoprazole Sodium Iv 40 Mg Vial IV PUSH 40 mg Q12HR CHACORTA Administration Vancomycin HCl 1 each 12/17/24 03:28 Vancomycin For Peritoneal Dialysis IVPB PRN PRN Vancomycin Protocol Radiology Results: ITS Impressions Chest X-Ray 12/16/24 15:13 Impression: Early bilateral pneumonia Abdomen/Pelvis CT 12/16/24 17:08 IMPRESSION: 1. Intra-abdominal free air which may relate to the patient's peritoneal dialysis catheter however distinction from a viscus perforation is limited and extensive artifact also obscures evaluation. Follow-up is recommended to assess as clinically warranted. 2. Incidental findings above Chest/Abdomen/Pelvis CT 12/19/24 15:26 IMPRESSION: 1. Evaluation limited by extensive streak artifact throughout the chest, abdomen and pelvis related to extensive T2-S1 posterior spinal fusion. There appears to chronic loosening of an associated right iliac screw with. Chronic healing fracture extends across the inferomedial aspect of the right iliac wing. 2. Extensive body wall edema with small amount of ascites and small left pleural effusion. The ascites may be related to peritoneal dialysis with dialysis catheter coiled in the left lower quadrant. 3. 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 Labs Labs: Laboratory Results - last 24 hr 12/19/24 12/20/24 14:28 05:38 WBC 9.6 RBC 4.13 L Hgb 11.6 L Hct 37.3 MCV 90.3 MCH 28.1 MCHC 31.1 L RDW 14.2 Plt Count 334 MPV 9.1 Immature Gran % (Auto) 0.5 Neut % (Auto) 69.7 Lymph % (Auto) 21.7 [place] % (Auto) 5.3 Eos % (Auto) 2.4 Baso % (Auto) 0.4 Lymph # (Auto) 2.09 [place] # (Auto) 0.5 Eos # (Auto) 0.2 Baso # (Auto) 0.0 Abs Immat Gran (auto) 0.05 H Absolute Neuts (auto) 6.7 Absolute Nucleated RBC 0.000 Nucleated RBC % 0.0 Sodium 127 L Potassium 3.5 Chloride 98 Carbon Dioxide 24 Anion Gap 5 BUN 35 H Creatinine 4.09 H Estim Creat Clear Calc Not Reportable Estimated GFR 12 L Glucose 90 Calcium 5.6 L* Phosphorus 3.5 Albumin 1.8 L Vitamin D 25-Hydroxy < 12.8 PTH Intact 82.3 H Nasal MRSA (PCR) Not detected Random Vancomycin 31.6 H Hep Bs Antigen Negative Hep Bs Antibody Positive
[2024-12-20] MEDS: IRON PO ×3 (08:00→17:32)
[2024-12-20] MEDS: FERRIC CITRATE 210 MG PO ×3 (08:00→17:32)
[2024-12-20] MEDS: CALCIUM CARBONATE (TUMS) 500 MG (200 MG ELEMENTAL) 400 MG PO ×3 (10:00→17:32)
[2024-12-20] MEDS: ERGOCALCIFEROL (VITAMIN D2) 1,250 MCG (50,000 UNITS) CAPSULE 1250 MCG PO (10:00)
[2024-12-20] MEDS: PANTOPRAZOLE SODIUM IV 40 MG VIAL IV PUSH ×2 (10:00→20:29)
--- NOTE | 2024-12-20 10:15 | PC.NURSE ---
RN consult: CCPD effluent sample drawn and sent to lab. Effluent appears less cloudy today. No fibrin noted. Family reports slow drain x 1. Dr. Bush notified. Total time: 15 minutes.
--- NOTE | 2024-12-20 12:40 | P.PNNP_ITS ---
Progress Note: A&P Assessment and Plan (1) End stage renal disease: Code(s): N18.6 - End stage renal disease Status: Acute Assessment and Plan: * continue nightly CCPD while hospitalized * using home PD cycler/machine given issues with hospital PD cycler on the evening of 12/17 * follow electrolytes, volume status, and clearance * liberalize diet * due to polycystic kidney disease * outpatient dialysis center = [facility] * primary electronics recycler = Dr. Cary Maier (2) Abdominal pain: Code(s): R10.9 - Unspecified abdominal pain Status: Acute Assessment and Plan: * etiology not clear * peritonitits? * bowel perforation? * from diarrhea? * other? * admission CT imaging reviewed * Surgery evaluation noted * follow clinical symptoms (3) Peritonitis: Code(s): K65.9 - Peritonitis, unspecified Status: Acute Assessment and Plan: * as reported by history (from primary electronics recycler and outpatient PD nurse) * per review with outpatient PD nurse: * cloudy PD fluid noted on 12/05 * initial PD fluid WBC/neutrophils of 7413 (on 12/05) * initiated on treatment with intraperitoneal vancomycin + ceftazidime; continued on IP vancomycin but added oral ciprofloxcin and diflucan * repeat PD fluid WBC/neutrophil count 5 days later down to 395 (on 12/10) * outpatient PD culture results with Neisseria * despite outpatient improvement in PD fluid (by cell count and appearance), developed abdominal pain on Tuesday/Tuesday * improving trend of PD fluid sample cell count noted.... * repeat gram stain and culture pending * blood culture negative to date * CT C/A/P noted * Infectious Disease following * on antibiotics (4) Pneumonia: Code(s): J18.9 - Pneumonia, unspecified organism Status: Acute Assessment and Plan: * as suggested by admission imaging * no evidence of hypoxia * follow culture data * on antibiotics (5) Hypocalcemia: Code(s): E83.51 - Hypocalcemia Status: Acute Assessment and Plan: * quite significant on presentation (5.7mg/dL) * however, given hypoalbuminia, admission corrected calcium closer to 7.0mg/dL * follow CORRECTED calcium levels... * s/p IV calcium and started on oral calcium supplements * PTH low and vitamin D level quite low * hold Sensipar/cinacalcet (can cause low calcium levels) * start ergocalciferol * interestingly., calcium on ER visit on 12/02 normal at 8.7mg/dL (6) Hypokalemia: Code(s): E87.6 - Hypokalemia Status: Acute Assessment and Plan: * corrected with supplementation * due to poor nutrition versus GI loss? * follow trend of repeat K+ levels (7) Anemia: Code(s): D64.9 - Anemia, unspecified Status: Acute Assessment and Plan: * H/H supratherapeutic for ESRD status * no need for PALOMA * follow trend of H/H (8) Cerebral palsy: Qualifiers: Cerebral palsy type: unspecified type Qualified Code(s): G80.9 - Cerebral palsy, unspecified Code(s): G80.9 - Cerebral palsy, unspecified Status: Chronic Assessment and Plan: * chronic issue Will continue to follow. L Subjective Date/time seen: 12/20/24 12:40 Interval history: Follow-up for end stage renal disease on peritoneal dialysis. Tolerated peritoneal dialysis treatment overnight without any issues or problems (CCPD supervised and seen at 12:30pm); repeat PD fluid sample collected and appeared more clearer per dialysis nurse; still with some issues with LE swelling/edema at this time; no apparent distress noted; discussed with mother at bedside. Exam 2 Narrative: General: thin and frail female in NAD Heart: normal S1 and S2; no rub Lungs: clear to auscultation Abdomen: mild TTP noted; positive bowel sounds Extremities: no cyanosis or clubbing; trace edema Skin: no rash Objective Data Vital Signs Vital Signs: Vital Signs Temp Pulse Resp BP Pulse Ox O2 Del Method 12/20/24 12:00 94 12/20/24 10:00 Room Air 12/20/24 08:00 91 12/20/24 06:00 96.3 F L 87 18 127/88 98 12/20/24 04:00 89 12/20/24 00:00 91 12/19/24 21:32 97.8 F 102 H 18 122/90 98 12/19/24 20:00 110 H 12/19/24 16:00 86 Intake/Output Intake/Output: Intake & Output 09/22/25 09/23/25 09/24/25 09/25/25 23:59 23:59 23:59 23:59 Intake Total 1120 340 820 218 Output Total 469 376 674 Balance 6628 -444 485 -003 Meds/Results Medications: Active Medications Generic Name Dose Route Start Last Admin Trade Name Freq PRN Reason Stop Dose Admin Acetaminophen 500 mg 12/18/24 10:29 12/19/24 19:24 Acetaminophen 500 Mg Tablet PO 500 mg Q6H PRN Administration Mild Pain (1-3) or Fever Calcium Carbonate 400 mg 12/20/24 09:00 12/20/24 14:36 Calcium Carbonate (Tums) 500 Mg (200 Mg Elemental) PO 400 mg TID CHACORTA Administration Cinacalcet 60 mg 12/17/24 10:30 12/19/24 10:54 Cinacalcet 30 Mg Tablet PO 60 mg On Hold: 12/19/24 14:29 DAILY CHACORTA Administration Ergocalciferol 1,250 mcg 12/20/24 09:00 12/20/24 10:00 Ergocalciferol (Vitamin D2) 1,250 Mcg (50,000 Units) Capsule PO 1,250 mcg WEEKLY CHACORTA Administration Heparin Sodium (Porcine) 5,000 units 12/17/24 21:00 12/20/24 10:00 Heparin Sodium 5,000 Units/Ml Vial SUB-Q 5,000 units Q12HR CHACORTA Administration Meropenem 500 mg/ Sodium 100 mls @ 200 mls/hr 12/18/24 06:00 12/20/24 05:48 Chloride IVPB Infused Q24H CHACORTA Infusion (Ferric Citrate [ 210 mg 12/17/24 12:00 12/20/24 12:08 Auryxia] 210 Mg Iron PO 01/16/25 11:59 210 mg Tablet)Home Med TIDWM CHACORTA Administration Pantoprazole Sodium 40 mg 12/17/24 09:00 12/20/24 10:00 Pantoprazole Sodium Iv 40 Mg Vial IV PUSH 40 mg Q12HR CHACORTA Administration Radiology Results: ITS Impressions Chest X-Ray 12/16/24 15:13 Impression: Early bilateral pneumonia Abdomen/Pelvis CT 12/16/24 17:08 IMPRESSION: 1. Intra-abdominal free air which may relate to the patient's peritoneal dialysis catheter however distinction from a viscus perforation is limited and extensive artifact also obscures evaluation. Follow-up is recommended to assess as clinically warranted. 2. Incidental findings above Chest/Abdomen/Pelvis CT 12/19/24 15:26 IMPRESSION: 1. Evaluation limited by extensive streak artifact throughout the chest, abdomen and pelvis related to extensive T2-S1 posterior spinal fusion. There appears to chronic loosening of an associated right iliac screw with. Chronic healing fracture extends across the inferomedial aspect of the right iliac wing. 2. Extensive body wall edema with small amount of ascites and small left pleural effusion. The ascites may be related to peritoneal dialysis with dialysis catheter coiled in the left lower quadrant. 3. 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 Labs Labs: Laboratory Tests 12/20/24 05:38 12/20/24 05:38 Phosphorus 3.5 Albumin 1.8 L Vitamin D 25-Hydroxy < 12.8 PTH Intact 82.3 H 12/18/24 12/20/24 09:41 10:00 Peritoneal Source Peritoneal fluid Peritoneal fluid Peritoneal Color Yellow White Peritoneal Appearance Cloudy A Hazy A Peritoneal RBC 2000 < 2000 Periton Nuc Cells 20698 H 440 Periton Neutrophils 80 H 88 H Periton Lymphocytes 7 12 Microbiology 12/16/24 15:26 Blood Blood Culture - Preliminary 12/16/24 15:27 Blood Blood Culture - Preliminary 12/18/24 09:41 Peritoneal Fluid Gram Stain - Final
[2024-12-20 13:42] LABS: Appearance Peritoneal Fluid Hazy (Clear); Color Peritoneal Fluid White (Colorless); Lymphocytes Peritoneal Fluid 12 %; Neutrophils Peritoneal Fluid 88 % (0-25); Nucleated Cells Peritoneal Flu 440 /uL (0-500); Source Peritoneal Fluid Peritoneal Fluid
[2024-12-20] MEDS: CALCIUM GLUC 2,000 MG/NS 100ML 2,000 MG/100 ML BAG 100 MG IVPB (14:36)
[2024-12-21] VITALS (8 sets, daily range): BP systolic 123–144; BP diastolic 91–104; PULSE 92–121; RESP 12–18; TEMP 36.4; O2SAT 99–100
[2024-12-21] MEDS: ACETAMINOPHEN 500 MG TABLET PO (01:38)
[2024-12-21] MEDS: MEROPENEM 500 MG in SODIUM CHLORIDE 0.9% IV 100 ML 200 ML IVPB (05:39)
[2024-12-21 05:58] LABS: Hematocrit 37.2 % (37.0-47.0); Hemoglobin 11.4 g/dL (12.0-15.0); Immature Granulocyte Percent A 0.5 % (0-0.5); Lymphocytes Absolute Auto 2.00 K/mm3 (0.9-3.2); Mean Corpuscular HGB Conc 30.6 g/dl (32-36); Mean Corpuscular Hemoglobin 27.8 pg (26-34); Mean Corpuscular Volume 90.7 fl (80-100); Nucleated Red Blood Cells Absolute Auto 0.000 K/mm3 (0.0-0.012); Nucleated Red Blood Cells Perc 0.0 % (0.0-0.2); Platelet Count Result 353 k/mm3 (150-375); Red Blood Count 4.10 M/mm3 (4.2-5.4); White Blood Count 9.3 K/mm3 (4.5-10.0)
[2024-12-21 06:20] LABS: Albumin Level 1.9 g/dL (3.5-5.1); Anion Gap 3 mmol/L (4-12); Blood Urea Nitrogen 33 mg/dL (7-17); Calcium 6.4 mg/dL (8.4-10.2); Carbon Dioxide 25 mmol/L (22-30); Chloride 98 mmol/L (98-107); Estimated Glomerular Filt Rate 13; Glucose 98 mg/dL (65-110); Potassium 3.5 mmol/L (3.4-5.0); Sodium 126 mmol/L (137-145)
--- NOTE | 2024-12-21 07:10 | PM.IMPN ---
Progress Note: A&P Assessment and Plan (1) Hyponatremia: Code(s): E87.1 - Hypo-osmolality and hyponatremia Status: Acute (2) Abdominal pain: Code(s): R10.9 - Unspecified abdominal pain Status: Acute (3) End stage renal disease: Code(s): N18.6 - End stage renal disease Status: Acute (4) Hypocalcemia: Code(s): E83.51 - Hypocalcemia Status: Acute (5) Hypokalemia: Code(s): E87.6 - Hypokalemia Status: Acute (6) Cerebral palsy: Qualifiers: Cerebral palsy type: unspecified type Qualified Code(s): G80.9 - Cerebral palsy, unspecified Code(s): G80.9 - Cerebral palsy, unspecified Status: Chronic Plan 39 years old F with cerebral palsy presented to the ED yesterday with one day of left lower quadrant pain. Reportedly, patient has also been having episodes of emesis every other night for the past 10 days. Cloudy output from peritoneal dialysis bag reported. Previously treated with antibiotics for this. Denies fevers. Had 2 episodes of diarrhea last night in the ED. CT demonstrated intra-abdominal free air, which may relate to the patient's peritoneal dialysis catheter, however distinction from a viscus perforation is limited. Extensive artifact obscuring evaluation. On previous CT from 12/03/2024 free intraperitoneal air in the abdomen and pelvis presumably due to peritoneal dialysis was also noted. Found to be severly hypocalcemic Abdominal Pain: Peritonitis ID and nephrology following, appreciate recommendations free air, concern for viscus perforation distended stomach ?Cdif with h/o diarrhea, recent abx use Appreciate surgery help, no concerns for viscus perforation as per surgery Follow-up blood cultures, Peritoneal fluid with neutrophilia, cloudy Continue with vancomycin, meropenem Will get ID consult Continue with PPI Await C diff Monitor leukocytosis 2. Severe hypocalcemia: Received several doses of IV calcium Improved Continue with oral Tums Supplement IV calcium today as well Nephrology following 3. ESRD on peritoneal dialysis: Nephrology following 4.?Early B/L PNA: On room air Follow blood cultures Continue with vancomycin, meropenem Monitor leukocytosis 5. DVT prophylaxis: Heparin subQ 6. Code status: Full 7. Disposition: Pending improvement Subjective Date/time seen: 12/20/24 17:15 Interval history: Overnight events VSS, afebrile Sodium downtrending, renal following. Repeating in am Calcium 5.6, received 3G IV today. Calcium increased from 200 TID to 400 TID ID following Mom reports she's having less pain today Reason for hospitalization 39 y/o female who presented for LLQ abdominal pain, cloudy dialysis fluid, treating for PD catheter associated peritonitis. CT showed constipation. ID consulted. Continuing Meropenem for PD catheter peritonitis. IV Vancomycin discontinued per ID recs Outpatient PD fluid culture grew Neisseria species. Current PD fluid cultures are pending Renal consulted and following hypocalcemia Review of Systems Review of Systems: ROS unobtainable: Yes unobtainable due to medical condition Exam Narrative: GENERAL: Thin, HEAD: Normocephalic, atraumatic. NECK: Supple. RESPIRATORY: Airway patent, respirations nonlabored. Clear to auscultation bilaterally, no rales, rhonchi, wheezing. CARDIOVASCULAR: S1-S2 ABDOMINAL: Soft, left lower quadrant tenderness, + distended. Normoactive BS, Peritoneal dialysis catheter in place - clean/warm/dry/intact. MUSCULOSKELETAL: Moves all extremities. + contractures SKIN: Warm, dry, normal color. No rashes. NEURO: Alert PSYCHIATRIC: Appropriate mood Objective Data Vital Signs Vital Signs: Vital Signs - 24 hr 12/20/24 08:00 12/20/24 10:00 12/20/24 12:00 Temperature Pulse Rate 91 94 Respiratory Rate Blood Pressure Pulse Oximetry Oxygen Delivery Room Air 12/20/24 14:00 12/20/24 16:00 12/20/24 20:00 Temperature 98.6 F Pulse Rate 93 96 95 Respiratory Rate 18 Blood Pressure 122/93 H Pulse Oximetry 98 Oxygen Delivery 12/20/24 22:00 12/20/24 22:03 12/21/24 00:00 Temperature 96.6 F L Pulse Rate 98 92 Respiratory Rate 12 Blood Pressure 140/95 H Pulse Oximetry 99 99 Oxygen Delivery Room Air 12/21/24 04:00 Temperature Pulse Rate 95 Respiratory Rate Blood Pressure Pulse Oximetry Oxygen Delivery Intake/Output Intake/Output: Intake & Output 12/18/24 12/19/24 12/20/24 12/21/24 23:59 23:59 23:59 23:59 Intake Total 340 820 758 0 Output Total 469 376 674 Balance -129 444 84 0 Meds/Results Medications: Active Medications Generic Name Dose Route Start Last Admin Trade Name Freq PRN Reason Stop Dose Admin Acetaminophen 500 mg 12/18/24 10:29 12/21/24 01:38 Acetaminophen 500 Mg Tablet PO 500 mg Q6H PRN Administration Mild Pain (1-3) or Fever Calcium Carbonate 400 mg 12/20/24 09:00 12/20/24 17:32 Calcium Carbonate (Tums) 500 Mg (200 Mg Elemental) PO 400 mg TID CHACORTA Administration Cinacalcet 60 mg 12/17/24 10:30 12/19/24 10:54 Cinacalcet 30 Mg Tablet PO 60 mg On Hold: 12/19/24 14:29 DAILY CHACORTA Administration Ergocalciferol 1,250 mcg 12/20/24 09:00 12/20/24 10:00 Ergocalciferol (Vitamin D2) 1,250 Mcg (50,000 Units) Capsule PO 1,250 mcg WEEKLY CHACORTA Administration Fluconazole 100 mg 12/21/24 09:00 Fluconazole 100 Mg Tablet PO Q48HR CHACORTA Heparin Sodium (Porcine) 5,000 units 12/17/24 21:00 12/20/24 20:29 Heparin Sodium 5,000 Units/Ml Vial SUB-Q 5,000 units Q12HR CHACORTA Administration Meropenem 500 mg/ Sodium 100 mls @ 200 mls/hr 12/18/24 06:00 12/21/24 05:39 Chloride IVPB 200 mls/hr Q24H CHACORTA Administration (Ferric Citrate [ 210 mg 12/17/24 12:00 12/20/24 17:32 Auryxia] 210 Mg Iron PO 01/16/25 11:59 210 mg Tablet)Home Med TIDWM CHACORTA Administration Pantoprazole Sodium 40 mg 12/17/24 09:00 12/20/24 20:29 Pantoprazole Sodium Iv 40 Mg Vial IV PUSH 40 mg Q12HR CHACORTA Administration Radiology Results: ITS Impressions Chest X-Ray 12/16/24 15:13 Impression: Early bilateral pneumonia Abdomen/Pelvis CT 12/16/24 17:08 IMPRESSION: 1. Intra-abdominal free air which may relate to the patient's peritoneal dialysis catheter however distinction from a viscus perforation is limited and extensive artifact also obscures evaluation. Follow-up is recommended to assess as clinically warranted. 2. Incidental findings above Chest/Abdomen/Pelvis CT 12/19/24 15:26 IMPRESSION: 1. Evaluation limited by extensive streak artifact throughout the chest, abdomen and pelvis related to extensive T2-S1 posterior spinal fusion. There appears to chronic loosening of an associated right iliac screw with. Chronic healing fracture extends across the inferomedial aspect of the right iliac wing. 2. Extensive body wall edema with small amount of ascites and small left pleural effusion. The ascites may be related to peritoneal dialysis with dialysis catheter coiled in the left lower quadrant. 3. 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 Labs Labs: Laboratory Results - last 24 hr 12/20/24 12/21/24 10:00 05:40 WBC 9.3 RBC 4.10 L Hgb 11.4 L Hct 37.2 MCV 90.7 MCH 27.8 MCHC 30.6 L RDW 14.2 Plt Count 353 MPV 9.0 Immature Gran % (Auto) 0.5 Neut % (Auto) 68.6 Lymph % (Auto) 21.5 [place] % (Auto) 6.1 Eos % (Auto) 2.8 Baso % (Auto) 0.5 Lymph # (Auto) 2.00 [place] # (Auto) 0.6 Eos # (Auto) 0.3 Baso # (Auto) 0.1 Abs Immat Gran (auto) 0.05 H Absolute Neuts (auto) 6.4 Absolute Nucleated RBC 0.000 Nucleated RBC % 0.0 Sodium 126 L Potassium 3.5 Chloride 98 Carbon Dioxide 25 Anion Gap 3 L BUN 33 H Creatinine 3.93 H Estim Creat Clear Calc Not Reportable Estimated GFR 13 L Glucose 98 Calcium 6.4 L Phosphorus 3.4 Albumin 1.9 L Peritoneal Source Peritoneal fluid Peritoneal Color White Peritoneal Appearance Hazy A Peritoneal RBC < 2000 Periton Nuc Cells 440 Periton Neutrophils 88 H Periton Lymphocytes 12 Quality VTE Prophylaxis VTE prophylaxis: pharmacologic ordered
--- NOTE | 2024-12-21 07:14 | PM.IMPN ---
Progress Note: A&P Assessment and Plan (1) Hyponatremia: Code(s): E87.1 - Hypo-osmolality and hyponatremia Status: Acute (2) Abdominal pain: Code(s): R10.9 - Unspecified abdominal pain Status: Acute (3) End stage renal disease: Code(s): N18.6 - End stage renal disease Status: Acute (4) Hypocalcemia: Code(s): E83.51 - Hypocalcemia Status: Acute (5) Hypokalemia: Code(s): E87.6 - Hypokalemia Status: Acute (6) Cerebral palsy: Qualifiers: Cerebral palsy type: unspecified type Qualified Code(s): G80.9 - Cerebral palsy, unspecified Code(s): G80.9 - Cerebral palsy, unspecified Status: Chronic Plan 39 years old F with cerebral palsy presented to the ED yesterday with one day of left lower quadrant pain. Reportedly, patient has also been having episodes of emesis every other night for the past 10 days. Cloudy output from peritoneal dialysis bag reported. Previously treated with antibiotics for this. Denies fevers. Had 2 episodes of diarrhe in the ED, but has since resolved. CT demonstrated intra-abdominal free air, which may relate to the patient's peritoneal dialysis catheter, however distinction from a viscus perforation is limited. Extensive artifact obscuring evaluation. On previous CT from 12/03/2024 free intraperitoneal air in the abdomen and pelvis presumably due to peritoneal dialysis was also noted. Found to be severely hypocalcemic. Also treating hyponatremia Abdominal Pain: Peritonitis ID and nephrology following, appreciate recommendations free air, concern for viscus perforation distended stomach Improving with antibiotics Appreciate surgery help, no concerns for viscus perforation as per surgery Follow-up blood cultures, Peritoneal fluid with neutrophilia, cloudy Continue with meropenem. Off IV Vancomycin ID consulted, appreciate recommendation s Continue with PPI Stool was formed so c-diff was cancelled Monitor leukocytosis Severe hypocalcemia: Received several doses of IV calcium Improved. Intermittently low Continue with oral Tums 200<400 TID per renal Nephrology following Hyponatremia Monitoring, trending up Sodium downtrending 130>129>127>126 Nephrology following, treating with PD On a heart healthy diet per renal Follow up in AM ESRD on peritoneal dialysis: Nephrology following Early B/L PNA: On room air Follow blood cultures Continue with meropenem. Off Vancomycin Monitor leukocytosis 5. DVT prophylaxis: Heparin subQ 6. Code status: Full 7. Disposition: Pending improvement Time Spent With Patient Time: 56 minutes Subjective Date/time seen: 12/21/24 07:14 Interval history: Overnight events VSS. Sodium downtrending--renal adjusting Ferric citrate changed from TID to daily per discussion with mother PD cell count improving Reason for hospitalization 39 y/o female who presented for LLQ abdominal pain, cloudy dialysis fluid, treating for PD catheter associated peritonitis. CT showed constipation. ID consulted. Continuing Meropenem for PD catheter peritonitis. IV Vancomycin discontinued per ID recs Outpatient PD fluid culture grew Neisseria species. Current PD fluid cultures are pending Renal consulted and following hypocalcemia Review of Systems Review of Systems: ROS unobtainable: Yes unobtainable due to medical condition Exam Narrative: GENERAL: Thin, HEAD: Normocephalic, atraumatic. NECK: Supple. RESPIRATORY: Airway patent, respirations nonlabored. Clear to auscultation bilaterally, no rales, rhonchi, wheezing. CARDIOVASCULAR: S1-S2 ABDOMINAL: Soft, left lower quadrant tenderness, + distended. Normoactive BS, Peritoneal dialysis catheter in place - clean/warm/dry/intact. MUSCULOSKELETAL: Moves all extremities. + contractures SKIN: Warm, dry, normal color. No rashes. NEURO: Alert PSYCHIATRIC: Appropriate mood Objective Data Vital Signs Vital Signs: Vital Signs - 24 hr 12/20/24 08:00 12/20/24 10:00 12/20/24 12:00 Temperature Pulse Rate 91 94 Respiratory Rate Blood Pressure Pulse Oximetry Oxygen Delivery Room Air 12/20/24 14:00 12/20/24 16:00 12/20/24 20:00 Temperature 98.6 F Pulse Rate 93 96 95 Respiratory Rate 18 Blood Pressure 122/93 H Pulse Oximetry 98 Oxygen Delivery 12/20/24 22:00 12/20/24 22:03 12/21/24 00:00 Temperature 96.6 F L Pulse Rate 98 92 Respiratory Rate 12 Blood Pressure 140/95 H Pulse Oximetry 99 99 Oxygen Delivery Room Air 12/21/24 04:00 Temperature Pulse Rate 95 Respiratory Rate Blood Pressure Pulse Oximetry Oxygen Delivery Intake/Output Intake/Output: Intake & Output 12/18/24 12/19/24 12/20/24 12/21/24 23:59 23:59 23:59 23:59 Intake Total 340 820 758 0 Output Total 469 376 674 Balance -129 444 84 0 Meds/Results Medications: Active Medications Generic Name Dose Route Start Last Admin Trade Name Freq PRN Reason Stop Dose Admin Acetaminophen 500 mg 12/18/24 10:29 12/21/24 01:38 Acetaminophen 500 Mg Tablet PO 500 mg Q6H PRN Administration Mild Pain (1-3) or Fever Calcium Carbonate 400 mg 12/20/24 09:00 12/20/24 17:32 Calcium Carbonate (Tums) 500 Mg (200 Mg Elemental) PO 400 mg TID CHACORTA Administration Cinacalcet 60 mg 12/17/24 10:30 12/19/24 10:54 Cinacalcet 30 Mg Tablet PO 60 mg On Hold: 12/19/24 14:29 DAILY CHACORTA Administration Ergocalciferol 1,250 mcg 12/20/24 09:00 12/20/24 10:00 Ergocalciferol (Vitamin D2) 1,250 Mcg (50,000 Units) Capsule PO 1,250 mcg WEEKLY CHACORTA Administration Fluconazole 100 mg 12/21/24 09:00 Fluconazole 100 Mg Tablet PO Q48HR CHACORTA Heparin Sodium (Porcine) 5,000 units 12/17/24 21:00 12/20/24 20:29 Heparin Sodium 5,000 Units/Ml Vial SUB-Q 5,000 units Q12HR [facility]ORTA Administration Meropenem 500 mg/ Sodium 100 mls @ 200 mls/hr 12/18/24 06:00 12/21/24 05:39 Chloride IVPB 200 mls/hr Q24H CHACORTA Administration (Ferric Citrate [ 210 mg 12/17/24 12:00 12/20/24 17:32 Auryxia] 210 Mg Iron PO 01/16/25 11:59 210 mg Tablet)Home Med TIDWM [facility]ORTA Administration Pantoprazole Sodium 40 mg 12/17/24 09:00 12/20/24 20:29 Pantoprazole Sodium Iv 40 Mg Vial IV PUSH 40 mg Q12HR [facility]ORTA Administration Radiology Results: ITS Impressions Chest X-Ray 12/16/24 15:13 Impression: Early bilateral pneumonia Abdomen/Pelvis CT 12/16/24 17:08 IMPRESSION: 1. Intra-abdominal free air which may relate to the patient's peritoneal dialysis catheter however distinction from a viscus perforation is limited and extensive artifact also obscures evaluation. Follow-up is recommended to assess as clinically warranted. 2. Incidental findings above Chest/Abdomen/Pelvis CT 12/19/24 15:26 IMPRESSION: 1. Evaluation limited by extensive streak artifact throughout the chest, abdomen and pelvis related to extensive T2-S1 posterior spinal fusion. There appears to chronic loosening of an associated right iliac screw with. Chronic healing fracture extends across the inferomedial aspect of the right iliac wing. 2. Extensive body wall edema with small amount of ascites and small left pleural effusion. The ascites may be related to peritoneal dialysis with dialysis catheter coiled in the left lower quadrant. 3. 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 Labs Labs: Laboratory Results - last 24 hr 12/20/24 12/21/24 10:00 05:40 WBC 9.3 RBC 4.10 L Hgb 11.4 L Hct 37.2 MCV 90.7 MCH 27.8 MCHC 30.6 L RDW 14.2 Plt Count 353 MPV 9.0 Immature Gran % (Auto) 0.5 Neut % (Auto) 68.6 Lymph % (Auto) 21.5 [place] % (Auto) 6.1 Eos % (Auto) 2.8 Baso % (Auto) 0.5 Lymph # (Auto) 2.00 [place] # (Auto) 0.6 Eos # (Auto) 0.3 Baso # (Auto) 0.1 Abs Immat Gran (auto) 0.05 H Absolute Neuts (auto) 6.4 Absolute Nucleated RBC 0.000 Nucleated RBC % 0.0 Sodium 126 L Potassium 3.5 Chloride 98 Carbon Dioxide 25 Anion Gap 3 L BUN 33 H Creatinine 3.93 H Estim Creat Clear Calc Not Reportable Estimated GFR 13 L Glucose 98 Calcium 6.4 L Phosphorus 3.4 Albumin 1.9 L Peritoneal Source Peritoneal fluid Peritoneal Color White Peritoneal Appearance Hazy A Peritoneal RBC < 2000 Periton Nuc Cells 440 Periton Neutrophils 88 H Periton Lymphocytes 12 Quality VTE Prophylaxis VTE prophylaxis: pharmacologic ordered Hospitalist [facility] Advance Care Plan I have confirmed that the patient's Advanced Care Plan is present, code status is documented, or surrogate decision maker is listed in patient medical record.: Yes Medication Reconciliation I have utilized all available resources to obtain, update and review the patients current medications (includes all prescriptions, OTC, herbals, cannabis, and nutritional supplements).: Yes
[2024-12-21] MEDS: FLUCONAZOLE 100 MG TABLET PO (08:48)
[2024-12-21] MEDS: PANTOPRAZOLE SODIUM IV 40 MG VIAL IV PUSH ×2 (08:48→20:10)
[2024-12-21] MEDS: CALCIUM CARBONATE (TUMS) 500 MG (200 MG ELEMENTAL) 400 MG PO ×3 (08:48→16:54)
--- NOTE | 2024-12-21 09:26 | P.PNNP_ITS ---
Progress Note: A&P Assessment and Plan (1) End stage renal disease: Code(s): N18.6 - End stage renal disease Status: Acute Assessment and Plan: * continue nightly CCPD while hospitalized * using home PD cycler/machine given issues with hospital PD cycler on the evening of 12/17 * follow electrolytes, volume status, and clearance * due to polycystic kidney disease * outpatient dialysis center = [facility] * primary underwriter = Dr. Cary Maier (2) Abdominal pain: Code(s): R10.9 - Unspecified abdominal pain Status: Acute Assessment and Plan: * improvement noted * suspect secondary to peritonitis in the context of peritoneal dialysis * admission CT imaging reviewed * Surgery evaluation noted * follow clinical symptoms (3) Peritonitis: Code(s): K65.9 - Peritonitis, unspecified Status: Acute Assessment and Plan: * as reported by history (from primary underwriter and outpatient PD nurse) * per review with outpatient PD nurse: * cloudy PD fluid noted on 12/05 * initial PD fluid WBC/neutrophils of 7413 (on 12/05) * initiated on treatment with intraperitoneal vancomycin + ceftazidime; continued on IP vancomycin but added oral ciprofloxcin and diflucan * repeat PD fluid WBC/neutrophil count 5 days later down to 395 (on 12/10) * outpatient PD culture results with Neisseria * unfortunately, per outpatient dialysis lab facility, identification of the species of Neisseria not able to be done and hence, no susceptibilities will be available * improving trend of PD fluid sample cell count noted.... * repeat gram stain (on admission) with no WBC or organismes * repeat PD fluid cultures (on admission) pending * blood culture negative x 48 hours * CT C/A/P noted * Infectious Disease following * on antibiotics (4) Pneumonia: Code(s): J18.9 - Pneumonia, unspecified organism Status: Acute Assessment and Plan: * as suggested by admission imaging * no evidence of hypoxia * blood culture negative x 48 hours * on antibiotics (5) Hypocalcemia: Code(s): E83.51 - Hypocalcemia Status: Acute Assessment and Plan: * quite significant on presentation (5.7mg/dL) * however, given hypoalbuminia, admission corrected calcium closer to 7.0mg/dL * follow CORRECTED calcium levels...(corrected calcium 8.1mg/dL today) * s/p IV calcium and started on oral calcium supplements * PTH low and vitamin D level quite low * hold Sensipar/cinacalcet (can cause low calcium levels) * initiated on ergocalciferol * interestingl., calcium on ER visit on 12/02 normal at 8.7mg/dL (6) Hyponatremia: Code(s): E87.1 - Hypo-osmolality and hyponatremia Status: Acute Assessment and Plan: * as noted by trend of labs since admission * likely a chronic component due ESRD * acute drop maybe related to suboptimal fluid removal with PD treatments in the context of peritontitis * furthermore, recent imaging with extensive body wall edema present as well (hence, some degree of volume overload) * however, her low albumin may be contributing to her edema as well... * will try to be more aggressive with fluid removal with dialysis to see if this helps improve sodium... (7) Hypoalbuminemia: Code(s): E88.09 - Other disorders of plasma-protein metabolism, not elsewhere classified Status: Acute Assessment and Plan: * downward trend of albumin noted * suspect diminished oral intake in the context of infection * likely also related to infection itself * complicated by associated losses with dialysis at baseline * liberalized diet and getting nutritional supplements (getting Nepro shakes BID) * Advertising Assistant Manager/Nutrition following (8) Hypokalemia: Code(s): E87.6 - Hypokalemia Status: Acute Assessment and Plan: * corrected with supplementation * due to poor nutrition versus GI loss? * follow trend of repeat K+ levels (9) Anemia: Code(s): D64.9 - Anemia, unspecified Status: Acute Assessment and Plan: * H/H ar goal for ESRD status * no need for PALOMA * follow trend of H/H (10) Cerebral palsy: Qualifiers: Cerebral palsy type: unspecified type Qualified Code(s): G80.9 - Cerebral palsy, unspecified Code(s): G80.9 - Cerebral palsy, unspecified Status: Chronic Assessment and Plan: * chronic issue Will continue to follow. L Subjective Date/time seen: 12/21/24 09:26 Interval history: Follow-up for end stage renal disease on peritoneal dialysis. No apparent distress noted at the time of my visit; peritoneal dialysis treatment was uneventful overnight and tolerated reasonably well; per patient's mother and dialysis nurse, PD fluid this morning was quite clear; patient with still some LE edema and trend of sodium level noted; discussed situation with patient's mother at bedside. Exam 2 Narrative: General: thin and frail female in NAD Heart: normal S1 and S2; no rub Lungs: clear to auscultation Abdomen: soft, nontender; positive bowel sounds Extremities: no cyanosis or clubbing; trace edema; contractures noted Skin: no nodules Objective Data Vital Signs Vital Signs: Vital Signs Temp Pulse Resp BP Pulse Ox O2 Del Method 12/21/24 08:00 121 H 12 99 Room Air 12/21/24 08:00 102 H 12/21/24 04:00 95 12/21/24 00:00 92 12/20/24 22:03 99 Room Air 12/20/24 22:00 96.6 F L 98 12 140/95 H 99 12/20/24 20:00 95 12/20/24 16:00 96 12/20/24 14:00 98.6 F 93 18 122/93 H 98 Intake/Output Intake/Output: Intake & Output 12/18/24 12/19/24 12/20/24 12/21/24 23:59 23:59 23:59 23:59 Intake Total 340 820 758 480 Output Total 469 376 674 Balance -129 444 84 480 Meds/Results Medications: Active Medications Generic Name Dose Route Start Last Admin Trade Name Freq PRN Reason Stop Dose Admin Acetaminophen 500 mg 12/18/24 10:29 12/21/24 01:38 Acetaminophen 500 Mg Tablet PO 500 mg Q6H PRN Administration Mild Pain (1-3) or Fever Calcium Carbonate 400 mg 12/20/24 09:00 12/21/24 12:05 Calcium Carbonate (Tums) 500 Mg (200 Mg Elemental) PO 400 mg TID CHACORTA Administration Cinacalcet 60 mg 12/17/24 10:30 12/19/24 10:54 Cinacalcet 30 Mg Tablet PO 60 mg On Hold: 12/19/24 14:29 DAILY CHACORTA Administration Ergocalciferol 1,250 mcg 12/20/24 09:00 12/20/24 10:00 Ergocalciferol (Vitamin D2) 1,250 Mcg (50,000 Units) Capsule PO 1,250 mcg WEEKLY CHACORTA Administration Fluconazole 100 mg 12/21/24 09:00 12/21/24 08:48 Fluconazole 100 Mg Tablet PO 100 mg Q48HR CHACORTA Administration Heparin Sodium (Porcine) 5,000 units 12/17/24 21:00 12/21/24 08:48 Heparin Sodium 5,000 Units/Ml Vial SUB-Q 5,000 units Q12HR CHACORTA Administration Meropenem 500 mg/ Sodium 100 mls @ 200 mls/hr 12/18/24 06:00 12/21/24 05:39 Chloride IVPB 200 mls/hr Q24H CHACORTA Administration Non-Formulary Medication 210 mg 12/22/24 12:00 Ferric Citrate [Auryxia] PO 01/21/25 11:59 DAILY@1200 CHACORTA Pantoprazole Sodium 40 mg 12/17/24 09:00 12/21/24 08:48 Pantoprazole Sodium Iv 40 Mg Vial IV PUSH 40 mg Q12HR CHACORTA Administration Radiology Results: ITS Impressions Chest X-Ray 12/16/24 15:13 Impression: Early bilateral pneumonia Abdomen/Pelvis CT 12/16/24 17:08 IMPRESSION: 1. Intra-abdominal free air which may relate to the patient's peritoneal dialysis catheter however distinction from a viscus perforation is limited and extensive artifact also obscures evaluation. Follow-up is recommended to assess as clinically warranted. 2. Incidental findings above Chest/Abdomen/Pelvis CT 12/19/24 15:26 IMPRESSION: 1. Evaluation limited by extensive streak artifact throughout the chest, abdomen and pelvis related to extensive T2-S1 posterior spinal fusion. There appears to chronic loosening of an associated right iliac screw with. Chronic healing fracture extends across the inferomedial aspect of the right iliac wing. 2. Extensive body wall edema with small amount of ascites and small left pleural effusion. The ascites may be related to peritoneal dialysis with dialysis catheter coiled in the left lower quadrant. 3. 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 Labs Labs: Laboratory Tests 12/21/24 05:40 12/21/24 05:40 Calcium 6.4 L Phosphorus 3.4 Albumin 1.9 L Microbiology 12/16/24 15:26 Blood Blood Culture - Preliminary 12/16/24 15: Blood Blood Culture - Preliminary
--- NOTE | 2024-12-21 09:26 | PM.PNNEP ---
Progress Note: A&P Assessment and Plan (1) End stage renal disease: Code(s): N18.6 - End stage renal disease Status: Acute Assessment and Plan: continue nightly CCPD while hospitalized using home PD cycler/machine given issues with hospital PD cycler on the evening of 12/17 follow electrolytes, volume status, and clearance due to polycystic kidney disease outpatient dialysis center = [facility] primary laborer livestock = Dr. Cary Maier (2) Abdominal pain: Code(s): R10.9 - Unspecified abdominal pain Status: Acute Assessment and Plan: improvement noted suspect secondary to peritonitis in the context of peritoneal dialysis admission CT imaging reviewed Surgery evaluation noted follow clinical symptoms (3) Peritonitis: Code(s): K65.9 - Peritonitis, unspecified Status: Acute Assessment and Plan: as reported by history (from primary laborer livestock and outpatient PD nurse) per review with outpatient PD nurse: cloudy PD fluid noted on 12/05 initial PD fluid WBC/neutrophils of 7413 (on 12/05) initiated on treatment with intraperitoneal vancomycin + ceftazidime; continued on IP vancomycin but added oral ciprofloxcin and diflucan repeat PD fluid WBC/neutrophil count 5 days later down to 395 (on 12/10) outpatient PD culture results with Neisseria unfortunately, per outpatient dialysis lab facility, identification of the species of Neisseria not able to be done and hence, no susceptibilities will be available improving trend of PD fluid sample cell count noted.... repeat gram stain (on admission) with no WBC or organismes repeat PD fluid cultures (on admission) pending blood culture negative x [address] C/A/P noted Infectious Disease following on antibiotics (4) Pneumonia: Code(s): J18.9 - Pneumonia, unspecified organism Status: Acute Assessment and Plan: as suggested by admission imaging no evidence of hypoxia blood culture negative x 48 hours on antibiotics (5) Hypocalcemia: Code(s): E83.51 - Hypocalcemia Status: Acute Assessment and Plan: quite significant on presentation (5.7mg/dL) however, given hypoalbuminia, admission corrected calcium closer to 7.0mg/dL follow CORRECTED calcium levels...(corrected calcium 8.1mg/dL today) s/p IV calcium and started on oral calcium supplements PTH low and vitamin D level quite low hold Sensipar/cinacalcet (can cause low calcium levels) initiated on ergocalciferol interestingl., calcium on ER visit on 12/02 normal at 8.7mg/dL (6) Hyponatremia: Code(s): E87.1 - Hypo-osmolality and hyponatremia Status: Acute Assessment and Plan: as noted by trend of labs since admission likely a chronic component due ESRD acute drop maybe related to suboptimal fluid removal with PD treatments in the context of peritontitis furthermore, recent imaging with extensive body wall edema present as well (hence, some degree of volume overload) however, her low albumin may be contributing to her edema as well... will try to be more aggressive with fluid removal with dialysis to see if this helps improve sodium... (7) Hypoalbuminemia: Code(s): E88.09 - Other disorders of plasma-protein metabolism, not elsewhere classified Status: Acute Assessment and Plan: downward trend of albumin noted suspect diminished oral intake in the context of infection likely also related to infection itself complicated by associated losses with dialysis at baseline liberalized diet and getting nutritional supplements (getting Nepro shakes BID) [employer]/Nutrition following (8) Hypokalemia: Code(s): E87.6 - Hypokalemia Status: Acute Assessment and Plan: corrected with supplementation due to poor nutrition versus GI loss? follow trend of repeat K+ levels (9) Anemia: Code(s): D64.9 - Anemia, unspecified Status: Acute Assessment and Plan: H/H ar goal for ESRD status no need for PALOMA follow trend of H/H (10) Cerebral palsy: Qualifiers: Cerebral palsy type: unspecified type Qualified Code(s): G80.9 - Cerebral palsy, unspecified Code(s): G80.9 - Cerebral palsy, unspecified Status: Chronic Assessment and Plan: chronic issue Will continue to follow. Subjective Date/time seen: 12/21/24 09:26 Interval history: Follow-up for end stage renal disease on peritoneal dialysis. No apparent distress noted at the time of my visit; peritoneal dialysis treatment was uneventful overnight and tolerated reasonably well; per patient's mother and dialysis nurse, PD fluid this morning was quite clear; patient with still some LE edema and trend of sodium level noted; discussed situation with patient's mother at bedside. Exam Narrative: General: thin and frail female in NAD Heart: normal S1 and S2; no rub Lungs: clear to auscultation Abdomen: soft, nontender; positive bowel sounds Extremities: no cyanosis or clubbing; trace edema; contractures noted Skin: no nodules Objective Data Vital Signs Vital Signs: Vital Signs Temp Pulse Resp BP Pulse Ox O2 Del Method 12/21/24 08:00 121 H 12 99 Room Air 12/21/24 08:00 102 H 12/21/24 04:00 95 12/21/24 00:00 92 12/20/24 22:03 99 Room Air 12/20/24 22:00 96.6 F L 98 12 140/95 H 99 12/20/24 20:00 95 12/20/24 16:00 96 12/20/24 14:00 98.6 F 93 18 122/93 H 98 Intake/Output Intake/Output: Intake & Output 12/18/24 12/19/24 12/20/24 12/21/24 23:59 23:59 23:59 23:59 Intake Total 340 820 758 480 Output Total 469 376 674 Balance -129 444 84 480 Meds/Results Medications: Active Medications Generic Name Dose Route Start Last Admin Trade Name Freq PRN Reason Stop Dose Admin Acetaminophen 500 mg 12/18/24 10:29 12/21/24 01:38 Acetaminophen 500 Mg Tablet PO 500 mg Q6H PRN Administration Mild Pain (1-3) or Fever Calcium Carbonate 400 mg 12/20/24 09:00 12/21/24 12:05 Calcium Carbonate (Tums) 500 Mg (200 Mg Elemental) PO 400 mg TID CHACORTA Administration Cinacalcet 60 mg 12/17/24 10:30 12/19/24 10:54 Cinacalcet 30 Mg Tablet PO 60 mg On Hold: 12/19/24 14:29 DAILY CHACORTA Administration Ergocalciferol 1,250 mcg 12/20/24 09:00 12/20/24 10:00 Ergocalciferol (Vitamin D2) 1,250 Mcg (50,000 Units) Capsule PO 1,250 mcg WEEKLY CHACORTA Administration Fluconazole 100 mg 12/21/24 09:00 12/21/24 08:48 Fluconazole 100 Mg Tablet PO 100 mg Q48HR CHACORTA Administration Heparin Sodium (Porcine) 5,000 units 12/17/24 21:00 12/21/24 08:48 Heparin Sodium 5,000 Units/Ml Vial SUB-Q 5,000 units Q12HR CHACORTA Administration Meropenem 500 mg/ Sodium 100 mls @ 200 mls/hr 12/18/24 06:00 12/21/24 05:39 Chloride IVPB 200 mls/hr Q24H CHACORTA Administration Non-Formulary Medication 210 mg 12/22/24 12:00 Ferric Citrate [Auryxia] PO 01/21/25 11:59 DAILY@1200 CHACORTA Pantoprazole Sodium 40 mg 12/17/24 09:00 12/21/24 08:48 Pantoprazole Sodium Iv 40 Mg Vial IV PUSH 40 mg Q12HR CHACORTA Administration Radiology Results: ITS Impressions Chest X-Ray 12/16/24 15:13 Impression: Early bilateral pneumonia Abdomen/Pelvis CT 12/16/24 17:08 IMPRESSION: 1. Intra-abdominal free air which may relate to the patient's peritoneal dialysis catheter however distinction from a viscus perforation is limited and extensive artifact also obscures evaluation. Follow-up is recommended to assess as clinically warranted. 2. Incidental findings above Chest/Abdomen/Pelvis CT 12/19/24 15:26 IMPRESSION: 1. Evaluation limited by extensive streak artifact throughout the chest, abdomen and pelvis related to extensive T2-S1 posterior spinal fusion. There appears to chronic loosening of an associated right iliac screw with. Chronic healing fracture extends across the inferomedial aspect of the right iliac wing. 2. Extensive body wall edema with small amount of ascites and small left pleural effusion. The ascites may be related to peritoneal dialysis with dialysis catheter coiled in the left lower quadrant. 3. 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 Labs Labs: Laboratory Tests 12/21/24 05:40 12/21/24 05:40 Calcium 6.4 L Phosphorus 3.4 Albumin 1.9 L Microbiology 12/16/24 15:26 Blood Blood Culture - Preliminary 12/16/24 15:27 Blood Blood Culture - Preliminary
--- NOTE | 2024-12-21 10:55 | PC.NURSE ---
Patient's mother became upset when I had asked about the administration of the patient's ferrous citrate. She said I was told by administration that I am the only one that is supposed to be giving her medication from home. I have been doing this since we got here. No nurse has been giving them so this is news to me. Pt's mother was getting very upset at the fact that I was explaining to her that the nurse is normally responsible for the administration of the patients home medications and she walked away very irritated with me. Charge nurse Simona made aware.
--- NOTE | 2024-12-21 11:31 | PC.NURSE ---
Around 9am I was trying to give the patient her morning medications and as per her MAR she has the Tab ferrous citrate to be given TID, which was her home med and it was on the bed side of the patient. I confirmed with the other nurse,as i was the orientee and then when i was about give her the meds she told me that the ferrous citrate was changed to OD and all of the patient's medicines are always given only by herself(i:e the patient's mother). So, she took the medicines from me and gave to the patient. The charge nurse spoke to her as she was so upset.
--- NOTE | 2024-12-21 11:38 | PCNFU ---
Nutrition Follow-Up Complete: Increased protein energy needs related to peritoneal dialysis as evidenced by medical dx Goal:Adequate PO intake at least 75% Pt meeting goal, continue with same goal Pt current nutrition is Renal, Nepro BID. Nutrition recommendation: continue with current plan of care Last recorded weight is 35.9 kg. Bowel Motility: +BM 12/20 Labs Reviewed:Hgb:11.4, Alb:1.9, NA:126, BUN:33, Cr:3.9 Meds Noted: protonix, heparin Skin: WNL Additional Notes: Pt continues on a renal diet, intake 100% all meals, Nepro shakes BID. Pt is full assist for meals. Agree with orders, continue with current plan of care. Monitoring intakes, weights, labs, supplement tolerance, plan of care Follow up in 7 days
--- NOTE | 2024-12-21 11:45 | PC.NURSE ---
Patient Advocate, Nurse Senior Bioinformatics Scientist, and Nurse Director met with mother (Karis) of patient concerning home medication administration during hospitalization. had ordered patient to take home medication of Auryxia 210mg daily since it was non-formulary. Home medication was verified by Pharmacy per policy. Home medication policy was reviewed with patient's mother to emphasize the importance of policy and nursing's role in documenting patients taking their ordered medication. Patient's mother shared it it critical for patient to take the PO medication right before consuming her largest meal during the day. Nursing and patient's mother have agreed to partner on consumption of medication based on meal with two-way communication. The goal discussed today was for Auryxia to be taken at lunch.
--- NOTE | 2024-12-21 12:07 | WPDINFPN2 ---
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) -Await susceptibilities -12/18/24 inpatient PD fluid cultures NGTD -Continue Meropenem for broad coverage -Consider removal of PD catheter if symptoms worsen, PD catheter dysfunction persists -12/20/24 PD fluid cell [id number] which is significantly improved since admission (2) Abdominal pain: Code(s): R10.9 - Unspecified abdominal pain Status: Acute Assessment and Plan: Resolved abdominal pain Suspect abdominal pain due to PD catheter peritonitis, possible ileus changes on admission Management as per primary service (3) End stage renal disease: Code(s): N18.6 - End stage renal disease Status: Acute Assessment and Plan: Management as per Nephrology service (4) Pneumonia: Code(s): J18.9 - Pneumonia, unspecified organism Status: Acute Assessment and Plan: -CXR shows bibasilar infiltrates -Patient minimally symptomatic -This may reflect atelectasis vs. aspiration pneumonia in setting of recent emesis -Continue Meropenem for empiric coverage. (5) Cerebral palsy: Qualifiers: Cerebral palsy type: unspecified type Qualified Code(s): G80.9 - Cerebral palsy, unspecified Code(s): G80.9 - Cerebral palsy, unspecified Status: Chronic Assessment and Plan: Management as per primary service Plan -Continue Meropenem for Neisseria PD catheter peritonitis -May be able to de-escalate once final culture results known -Await PD fluid culture results from admission -Consider PD catheter removal if no improvement in peritonitis symptoms or if catheter dysfunction persists Discussed in detail with patient and mother. All questions answered. Patient was seen via video telehealth consultation with the assistance of staff. Chart, data, and patient independently reviewed. Patient was located at [facility] while I was located in my [place] office. Received verbal consent from patient. Subjective Date/time seen: 12/21/24 12:07 Interval history: Patient afebrile. No abdominal pain. Has chronic, stable back pain from scoliosis Review of Systems Review of Systems: All systems reviewed & are unremarkable except as noted in HPI and below Exam Narrative: Gen: alert, NAD Pulm: no tachypnea or conversational dyspnea Abd: distended, PD catheter intact, no TTP or guarding/rebound per nurse examination during telemed visit Ext: limb contractures noted Objective Data Vital Signs Vital Signs: Vital Signs - 24 hr 12/20/24 14:00 12/20/24 16:00 12/20/24 20:00 Temperature 98.6 F Pulse Rate 93 96 95 Respiratory Rate 18 Blood Pressure 122/93 H Pulse Oximetry 98 Oxygen Delivery 12/20/24 22:00 12/20/24 22:03 12/21/24 00:00 Temperature 96.6 F L Pulse Rate 98 92 Respiratory Rate 12 Blood Pressure 140/95 H Pulse Oximetry 99 99 Oxygen Delivery Room Air 12/21/24 04:00 12/21/24 08:00 Temperature Pulse Rate 95 102 H Respiratory Rate Blood Pressure Pulse Oximetry Oxygen Delivery Intake/Output Intake/Output: Intake & Output 12/18/24 12/19/24 12/20/24 12/21/24 23:59 23:59 23:59 23:59 Intake Total 340 820 758 240 Output Total 469 376 674 Balance -129 444 84 240 Meds/Results Medications: Active Medications Generic Name Dose Route Start Last Admin Trade Name Freq PRN Reason Stop Dose Admin Acetaminophen 500 mg 12/18/24 10:29 12/21/24 01:38 Acetaminophen 500 Mg Tablet PO 500 mg Q6H PRN Administration Mild Pain (1-3) or Fever Calcium Carbonate 400 mg 12/20/24 09:00 12/21/24 08:48 Calcium Carbonate (Tums) 500 Mg (200 Mg Elemental) PO 400 mg TID CHACORTA Administration Cinacalcet 60 mg 12/17/24 10:30 12/19/24 10:54 Cinacalcet 30 Mg Tablet PO 60 mg On Hold: 12/19/24 14:29 DAILY CHACORTA Administration Ergocalciferol 1,250 mcg 12/20/24 09:00 12/20/24 10:00 Ergocalciferol (Vitamin D2) 1,250 Mcg (50,000 Units) Capsule PO 1,250 mcg WEEKLY CHACORTA Administration Fluconazole 100 mg 12/21/24 09:00 12/21/24 08:48 Fluconazole 100 Mg Tablet PO 100 mg Q48HR [facility]ACORTA Administration Heparin Sodium (Porcine) 5,000 units 12/17/24 21:00 12/21/24 08:48 Heparin Sodium 5,000 Units/Ml Vial SUB-Q 5,000 units Q12HR [facility]A Administration Meropenem 500 mg/ Sodium 100 mls @ 200 mls/hr 12/18/24 06:00 12/21/24 05:39 Chloride IVPB 200 mls/hr Q24H CHACORTA Administration Non-Formulary Medication 210 mg 12/22/24 12:00 Ferric Citrate [Auryxia] PO 01/21/25 11:59 DAILY@1200 CHACORTA Pantoprazole Sodium 40 mg 12/17/24 09:00 12/21/24 08:48 Pantoprazole Sodium Iv 40 Mg Vial IV PUSH 40 mg Q12HR [facility]ACORTA Administration Radiology Results: ITS Impressions Chest X-Ray 12/16/24 15:13 Impression: Early bilateral pneumonia Abdomen/Pelvis CT 12/16/24 17:08 IMPRESSION: 1. Intra-abdominal free air which may relate to the patient's peritoneal dialysis catheter however distinction from a viscus perforation is limited and extensive artifact also obscures evaluation. Follow-up is recommended to assess as clinically warranted. 2. Incidental findings above Chest/Abdomen/Pelvis CT 12/19/24 15:26 IMPRESSION: 1. Evaluation limited by extensive streak artifact throughout the chest, abdomen and pelvis related to extensive T2-S1 posterior spinal fusion. There appears to chronic loosening of an associated right iliac screw with. Chronic healing fracture extends across the inferomedial aspect of the right iliac wing. 2. Extensive body wall edema with small amount of ascites and small left pleural effusion. The ascites may be related to peritoneal dialysis with dialysis catheter coiled in the left lower quadrant. 3. 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 Labs Labs: Laboratory Results - last 24 hr 12/20/24 12/21/24 10:00 05:40 WBC 9.3 RBC 4.10 L Hgb 11.4 L Hct 37.2 MCV 90.7 MCH 27.8 MCHC 30.6 L RDW 14.2 Plt Count 353 MPV 9.0 Immature Gran % (Auto) 0.5 Neut % (Auto) 68.6 Lymph % (Auto) 21.5 [place] % (Auto) 6.1 Eos % (Auto) 2.8 Baso % (Auto) 0.5 Lymph # (Auto) 2.00 [place] # (Auto) 0.6 Eos # (Auto) 0.3 Baso # (Auto) 0.1 Abs Immat Gran (auto) 0.05 H Absolute Neuts (auto) 6.4 Absolute Nucleated RBC 0.000 Nucleated RBC % 0.0 Sodium 126 L Potassium 3.5 Chloride 98 Carbon Dioxide 25 Anion Gap 3 L BUN 33 H Creatinine 3.93 H Estim Creat Clear Calc Not Reportable Estimated GFR 13 L Glucose 98 Calcium 6.4 L Phosphorus 3.4 Albumin 1.9 L Peritoneal Source Peritoneal fluid Peritoneal Color White Peritoneal Appearance Hazy A Peritoneal RBC < 2000 Periton Nuc Cells 440 Periton Neutrophils 88 H Periton Lymphocytes 12
[2024-12-21] MEDS: HEPARIN SODIUM IV CONT ×2 (18:00)
[2024-12-21] MEDS: PERITONEAL DIALYSIS IV CONT ×2 (18:00)
[2024-12-22] VITALS (8 sets, daily range): BP systolic 117–136; BP diastolic 92–99; PULSE 97–107; RESP 17–20; TEMP 35.9–36.8; O2SAT 92–100
--- NOTE | 2024-12-22 00:17 | PC.NURSE ---
patient mom at bedside with completing most care of patient including peritoneal dialysis with home unit
[2024-12-22 06:53] LABS: Hematocrit 36.3 % (37.0-47.0); Hemoglobin 11.2 g/dL (12.0-15.0); Immature Granulocyte Percent A 0.6 % (0-0.5); Lymphocytes Absolute Auto 1.99 K/mm3 (0.9-3.2); Mean Corpuscular HGB Conc 30.9 g/dl (32-36); Mean Corpuscular Hemoglobin 28.0 pg (26-34); Mean Corpuscular Volume 90.8 fl (80-100); Nucleated Red Blood Cells Absolute Auto 0.000 K/mm3 (0.0-0.012); Nucleated Red Blood Cells Perc 0.0 % (0.0-0.2); Platelet Count Result 385 k/mm3 (150-375); Red Blood Count 4.00 M/mm3 (4.2-5.4); White Blood Count 12.3 K/mm3 (4.5-10.0)
[2024-12-22 07:14] LABS: Albumin Level 1.8 g/dL (3.5-5.1); Anion Gap 6 mmol/L (4-12); Blood Urea Nitrogen 31 mg/dL (7-17); Calcium 6.2 mg/dL (8.4-10.2); Carbon Dioxide 25 mmol/L (22-30); Chloride 99 mmol/L (98-107); Estimated Glomerular Filt Rate 13; Glucose 65 mg/dL (65-110); Potassium 3.5 mmol/L (3.4-5.0); Sodium 130 mmol/L (137-145)
[2024-12-22 08:44] LABS: Appearance Peritoneal Fluid Clear (Clear); Color Peritoneal Fluid Colorless (Colorless); Eosinophils Peritoneal Fluid 2 %; Lymphocytes Peritoneal Fluid 3 %; Monocytes Peritoneal Fluid 36 %; Neutrophils Peritoneal Fluid 59 % (0-25); Nucleated Cells Peritoneal Flu 99 /uL (0-500); Source Peritoneal Fluid Peritoneal Fluid
[2024-12-22] MEDS: CALCIUM CARBONATE (TUMS) 500 MG (200 MG ELEMENTAL) 400 MG PO ×3 (09:34→17:08)
[2024-12-22] MEDS: cefTRIAXone 2 GM in SODIUM CHLORIDE 0.9% IV 100 ML 200 ML IVPB (09:34)
[2024-12-22] MEDS: PANTOPRAZOLE SODIUM IV 40 MG VIAL IV PUSH ×2 (09:34→20:38)
--- NOTE | 2024-12-22 09:47 | PC.NURSE ---
entry specialist consult: PD effluent sample collected and walked to lab. Sample appears clear, yellow and with no fibrin noted. MD notified. Total time: 20 minutes.
--- NOTE | 2024-12-22 10:20 | PM.PNNEP ---
Progress Note: A&P Assessment and Plan (1) End stage renal disease: Code(s): N18.6 - End stage renal disease Status: Acute Assessment and Plan: continue nightly CCPD while hospitalized using home PD cycler/machine given issues with hospital PD cycler on the evening of 12/17 follow electrolytes, volume status, and clearance due to polycystic kidney disease outpatient dialysis center = [facility] primary professor of exercise science = Dr. Cary Maier (2) Abdominal pain: Code(s): R10.9 - Unspecified abdominal pain Status: Acute Assessment and Plan: improvement noted suspect secondary to peritonitis in the context of peritoneal dialysis admission CT imaging reviewed Surgery evaluation noted follow clinical symptoms (3) Peritonitis: Code(s): K65.9 - Peritonitis, unspecified Status: Acute Assessment and Plan: as reported by history (from primary professor of exercise science and outpatient PD nurse) per review with outpatient PD nurse: cloudy PD fluid noted on 12/05 initial PD fluid WBC/neutrophils of 7413 (on 12/05) initiated on treatment with intraperitoneal vancomycin + ceftazidime; continued on IP vancomycin but added oral ciprofloxcin and diflucan repeat PD fluid WBC/neutrophil count 5 days later down to 395 (on 12/10) outpatient PD culture results with Neisseria unfortunately, per outpatient dialysis lab facility, identification of the species of Neisseria not able to be done and hence, no susceptibilities will be available improving trend of PD fluid sample cell count noted.... repeat gram stain (on admission) with no WBC or organisms repeat PD fluid cultures (on admission) with no growth (aerobic culture) blood culture negative x [address] C/A/P noted Infectious Disease following on antibiotics what antibiotics will be needed on discharge? (4) Pneumonia: Code(s): J18.9 - Pneumonia, unspecified organism Status: Acute Assessment and Plan: as suggested by admission imaging no evidence of hypoxia blood culture negative x 48 hours on antibiotics (5) Hypocalcemia: Code(s): E83.51 - Hypocalcemia Status: Acute Assessment and Plan: quite significant on presentation (5.7mg/dL) however, given hypoalbuminia, admission corrected calcium closer to 7.0mg/dL follow CORRECTED calcium levels...(corrected calcium 8.0mg/dL today) s/p IV calcium and started on oral calcium supplements PTH low and vitamin D level quite low hold Sensipar/cinacalcet (can cause low calcium levels) initiated on ergocalciferol interestingly, calcium on ER visit on 12/02 normal at 8.7mg/dL (but her albumin was 2.8g/dL at that time) (6) Hyponatremia: Code(s): E87.1 - Hypo-osmolality and hyponatremia Status: Acute Assessment and Plan: improvement noted likely a chronic component due to ESRD acute drop maybe related to suboptimal fluid removal with PD treatments in the context of peritonitis furthermore, recent imaging with extensive body wall edema present as well (hence, some degree of volume overload) however, her low albumin may be contributing to her edema as well... continue more aggressive fluid removal with dialysis (7) Hypoalbuminemia: Code(s): E88.09 - Other disorders of plasma-protein metabolism, not elsewhere classified Status: Acute Assessment and Plan: downward trend of albumin noted suspect diminished oral intake in the context of infection likely also related to infection itself complicated by associated losses with dialysis at baseline liberalized diet and getting nutritional supplements (getting Nepro shakes BID) Public Transportation Inspector/Nutrition following (8) Hypokalemia: Code(s): E87.6 - Hypokalemia Status: Acute Assessment and Plan: corrected with supplementation due to poor nutrition versus GI loss? follow trend of repeat K+ levels (9) Anemia: Code(s): D64.9 - Anemia, unspecified Status: Acute Assessment and Plan: H/H at goal for ESRD status no need for PALOMA at this time follow trend of H/H (10) Cerebral palsy: Qualifiers: Cerebral palsy type: unspecified type Qualified Code(s): G80.9 - Cerebral palsy, unspecified Code(s): G80.9 - Cerebral palsy, unspecified Status: Chronic Assessment and Plan: chronic issue Will continue to follow. Subjective Date/time seen: 12/22/24 10:20 Interval history: Follow-up for end stage renal disease on peritoneal dialysis. Tolerated peritoneal dialysis treatment overnight with improved ultrafiltration/fluid removal (CCPD supervised and seen at 10:10am); fluid status/edema appears to be slowly improving as wll; PD fluid appears quite clear this AM per patient's mother and dialysis nurse; no other acute issues/events overnight or earlier this mornning. Exam Narrative: General: thin and frail female in NAD Heart: normal S1 and S2; no rub Lungs: clear to auscultation Abdomen: soft, nontender; positive bowel sounds Extremities: no cyanosis or clubbing; trace edema; contractures noted Skin: warm and dry Objective Data Vital Signs Vital Signs: Vital Signs Temp Pulse Resp BP Pulse Ox 12/22/24 04:50 97.1 F L 102 H 17 125/94 H 100 12/22/24 04:00 97 12/22/24 00:00 105 H 12/21/24 22:39 97.6 F 108 H 16 144/104 H 100 12/21/24 20:00 106 H 12/21/24 16:00 100 12/21/24 14:00 97.5 F L 101 H 18 123/91 H 100 Intake/Output Intake/Output: Intake & Output 12/19/24 12/20/24 12/21/24 12/22/24 23:59 23:59 23:59 23:59 Intake Total 820 758 720 240 Output Total 376 674 0 1220 Balance 444 84 720 -980 Meds/Results Medications: Active Medications Generic Name Dose Route Start Last Admin Trade Name Freq PRN Reason Stop Dose Admin Acetaminophen 500 mg 12/18/24 10:29 12/21/24 01:38 Acetaminophen 500 Mg Tablet PO 500 mg Q6H PRN Administration Mild Pain (1-3) or Fever Calcium Carbonate 400 mg 12/20/24 09:00 12/22/24 09:34 Calcium Carbonate (Tums) 500 Mg (200 Mg Elemental) PO 400 mg TID CHACORTA Administration Cinacalcet 60 mg 12/17/24 10:30 12/19/24 10:54 Cinacalcet 30 Mg Tablet PO 60 mg On Hold: 12/19/24 14:29 DAILY CHACORTA Administration Ergocalciferol 1,250 mcg 12/20/24 09:00 12/20/24 10:00 Ergocalciferol (Vitamin D2) 1,250 Mcg (50,000 Units) Capsule PO 1,250 mcg WEEKLY CHACORTA Administration Fluconazole 100 mg 12/21/24 09:00 12/21/24 08:48 Fluconazole 100 Mg Tablet PO 100 mg Q48HR CHACORTA Administration Heparin Sodium (Porcine) 5,000 units 12/17/24 21:00 12/22/24 09:33 Heparin Sodium 5,000 Units/Ml Vial SUB-Q Not Given Q12HR [facility] Ceftriaxone Sodium 2 gm/ 100 mls @ 200 mls/hr 12/22/24 09:00 12/22/24 09:34 Sodium Chloride IVPB 200 mls/hr Q24H CHACORTA Administration Non-Formulary Medication 210 mg 12/22/24 12:00 Ferric Citrate [Auryxia] PO 01/21/25 11:59 DAILY@1200 [facility]ORTA Pantoprazole Sodium 40 mg 12/17/24 09:00 12/22/24 09:34 Pantoprazole Sodium Iv 40 Mg Vial IV PUSH 40 mg Q12HR [facility]ACORTA Administration Radiology Results: ITS Impressions Chest X-Ray 12/16/24 15:13 Impression: Early bilateral pneumonia Abdomen/Pelvis CT 12/16/24 17:08 IMPRESSION: 1. Intra-abdominal free air which may relate to the patient's peritoneal dialysis catheter however distinction from a viscus perforation is limited and extensive artifact also obscures evaluation. Follow-up is recommended to assess as clinically warranted. 2. Incidental findings above Chest/Abdomen/Pelvis CT 12/19/24 15:26 IMPRESSION: 1. Evaluation limited by extensive streak artifact throughout the chest, abdomen and pelvis related to extensive T2-S1 posterior spinal fusion. There appears to chronic loosening of an associated right iliac screw with. Chronic healing fracture extends across the inferomedial aspect of the right iliac wing. 2. Extensive body wall edema with small amount of ascites and small left pleural effusion. The ascites may be related to peritoneal dialysis with dialysis catheter coiled in the left lower quadrant. 3. 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 Labs Labs: Laboratory Tests 12/22/24 05:52 12/22/24 05:52 Calcium 6.2 L Phosphorus 3.0 Albumin 1.8 L 12/18/24 12/20/24 12/22/24 09:41 10:00 07:30 Peritoneal Source Peritoneal fluid Peritoneal fluid Peritoneal fluid Peritoneal Color Yellow White Colorless Peritoneal Appearance Cloudy A Hazy A Clear Peritoneal RBC 2000 < 2000 < 2000 Periton Nuc Cells 10123 H 440 99 Periton Neutrophils 80 H 88 H 59 H Microbiology 12/18/24 09:41 Peritoneal Fluid Aerobic Culture - Final 12/18/24 09:41 Peritoneal Fluid Gram Stain - Final
--- NOTE | 2024-12-22 10:20 | P.PNNP_ITS ---
Progress Note: A&P Assessment and Plan (1) End stage renal disease: Code(s): N18.6 - End stage renal disease Status: Acute Assessment and Plan: * continue nightly CCPD while hospitalized * using home PD cycler/machine given issues with hospital PD cycler on the evening of 12/17 * follow electrolytes, volume status, and clearance * due to polycystic kidney disease * outpatient dialysis center = [facility] * primary farm specialist = Dr. Cary Maier (2) Abdominal pain: Code(s): R10.9 - Unspecified abdominal pain Status: Acute Assessment and Plan: * improvement noted * suspect secondary to peritonitis in the context of peritoneal dialysis * admission CT imaging reviewed * Surgery evaluation noted * follow clinical symptoms (3) Peritonitis: Code(s): K65.9 - Peritonitis, unspecified Status: Acute Assessment and Plan: * as reported by history (from primary farm specialist and outpatient PD nurse) * per review with outpatient PD nurse: * cloudy PD fluid noted on 12/05 * initial PD fluid WBC/neutrophils of 7413 (on 12/05) * initiated on treatment with intraperitoneal vancomycin + ceftazidime; continued on IP vancomycin but added oral ciprofloxcin and diflucan * repeat PD fluid WBC/neutrophil count 5 days later down to 395 (on 12/10) * outpatient PD culture results with Neisseria * unfortunately, per outpatient dialysis lab facility, identification of the species of Neisseria not able to be done and hence, no susceptibilities will be available * improving trend of PD fluid sample cell count noted.... * repeat gram stain (on admission) with no WBC or organisms * repeat PD fluid cultures (on admission) with no growth (aerobic culture) * blood culture negative x 48 hours * CT C/A/P noted * Infectious Disease following * on antibiotics * what antibiotics will be needed on discharge? (4) Pneumonia: Code(s): J18.9 - Pneumonia, unspecified organism Status: Acute Assessment and Plan: * as suggested by admission imaging * no evidence of hypoxia * blood culture negative x 48 hours * on antibiotics (5) Hypocalcemia: Code(s): E83.51 - Hypocalcemia Status: Acute Assessment and Plan: * quite significant on presentation (5.7mg/dL) * however, given hypoalbuminia, admission corrected calcium closer to 7.0mg/dL * follow CORRECTED calcium levels...(corrected calcium 8.0mg/dL today) * s/p IV calcium and started on oral calcium supplements * PTH low and vitamin D level quite low * hold Sensipar/cinacalcet (can cause low calcium levels) * initiated on ergocalciferol * interestingly, calcium on ER visit on 12/02 normal at 8.7mg/dL (but her albumin was 2.8g/dL at that time) (6) Hyponatremia: Code(s): E87.1 - Hypo-osmolality and hyponatremia Status: Acute Assessment and Plan: * improvement noted * likely a chronic component due to ESRD * acute drop maybe related to suboptimal fluid removal with PD treatments in the context of peritonitis * furthermore, recent imaging with extensive body wall edema present as well (hence, some degree of volume overload) * however, her low albumin may be contributing to her edema as well... * continue more aggressive fluid removal with dialysis (7) Hypoalbuminemia: Code(s): E88.09 - Other disorders of plasma-protein metabolism, not elsewhere classified Status: Acute Assessment and Plan: * downward trend of albumin noted * suspect diminished oral intake in the context of infection * likely also related to infection itself * complicated by associated losses with dialysis at baseline * liberalized diet and getting nutritional supplements (getting Nepro shakes BID) * Utility Maintenance Worker/Nutrition following (8) Hypokalemia: Code(s): E87.6 - Hypokalemia Status: Acute Assessment and Plan: * corrected with supplementation * due to poor nutrition versus GI loss? * follow trend of repeat K+ levels (9) Anemia: Code(s): D64.9 - Anemia, unspecified Status: Acute Assessment and Plan: * H/H at goal for ESRD status * no need for PALOMA at this time * follow trend of H/H (10) Cerebral palsy: Qualifiers: Cerebral palsy type: unspecified type Qualified Code(s): G80.9 - Cerebral palsy, unspecified Code(s): G80.9 - Cerebral palsy, unspecified Status: Chronic Assessment and Plan: * chronic issue Will continue to follow. L Subjective Date/time seen: 12/22/24 10:20 Interval history: Follow-up for end stage renal disease on peritoneal dialysis. Tolerated peritoneal dialysis treatment overnight with improved ultrafiltration/fluid removal (CCPD supervised and seen at 10:10am); fluid status/edema appears to be slowly improving as wll; PD fluid appears quite clear this AM per patient's mother and dialysis nurse; no other acute issues/events overnight or earlier this mornning. Exam 2 Narrative: General: thin and frail female in NAD Heart: normal S1 and S2; no rub Lungs: clear to auscultation Abdomen: soft, nontender; positive bowel sounds Extremities: no cyanosis or clubbing; trace edema; contractures noted Skin: warm and dry Objective Data Vital Signs Vital Signs: Vital Signs Temp Pulse Resp BP Pulse Ox 12/22/24 04:50 97.1 F L 102 H 17 125/94 H 100 12/22/24 04:00 97 12/22/24 00:00 105 H 12/21/24 22:39 97.6 F 108 H 16 144/104 H 100 12/21/24 20:00 106 H 12/21/24 16:00 100 12/21/24 14:00 97.5 F L 101 H 18 123/91 H 100 Intake/Output Intake/Output: Intake & Output 12/19/24 12/20/24 12/21/24 12/22/24 23:59 23:59 23:59 23:59 Intake Total 820 758 720 240 Output Total 376 674 0 1220 Balance 444 84 720 -980 Meds/Results Medications: Active Medications Generic Name Dose Route Start Last Admin Trade Name Freq PRN Reason Stop Dose Admin Acetaminophen 500 mg 12/18/24 10:29 12/21/24 01:38 Acetaminophen 500 Mg Tablet PO 500 mg Q6H PRN Administration Mild Pain (1-3) or Fever Calcium Carbonate 400 mg 12/20/24 09:00 12/22/24 09:34 Calcium Carbonate (Tums) 500 Mg (200 Mg Elemental) PO 400 mg TID CHACORTA Administration Cinacalcet 60 mg 12/17/24 10:30 12/19/24 10:54 Cinacalcet 30 Mg Tablet PO 60 mg On Hold: 12/19/24 14:29 DAILY CHACORTA Administration Ergocalciferol 1,250 mcg 12/20/24 09:00 12/20/24 10:00 Ergocalciferol (Vitamin D2) 1,250 Mcg (50,000 Units) Capsule PO 1,250 mcg WEEKLY CHACORTA Administration Fluconazole 100 mg 12/21/24 09:00 12/21/24 08:48 Fluconazole 100 Mg Tablet PO 100 mg Q48HR [facility]ACORTA Administration Heparin Sodium (Porcine) 5,000 units 12/17/24 21:00 12/22/24 09:33 Heparin Sodium 5,000 Units/Ml Vial SUB-Q Not Given Q12HR [facility] Ceftriaxone Sodium 2 gm/ 100 mls @ 200 mls/hr 12/22/24 09:00 12/22/24 09:34 Sodium Chloride IVPB 200 mls/hr Q24H [facility]ACORTA Administration Non-Formulary Medication 210 mg 12/22/24 12:00 Ferric Citrate [Auryxia] PO 01/21/25 11:59 DAILY@1200 [facility]A Pantoprazole Sodium 40 mg 12/17/24 09:00 12/22/24 09:34 Pantoprazole Sodium Iv 40 Mg Vial IV PUSH 40 mg Q12HR [facility]ACORTA Administration Radiology Results: ITS Impressions Chest X-Ray 12/16/24 15:13 Impression: Early bilateral pneumonia Abdomen/Pelvis CT 12/16/24 17:08 IMPRESSION: 1. Intra-abdominal free air which may relate to the patient's peritoneal dialysis catheter however distinction from a viscus perforation is limited and extensive artifact also obscures evaluation. Follow-up is recommended to assess as clinically warranted. 2. Incidental findings above Chest/Abdomen/Pelvis CT 12/19/24 15:26 IMPRESSION: 1. Evaluation limited by extensive streak artifact throughout the chest, abdomen and pelvis related to extensive T2-S1 posterior spinal fusion. There appears to chronic loosening of an associated right iliac screw with. Chronic healing fracture extends across the inferomedial aspect of the right iliac wing. 2. Extensive body wall edema with small amount of ascites and small left pleural effusion. The ascites may be related to peritoneal dialysis with dialysis catheter coiled in the left lower quadrant. 3. 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 Labs Labs: Laboratory Tests 12/22/24 05:52 12/22/24 05:52 Calcium 6.2 L Phosphorus 3.0 Albumin 1.8 L 12/18/24 12/20/24 12/22/24 09:41 10:00 07:30 Peritoneal Source Peritoneal fluid Peritoneal fluid Peritoneal fluid Peritoneal Color Yellow White Colorless Peritoneal Appearance Cloudy A Hazy A Clear Peritoneal RBC 2000 < 2000 < 2000 Periton Nuc Cells 96322 H 440 99 Periton Neutrophils 80 H 88 H 59 H Microbiology 12/18/24 09:41 Peritoneal Fluid Aerobic Culture - Final 12/18/24 09:41 Peritoneal Fluid Gram Stain - Final
[2024-12-22] MEDS: [UNRECOGNIZED DRUG - OTHER] PO (12:16)
[2024-12-22] MEDS: FERRIC CITRATE 210 MG PO (12:16)
--- NOTE | 2024-12-22 15:47 | P.PNIM_ITS ---
Progress Note: A&P Assessment and Plan (1) Hyponatremia: Code(s): E87.1 - Hypo-osmolality and hyponatremia Status: Acute (2) Abdominal pain: Code(s): R10.9 - Unspecified abdominal pain Status: Acute (3) End stage renal disease: Code(s): N18.6 - End stage renal disease Status: Acute (4) Hypocalcemia: Code(s): E83.51 - Hypocalcemia Status: Acute (5) Hypokalemia: Code(s): E87.6 - Hypokalemia Status: Acute (6) Cerebral palsy: Qualifiers: Cerebral palsy type: unspecified type Qualified Code(s): G80.9 - Cerebral palsy, unspecified Code(s): G80.9 - Cerebral palsy, unspecified Status: Chronic Plan 39 years old F with cerebral palsy presented to the ED yesterday with one day of left lower quadrant pain. Reportedly, patient has also been having episodes of emesis every other night for the past 10 days. Cloudy output from peritoneal dialysis bag reported. Previously treated with antibiotics for this. Denies fevers. Had 2 episodes of diarrhe in the ED, but has since resolved. CT demonstrated intra-abdominal free air, which may relate to the patient's peritoneal dialysis catheter, however distinction from a viscus perforation is limited. Extensive artifact obscuring evaluation. On previous CT from 12/03/2024 free intraperitoneal air in the abdomen and pelvis presumably due to peritoneal dialysis was also noted. Found to be severely hypocalcemic. Also treating hyponatremia Abdominal Pain: Peritonitis ID and nephrology following, appreciate recommendations free air, concern for viscus perforation distended stomach Improving with antibiotics Appreciate surgery help, no concerns for viscus perforation as per surgery Follow-up blood cultures, Peritoneal fluid with neutrophilia, cloudy Meropenem changed to Ceftriaxone. Off IV Vancomycin ID consulted, appreciate recommendations Continue with PPI Stool was formed so c-diff was cancelled Monitor leukocytosis --Pending final antibiotic recommendations per ID. If she needs IV antibiotics after discharge will likely need a Maureen instead of a PICC with ESRD. Can clarify with nephrology Severe hypocalcemia: Received several doses of IV calcium Improved. Intermittently low Continue with oral Tums 200<400 TID per renal Nephrology following Hyponatremia Monitoring, trending up Sodium downtrending 130>129>127>126<130 Nephrology following, treating with PD On a heart healthy diet per renal Follow daily BMP ESRD on peritoneal dialysis: Nephrology following Early B/L PNA: On room air Follow blood cultures Continue with meropenem. Off Vancomycin Monitor leukocytosis 5. DVT prophylaxis: Heparin subQ 6. Code status: Full 7. Disposition: Pending improvement Time Spent With Patient Time: 57 minutes Subjective Date/time seen: 12/22/24 15:47 Interval history: WBC 12.3 Sodium improved to 130 today. Calcium slightly lower than yesterday, overall about the same PD fluid reported to be clear today. Meropenem changed to Ceftriaxone by ID Had a BM today, scottie wolfe Review of Systems Review of Systems: ROS unobtainable: Yes unobtainable due to medical condition Exam Narrative: GENERAL: Thin, HEAD: Normocephalic, atraumatic. NECK: Supple. RESPIRATORY: Airway patent, respirations nonlabored. Clear to auscultation bilaterally, no rales, rhonchi, wheezing. CARDIOVASCULAR: S1-S2 ABDOMINAL: Soft, left lower quadrant tenderness, + distended. Normoactive BS, Peritoneal dialysis catheter in place - clean/warm/dry/intact. MUSCULOSKELETAL: Moves all extremities. + contractures SKIN: Warm, dry, normal color. No rashes. NEURO: Alert PSYCHIATRIC: Appropriate mood Objective Data Vital Signs Vital Signs: Vital Signs - 24 hr 12/21/24 16:00 12/21/24 20:00 12/21/24 22:39 Temperature 97.6 F Pulse Rate 100 106 H 108 H Respiratory Rate 16 Blood Pressure 144/104 H Pulse Oximetry 100 Oxygen Delivery 12/22/24 00:00 12/22/24 04:00 12/22/24 04:50 Temperature 97.1 F L Pulse Rate 105 H 97 102 H Respiratory Rate 17 Blood Pressure 125/94 H Pulse Oximetry 100 Oxygen Delivery 12/22/24 08:00 12/22/24 14:00 Temperature 98.3 F Pulse Rate 97 Respiratory Rate 20 Blood Pressure 117/92 H Pulse Oximetry 92 Oxygen Delivery Room Air Intake/Output Intake/Output: Intake & Output 12/19/24 12/20/24 12/21/24 12/22/24 23:59 23:59 23:59 23:59 Intake Total 820 758 720 480 Output Total 376 674 0 1220 Balance 444 84 720 -740 Meds/Results Medications: Active Medications Generic Name Dose Route Start Last Admin Trade Name Remi PRN Reason Stop Dose Admin Acetaminophen 500 mg 12/18/24 10:29 12/21/24 01:38 Acetaminophen 500 Mg Tablet PO 500 mg Q6H PRN Administration Mild Pain (1-3) or Fever Calcium Carbonate 400 mg 12/20/24 09:00 12/22/24 12:27 Calcium Carbonate (Tums) 500 Mg (200 Mg Elemental) PO 400 mg TID CHACORTA Administration Cinacalcet 60 mg 12/17/24 10:30 12/19/24 10:54 Cinacalcet 30 Mg Tablet PO 60 mg On Hold: 12/19/24 14:29 DAILY CHACORTA Administration Ergocalciferol 1,250 mcg 12/20/24 09:00 12/20/24 10:00 Ergocalciferol (Vitamin D2) 1,250 Mcg (50,000 Units) Capsule PO 1,250 mcg WEEKLY CHACORTA Administration Fluconazole 100 mg 12/21/24 09:00 12/21/24 08:48 Fluconazole 100 Mg Tablet PO 100 mg Q48HR CHACORTA Administration Heparin Sodium (Porcine) 5,000 units 12/17/24 21:00 12/22/24 09:33 Heparin Sodium 5,000 Units/Ml Vial SUB-Q Not Given Q12HR CHACORTA Ceftriaxone Sodium 2 gm/ 100 mls @ 200 mls/hr 12/22/24 09:00 12/22/24 09:34 Sodium Chloride IVPB 200 mls/hr Q24H CHACORTA Administration Non-Formulary Medication 210 mg 12/22/24 12:00 12/22/24 12:16 Ferric Citrate [Auryxia] PO 01/21/25 11:59 210 mg DAILY@1200 CHACORTA Administration Pantoprazole Sodium 40 mg 12/17/24 09:00 12/22/24 09:34 Pantoprazole Sodium Iv 40 Mg Vial IV PUSH 40 mg Q12HR CHACORTA Administration Radiology Results: ITS Impressions Chest X-Ray 12/16/24 15:13 Impression: Early bilateral pneumonia Abdomen/Pelvis CT 12/16/24 17:08 IMPRESSION: 1. Intra-abdominal free air which may relate to the patient's peritoneal dialysis catheter however distinction from a viscus perforation is limited and extensive artifact also obscures evaluation. Follow-up is recommended to assess as clinically warranted. 2. Incidental findings above Chest/Abdomen/Pelvis CT 12/19/24 15:26 IMPRESSION: 1. Evaluation limited by extensive streak artifact throughout the chest, abdomen and pelvis related to extensive T2-S1 posterior spinal fusion. There appears to chronic loosening of an associated right iliac screw with. Chronic healing fracture extends across the inferomedial aspect of the right iliac wing. 2. Extensive body wall edema with small amount of ascites and small left pleural effusion. The ascites may be related to peritoneal dialysis with dialysis catheter coiled in the left lower quadrant. 3. 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 Labs Labs: Laboratory Results - last 24 hr 12/22/24 12/22/24 05:52 07:30 WBC 12.3 H RBC 4.00 L Hgb 11.2 L Hct 36.3 L MCV 90.8 MCH 28.0 MCHC 30.9 L RDW 14.1 Plt Count 385 H MPV 9.5 Immature Gran % (Auto) 0.6 H Neut % (Auto) 76.3 H Lymph % (Auto) 16.2 L [place] % (Auto) 3.6 Eos % (Auto) 2.8 Baso % (Auto) 0.5 Lymph # (Auto) 1.99 [place] # (Auto) 0.4 Eos # (Auto) 0.3 Baso # (Auto) 0.1 Abs Immat Gran (auto) 0.07 H Absolute Neuts (auto) 9.4 H Absolute Nucleated RBC 0.000 Nucleated RBC % 0.0 Sodium 130 L Potassium 3.5 Chloride 99 Carbon Dioxide 25 Anion Gap 6 BUN 31 H Creatinine 3.82 H Estim Creat Clear Calc Not Reportable Estimated GFR 13 L Glucose 65 Calcium 6.2 L Phosphorus 3.0 Albumin 1.8 L Peritoneal Source Peritoneal fluid Peritoneal Color Colorless Peritoneal Appearance Clear Peritoneal RBC < 2000 Periton Nuc Cells 99 Periton Neutrophils 59 H Periton Lymphocytes 3 Peritoneal Monocytes 36 Peritoneal Eosinophils 2 Quality VTE Prophylaxis VTE prophylaxis: pharmacologic ordered
[2024-12-23] VITALS (8 sets, daily range): BP systolic 124–145; BP diastolic 94–105; PULSE 92–110; RESP 16–18; TEMP 36.3–36.9; O2SAT 98–100
[2024-12-23] MEDS: ACETAMINOPHEN 500 MG TABLET PO ×2 (00:41→20:16)
[2024-12-23 06:13] LABS: Hematocrit 40.9 % (37.0-47.0); Hemoglobin 12.5 g/dL (12.0-15.0); Immature Granulocyte Percent A 0.4 % (0-0.5); Lymphocytes Absolute Auto 1.93 K/mm3 (0.9-3.2); Mean Corpuscular HGB Conc 30.6 g/dl (32-36); Mean Corpuscular Hemoglobin 27.8 pg (26-34); Mean Corpuscular Volume 90.9 fl (80-100); Nucleated Red Blood Cells Absolute Auto 0.000 K/mm3 (0.0-0.012); Nucleated Red Blood Cells Perc 0.0 % (0.0-0.2); Platelet Count Result 393 k/mm3 (150-375); Red Blood Count 4.50 M/mm3 (4.2-5.4); White Blood Count 10.0 K/mm3 (4.5-10.0)
[2024-12-23 06:41] LABS: Albumin Level 2.0 g/dL (3.5-5.1); Anion Gap 3 mmol/L (4-12); Blood Urea Nitrogen 31 mg/dL (7-17); Calcium 6.5 mg/dL (8.4-10.2); Carbon Dioxide 26 mmol/L (22-30); Chloride 100 mmol/L (98-107); Estimated Glomerular Filt Rate 14; Glucose 92 mg/dL (65-110); Potassium 3.6 mmol/L (3.4-5.0); Sodium 129 mmol/L (137-145)
[2024-12-23] MEDS: CALCIUM CARBONATE (TUMS) 500 MG (200 MG ELEMENTAL) 400 MG PO ×3 (08:55→16:58)
[2024-12-23] MEDS: FLUCONAZOLE 100 MG TABLET PO (08:55)
[2024-12-23] MEDS: cefTRIAXone 2 GM in SODIUM CHLORIDE 0.9% IV 100 ML 200 ML IVPB (08:56)
[2024-12-23] MEDS: PANTOPRAZOLE SODIUM IV 40 MG VIAL IV PUSH ×2 (08:58→20:17)
--- NOTE | 2024-12-23 09:25 | P.PNIM_ITS ---
Progress Note: A&P Assessment and Plan (1) Hyponatremia: Code(s): E87.1 - Hypo-osmolality and hyponatremia Status: Acute (2) Abdominal pain: Code(s): R10.9 - Unspecified abdominal pain Status: Acute (3) End stage renal disease: Code(s): N18.6 - End stage renal disease Status: Acute (4) Hypocalcemia: Code(s): E83.51 - Hypocalcemia Status: Acute (5) Hypokalemia: Code(s): E87.6 - Hypokalemia Status: Acute (6) Cerebral palsy: Qualifiers: Cerebral palsy type: unspecified type Qualified Code(s): G80.9 - Cerebral palsy, unspecified Code(s): G80.9 - Cerebral palsy, unspecified Status: Chronic Plan 39 years old F with cerebral palsy presented to the ED yesterday with one day of left lower quadrant pain. Reportedly, patient has also been having episodes of emesis every other night for the past 10 days. Cloudy output from peritoneal dialysis bag reported. Previously treated with antibiotics for this. Denies fevers. Had 2 episodes of diarrhe in the ED, but has since resolved. CT demonstrated intra-abdominal free air, which may relate to the patient's peritoneal dialysis catheter, however distinction from a viscus perforation is limited. Extensive artifact obscuring evaluation. On previous CT from 12/03/2024 free intraperitoneal air in the abdomen and pelvis presumably due to peritoneal dialysis was also noted. Found to be severely hypocalcemic. Also treating hyponatremia Abdominal Pain: Peritonitis ID and nephrology following, appreciate recommendations free air, concern for viscus perforation distended stomach Improving with antibiotics Appreciate surgery help, no concerns for viscus perforation as per surgery Follow-up blood cultures, Peritoneal fluid with neutrophilia, cloudy Meropenem changed to Ceftriaxone. Off IV Vancomycin Ooutpatient PD culture results with Neissieria Per renal notes: unfortunately, per outpatient dialysis lab facility, identification of the species of Neisseria not able to be done and hence, no susceptibilities will be available ID consulted, appreciate recommendations Continue with PPI Stool was formed so c-diff was cancelled Monitor leukocytosis --Pending final antibiotic recommendations per ID. If she needs IV antibiotics after discharge will likely need a Maureen instead of a PICC with ESRD. Family has experience with intraperitoneal antibiotics Severe hypocalcemia: Received several doses of IV calcium Improved. Intermittently low Continue with oral Tums 200<400 TID per renal Nephrology following Hyponatremia Monitoring, trending up Sodium downtrending 130>129>127>126<130>129 Nephrology following, treating with PD On a heart healthy diet per renal Follow daily BMP ESRD on peritoneal dialysis: Nephrology following Early B/L PNA: On room air Follow blood cultures Antibiotics as above. Off Vancomycin Monitor leukocytosis 5. DVT prophylaxis: Heparin subQ 6. Code status: Full 7. Disposition: Pending improvement Time Spent With Patient Time: 59 minutes Subjective Date/time seen: 12/23/24 09:25 Interval history: WBC normalized Sodium and calcium stable Meropenem changed to Ceftriaxone by ID. Mother at bedside reports PD fluid was more cloudy this morning. Renal adding heparin to bag tonight and reassessing in the morning Review of Systems Review of Systems: ROS unobtainable: Yes unobtainable due to medical condition Exam Narrative: GENERAL: Thin, HEAD: Normocephalic, atraumatic. NECK: Supple. RESPIRATORY: Airway patent, respirations nonlabored. Clear to auscultation bilaterally, no rales, rhonchi, wheezing. CARDIOVASCULAR: S1-S2 ABDOMINAL: Soft, left lower quadrant tenderness, + distended. Normoactive BS, Peritoneal dialysis catheter in place - clean/warm/dry/intact. MUSCULOSKELETAL: Moves all extremities. + contractures SKIN: Warm, dry, normal color. No rashes. NEURO: Alert PSYCHIATRIC: Appropriate mood Objective Data Vital Signs Vital Signs: Vital Signs - 24 hr 12/22/24 12:00 12/22/24 14:00 12/22/24 20:00 Temperature 98.3 F Pulse Rate 101 H 97 106 H Respiratory Rate 20 Blood Pressure 117/92 H Pulse Oximetry 92 12/22/24 20:20 12/23/24 00:00 12/23/24 04:00 Temperature 96.6 F L Pulse Rate 105 H 103 H 96 Respiratory Rate 18 Blood Pressure 136/99 H Pulse Oximetry 100 12/23/24 05:01 Temperature 97.3 F L Pulse Rate 97 Respiratory Rate 16 Blood Pressure 135/94 H Pulse Oximetry 100 Intake/Output Intake/Output: Intake & Output 12/20/24 12/21/24 12/22/24 12/23/24 23:59 23:59 23:59 23:59 Intake Total 855 388 4696 240 Output Total 674 0 1220 Balance 84 720 -50 240 Meds/Results Medications: Active Medications Generic Name Dose Route Start Last Admin Trade Name Freq PRN Reason Stop Dose Admin Acetaminophen 500 mg 12/18/24 10:29 12/23/24 00:41 Acetaminophen 500 Mg Tablet PO 500 mg Q6H PRN Administration Mild Pain (1-3) or Fever Calcium Carbonate 400 mg 12/20/24 09:00 12/23/24 08:55 Calcium Carbonate (Tums) 500 Mg (200 Mg Elemental) PO 400 mg TID CHACORTA Administration Cinacalcet 60 mg 12/17/24 10:30 12/19/24 10:54 Cinacalcet 30 Mg Tablet PO 60 mg On Hold: 12/19/24 14:29 DAILY CHACORTA Administration Ergocalciferol 1,250 mcg 12/20/24 09:00 12/20/24 10:00 Ergocalciferol (Vitamin D2) 1,250 Mcg (50,000 Units) Capsule PO 1,250 mcg WEEKLY CHACORTA Administration Fluconazole 100 mg 12/21/24 09:00 12/23/24 08:55 Fluconazole 100 Mg Tablet PO 100 mg Q48HR CHACORTA Administration Heparin Sodium (Porcine) 5,000 units 12/17/24 21:00 12/23/24 08:56 Heparin Sodium 5,000 Units/Ml Vial SUB-Q 5,000 units Q12HR CHACORTA Administration Ceftriaxone Sodium 2 gm/ 100 mls @ 200 mls/hr 12/22/24 09:00 12/23/24 08:56 Sodium Chloride IVPB 200 mls/hr Q24H CHACORTA Administration Non-Formulary Medication 210 mg 12/22/24 12:00 12/22/24 12:16 Ferric Citrate [Auryxia] PO 01/21/25 11:59 210 mg DAILY@1200 CHACORTA Administration Pantoprazole Sodium 40 mg 12/17/24 09:00 12/23/24 08:58 Pantoprazole Sodium Iv 40 Mg Vial IV PUSH 40 mg Q12HR CHACORTA Administration Radiology Results: ITS Impressions Chest X-Ray 12/16/24 15:13 Impression: Early bilateral pneumonia Abdomen/Pelvis CT 12/16/24 17:08 IMPRESSION: 1. Intra-abdominal free air which may relate to the patient's peritoneal dialysis catheter however distinction from a viscus perforation is limited and extensive artifact also obscures evaluation. Follow-up is recommended to assess as clinically warranted. 2. Incidental findings above Chest/Abdomen/Pelvis CT 12/19/24 15:26 IMPRESSION: 1. Evaluation limited by extensive streak artifact throughout the chest, abdomen and pelvis related to extensive T2-S1 posterior spinal fusion. There appears to chronic loosening of an associated right iliac screw with. Chronic healing fracture extends across the inferomedial aspect of the right iliac wing. 2. Extensive body wall edema with small amount of ascites and small left pleural effusion. The ascites may be related to peritoneal dialysis with dialysis catheter coiled in the left lower quadrant. 3. 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 Labs Labs: Laboratory Results - last 24 hr 12/23/24 05:52 WBC 10.0 RBC 4.50 Hgb 12.5 Hct 40.9 MCV 90.9 MCH 27.8 MCHC 30.6 L RDW 14.3 Plt Count 393 H MPV 9.2 Immature Gran % (Auto) 0.4 Neut % (Auto) 71.9 Lymph % (Auto) 19.3 [place] % (Auto) 4.8 Eos % (Auto) 3.1 Baso % (Auto) 0.5 Lymph # (Auto) 1.93 [place] # (Auto) 0.5 Eos # (Auto) 0.3 Baso # (Auto) 0.1 Abs Immat Gran (auto) 0.04 H Absolute Neuts (auto) 7.2 H Absolute Nucleated RBC 0.000 Nucleated RBC % 0.0 Sodium 129 L Potassium 3.6 Chloride 100 Carbon Dioxide 26 Anion Gap 3 L BUN 31 H Creatinine 3.65 H Estim Creat Clear Calc Not Reportable Estimated GFR 14 L Glucose 92 Calcium 6.5 L Phosphorus 2.8 Albumin 2.0 L Quality VTE Prophylaxis VTE prophylaxis: pharmacologic ordered Hospitalist [facility] Advance Care Plan I have confirmed that the patient's Advanced Care Plan is present, code status is documented, or surrogate decision maker is listed in patient medical record.: Yes Medication Reconciliation I have utilized all available resources to obtain, update and review the patients current medications (includes all prescriptions, OTC, herbals, cannabis, and nutritional supplements).: Yes
--- NOTE | 2024-12-23 10:47 | P.PNNP_ITS ---
Progress Note: A&P Assessment and Plan (1) End stage renal disease: Code(s): N18.6 - End stage renal disease Status: Acute Assessment and Plan: * continue nightly CCPD while hospitalized * using home PD cycler/machine given issues with hospital PD cycler on the evening of 12/17 * follow electrolytes, volume status, and clearance * due to polycystic kidney disease * outpatient dialysis center = [facility] * primary dental ceramist assistant = Dr. Cary Maier (2) Abdominal pain: Code(s): R10.9 - Unspecified abdominal pain Status: Acute Assessment and Plan: * improvement noted * suspect secondary to peritonitis in the context of peritoneal dialysis * admission CT imaging reviewed * Surgery evaluation noted * follow clinical symptoms (3) Peritonitis: Code(s): K65.9 - Peritonitis, unspecified Status: Acute Assessment and Plan: * as reported by history (from primary dental ceramist assistant and outpatient PD nurse) * per review with outpatient PD nurse: * cloudy PD fluid noted on 12/05 * initial PD fluid WBC/neutrophils of 7413 (on 12/05) * initiated on treatment with intraperitoneal vancomycin + ceftazidime; continued on IP vancomycin but added oral ciprofloxcin and diflucan * repeat PD fluid WBC/neutrophil count 5 days later down to 395 (on 12/10) * outpatient PD culture results with Neisseria * unfortunately, per outpatient dialysis lab facility, identification of the species of Neisseria not able to be done and hence, no susceptibilities will be available * improving trend of PD fluid sample cell count noted.... * repeat gram stain (on admission) with no WBC or organisms * repeat PD fluid cultures (on admission) with no growth (aerobic culture) * blood culture negative x 48 hours * CT C/A/P noted * Infectious Disease following * on antibiotics - defer to ID on what is needed on discharge... * if IV antibiotics needed - this might be challenging given her body habitus/contractures * can antibiotics be intraperitoneal??? (4) Pneumonia: Code(s): J18.9 - Pneumonia, unspecified organism Status: Acute Assessment and Plan: * as suggested by admission imaging * no evidence of hypoxia * blood culture negative x 48 hours * on antibiotics (5) Hypocalcemia: Code(s): E83.51 - Hypocalcemia Status: Acute Assessment and Plan: * quite significant on presentation (5.7mg/dL) * however, given hypoalbuminia, admission corrected calcium closer to 7.0m g/dL * follow CORRECTED calcium levels...(corrected calcium 8.1mg/dL today) * s/p IV calcium and started on oral calcium supplements * PTH low and vitamin D level quite low * hold Sensipar/cinacalcet (can cause low calcium levels) * initiated on ergocalciferol * interestingly, calcium on ER visit on 12/02 normal at 8.7mg/dL (but her albumin was 2.8g/dL at that time) (6) Hyponatremia: Code(s): E87.1 - Hypo-osmolality and hyponatremia Status: Acute Assessment and Plan: * improvement noted * likely a chronic component due to ESRD * acute drop maybe related to suboptimal fluid removal with PD treatments in the context of peritonitis * furthermore, recent imaging with extensive body wall edema present as well (hence, some degree of volume overload) * however, her low albumin may be contributing to her edema as well... * continue more aggressive fluid removal with dialysis (7) Hypoalbuminemia: Code(s): E88.09 - Other disorders of plasma-protein metabolism, not elsewhere classified Status: Acute Assessment and Plan: * noted on admission - 2.4g/dL * dropped to as low as 1.8mg/dL * suspect diminished oral intake in the context of infection * likely also related to infection itself * complicated by associated losses with dialysis at baseline * liberalized diet and getting nutritional supplements (getting Nepro shakes BID) * clinical interviewer following (8) Hypokalemia: Code(s): E87.6 - Hypokalemia Status: Acute Assessment and Plan: * corrected with supplementation * due to poor nutrition versus GI loss? * follow trend of repeat K+ levels (9) Anemia: Code(s): D64.9 - Anemia, unspecified Status: Acute Assessment and Plan: * H/H at goal (if not supratherapeutic) for ESRD status * no need for PALOMA at this time * follow trend of H/H (10) Cerebral palsy: Qualifiers: Cerebral palsy type: unspecified type Qualified Code(s): G80.9 - Cerebral palsy, unspecified Code(s): G80.9 - Cerebral palsy, unspecified Status: Chronic Assessment and Plan: * chronic issue Will continue to follow. Subjective Date/time seen: 12/23/24 10:47 Interval history: Follow-up for end stage renal disease on peritoneal dialysis. Patient's mother at bedside reports some alarms and system error with PD cycler but still received her treatment overnight; some questionable cloudiness of PD fluid this AM; no apparent distress noted at the time of my visit; no other acute issues/events/complaints voiced. Exam Narrative: General: thin and frail female in NAD Heart: normal S1 and S2; no rub Lungs: clear to auscultation Abdomen: soft, nontender; positive bowel sounds Extremities: no cyanosis or clubbing; trace edema; contractures noted Skin: warm and intact Objective Data Vital Signs Vital Signs: Vital Signs Temp Pulse Resp BP Pulse Ox O2 Del Method 12/23/24 08:00 92 12/23/24 08:00 Room Air 12/23/24 05:01 97.3 F L 97 16 135/94 H 100 12/23/24 04:00 96 12/23/24 00:00 103 H 12/22/24 20:20 96.6 F L 105 H 18 136/99 H 100 12/22/24 20:00 106 H Intake/Output Intake/Output: Intake & Output 12/20/24 12/21/24 12/22/24 12/23/24 23:59 23:59 23:59 23:59 Intake Total 900 075 3259 480 Output Total 674 0 1220 Balance 84 720 -50 480 Meds/Results Medications: Active Medications Generic Name Dose Route Start Last Admin Trade Name Artq PRN Reason Stop Dose Admin Acetaminophen 500 mg 12/18/24 10:29 12/23/24 00:41 Acetaminophen 500 Mg Tablet PO 500 mg Q6H PRN Administration Mild Pain (1-3) or Fever Calcium Carbonate 400 mg 12/20/24 09:00 12/23/24 12:37 Calcium Carbonate (Tums) 500 Mg (200 Mg Elemental) PO 400 mg TID CHACORTA Administration Cinacalcet 60 mg 12/17/24 10:30 12/19/24 10:54 Cinacalcet 30 Mg Tablet PO 60 mg On Hold: 12/19/24 14:29 DAILY CHACORTA Administration Ergocalciferol 1,250 mcg 12/20/24 09:00 12/20/24 10:00 Ergocalciferol (Vitamin D2) 1,250 Mcg (50,000 Units) Capsule PO 1,250 mcg WEEKLY CHACORTA Administration Fluconazole 100 mg 12/21/24 09:00 12/23/24 08:55 Fluconazole 100 Mg Tablet PO 100 mg Q48HR CHACORTA Administration Heparin Sodium (Porcine) 5,000 units 12/17/24 21:00 12/23/24 08:56 Heparin Sodium 5,000 Units/Ml Vial SUB-Q 5,000 units Q12HR CHACORTA Administration Ceftriaxone Sodium 2 gm/ 100 mls @ 200 mls/hr 12/22/24 09:00 12/23/24 08:56 Sodium Chloride IVPB 200 mls/hr Q24H CHACORTA Administration Non-Formulary Medication 210 mg 12/22/24 12:00 12/23/24 11:52 Ferric Citrate [Auryxia] PO 01/21/25 11:59 210 mg DAILY@1200 CHACORTA Administration Pantoprazole Sodium 40 mg 12/17/24 09:00 12/23/24 08:58 Pantoprazole Sodium Iv 40 Mg Vial IV PUSH 40 mg Q12HR CHACORTA Administration Radiology Results: ITS Impressions Chest X-Ray 12/16/24 15:13 Impression: Early bilateral pneumonia Abdomen/Pelvis CT 12/16/24 17:08 IMPRESSION: 1. Intra-abdominal free air which may relate to the patient's peritoneal dialysis catheter however distinction from a viscus perforation is limited and extensive artifact also obscures evaluation. Follow-up is recommended to assess as clinically warranted. 2. Incidental findings above Chest/Abdomen/Pelvis CT 12/19/24 15:26 IMPRESSION: 1. Evaluation limited by extensive streak artifact throughout the chest, abdomen and pelvis related to extensive T2-S1 posterior spinal fusion. There appears to chronic loosening of an associated right iliac screw with. Chronic healing fracture extends across the inferomedial aspect of the right iliac wing. 2. Extensive body wall edema with small amount of ascites and small left pleural effusion. The ascites may be related to peritoneal dialysis with dialysis catheter coiled in the left lower quadrant. 3. 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 Labs Labs: Vital Signs Temp Pulse Resp BP Pulse Ox O2 Del Method 12/23/24 08:00 92 12/23/24 08:00 Room Air 12/23/24 05:01 97.3 F L 97 16 135/94 H 100 12/23/24 04:00 96 12/23/24 00:00 103 H 12/22/24 20:20 96.6 F L 105 H 18 136/99 H 100 12/22/24 20:00 106 H
--- NOTE | 2024-12-23 10:47 | PM.PNNEP ---
Progress Note: A&P Assessment and Plan (1) End stage renal disease: Code(s): N18.6 - End stage renal disease Status: Acute Assessment and Plan: continue nightly CCPD while hospitalized using home PD cycler/machine given issues with hospital PD cycler on the evening of 12/17 follow electrolytes, volume status, and clearance due to polycystic kidney disease outpatient dialysis center = [facility] primary meat and poultry inspector = Dr. Cary Maier (2) Abdominal pain: Code(s): R10.9 - Unspecified abdominal pain Status: Acute Assessment and Plan: improvement noted suspect secondary to peritonitis in the context of peritoneal dialysis admission CT imaging reviewed Surgery evaluation noted follow clinical symptoms (3) Peritonitis: Code(s): K65.9 - Peritonitis, unspecified Status: Acute Assessment and Plan: as reported by history (from primary meat and poultry inspector and outpatient PD nurse) per review with outpatient PD nurse: cloudy PD fluid noted on 12/05 initial PD fluid WBC/neutrophils of 7413 (on 12/05) initiated on treatment with intraperitoneal vancomycin + ceftazidime; continued on IP vancomycin but added oral ciprofloxcin and diflucan repeat PD fluid WBC/neutrophil count 5 days later down to 395 (on 12/10) outpatient PD culture results with Neisseria unfortunately, per outpatient dialysis lab facility, identification of the species of Neisseria not able to be done and hence, no susceptibilities will be available improving trend of PD fluid sample cell count noted.... repeat gram stain (on admission) with no WBC or organisms repeat PD fluid cultures (on admission) with no growth (aerobic culture) blood culture negative x [address] C/A/P noted Infectious Disease following on antibiotics - defer to ID on what is needed on discharge... if IV antibiotics needed - this might be challenging given her body habitus/contractures can antibiotics be intraperitoneal??? (4) Pneumonia: Code(s): J18.9 - Pneumonia, unspecified organism Status: Acute Assessment and Plan: as suggested by admission imaging no evidence of hypoxia blood culture negative x 48 hours on antibiotics (5) Hypocalcemia: Code(s): E83.51 - Hypocalcemia Status: Acute Assessment and Plan: quite significant on presentation (5.7mg/dL) however, given hypoalbuminia, admission corrected calcium closer to 7.0mg/dL follow CORRECTED calcium levels...(corrected calcium 8.1mg/dL today) s/p IV calcium and started on oral calcium supplements PTH low and vitamin D level quite low hold Sensipar/cinacalcet (can cause low calcium levels) initiated on ergocalciferol interestingly, calcium on ER visit on 12/02 normal at 8.7mg/dL (but her albumin was 2.8g/dL at that time) (6) Hyponatremia: Code(s): E87.1 - Hypo-osmolality and hyponatremia Status: Acute Assessment and Plan: improvement noted likely a chronic component due to ESRD acute drop maybe related to suboptimal fluid removal with PD treatments in the context of peritonitis furthermore, recent imaging with extensive body wall edema present as well (hence, some degree of volume overload) however, her low albumin may be contributing to her edema as well... continue more aggressive fluid removal with dialysis (7) Hypoalbuminemia: Code(s): E88.09 - Other disorders of plasma-protein metabolism, not elsewhere classified Status: Acute Assessment and Plan: noted on admission - 2.4g/dL dropped to as low as 1.8mg/dL suspect diminished oral intake in the context of infection likely also related to infection itself complicated by associated losses with dialysis at baseline liberalized diet and getting nutritional supplements (getting Nepro shakes BID) skilled nursing professional following (8) Hypokalemia: Code(s): E87.6 - Hypokalemia Status: Acute Assessment and Plan: corrected with supplementation due to poor nutrition versus GI loss? follow trend of repeat K+ levels (9) Anemia: Code(s): D64.9 - Anemia, unspecified Status: Acute Assessment and Plan: H/H at goal (if not supratherapeutic) for ESRD status no need for PALOMA at this time follow trend of H/H (10) Cerebral palsy: Qualifiers: Cerebral palsy type: unspecified type Qualified Code(s): G80.9 - Cerebral palsy, unspecified Code(s): G80.9 - Cerebral palsy, unspecified Status: Chronic Assessment and Plan: chronic issue Will continue to follow. Subjective Date/time seen: 12/23/24 10:47 Interval history: Follow-up for end stage renal disease on peritoneal dialysis. Patient's mother at bedside reports some alarms and system error with PD cycler but still received her treatment overnight; some questionable cloudiness of PD fluid this AM; no apparent distress noted at the time of my visit; no other acute issues/events/complaints voiced. Exam Narrative: General: thin and frail female in NAD Heart: normal S1 and S2; no rub Lungs: clear to auscultation Abdomen: soft, nontender; positive bowel sounds Extremities: no cyanosis or clubbing; trace edema; contractures noted Skin: warm and intact Objective Data Vital Signs Vital Signs: Vital Signs Temp Pulse Resp BP Pulse Ox O2 Del Method 12/23/24 08:00 92 12/23/24 08:00 Room Air 12/23/24 05:01 97.3 F L 97 16 135/94 H 100 12/23/24 04:00 96 12/23/24 00:00 103 H 12/22/24 20:20 96.6 F L 105 H 18 136/99 H 100 12/22/24 20:00 106 H Intake/Output Intake/Output: Intake & Output 12/20/24 12/21/24 12/22/24 12/23/24 23:59 23:59 23:59 23:59 Intake Total 158 456 9388 480 Output Total 674 0 1220 Balance 84 720 -50 480 Meds/Results Medications: Active Medications Generic Name Dose Route Start Last Admin Trade Name Freq PRN Reason Stop Dose Admin Acetaminophen 500 mg 12/18/24 10:29 12/23/24 00:41 Acetaminophen 500 Mg Tablet PO 500 mg Q6H PRN Administration Mild Pain (1-3) or Fever Calcium Carbonate 400 mg 12/20/24 09:00 12/23/24 12:37 Calcium Carbonate (Tums) 500 Mg (200 Mg Elemental) PO 400 mg TID CHACORTA Administration Cinacalcet 60 mg 12/17/24 10:30 12/19/24 10:54 Cinacalcet 30 Mg Tablet PO 60 mg On Hold: 12/19/24 14:29 DAILY CHACORTA Administration Ergocalciferol 1,250 mcg 12/20/24 09:00 12/20/24 10:00 Ergocalciferol (Vitamin D2) 1,250 Mcg (50,000 Units) Capsule PO 1,250 mcg WEEKLY CHACORTA Administration Fluconazole 100 mg 12/21/24 09:00 12/23/24 08:55 Fluconazole 100 Mg Tablet PO 100 mg Q48HR CHACORTA Administration Heparin Sodium (Porcine) 5,000 units 12/17/24 21:00 12/23/24 08:56 Heparin Sodium 5,000 Units/Ml Vial SUB-Q 5,000 units Q12HR CHACORTA Administration Ceftriaxone Sodium 2 gm/ 100 mls @ 200 mls/hr 12/22/24 09:00 12/23/24 08:56 Sodium Chloride IVPB 200 mls/hr Q24H CHACORTA Administration Non-Formulary Medication 210 mg 12/22/24 12:00 12/23/24 11:52 Ferric Citrate [Auryxia] PO 01/21/25 11:59 210 mg DAILY@1200 CHACORTA Administration Pantoprazole Sodium 40 mg 12/17/24 09:00 12/23/24 08:58 Pantoprazole Sodium Iv 40 Mg Vial IV PUSH 40 mg Q12HR CHACORTA Administration Radiology Results: ITS Impressions Chest X-Ray 12/16/24 15:13 Impression: Early bilateral pneumonia Abdomen/Pelvis CT 12/16/24 17:08 IMPRESSION: 1. Intra-abdominal free air which may relate to the patient's peritoneal dialysis catheter however distinction from a viscus perforation is limited and extensive artifact also obscures evaluation. Follow-up is recommended to assess as clinically warranted. 2. Incidental findings above Chest/Abdomen/Pelvis CT 12/19/24 15:26 IMPRESSION: 1. Evaluation limited by extensive streak artifact throughout the chest, abdomen and pelvis related to extensive T2-S1 posterior spinal fusion. There appears to chronic loosening of an associated right iliac screw with. Chronic healing fracture extends across the inferomedial aspect of the right iliac wing. 2. Extensive body wall edema with small amount of ascites and small left pleural effusion. The ascites may be related to peritoneal dialysis with dialysis catheter coiled in the left lower quadrant. 3. 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 Labs Labs: Vital Signs Temp Pulse Resp BP Pulse Ox O2 Del Method 12/23/24 08:00 92 12/23/24 08:00 Room Air 12/23/24 05:01 97.3 F L 97 16 135/94 H 100 12/23/24 04:00 96 12/23/24 00:00 103 H 12/22/24 20:20 96.6 F L 105 H 18 136/99 H 100 12/22/24 20:00 106 H
[2024-12-23] MEDS: [UNRECOGNIZED DRUG - OTHER] PO (11:52)
[2024-12-23] MEDS: FERRIC CITRATE 210 MG PO (11:52)
[2024-12-24] VITALS (7 sets, daily range): BP systolic 118–146; BP diastolic 88–101; PULSE 92–106; RESP 15–18; TEMP 36–36.7; O2SAT 99–100
[2024-12-24 07:06] LABS: Hematocrit 39.4 % (37.0-47.0); Hemoglobin 12.0 g/dL (12.0-15.0); Immature Granulocyte Percent A 0.4 % (0-0.5); Lymphocytes Absolute Auto 2.08 K/mm3 (0.9-3.2); Mean Corpuscular HGB Conc 30.5 g/dl (32-36); Mean Corpuscular Hemoglobin 27.3 pg (26-34); Mean Corpuscular Volume 89.7 fl (80-100); Nucleated Red Blood Cells Absolute Auto 0.000 K/mm3 (0.0-0.012); Nucleated Red Blood Cells Perc 0.0 % (0.0-0.2); Platelet Count Result 400 k/mm3 (150-375); Red Blood Count 4.39 M/mm3 (4.2-5.4); White Blood Count 7.4 K/mm3 (4.5-10.0)
[2024-12-24 07:26] LABS: Albumin Level 2.0 g/dL (3.5-5.1); Anion Gap 4 mmol/L (4-12); Blood Urea Nitrogen 29 mg/dL (7-17); Calcium 6.8 mg/dL (8.4-10.2); Carbon Dioxide 25 mmol/L (22-30); Chloride 99 mmol/L (98-107); Estimated Glomerular Filt Rate 15; Glucose 94 mg/dL (65-110); Potassium 3.8 mmol/L (3.4-5.0); Sodium 128 mmol/L (137-145)
[2024-12-24] MEDS: cefTRIAXone 2 GM in SODIUM CHLORIDE 0.9% IV 100 ML 200 ML IVPB (08:51)
[2024-12-24] MEDS: PANTOPRAZOLE SODIUM IV 40 MG VIAL IV PUSH ×2 (08:51→20:50)
[2024-12-24] MEDS: CALCIUM CARBONATE (TUMS) 500 MG (200 MG ELEMENTAL) 400 MG PO ×3 (08:52→16:45)
--- NOTE | 2024-12-24 08:59 | P.PNIM_ITS ---
Progress Note: A&P Assessment and Plan (1) Hyponatremia: Code(s): E87.1 - Hypo-osmolality and hyponatremia Status: Acute (2) Abdominal pain: Code(s): R10.9 - Unspecified abdominal pain Status: Acute (3) End stage renal disease: Code(s): N18.6 - End stage renal disease Status: Acute (4) Hypocalcemia: Code(s): E83.51 - Hypocalcemia Status: Acute (5) Hypokalemia: Code(s): E87.6 - Hypokalemia Status: Acute (6) Cerebral palsy: Qualifiers: Cerebral palsy type: unspecified type Qualified Code(s): G80.9 - Cerebral palsy, unspecified Code(s): G80.9 - Cerebral palsy, unspecified Status: Chronic Plan 39 years old F with cerebral palsy presented to the ED yesterday with one day of left lower quadrant pain. Reportedly, patient has also been having episodes of emesis every other night for the past 10 days. Cloudy output from peritoneal dialysis bag reported. Previously treated with antibiotics for this. Denies fevers. Had 2 episodes of diarrhe in the ED, but has since resolved. CT demonstrated intra-abdominal free air, which may relate to the patient's peritoneal dialysis catheter, however distinction from a viscus perforation is limited. Extensive artifact obscuring evaluation. On previous CT from 12/03/2024 free intraperitoneal air in the abdomen and pelvis presumably due to peritoneal dialysis was also noted. Found to be severely hypocalcemic. Also treating hyponatremia. Abdominal Pain: Peritonitis ID and nephrology following, appreciate recommendations free air, concern for viscus perforation Meropenem changed to Ceftriaxone. Off IV Vancomycin anticipated length of antibiotics treatment 14 days blood culture no growth to date Peritoneal fluid with neutrophilia, cloudy Outpatient PD culture results with Neissieria Per renal notes: unfortunately, per outpatient dialysis lab facility, identification of the species of Neisseria not able to be done and hence, no susceptibilities will be available Pending final antibiotic recommendations per ID. If she needs IV antibiotics after discharge will likely need a Maureen instead of a PICC with ESRD. Family has experience with intraperitoneal antibiotics Severe hypocalcemia: Received several doses of IV calcium Improved. Intermittently low Continue with oral Tums 200<400 TID per renal Nephrology following Hyponatremia Monitoring, trending up Sodium downtrending 130>129>127>126<130>129-->128 Nephrology following, treating with PD On a heart healthy diet per renal Follow daily BMP ESRD on peritoneal dialysis: Nephrology following Early B/L PNA: On room air Follow blood cultures Antibiotics as above. Off Vancomycin Monitor leukocytosis 5. DVT prophylaxis: Heparin subQ 6. Code status: Full 7. Disposition: pending infectious disease specialist final antibiotics recommendation. Time Spent With Patient Time: 25 minutes Subjective Date/time seen: 12/24/24 08:59 Interval history: Family at bedside waiting for final antibiotics decision. Infectious Disease is decided to treat with ceftriaxone for 14 days. no fever or chills. Review of Systems 2 Review of Systems: ROS unobtainable: Yes unobtainable due to medical condition Exam Narrative: APPEARANCE: No acute distress. EYES: EOMI HEENT: Normocephalic, atraumatic, OMM RESPIRATORY: No respiratory distress Clear to auscultation bilaterally with no rhonchi wheezing or rales. CARDIOVASCULAR: RRR, S1 and S2 without murmurs rubs or gallops. ABDOMINAL: abdominal distension MSK: quadriplegic NEURO: Awake and alert. quadriplegia SKIN:: Warm, dry. No rashes lesions or abrasions PSYCHIATRIC: I am not ready to go home Objective Data Vital Signs Vital Signs: Vital Signs - 24 hr 12/23/24 12:00 12/23/24 14:00 12/23/24 16:00 Temperature 36.9 C Pulse Rate 110 H 107 H 103 H Respiratory Rate 18 Blood Pressure 124/94 H Pulse Oximetry 98 12/23/24 21:40 12/24/24 06:00 Temperature 36.6 C 36.7 C Pulse Rate 104 H 98 Respiratory Rate 16 16 Blood Pressure 145/105 H 128/97 H Pulse Oximetry 100 100 Intake/Output Intake/Output: Intake & Output 12/21/24 12/22/24 12/23/24 12/24/24 23:59 23:59 23:59 23:59 Intake Total 720 1170 1370 Output Total 0 1220 624 451 Balance 720 50 892 -400 Meds/Results Medications: Active Medications Generic Name Dose Route Start Last Admin Trade Name Freq PRN Reason Stop Dose Admin Acetaminophen 500 mg 12/18/24 10:29 12/23/24 20:16 Acetaminophen 500 Mg Tablet PO 500 mg Q6H PRN Administration Mild Pain (1-3) or Fever Calcium Carbonate 400 mg 12/20/24 09:00 12/24/24 08:52 Calcium Carbonate (Tums) 500 Mg (200 Mg Elemental) PO 400 mg TID CHACORTA Administration Cinacalcet 60 mg 12/17/24 10:30 12/19/24 10:54 Cinacalcet 30 Mg Tablet PO 60 mg On Hold: 12/19/24 14:29 DAILY CHACORTA Administration Ergocalciferol 1,250 mcg 12/20/24 09:00 12/20/24 10:00 Ergocalciferol (Vitamin D2) 1,250 Mcg (50,000 Units) Capsule PO 1,250 mcg WEEKLY CHACORTA Administration Fluconazole 100 mg 12/21/24 09:00 12/23/24 08:55 Fluconazole 100 Mg Tablet PO 100 mg Q48HR CHACORTA Administration Heparin Sodium (Porcine) 5,000 units 12/17/24 21:00 12/24/24 08:52 Heparin Sodium 5,000 Units/Ml Vial SUB-Q 5,000 units Q12HR CHACORTA Administration Ceftriaxone Sodium 2 gm/ 100 mls @ 200 mls/hr 12/22/24 09:00 12/24/24 08:51 Sodium Chloride IVPB 200 mls/hr Q24H CHACORTA Administration Calcium Chloride 1,000 mg in 100 mls @ 100 mls/hr 12/24/24 08:57 Calcium Chlor 1,000mg/100ml Ns IVPB 12/24/24 09:56 ONCE ONE Non-Formulary Medication 210 mg 12/22/24 12:00 12/23/24 11:52 Ferric Citrate [Auryxia] PO 01/21/25 11:59 210 mg DAILY@1200 CHACORTA Administration Pantoprazole Sodium 40 mg 12/17/24 09:00 12/24/24 08:51 Pantoprazole Sodium Iv 40 Mg Vial IV PUSH 40 mg Q12HR CHACORTA Administration Radiology Results: ITS Impressions Chest X-Ray 12/16/24 15:13 Impression: Early bilateral pneumonia Abdomen/Pelvis CT 12/16/24 17:08 IMPRESSION: 1. Intra-abdominal free air which may relate to the patient's peritoneal dialysis catheter however distinction from a viscus perforation is limited and extensive artifact also obscures evaluation. Follow-up is recommended to assess as clinically warranted. 2. Incidental findings above Chest/Abdomen/Pelvis CT 12/19/24 15:26 IMPRESSION: 1. Evaluation limited by extensive streak artifact throughout the chest, abdomen and pelvis related to extensive T2-S1 posterior spinal fusion. There appears to chronic loosening of an associated right iliac screw with. Chronic healing fracture extends across the inferomedial aspect of the right iliac wing. 2. Extensive body wall edema with small amount of ascites and small left pleural effusion. The ascites may be related to peritoneal dialysis with dialysis catheter coiled in the left lower quadrant. 3. 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 Labs Labs: Laboratory Results - last 24 hr 12/24/24 06:51 WBC 7.4 RBC 4.39 Hgb 12.0 Hct 39.4 MCV 89.7 MCH 27.3 MCHC 30.5 L RDW 14.1 Plt Count 400 H MPV 9.3 Immature Gran % (Auto) 0.4 Neut % (Auto) 61.9 Lymph % (Auto) 28.1 [place] % (Auto) 5.8 Eos % (Auto) 3.1 Baso % (Auto) 0.7 Lymph # (Auto) 2.08 [place] # (Auto) 0.4 Eos # (Auto) 0.2 Baso # (Auto) 0.1 Abs Immat Gran (auto) 0.03 Absolute Neuts (auto) 4.6 Absolute Nucleated RBC 0.000 Nucleated RBC % 0.0 Sodium 128 L Potassium 3.8 Chloride 99 Carbon Dioxide 25 Anion Gap 4 BUN 29 H Creatinine 3.47 H Estim Creat Clear Calc Not Reportable Estimated GFR 15 L Glucose 94 Calcium 6.8 L Phosphorus 2.8 Albumin 2.0 L Quality VTE Prophylaxis VTE prophylaxis: pharmacologic ordered
[2024-12-24] MEDS: CALCIUM GLUC 1,000 MG/NS 50 ML 1,000 MG/50 ML BAG 100 MG IVPB (10:10)
--- NOTE | 2024-12-24 10:48 | P.PNNP_ITS ---
Progress Note: A&P Assessment and Plan (1) End stage renal disease: Code(s): N18.6 - End stage renal disease Status: Acute Assessment and Plan: * continue nightly CCPD while hospitalized * using home PD cycler/machine given issues with hospital PD cycler on the evening of 12/17 * follow electrolytes, volume status, and clearance * due to polycystic kidney disease * outpatient dialysis center = [facility] * primary tour leader = Dr. Cary Maier (2) Abdominal pain: Code(s): R10.9 - Unspecified abdominal pain Status: Acute Assessment and Plan: * improvement noted * suspect secondary to peritonitis in the context of peritoneal dialysis * admission CT imaging reviewed * Surgery evaluation noted * follow clinical symptoms (3) Peritonitis: Code(s): K65.9 - Peritonitis, unspecified Status: Acute Assessment and Plan: * as reported by history (from primary tour leader and outpatient PD nurse) * per review with outpatient PD nurse: * cloudy PD fluid noted on 12/05 * initial PD fluid WBC/neutrophils of 7413 (on 12/05) * initiated on treatment with intraperitoneal vancomycin + ceftazidime; continued on IP vancomycin but added oral ciprofloxcin and diflucan * repeat PD fluid WBC/neutrophil count 5 days later down to 395 (on 12/10) * outpatient PD culture results with Neisseria * unfortunately, per outpatient dialysis lab facility, identification of the species of Neisseria not able to be done and hence, no susceptibilities will be available * improving trend of PD fluid sample cell count noted.... * repeat gram stain (on admission) with no WBC or organisms * repeat PD fluid cultures (on admission) with no growth (aerobic culture) * blood culture negative x 48 hours * CT C/A/P noted * Infectious Disease following * on antibiotics - defer to ID on what is needed on discharge... * if antibiotic can be intraperitoneal, they will likely simplify administration (4) Pneumonia: Code(s): J18.9 - Pneumonia, unspecified organism Status: Acute Assessment and Plan: * as suggested by admission imaging * no evidence of hypoxia * blood culture negative x 48 hours * on antibiotics (5) Hypocalcemia: Code(s): E83.51 - Hypocalcemia Status: Acute Assessment and Plan: * quite significant on presentation (5.7mg/dL) * however, given hypoalbuminia, admission corrected calcium closer to 7.0mg/dL * follow CORRECTED calcium levels...(corrected calcium 8.4mg/dL today) * s/p IV calcium and started on oral calcium supplements * PTH low and vitamin D level quite low * hold Sensipar/cinacalcet (can cause low calcium levels) * initiated on ergocalciferol * interestingly, calcium on ER visit on 12/02 normal at 8.7mg/dL (but her albumin was 2.8g/dL at that time) (6) Hyponatremia: Code(s): E87.1 - Hypo-osmolality and hyponatremia Status: Acute Assessment and Plan: * improvement noted * likely a chronic component due to ESRD * acute drop maybe related to suboptimal fluid removal with PD treatments in the context of peritonitis * furthermore, recent imaging with extensive body wall edema present as well (hence, some degree of volume overload) * however, her low albumin may be contributing to her edema as well... * continue more aggressive fluid removal with dialysis (7) Hypoalbuminemia: Code(s): E88.09 - Other disorders of plasma-protein metabolism, not elsewhere classified Status: Acute Assessment and Plan: * noted on admission - 2.4g/dL * dropped to as low as 1.8mg/dL * suspect diminished oral intake in the context of infection * likely also related to infection itself * complicated by associated losses with dialysis at baseline * liberalized diet and getting nutritional supplements (getting Nepro shakes BID) * senior quality assurance engineer following (8) Hypokalemia: Code(s): E87.6 - Hypokalemia Status: Acute Assessment and Plan: * corrected with supplementation * due to poor nutrition versus GI loss? * follow trend of repeat K+ levels (9) Anemia: Code(s): D64.9 - Anemia, unspecified Status: Acute Assessment and Plan: * H/H at goal (if not supratherapeutic) for ESRD status * no need for PALOMA at this time * follow trend of H/H (10) Cerebral palsy: Qualifiers: Cerebral palsy type: unspecified type Qualified Code(s): G80.9 - Cerebral palsy, unspecified Code(s): G80.9 - Cerebral palsy, unspecified Status: Chronic Assessment and Plan: * chronic issue Not opposed to discharge once outpatient antibiotic determination/final recommendation is made. Will continue to follow. L Subjective Date/time seen: 12/24/24 10:48 Interval history: Follow-up for end stage renal disease on peritoneal dialysis. No new issues or problems to report at this time; tolerated peritoneal dialysis overnight without any issues or problems; PD fluid remain clear; no apparent distress noted when seen; discussed with mother at bedside. Exam 2 Narrative: General: thin and frail female in NAD Heart: normal S1 and S2; no rub Lungs: clear to auscultation Abdomen: soft, nontender; positive bowel sounds Extremities: no cyanosis or clubbing; trace edema; contractures noted Skin: no rash Objective Data Vital Signs Vital Signs: Vital Signs Temp Pulse Resp BP Pulse Ox O2 Del Method 12/24/24 08:00 106 H 12/24/24 08:00 106 H 16 100 Room Air 12/24/24 06:00 98.0 F 98 16 128/97 H 100 12/23/24 21:40 97.8 F 104 H 16 145/105 H 100 12/23/24 16:00 103 H Intake/Output Intake/Output: Intake & Output 12/21/24 12/22/24 12/23/24 12/24/24 23:59 23:59 23:59 23:59 Intake Total 720 1170 1370 Output Total 0 1220 624 451 Balance 720 -50 746 -451 Meds/Results Medications: Active Medications Generic Name Dose Route Start Last Admin Trade Name Freq PRN Reason Stop Dose Admin Acetaminophen 500 mg 12/18/24 10:29 12/24/24 11:07 Acetaminophen 500 Mg Tablet PO 500 mg Q6H PRN Administration Mild Pain (1-3) or Fever Calcium Carbonate 400 mg 12/20/24 09:00 12/24/24 12:15 Calcium Carbonate (Tums) 500 Mg (200 Mg Elemental) PO 400 mg TID CHACORTA Administration Cinacalcet 60 mg 12/17/24 10:30 12/19/24 10:54 Cinacalcet 30 Mg Tablet PO 60 mg On Hold: 12/19/24 14:29 DAILY CHACORTA Administration Ergocalciferol 1,250 mcg 12/20/24 09:00 12/20/24 10:00 Ergocalciferol (Vitamin D2) 1,250 Mcg (50,000 Units) Capsule PO 1,250 mcg WEEKLY CHACORTA Administration Fluconazole 100 mg 12/21/24 09:00 12/23/24 08:55 Fluconazole 100 Mg Tablet PO 100 mg Q48HR CHACORTA Administration Heparin Sodium (Porcine) 5,000 units 12/17/24 21:00 12/24/24 08:52 Heparin Sodium 5,000 Units/Ml Vial SUB-Q 5,000 units Q12HR CHACORTA Administration Ceftriaxone Sodium 2 gm/ 100 mls @ 200 mls/hr 12/22/24 09:00 12/24/24 08:51 Sodium Chloride IVPB 200 mls/hr Q24H CHACORTA Administration Non-Formulary Medication 210 mg 12/22/24 12:00 12/24/24 11:51 Ferric Citrate [Auryxia] PO 01/21/25 11:59 210 mg DAILY@1200 CHACORTA Administration Pantoprazole Sodium 40 mg 12/17/24 09:00 12/24/24 08:51 Pantoprazole Sodium Iv 40 Mg Vial IV PUSH 40 mg Q12HR CHACORTA Administration Radiology Results: ITS Impressions Chest X-Ray 12/16/24 15:13 Impression: Early bilateral pneumonia Abdomen/Pelvis CT 12/16/24 17:08 IMPRESSION: 1. Intra-abdominal free air which may relate to the patient's peritoneal dialysis catheter however distinction from a viscus perforation is limited and extensive artifact also obscures evaluation. Follow-up is recommended to assess as clinically warranted. 2. Incidental findings above Chest/Abdomen/Pelvis CT 12/19/24 15:26 IMPRESSION: 1. Evaluation limited by extensive streak artifact throughout the chest, abdomen and pelvis related to extensive T2-S1 posterior spinal fusion. There appears to chronic loosening of an associated right iliac screw with. Chronic healing fracture extends across the inferomedial aspect of the right iliac wing. 2. Extensive body wall edema with small amount of ascites and small left pleural effusion. The ascites may be related to peritoneal dialysis with dialysis catheter coiled in the left lower quadrant. 3. 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 Labs Labs: Laboratory Tests 12/24/24 06:51 12/24/24 06:51 Calcium 6.8 L Phosphorus 2.8 Albumin 2.0 L Microbiology 12/16/24 15:26 Blood Blood Culture - Final 12/16/24 15:27 Blood Blood Culture - Final
--- NOTE | 2024-12-24 10:48 | PM.PNNEP ---
Progress Note: A&P Assessment and Plan (1) End stage renal disease: Code(s): N18.6 - End stage renal disease Status: Acute Assessment and Plan: continue nightly CCPD while hospitalized using home PD cycler/machine given issues with hospital PD cycler on the evening of 12/17 follow electrolytes, volume status, and clearance due to polycystic kidney disease outpatient dialysis center = [facility] primary dry kiln operator helper = Dr. Cary Maier (2) Abdominal pain: Code(s): R10.9 - Unspecified abdominal pain Status: Acute Assessment and Plan: improvement noted suspect secondary to peritonitis in the context of peritoneal dialysis admission CT imaging reviewed Surgery evaluation noted follow clinical symptoms (3) Peritonitis: Code(s): K65.9 - Peritonitis, unspecified Status: Acute Assessment and Plan: as reported by history (from primary dry kiln operator helper and outpatient PD nurse) per review with outpatient PD nurse: cloudy PD fluid noted on 12/05 initial PD fluid WBC/neutrophils of 7413 (on 12/05) initiated on treatment with intraperitoneal vancomycin + ceftazidime; continued on IP vancomycin but added oral ciprofloxcin and diflucan repeat PD fluid WBC/neutrophil count 5 days later down to 395 (on 12/10) outpatient PD culture results with Neisseria unfortunately, per outpatient dialysis lab facility, identification of the species of Neisseria not able to be done and hence, no susceptibilities will be available improving trend of PD fluid sample cell count noted.... repeat gram stain (on admission) with no WBC or organisms repeat PD fluid cultures (on admission) with no growth (aerobic culture) blood culture negative x [address] C/A/P noted Infectious Disease following on antibiotics - defer to ID on what is needed on discharge... if antibiotic can be intraperitoneal, they will likely simplify administration (4) Pneumonia: Code(s): J18.9 - Pneumonia, unspecified organism Status: Acute Assessment and Plan: as suggested by admission imaging no evidence of hypoxia blood culture negative x 48 hours on antibiotics (5) Hypocalcemia: Code(s): E83.51 - Hypocalcemia Status: Acute Assessment and Plan: quite significant on presentation (5.7mg/dL) however, given hypoalbuminia, admission corrected calcium closer to 7.0mg/dL follow CORRECTED calcium levels...(corrected calcium 8.4mg/dL today) s/p IV calcium and started on oral calcium supplements PTH low and vitamin D level quite low hold Sensipar/cinacalcet (can cause low calcium levels) initiated on ergocalciferol interestingly, calcium on ER visit on 12/02 normal at 8.7mg/dL (but her albumin was 2.8g/dL at that time) (6) Hyponatremia: Code(s): E87.1 - Hypo-osmolality and hyponatremia Status: Acute Assessment and Plan: improvement noted likely a chronic component due to ESRD acute drop maybe related to suboptimal fluid removal with PD treatments in the context of peritonitis furthermore, recent imaging with extensive body wall edema present as well (hence, some degree of volume overload) however, her low albumin may be contributing to her edema as well... continue more aggressive fluid removal with dialysis (7) Hypoalbuminemia: Code(s): E88.09 - Other disorders of plasma-protein metabolism, not elsewhere classified Status: Acute Assessment and Plan: noted on admission - 2.4g/dL dropped to as low as 1.8mg/dL suspect diminished oral intake in the context of infection likely also related to infection itself complicated by associated losses with dialysis at baseline liberalized diet and getting nutritional supplements (getting Nepro shakes BID) splicer machine operator following (8) Hypokalemia: Code(s): E87.6 - Hypokalemia Status: Acute Assessment and Plan: corrected with supplementation due to poor nutrition versus GI loss? follow trend of repeat K+ levels (9) Anemia: Code(s): D64.9 - Anemia, unspecified Status: Acute Assessment and Plan: H/H at goal (if not supratherapeutic) for ESRD status no need for PALOMA at this time follow trend of H/H (10) Cerebral palsy: Qualifiers: Cerebral palsy type: unspecified type Qualified Code(s): G80.9 - Cerebral palsy, unspecified Code(s): G80.9 - Cerebral palsy, unspecified Status: Chronic Assessment and Plan: chronic issue Not opposed to discharge once outpatient antibiotic determination/final recommendation is made. Will continue to follow. Subjective Date/time seen: 12/24/24 10:48 Interval history: Follow-up for end stage renal disease on peritoneal dialysis. No new issues or problems to report at this time; tolerated peritoneal dialysis overnight without any issues or problems; PD fluid remain clear; no apparent distress noted when seen; discussed with mother at bedside. Exam Narrative: General: thin and frail female in NAD Heart: normal S1 and S2; no rub Lungs: clear to auscultation Abdomen: soft, nontender; positive bowel sounds Extremities: no cyanosis or clubbing; trace edema; contractures noted Skin: no rash Objective Data Vital Signs Vital Signs: Vital Signs Temp Pulse Resp BP Pulse Ox O2 Del Method 12/24/24 08:00 106 H 12/24/24 08:00 106 H 16 100 Room Air 12/24/24 06:00 98.0 F 98 16 128/97 H 100 12/23/24 21:40 97.8 F 104 H 16 145/105 H 100 12/23/24 16:00 103 H Intake/Output Intake/Output: Intake & Output 12/21/24 12/22/24 12/23/24 12/24/24 23:59 23:59 23:59 23:59 Intake Total 720 1170 1370 Output Total 0 1220 624 451 Balance 720 -50 746 -451 Meds/Results Medications: Active Medications Generic Name Dose Route Start Last Admin Trade Name Freq PRN Reason Stop Dose Admin Acetaminophen 500 mg 12/18/24 10:29 12/24/24 11:07 Acetaminophen 500 Mg Tablet PO 500 mg Q6H PRN Administration Mild Pain (1-3) or Fever Calcium Carbonate 400 mg 12/20/24 09:00 12/24/24 12:15 Calcium Carbonate (Tums) 500 Mg (200 Mg Elemental) PO 400 mg TID CHACORTA Administration Cinacalcet 60 mg 12/17/24 10:30 12/19/24 10:54 Cinacalcet 30 Mg Tablet PO 60 mg On Hold: 12/19/24 14:29 DAILY CHACORTA Administration Ergocalciferol 1,250 mcg 12/20/24 09:00 12/20/24 10:00 Ergocalciferol (Vitamin D2) 1,250 Mcg (50,000 Units) Capsule PO 1,250 mcg WEEKLY CHACORTA Administration Fluconazole 100 mg 12/21/24 09:00 12/23/24 08:55 Fluconazole 100 Mg Tablet PO 100 mg Q48HR CHACORTA Administration Heparin Sodium (Porcine) 5,000 units 12/17/24 21:00 12/24/24 08:52 Heparin Sodium 5,000 Units/Ml Vial SUB-Q 5,000 units Q12HR CHACORTA Administration Ceftriaxone Sodium 2 gm/ 100 mls @ 200 mls/hr 12/22/24 09:00 12/24/24 08:51 Sodium Chloride IVPB 200 mls/hr Q24H CHACORTA Administration Non-Formulary Medication 210 mg 12/22/24 12:00 12/24/24 11:51 Ferric Citrate [Auryxia] PO 01/21/25 11:59 210 mg DAILY@1200 CHACORTA Administration Pantoprazole Sodium 40 mg 12/17/24 09:00 12/24/24 08:51 Pantoprazole Sodium Iv 40 Mg Vial IV PUSH 40 mg Q12HR CHACORTA Administration Radiology Results: ITS Impressions Chest X-Ray 12/16/24 15:13 Impression: Early bilateral pneumonia Abdomen/Pelvis CT 12/16/24 17:08 IMPRESSION: 1. Intra-abdominal free air which may relate to the patient's peritoneal dialysis catheter however distinction from a viscus perforation is limited and extensive artifact also obscures evaluation. Follow-up is recommended to assess as clinically warranted. 2. Incidental findings above Chest/Abdomen/Pelvis CT 12/19/24 15:26 IMPRESSION: 1. Evaluation limited by extensive streak artifact throughout the chest, abdomen and pelvis related to extensive T2-S1 posterior spinal fusion. There appears to chronic loosening of an associated right iliac screw with. Chronic healing fracture extends across the inferomedial aspect of the right iliac wing. 2. Extensive body wall edema with small amount of ascites and small left pleural effusion. The ascites may be related to peritoneal dialysis with dialysis catheter coiled in the left lower quadrant. 3. 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 Labs Labs: Laboratory Tests 12/24/24 06:51 12/24/24 06:51 Calcium 6.8 L Phosphorus 2.8 Albumin 2.0 L Microbiology 12/16/24 15:26 Blood Blood Culture - Final 12/16/24 15:27 Blood Blood Culture - Final
[2024-12-24] MEDS: ACETAMINOPHEN 500 MG TABLET PO (11:07)
--- NOTE | 2024-12-24 11:37 | P.PNINF_ITS ---
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) -susceptibilities and speciation unable to be completed -12/18/24 inpatient PD fluid cultures negative -Continue Ceftriaxone IV while in-house; can transition to Ceftriaxone 1g IP daily x 14 days upon hospital discharge (arrangement per Nephrology service) -Consider removal of PD catheter if symptoms worsen, PD catheter dysfunction persists -12/20/24 PD fluid cell lessm=015 which is significantly improved since admission (2) Abdominal pain: Code(s): R10.9 - Unspecified abdominal pain Status: Acute Assessment and Plan: Resolved abdominal pain Suspect abdominal pain due to PD catheter peritonitis, possible ileus changes on admission Management as per primary service (3) End stage renal disease: Code(s): N18.6 - End stage renal disease Status: Acute Assessment and Plan: Management as per Nephrology service (4) Pneumonia: Code(s): J18.9 - Pneumonia, unspecified organism Status: Acute Assessment and Plan: -CXR shows bibasilar infiltrates -Patient minimally symptomatic -This may reflect atelectasis vs. aspiration pneumonia in setting of recent emesis -Continue Meropenem for empiric coverage. (5) Cerebral palsy: Qualifiers: Cerebral palsy type: unspecified type Qualified Code(s): G80.9 - Cerebral palsy, unspecified Code(s): G80.9 - Cerebral palsy, unspecified Status: Chronic Assessment and Plan: Management as per primary service Plan -Continue Ceftriaxone IV while in-house -Can transition to Ceftriaxone 1g IP daily or Ceftazidime IP daily (last dose on 12/30/24) upon hospital discharge (arrangement as per Nephrology service) -Discharge planning per primary service once outpatient intraperitoneal antimicrobial therapy arranged by Nephrology service Discussed in detail with patient and mother. All questions answered. Patient was seen via video telehealth consultation with the assistance of staff. Chart, data, and patient independently reviewed. Patient was located at [facility] while I was located in my [place] office. Received verbal consent from patient. Subjective Date/time seen: 12/24/24 11:37 Interval history: Patient afebrile. Meropenem de-escalated to Ceftriaxone. Patient has no abdominal pain. Peritoneal WBC=99. Inpaitent peritoneal fluid cultures remain negative to date. Review of Systems Review of Systems: All systems reviewed & are unremarkable except as noted in HPI and below Exam Narrative: Gen: alert, NAD Pulm: no tachypnea or conversational dyspnea Abd: distended, PD catheter intact, no TTP or guarding/rebound per nurse examination during telemed visit Ext: limb contractures noted Objective Data Vital Signs Vital Signs: Vital Signs - 24 hr 12/23/24 12:00 12/23/24 14:00 12/23/24 16:00 Temperature 98.4 F Pulse Rate 110 H 107 H 103 H Respiratory Rate 18 Blood Pressure 124/94 H Pulse Oximetry 98 Oxygen Delivery 12/23/24 21:40 12/24/24 06:00 12/24/24 08:00 Temperature 97.8 F 98.0 F Pulse Rate 104 H 98 106 H Respiratory Rate 16 16 16 Blood Pressure 145/105 H 128/97 H Pulse Oximetry 100 100 100 Oxygen Delivery Room Air 12/24/24 08:00 Temperature Pulse Rate 106 H Respiratory Rate Blood Pressure Pulse Oximetry Oxygen Delivery Intake/Output Intake/Output: Intake & Output 12/21/24 12/22/24 12/23/24 12/24/24 23:59 23:59 23:59 23:59 Intake Total 720 1170 1370 Output Total 0 1220 624 451 Balance 720 -50 746 451 Meds/Results Medications: Active Medications Generic Name Dose Route Start Last Admin Trade Name Freq PRN Reason Stop Dose Admin Acetaminophen 500 mg 12/18/24 10:29 12/24/24 11:07 Acetaminophen 500 Mg Tablet PO 500 mg Q6H PRN Administration Mild Pain (1-3) or Fever Calcium Carbonate 400 mg 12/20/24 09:00 12/24/24 08:52 Calcium Carbonate (Tums) 500 Mg (200 Mg Elemental) PO 400 mg TID CHACORTA Administration Cinacalcet 60 mg 12/17/24 10:30 12/19/24 10:54 Cinacalcet 30 Mg Tablet PO 60 mg On Hold: 12/19/24 14:29 DAILY CHACORTA Administration Ergocalciferol 1,250 mcg 12/20/24 09:00 12/20/24 10:00 Ergocalciferol (Vitamin D2) 1,250 Mcg (50,000 Units) Capsule PO 1,250 mcg WEEKLY CHACORTA Administration Fluconazole 100 mg 12/21/24 09:00 12/23/24 08:55 Fluconazole 100 Mg Tablet PO 100 mg Q48HR CHACORTA Administration Heparin Sodium (Porcine) 5,000 units 12/17/24 21:00 12/24/24 08:52 Heparin Sodium 5,000 Units/Ml Vial SUB-Q 5,000 units Q12HR CHACORTA Administration Ceftriaxone Sodium 2 gm/ 100 mls @ 200 mls/hr 12/22/24 09:00 12/24/24 08:51 Sodium Chloride IVPB 200 mls/hr Q24H CHACORTA Administration Non-Formulary Medication 210 mg 12/22/24 12:00 12/23/24 11:52 Ferric Citrate [Auryxia] PO 01/21/25 11:59 210 mg DAILY@1200 CHACORTA Administration Pantoprazole Sodium 40 mg 12/17/24 09:00 12/24/24 08:51 Pantoprazole Sodium Iv 40 Mg Vial IV PUSH 40 mg Q12HR CHACORTA Administration Radiology Results: ITS Impressions Chest X-Ray 12/16/24 15:13 Impression: Early bilateral pneumonia Abdomen/Pelvis CT 12/16/24 17:08 IMPRESSION: 1. Intra-abdominal free air which may relate to the patient's peritoneal dialysis catheter however distinction from a viscus perforation is limited and extensive artifact also obscures evaluation. Follow-up is recommended to assess as clinically warranted. 2. Incidental findings above Chest/Abdomen/Pelvis CT 12/19/24 15:26 IMPRESSION: 1. Evaluation limited by extensive streak artifact throughout the chest, abdomen and pelvis related to extensive T2-S1 posterior spinal fusion. There appears to chronic loosening of an associated right iliac screw with. Chronic healing fracture extends across the inferomedial aspect of the right iliac wing. 2. Extensive body wall edema with small amount of ascites and small left pleural effusion. The ascites may be related to peritoneal dialysis with dialysis catheter coiled in the left lower quadrant. 3. 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 Labs Labs: Laboratory Results - last 24 hr 12/24/24 06:51 WBC 7.4 RBC 4.39 Hgb 12.0 Hct 39.4 MCV 89.7 MCH 27.3 MCHC 30.5 L RDW 14.1 Plt Count 400 H MPV 9.3 Immature Gran % (Auto) 0.4 Neut % (Auto) 61.9 Lymph % (Auto) 28.1 Harlan % (Auto) 5.8 Eos % (Auto) 3.1 Baso % (Auto) 0.7 Lymph # (Auto) 2.08 Harlan # (Auto) 0.4 Eos # (Auto) 0.2 Baso # (Auto) 0.1 Abs Immat Gran (auto) 0.03 Absolute Neuts (auto) 4.6 Absolute Nucleated RBC 0.000 Nucleated RBC % 0.0 Sodium 128 L Potassium 3.8 Chloride 99 Carbon Dioxide 25 Anion Gap 4 BUN 29 H Creatinine 3.47 H Estim Creat Clear Calc Not Reportable Estimated GFR 15 L Glucose 94 Calcium 6.8 L Phosphorus 2.8 Albumin 2.0 L
[2024-12-24] MEDS: [UNRECOGNIZED DRUG - OTHER] PO (11:51)
[2024-12-24] MEDS: FERRIC CITRATE 210 MG PO (11:51)
[2024-12-25] VITALS: PULSE 95
[2024-12-25 04:00] VITALS: PULSE 82
[2024-12-25 06:00] VITALS: BP 133/94; PULSE 95; RESP 16; TEMP 36.6; O2SAT 99
[2024-12-25 07:03] LABS: Albumin Level 1.9 g/dL (3.5-5.1); Anion Gap 3 mmol/L (4-12); Blood Urea Nitrogen 32 mg/dL (7-17); Calcium 6.7 mg/dL (8.4-10.2); Carbon Dioxide 27 mmol/L (22-30); Chloride 98 mmol/L (98-107); Estimated Glomerular Filt Rate 13; Glucose 85 mg/dL (65-110); Potassium 4.2 mmol/L (3.4-5.0); Sodium 128 mmol/L (137-145)
[2024-12-25 08:00] VITALS: PULSE 116
[2024-12-25] MEDS: FLUCONAZOLE 100 MG TABLET PO (08:06)
[2024-12-25] MEDS: CALCIUM CARBONATE (TUMS) 500 MG (200 MG ELEMENTAL) 400 MG PO ×2 (08:06→12:23)
[2024-12-25] MEDS: cefTRIAXone 2 GM in SODIUM CHLORIDE 0.9% IV 100 ML 200 ML IVPB (08:06)
[2024-12-25] MEDS: PANTOPRAZOLE SODIUM IV 40 MG VIAL IV PUSH (08:06)
[2024-12-25] MEDS: ALBUMIN HUMAN 25% 25 GM/100 ML 100 ML IVPB (10:07)
--- NOTE | 2024-12-25 10:41 | PM.PNNEP ---
Progress Note: A&P Assessment and Plan (1) End stage renal disease: Code(s): N18.6 - End stage renal disease Status: Acute Assessment and Plan: continue nightly CCPD while hospitalized using home PD cycler/machine given issues with hospital PD cycler on the evening of 12/17 follow electrolytes, volume status, and clearance due to polycystic kidney disease outpatient dialysis center = [facility] primary shank carrier = Dr. Cary Maire (2) Abdominal pain: Code(s): R10.9 - Unspecified abdominal pain Status: Acute Assessment and Plan: improvement noted suspect secondary to peritonitis in the context of peritoneal dialysis admission CT imaging reviewed Surgery evaluation noted follow clinical symptoms (3) Peritonitis: Code(s): K65.9 - Peritonitis, unspecified Status: Acute Assessment and Plan: as reported by history (from primary shank carrier and outpatient PD nurse) per review with outpatient PD nurse: cloudy PD fluid noted on 12/05 initial PD fluid WBC/neutrophils of 7413 (on 12/05) initiated on treatment with intraperitoneal vancomycin + ceftazidime; continued on IP vancomycin but added oral ciprofloxcin and diflucan repeat PD fluid WBC/neutrophil count 5 days later down to 395 (on 12/10) outpatient PD culture results with Neisseria unfortunately, per outpatient dialysis lab facility, identification of the species of Neisseria not able to be done and hence, no susceptibilities will be available improving trend of PD fluid sample cell count noted.... repeat gram stain (on admission) with no WBC or organisms repeat PD fluid cultures (on admission) with no growth (aerobic culture) blood culture negative x [address] C/A/P noted Infectious Disease following on antibiotics - plan intraperitoneally ceftazidime till 12/30 (4) Pneumonia: Code(s): J18.9 - Pneumonia, unspecified organism Status: Acute Assessment and Plan: as suggested by admission imaging no evidence of hypoxia blood culture negative x 48 hours on antibiotics (5) Hypocalcemia: Code(s): E83.51 - Hypocalcemia Status: Acute Assessment and Plan: quite significant on presentation (5.7mg/dL) however, given hypoalbuminia, admission corrected calcium closer to 7.0mg/dL follow CORRECTED calcium levels...(corrected calcium 8.4mg/dL today) s/p IV calcium and started on oral calcium supplements PTH low and vitamin D level quite low hold Sensipar/cinacalcet (can cause low calcium levels) initiated on ergocalciferol interestingly, calcium on ER visit on 12/02 normal at 8.7mg/dL (but her albumin was 2.8g/dL at that time) (6) Hyponatremia: Code(s): E87.1 - Hypo-osmolality and hyponatremia Status: Acute Assessment and Plan: improvement noted likely a chronic component due to ESRD acute drop maybe related to suboptimal fluid removal with PD treatments in the context of peritonitis furthermore, recent imaging with extensive body wall edema present as well (hence, some degree of volume overload) however, her low albumin may be contributing to her edema as well... continue more aggressive fluid removal with dialysis (7) Hypoalbuminemia: Code(s): E88.09 - Other disorders of plasma-protein metabolism, not elsewhere classified Status: Acute Assessment and Plan: noted on admission - 2.4g/dL dropped to as low as 1.8mg/dL suspect diminished oral intake in the context of infection likely also related to infection itself complicated by associated losses with dialysis at baseline liberalized diet and getting nutritional supplements (getting Nepro shakes BID) sanitation manager following (8) Hypokalemia: Code(s): E87.6 - Hypokalemia Status: Acute Assessment and Plan: corrected with supplementation due to poor nutrition versus GI loss? follow trend of repeat K+ levels (9) Anemia: Code(s): D64.9 - Anemia, unspecified Status: Acute Assessment and Plan: H/H at goal (if not supratherapeutic) for ESRD status no need for PALOMA at this time follow trend of H/H (10) Cerebral palsy: Qualifiers: Cerebral palsy type: unspecified type Qualified Code(s): G80.9 - Cerebral palsy, unspecified Code(s): G80.9 - Cerebral palsy, unspecified Status: Chronic Assessment and Plan: chronic issue Not opposed to discharge if otherwise medically stable -- she can follow-up with her outpatient PD nurse and Dr. Maier for ongoing management of her ESRD. Subjective Date/time seen: 12/25/24 10:41 Interval history: Follow-up for end stage renal disease on peritoneal dialysis. Tolerated peritoneal dialysis treatment overnight without any issues or problems (CCPD supervised and seen at 10:30am); discussed outpatient antibiotics with Infectious Disease pharmacist yesterday (will plan IP ceftazidime); no apparent distress noted; discussed with mother at bedside. Exam Narrative: General: thin and frail female in NAD Heart: normal S1 and S2; no rub Lungs: clear to auscultation Abdomen: soft, nontender; positive bowel sounds Extremities: no cyanosis or clubbing; trace edema; contractures noted Skin: no nodules Objective Data Vital Signs Vital Signs: Vital Signs Temp Pulse Resp BP Pulse Ox O2 Del Method 12/25/24 08:00 116 H 12/25/24 08:00 Room Air 12/25/24 06:00 97.9 F 95 16 133/94 H 99 12/25/24 04:00 82 12/25/24 00:00 95 12/24/24 22:00 98.0 F 92 18 146/101 H 99 12/24/24 20:00 98 12/24/24 16:00 99 12/24/24 14:00 96.8 F L 98 15 118/88 99 Intake/Output Intake/Output: Intake & Output 12/22/24 12/23/24 12/24/24 12/25/24 23:59 23:59 23:59 23:59 Intake Total 1170 1370 820 150 Output Total 1220 377 266 3153 Balance -50 288 366 -0405 Meds/Results Medications: Active Medications Generic Name Dose Route Start Last Admin Trade Name Freq PRN Reason Stop Dose Admin Acetaminophen 500 mg 12/18/24 10:29 12/25/24 11:04 Acetaminophen 500 Mg Tablet PO 500 mg Q6H PRN Administration Mild Pain (1-3) or Fever Calcium Carbonate 400 mg 12/20/24 09:00 12/25/24 12:23 Calcium Carbonate (Tums) 500 Mg (200 Mg Elemental) PO 400 mg TID CHACORTA Administration Cinacalcet 60 mg 12/17/24 10:30 12/19/24 10:54 Cinacalcet 30 Mg Tablet PO 60 mg On Hold: 12/19/24 14:29 DAILY CHACORTA Administration Ergocalciferol 1,250 mcg 12/20/24 09:00 12/20/24 10:00 Ergocalciferol (Vitamin D2) 1,250 Mcg (50,000 Units) Capsule PO 1,250 mcg WEEKLY CHACORTA Administration Fluconazole 100 mg 12/21/24 09:00 12/25/24 08:06 Fluconazole 100 Mg Tablet PO 100 mg Q48HR CHACORTA Administration Heparin Sodium (Porcine) 5,000 units 12/17/24 21:00 12/25/24 08:06 Heparin Sodium 5,000 Units/Ml Vial SUB-Q 5,000 units Q12HR CHACORTA Administration Ceftriaxone Sodium 2 gm/ 100 mls @ 200 mls/hr 12/22/24 09:00 12/25/24 08:06 Sodium Chloride IVPB 200 mls/hr Q24H CHACORTA Administration Non-Formulary Medication 210 mg 12/22/24 12:00 12/25/24 12:28 Ferric Citrate [Auryxia] PO 01/21/25 11:59 210 mg DAILY@1200 CHACORTA Administration Pantoprazole Sodium 40 mg 12/17/24 09:00 12/25/24 08:06 Pantoprazole Sodium Iv 40 Mg Vial IV PUSH 40 mg Q12HR CHACORTA Administration Radiology Results: ITS Impressions Chest X-Ray 12/16/24 15:13 Impression: Early bilateral pneumonia Abdomen/Pelvis CT 12/16/24 17:08 IMPRESSION: 1. Intra-abdominal free air which may relate to the patient's peritoneal dialysis catheter however distinction from a viscus perforation is limited and extensive artifact also obscures evaluation. Follow-up is recommended to assess as clinically warranted. 2. Incidental findings above Chest/Abdomen/Pelvis CT 12/19/24 15:26 IMPRESSION: 1. Evaluation limited by extensive streak artifact throughout the chest, abdomen and pelvis related to extensive T2-S1 posterior spinal fusion. There appears to chronic loosening of an associated right iliac screw with. Chronic healing fracture extends across the inferomedial aspect of the right iliac wing. 2. Extensive body wall edema with small amount of ascites and small left pleural effusion. The ascites may be related to peritoneal dialysis with dialysis catheter coiled in the left lower quadrant. 3. 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 Labs Labs: Laboratory Tests 12/24/24 06:51 12/25/24 06:29 Glucose 85 Calcium 6.7 L Phosphorus 3.5 Albumin 1.9 L Microbiology 12/16/24 15:26 Blood Blood Culture - Final 12/16/24 15:27 Blood Blood Culture - Final
--- NOTE | 2024-12-25 10:41 | P.PNNP_ITS ---
Progress Note: A&P Assessment and Plan (1) End stage renal disease: Code(s): N18.6 - End stage renal disease Status: Acute Assessment and Plan: * continue nightly CCPD while hospitalized * using home PD cycler/machine given issues with hospital PD cycler on the evening of 12/17 * follow electrolytes, volume status, and clearance * due to polycystic kidney disease * outpatient dialysis center = [facility] * primary emt p = Dr. Cary Maier (2) Abdominal pain: Code(s): R10.9 - Unspecified abdominal pain Status: Acute Assessment and Plan: * improvement noted * suspect secondary to peritonitis in the context of peritoneal dialysis * admission CT imaging reviewed * Surgery evaluation noted * follow clinical symptoms (3) Peritonitis: Code(s): K65.9 - Peritonitis, unspecified Status: Acute Assessment and Plan: * as reported by history (from primary emt p and outpatient PD nurse) * per review with outpatient PD nurse: * cloudy PD fluid noted on 12/05 * initial PD fluid WBC/neutrophils of 7413 (on 12/05) * initiated on treatment with intraperitoneal vancomycin + ceftazidime; continued on IP vancomycin but added oral ciprofloxcin and diflucan * repeat PD fluid WBC/neutrophil count 5 days later down to 395 (on 12/10) * outpatient PD culture results with Neisseria * unfortunately, per outpatient dialysis lab facility, identification of the species of Neisseria not able to be done and hence, no susceptibilities will be available * improving trend of PD fluid sample cell count noted.... * repeat gram stain (on admission) with no WBC or organisms * repeat PD fluid cultures (on admission) with no growth (aerobic culture) * blood culture negative x 48 hours * CT C/A/P noted * Infectious Disease following * on antibiotics - plan intraperitoneally ceftazidime till 12/30 (4) Pneumonia: Code(s): J18.9 - Pneumonia, unspecified organism Status: Acute Assessment and Plan: * as suggested by admission imaging * no evidence of hypoxia * blood culture negative x 48 hours * on antibiotics (5) Hypocalcemia: Code(s): E83.51 - Hypocalcemia Status: Acute Assessment and Plan: * quite significant on presentation (5.7mg/dL) * however, given hypoalbuminia, admission corrected calcium closer to 7.0mg/dL * follow CORRECTED calcium levels...(corrected calcium 8.4mg/dL today) * s/p IV calcium and started on oral calcium supplements * PTH low and vitamin D level quite low * hold Sensipar/cinacalcet (can cause low calcium levels) * initiated on ergocalciferol * interestingly, calcium on ER visit on 12/02 normal at 8.7mg/dL (but her albumin was 2.8g/dL at that time) (6) Hyponatremia: Code(s): E87.1 - Hypo-osmolality and hyponatremia Status: Acute Assessment and Plan: * improvement noted * likely a chronic component due to ESRD * acute drop maybe related to suboptimal fluid removal with PD treatments in the context of peritonitis * furthermore, recent imaging with extensive body wall edema present as well (hence, some degree of volume overload) * however, her low albumin may be contributing to her edema as well... * continue more aggressive fluid removal with dialysis (7) Hypoalbuminemia: Code(s): E88.09 - Other disorders of plasma-protein metabolism, not elsewhere classified Status: Acute Assessment and Plan: * noted on admission - 2.4g/dL * dropped to as low as 1.8mg/dL * suspect diminished oral intake in the context of infection * likely also related to infection itself * complicated by associated losses with dialysis at baseline * liberalized diet and getting nutritional supplements (getting Nepro shakes BID) * destination coordinator following (8) Hypokalemia: Code(s): E87.6 - Hypokalemia Status: Acute Assessment and Plan: * corrected with supplementation * due to poor nutrition versus GI loss? * follow trend of repeat K+ levels (9) Anemia: Code(s): D64.9 - Anemia, unspecified Status: Acute Assessment and Plan: * H/H at goal (if not supratherapeutic) for ESRD status * no need for PALOMA at this time * follow trend of H/H (10) Cerebral palsy: Qualifiers: Cerebral palsy type: unspecified type Qualified Code(s): G80.9 - Cerebral palsy, unspecified Code(s): G80.9 - Cerebral palsy, unspecified Status: Chronic Assessment and Plan: * chronic issue Not opposed to discharge if otherwise medically stable -- she can follow-up with her outpatient PD nurse and Dr. Maier for ongoing management of her ESRD. L Subjective Date/time seen: 12/25/24 10:41 Interval history: Follow-up for end stage renal disease on peritoneal dialysis. Tolerated peritoneal dialysis treatment overnight without any issues or problems (CCPD supervised and seen at 10:30am); discussed outpatient antibiotics with Infectious Disease pharmacist yesterday (will plan IP ceftazidime); no apparent distress noted; discussed with mother at bedside. Exam 2 Narrative: General: thin and frail female in NAD Heart: normal S1 and S2; no rub Lungs: clear to auscultation Abdomen: soft, nontender; positive bowel sounds Extremities: no cyanosis or clubbing; trace edema; contractures noted Skin: no nodules Objective Data Vital Signs Vital Signs: Vital Signs Temp Pulse Resp BP Pulse Ox O2 Del Method 12/25/24 08:00 116 H 12/25/24 08:00 Room Air 12/25/24 06:00 97.9 F 95 16 133/94 H 99 12/25/24 04:00 82 12/25/24 00:00 95 12/24/24 22:00 98.0 F 92 18 146/101 H 99 12/24/24 20:00 98 12/24/24 16:00 99 12/24/24 14:00 96.8 F L 98 15 118/88 99 Intake/Output Intake/Output: Intake & Output 12/22/24 12/23/24 12/24/24 12/25/24 23:59 23:59 23:59 23:59 Intake Total 1170 1370 820 150 Output Total 1220 541 655 0030 Balance -50 848 501 -6431 Meds/Results Medications: Active Medications Generic Name Dose Route Start Last Admin Trade Name Freq PRN Reason Stop Dose Admin Acetaminophen 500 mg 12/18/24 10:29 12/25/24 11:04 Acetaminophen 500 Mg Tablet PO 500 mg Q6H PRN Administration Mild Pain (1-3) or Fever Calcium Carbonate 400 mg 12/20/24 09:00 12/25/24 12:23 Calcium Carbonate (Tums) 500 Mg (200 Mg Elemental) PO 400 mg TID CHACORTA Administration Cinacalcet 60 mg 12/17/24 10:30 12/19/24 10:54 Cinacalcet 30 Mg Tablet PO 60 mg On Hold: 12/19/24 14:29 DAILY CHACORTA Administration Ergocalciferol 1,250 mcg 12/20/24 09:00 12/20/24 10:00 Ergocalciferol (Vitamin D2) 1,250 Mcg (50,000 Units) Capsule PO 1,250 mcg WEEKLY CHACORTA Administration Fluconazole 100 mg 12/21/24 09:00 12/25/24 08:06 Fluconazole 100 Mg Tablet PO 100 mg Q48HR CHACORTA Administration Heparin Sodium (Porcine) 5,000 units 12/17/24 21:00 12/25/24 08:06 Heparin Sodium 5,000 Units/Ml Vial SUB-Q 5,000 units Q12HR CHACORTA Administration Ceftriaxone Sodium 2 gm/ 100 mls @ 200 mls/hr 12/22/24 09:00 12/25/24 08:06 Sodium Chloride IVPB 200 mls/hr Q24H CHACORTA Administration Non-Formulary Medication 210 mg 12/22/24 12:00 12/25/24 12:28 Ferric Citrate [Auryxia] PO 01/21/25 11:59 210 mg DAILY@1200 CHACORTA Administration Pantoprazole Sodium 40 mg 12/17/24 09:00 12/25/24 08:06 Pantoprazole Sodium Iv 40 Mg Vial IV PUSH 40 mg Q12HR CHACORTA Administration Radiology Results: ITS Impressions Chest X-Ray 12/16/24 15:13 Impression: Early bilateral pneumonia Abdomen/Pelvis CT 12/16/24 17:08 IMPRESSION: 1. Intra-abdominal free air which may relate to the patient's peritoneal dialysis catheter however distinction from a viscus perforation is limited and extensive artifact also obscures evaluation. Follow-up is recommended to assess as clinically warranted. 2. Incidental findings above Chest/Abdomen/Pelvis CT 12/19/24 15:26 IMPRESSION: 1. Evaluation limited by extensive streak artifact throughout the chest, abdomen and pelvis related to extensive T2-S1 posterior spinal fusion. There appears to chronic loosening of an associated right iliac screw with. Chronic healing fracture extends across the inferomedial aspect of the right iliac wing. 2. Extensive body wall edema with small amount of ascites and small left pleural effusion. The ascites may be related to peritoneal dialysis with dialysis catheter coiled in the left lower quadrant. 3. 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 Labs Labs: Laboratory Tests 12/24/24 06:51 12/25/24 06:29 Glucose 85 Calcium 6.7 L Phosphorus 3.5 Albumin 1.9 L Microbiology 12/16/24 15:26 Blood Blood Culture - Final 12/16/24 15:27 Blood Blood Culture - Final
[2024-12-25] MEDS: ACETAMINOPHEN 500 MG TABLET PO (11:04)
--- NOTE | 2024-12-25 11:20 | WPDINFPN2 ---
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) -susceptibilities and speciation unable to be completed -12/18/24 inpatient PD fluid cultures negative -Continue Ceftriaxone IV while in-house; can transition to Ceftriaxone 1g IP daily or Ceftazidime IP daily with last dose on 12/30/24 (arrangement per Nephrology service) -Consider removal of PD catheter if symptoms worsen, PD catheter dysfunction persists -12/20/24 PD fluid cell lphey=[id number] which is significantly improved since admission (2) Abdominal pain: Code(s): R10.9 - Unspecified abdominal pain Status: Acute Assessment and Plan: Resolved abdominal pain Suspect abdominal pain due to PD catheter peritonitis, possible ileus changes on admission Management as per primary service (3) End stage renal disease: Code(s): N18.6 - End stage renal disease Status: Acute Assessment and Plan: Management as per Nephrology service (4) Pneumonia: Code(s): J18.9 - Pneumonia, unspecified organism Status: Acute Assessment and Plan: -CXR shows bibasilar infiltrates -Patient minimally symptomatic -This may reflect atelectasis vs. aspiration pneumonia in setting of recent emesis -Continue Ceftriaxone for empiric coverage. (5) Cerebral palsy: Qualifiers: Cerebral palsy type: unspecified type Qualified Code(s): G80.9 - Cerebral palsy, unspecified Code(s): G80.9 - Cerebral palsy, unspecified Status: Chronic Assessment and Plan: Management as per primary service Plan -Continue Ceftriaxone IV while in-house -Can transition to Ceftriaxone 1g IP daily or Ceftazidime IP daily (last dose on 12/30/24) upon hospital discharge (arrangement as per Nephrology service) -Discharge planning per primary service once outpatient intraperitoneal antimicrobial therapy arranged by Nephrology service Discussed in detail with patient and mother. All questions answered. No new recommendations at this time. ID service will sign off Patient was seen via video telehealth consultation with the assistance of staff. Chart, data, and patient independently reviewed. Patient was [facility] at [facility] while I was located in my [place] office. Received verbal consent from patient. Subjective Date/time seen: 12/25/24 11:20 Interval history: Patient afebrile. No abdominal pain. Overnight PD went well. Plans for discharge soon Review of Systems Review of Systems: All systems reviewed & are unremarkable except as noted in HPI and below Exam Narrative: Gen: alert, NAD Pulm: no tachypnea or conversational dyspnea Abd: distended, PD catheter intact, no TTP or guarding/rebound per nurse examination during telemed visit Ext: limb contractures noted Objective Data Vital Signs Vital Signs: Vital Signs - 24 hr 12/24/24 12:00 12/24/24 14:00 12/24/24 16:00 Temperature 96.8 F L Pulse Rate 106 H 98 99 Respiratory Rate 15 Blood Pressure 118/88 Pulse Oximetry 99 Oxygen Delivery 12/24/24 20:00 12/24/24 22:00 12/25/24 00:00 Temperature 98.0 F Pulse Rate 98 92 95 Respiratory Rate 18 Blood Pressure 146/101 H Pulse Oximetry 99 Oxygen Delivery 12/25/24 04:00 12/25/24 06:00 12/25/24 08:00 Temperature 97.9 F Pulse Rate 82 95 Respiratory Rate 16 Blood Pressure 133/94 H Pulse Oximetry 99 Oxygen Delivery Room Air 12/25/24 08:00 Temperature Pulse Rate 116 H Respiratory Rate Blood Pressure Pulse Oximetry Oxygen Delivery Intake/Output Intake/Output: Intake & Output 12/22/24 12/23/24 12/24/24 12/25/24 23:59 23:59 23:59 23:59 Intake Total 1170 1370 820 150 Output Total 1220 977 255 8067 Balance -50 180 497 -7292 Meds/Results Medications: Active Medications Generic Name Dose Route Start Last Admin Trade Name Artq PRN Reason Stop Dose Admin Acetaminophen 500 mg 12/18/24 10:29 12/25/24 11:04 Acetaminophen 500 Mg Tablet PO 500 mg Q6H PRN Administration Mild Pain (1-3) or Fever Calcium Carbonate 400 mg 12/20/24 09:00 12/25/24 08:06 Calcium Carbonate (Tums) 500 Mg (200 Mg Elemental) PO 400 mg TID CHACORTA Administration Cinacalcet 60 mg 12/17/24 10:30 12/19/24 10:54 Cinacalcet 30 Mg Tablet PO 60 mg On Hold: 12/19/24 14:29 DAILY CHACORTA Administration Ergocalciferol 1,250 mcg 12/20/24 09:00 12/20/24 10:00 Ergocalciferol (Vitamin D2) 1,250 Mcg (50,000 Units) Capsule PO 1,250 mcg WEEKLY CHACORTA Administration Fluconazole 100 mg 12/21/24 09:00 12/25/24 08:06 Fluconazole 100 Mg Tablet PO 100 mg Q48HR CHACORTA Administration Heparin Sodium (Porcine) 5,000 units 12/17/24 21:00 12/25/24 08:06 Heparin Sodium 5,000 Units/Ml Vial SUB-Q 5,000 units Q12HR CHACORTA Administration Ceftriaxone Sodium 2 gm/ 100 mls @ 200 mls/hr 12/22/24 09:00 12/25/24 08:06 Sodium Chloride IVPB 200 mls/hr Q24H CHACORTA Administration Albumin Human 100 mls @ 60 mls/hr 12/25/24 09:47 12/25/24 10:07 Albutein IVPB 12/25/24 11:26 60 mls/hr ONCE ONE Administration Non-Formulary Medication 210 mg 12/22/24 12:00 12/24/24 11:51 Ferric Citrate [Auryxia] PO 01/21/25 11:59 210 mg DAILY@1200 CHACORTA Administration Pantoprazole Sodium 40 mg 12/17/24 09:00 12/25/24 08:06 Pantoprazole Sodium Iv 40 Mg Vial IV PUSH 40 mg Q12HR CHACORTA Administration Radiology Results: ITS Impressions Chest X-Ray 12/16/24 15:13 Impression: Early bilateral pneumonia Abdomen/Pelvis CT 12/16/24 17:08 IMPRESSION: 1. Intra-abdominal free air which may relate to the patient's peritoneal dialysis catheter however distinction from a viscus perforation is limited and extensive artifact also obscures evaluation. Follow-up is recommended to assess as clinically warranted. 2. Incidental findings above Chest/Abdomen/Pelvis CT 12/19/24 15:26 IMPRESSION: 1. Evaluation limited by extensive streak artifact throughout the chest, abdomen and pelvis related to extensive T2-S1 posterior spinal fusion. There appears to chronic loosening of an associated right iliac screw with. Chronic healing fracture extends across the inferomedial aspect of the right iliac wing. 2. Extensive body wall edema with small amount of ascites and small left pleural effusion. The ascites may be related to peritoneal dialysis with dialysis catheter coiled in the left lower quadrant. 3. 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 Labs Labs: Laboratory Results - last 24 hr 12/25/24 06:29 Sodium 128 L Potassium 4.2 Chloride 98 Carbon Dioxide 27 Anion Gap 3 L BUN 32 H Creatinine 3.74 H Estim Creat Clear Calc Not Reportable Estimated GFR 13 L Glucose 85 Calcium 6.7 L Phosphorus 3.5 Albumin 1.9 L
[2024-12-25 12:00] VITALS: PULSE 109
[2024-12-25] MEDS: [UNRECOGNIZED DRUG - OTHER] PO (12:28)
[2024-12-25] MEDS: FERRIC CITRATE 210 MG PO (12:28)
[2024-12-25 14:00] VITALS: BP 111/84; PULSE 99; RESP 12; TEMP 36.6; O2SAT 100
--- NOTE | 2024-12-25 14:03 | P.DS_ITS ---
DS: Admitting Diagnosis Discharge Date 12/25/24 Admitting Diagnosis Abdominal pain Nausea/vomiting Loose stool DS: Discharge Diagnosis Discharge Diagnosis (1) Peritonitis: Code(s): K65.9 - Peritonitis, unspecified Status: Acute DS: Summary Hospital Course Hospital Course: 39-year-old female with past medical history of cerebral palsy presented to the ER with complaints of left lower quadrant abdominal pain. Her mother reports she was here 2 weeks ago with abdominal pain. She reports they did a CT scan and noted that patient was constipated. Patient's mother reports she noticed patient's peritoneal bag was cloudy approximately 1-1/2 weeks ago so they brought her to the clinic and she was placed on ciprofloxacin and Diflucan. Her mother reports that the cultures have come back negative but patient has continued on ciprofloxacin. Patient's mother reports she has been vomiting every other night. Her mother endorses a history of peritoneal dialysis, cerebral palsy, and labial abscess. Patient was managed for Peritoneal dialysis associated peritonitis, nephrology and ID were consulted and patient was starte don intraperitoneal Vancomycin and Rocephin. outpatient PD culture grew Neissieria and she was placed on Ceftazidime eventually. I discussed with ID adn Nephrology, patient already set up for outpatient antibiotics by Health Insurance Assessor, Dr Berry. Abd pain resolved, she continued dialysis while she was admitted. Also managed for Pneumonia and will continue antibiotics as noted above. F/u with PCP in 3-5 days F/u with nephrology as instructed Time Spent with Patient Time attestation: Total time spent providing and/or coordinating discharge services: DS: Data Data Completed and Pending Labs on day of discharge: Labs from last 24 hours 12/25/24 06:29 Sodium 128 L Potassium 4.2 Chloride 98 Carbon Dioxide 27 Anion Gap 3 L BUN 32 H Creatinine 3.74 H Estim Creat Clear Calc Not Reportable Estimated GFR 13 L Glucose 85 Calcium 6.7 L Phosphorus 3.5 Albumin 1.9 L Discharge Plan Discharge Attending physician on discharge: Tam Malave Consulting providers: Yefri Bush; Melody Guaman; Shelbi Duke; Thong Galo; Tam Malave Discharging Clinician: Tam Malave Anticipated Discharge Date/Time: 12/25/24 13:56 Patient Disposition: Home Activity: as tolerated Diet: as tolerated Patient Instructions: Antibiotic Form Patient Language: Bhutanese Stand Alone Forms: General Discharge Information Follow-up/Referrals: Yefri Bush MD [Physician, Nephrology] Referral Note: F/u with PCP in 3-5 days Kacie De La Garza PA-C [Primary Care Provider, Family Practice] Referral Note: F/u with PCP in 3-5 days Discharge Medications: Continued cinacalcet 60 mg tablet 60 mg PO DAILY Rx Instructions: Take 1 tab daily with dinner fluconazole 100 mg tablet 100 mg PO Q48H ferric citrate [Auryxia] 210 mg iron tablet 210 mg PO TID Rx Instructions: administer with a meal tramadol-acetaminophen 37.5-325 mg tablet 1 - 2 tablet PO ONCE PRN (Reason: pain) ciprofloxacin HCl 250 mg tablet 250 mg PO BID cholecalciferol (vitamin D3) [Vitamin D3] 25 mcg (1,000 unit) capsule 1,000 unit PO DAILY calcium carbonate 500 mg calcium (1,250 mg) tablet,chewable 500 mg PO BID-TID ferric citrate [Auryxia] 210 mg iron tablet 210 mg PO TID Rx Instructions: administer with a meal Date of admission: 12/19/24 09:51 Primary Care Provider: Kacie De La Garza Admitting Provider: Carolee Goodwin Attending physician on admission: Carolee Goodwin Condition: Serious
== END 2024-12-25 15:40 | disposition home or self-care (01) | DRG 919 ==
LOC: ANHED 12-17 02:23 → ANH3MEDSUR 12-17 04:05
PROVIDERS: Internal Medicine; Internal Medicine Nephrology; Nurse Practitioner Acute Care; Admitting Provider General Practice; Emergency Provider Registered Nurse; Visit Provider Internal Medicine
DX: T85.71XA Infection and inflammatory reaction due to peritoneal dialysis catheter, initial encounter (principal); J18.9 Pneumonia, unspecified organism; K65.9 Peritonitis, unspecified; N18.6 End stage renal disease; E87.1 Hypo-osmolality and hyponatremia; I12.0 Hypertensive chronic kidney disease with stage 5 chronic kidney disease or end stage renal disease; Q61.3 Polycystic kidney, unspecified; K56.7 Ileus, unspecified; E83.51 Hypocalcemia; E87.6 Hypokalemia; D63.1 Anemia in chronic kidney disease; G80.9 Cerebral palsy, unspecified; Z99.2 Dependence on renal dialysis
CPT/HCPCS: 36415; 71045; 71260; 74177; 80048; 80053; 80069; 80202; 81001; 82306; 82310; 82948; 83605; 83690; 83735; 83970; 84100; 84145; 85025; 85610; 85730; 86140; 86706; 87040; 87070; 87075; 87205; 87340; 87637; 87641; 89051; 90945; 96361; 96365; 96366; 96367; 96375; 96376; 99285; A9270; G0378; J0456; J0612; J0613; J0696; J1644; J2185; J2405; J2470; J3373; J3480; J7030; J7040; J7050; P9047; Q9967

== ENCOUNTER 2025-01-14 12:54 | Outpatient (CLI) | payer OTHER, SELFPAY ==
--- NOTE | ~2025-01-14 | XR_ITS ---
XR lumbar spine 2-3V Indication: R22.2 - Localized swelling, mass and lump, trunk Comparison: None Findings: Fixation of the entire visualized spine, no fracture is identified, the hardware is intact with screws also noted fixating the pelvis. No acute fracture is identified. Moderate to severe osteopenia. There is severe loss of disc height throughout. Soft tissues unremarkable Impression: No acute abnormality. Reviewed, dictated and finalized at location P. Impression: No acute abnormality.
--- NOTE | ~2025-01-14 | XR_ITS ---
XR abdomen/kub 1V 01/14/2025 14:01 Indication: Breakdown of intraperitoneal dialysis Procedure: KUB Comparison: CT dated 12/19/2024 Findings: There are changes of spinal fusion extending from the lower thoracic spine to the pelvis. There is evidence of chronic loosening of screw transfixing the right sacrum and ilium. There is a transversely oriented fracture superior to the screw within the ilium, likely subacute or chronic. There are extensive calcifications throughout the abdomen and pelvis likely representing a combination of renal calcifications, vascular calcifications and perineal calcifications, likely from prior peritonitis. Nonobstructive bowel gas pattern. Impression: 1: Nonobstructive bowel gas pattern with extensive calcifications of the abdomen and pelvis described above. There are ill-defined peritoneal calcifications throughout which likely reflects previous peritonitis. 2: Obliquely oriented fracture of the right ilium, likely subacute or chronic, just superior to the lack screw transfixing the sacrum and ilium. Reviewed, dictated and finalized at location O. Impression: 1: Nonobstructive bowel gas pattern with extensive calcifications of the abdome n and pelvis described above. There are ill-defined peritoneal calcifications t hroughout which likely reflects previous peritonitis. 2: Obliquely oriented fracture of the right ilium, likely subacute or chronic, just superior to the lack screw transfixing the sacrum and ilium.
--- OUTSIDE RECORDS SUMMARY | 2025-01-14 14:38 | XMS_ITS | Clinical Summary ---
Author Organization [facility] Address [address] [address] Care Team Providers Care Brass Finisher Name Role Phone Emir Alex Bernstein INVENTORY TECHNICIAN-WEDDING CONSULTANT Primary Care Provider Source Comments [facility],non-owned Affiliates and Associated Physician Practices is amultiple site organization consisting of ambulatory clinics and hospital sitesin [place], [place], [place] and [place]. This disclosure is being madepursuant to the Care Everywhere program and may not contain all information available regarding this patient. 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 Gender Identity Not on file Sexual Orientation [...] series) 10/18/2011 DEPRESSION SCREENING 03/28/2024 COVID-19 VACCINE (1 2023-2 5 season) 2024 INFLUENZA VACCINE (#1) 2024 [...] this topic Medical Devices Implanted Type Area Squeegeer And Former Device Identifier Shelf Expiration Date Model / Serial / Lot Cath Dlys 62cm Qn Crlcth Peritoneum 2 Implanted:Qty: 1 on 10/22/2021 by Sam Reardon MD at [facility] N/A: Abdomen Covidien 03/13/2024 [id number] / / [id number] Cath Dlys 15fr 112.8cm 2 Cuf Clp Adpr Implanted:Qty: 1 on 10/22/2021 by Sam Reardon MD at [facility] N/A: Abdomen Covidien 09/07/2024 [id number] / / [id number] Insurance [facility] MEDICARE DUAL ADV [place] Care Teams Brass Finisher Relationship Specialty Start Date End Date Alex Field, INVENTORY TECHNICIAN-WEDDING CONSULTANT [address] [place] [address] PCP - General Nurse Practitioner Family 10/05/21
--- OUTSIDE RECORDS SUMMARY | 2025-01-14 14:38 | XMS_ITS | Data Portability ---
Author Organization Fiorella ROWE Address [address] [place] [address] Assessment No assessment recorded. Plan of Treatment Reminders Order Date Submit Date Provider Last Modified By Organization Details Last Modified Time Details Appointments None recorded. Lab CMP, serum or plasma 2015 016 [facility], [address], [address], [place], [address], 6 17:11:41 lipid panel, serum 2015 016 [facility], [address] [facility] [address], [address], [place], [address], 6 17:11:40 CBC w/ auto diff 2015 016 [facility], [facility] [address], [address], [place], [address], 6 17:11:41 unlisted lab - TSH reflex to t4f 2015 016 [facility], [address] [facility] [address], [address], [place], [address], 6 15:53:54 CBC w/ auto diff 2015 016 m[facility]or [facility], [address] [facility] [address], [address], [place], [address], 6 14:53:40 CMP, serum or plasma 2015 016 mringor [facility], [address] [facility], [address], [place], [address], 6 14:53:40 lipid panel, serum 2015 016 [facility], [address] [facility], [address], [place], [address], 6 14:53:41 Referral None recorded. Procedures None recorded. Surgeries None recorded. Imaging ultrasound , kidney - PCKD 2015 016 [facility], [address] [place], [address], 15:44:29 Medication Orders Metamucil (sugar) oral powder 2015 016 [facility], [address] [facility], [place], [address], 14:46:57 Patient TargetsNo targets recorded. Patient Instructions Encounter Date Encounter Id Patient Instructions Last Modified By Organization Details Last Modified Time 09/01/2015 [id number] constipation: care instructions mringor Not available 09/01/2015 17:49:18 Annual influenza vaccine was highly recommended. [facility] Not available 09/01/2015 14:42:02 Reason for Referral None Reported. Results Created Date Observation Date Name Description Value Unit Range Abnormal Flag Note LastModifiedBy Organization Detail LastModifiedTime 09/23/19 16 09/24/2015 lipid panel , serum cholesterol, total 189 mg/dL 100-19 9 Not Available [facility] ([facility]) [address] [facility], [place], [address], 09/24/2015 17:11:40 09/23/19 16 09/24/2015 lipid panel , serum triglyceride s 151 mg/dL 0-149 above high normal Not Available [facility] ([facility]) [address] [facility], [place], [address], 09/24/2015 17:11:40 09/23/19 16 09/24/2015 lipid panel , serum LDL chol. (direct) 107 mg/dL 0-99 above high normal Not Available [facility] ([facility]) [address] [facility], [place], [address], 09/24/2015 17:11:40 09/23/19 16 09/24/2015 lipid panel , serum HDL cholesterol 57 mg/dL >39 ACCOR DING TO ATP-I II GUIDE LINES , HDL-C >59 MG/DL IS CONSI DERED A NEGAT JETT RISK FACTO R FOR CHD. Not Available [facility] ([facility]) [address] [facility], [place], [address], 09/24/2015 17:11:40 09/23/19 16 09/24/2015 lipid panel , serum VLDL cholesterol shivani 30 mg/dL 5-40 Not Available [facility] ([facility]) [address] [facility], [place], [address], 09/24/2015 17:11:40 09/23/19 16 09/24/2015 lipid panel , serum LDL cholesterol calc 102 mg/dL 0-99 above high normal Not Available [facility] ([facility]) [address] [place], [address], 09/24/2015 17:11:40 09/23/19 16 09/24/2015 lipid panel , serum comment: BUTCHER FISH Not Available [facility] ([facility]) [address] [facility], [place], [address], 09/24/2015 17:11:40 09/23/19 16 09/24/2015 lipid panel , serum LDL/HDL ratio 1.8 ratio _unit s 0.0-3. 2 LDL/H DL RATIO MEN WOMEN 1/2 AVG.R ISK 1.0 1.5 AVG.R ISK 3.6 3.2 2X AVG.R ISK 6.2 5.0 3X AVG.R ISK 8.0 6.1 Not Available [facility] ([facility]) [address] [place], [address], 09/24/2015 17:11:40 09/23/19 16 09/24/2015 CBC w/ auto diff WBC 8.5 x10e3 /uL 3.4-10 .8 Not Available [facility] ([facility]) [address] [place], [address], 09/24/2015 17:11:41 09/23/19 16 09/24/2015 CBC w/ auto diff RBC 4.34 x10e6 /uL 3.77-5 .28 Not Available [facility] ([facility]) [address] [place], [address], 09/24/2015 17:11:41 09/23/19 16 09/24/2015 CBC w/ auto diff hemoglobin 10.3 g/dL 11.1-1 5.9 below low normal Not Available [facility] ([facility]) [address] [place], [address], 09/24/2015 17:11:41 09/23/19 16 09/24/2015 CBC w/ auto diff hematocrit 31.7 % 34.0-4 6.6 below low normal Not Available [facility] ([facility]) [address] [place], [address], 09/24/2015 17:11:41 09/23/19 16 09/24/2015 CBC w/ auto diff MCV 73 fL 79-97 below low normal Not Available [facility] ([facility]) [address] [place], [address], 09/24/2015 17:11:41 09/23/19 16 09/24/2015 CBC w/ auto diff MCH 23.7 pg 26.6-3 3.0 below low normal Not Available [facility] ([facility]) [address] [place], [address], 09/24/2015 17:11:41 09/23/19 16 09/24/2015 CBC w/ auto diff MCHC 32.5 g/dL 31.5-3 5.7 Not Available [facility] ([facility]) [address] [facility], [place], [address], 09/24/2015 17:11:41 09/23/19 16 09/24/2015 CBC w/ auto diff RDW 20.3 % 12.3-1 5.4 above high normal Not Available [facility] ([facility]) [address] [facility], [place], [address], 09/24/2015 17:11:41 09/23/19 16 09/24/2015 CBC w/ auto diff platelets 242 x10e3 /uL 150-37 9 Not Available [facility] ([facility]) [address] [facility], [place], [address], 09/24/2015 17:11:41 09/23/19 16 09/24/2015 CBC w/ auto diff neutrophils 68 % Not Available [facility]) [address] [facility], [place], [address], 09/24/2015 17:11:41 09/23/19 16 09/24/2015 CBC w/ auto diff lymphs 26 % Not Available [facility] ([facility]) [address] [facility], [place], [address], 09/24/2015 17:11:41 09/23/19 16 09/24/2015 CBC w/ auto diff monocytes 5 % Not Available [facility] ([facility]) [address] [facility], [place], [address], 09/24/2015 17:11:41 09/23/19 16 09/24/2015 CBC w/ auto diff eos 1 % Not Available [facility] ([facility]) [address] [facility], [place], [address], 09/24/2015 17:11:41 09/23/19 16 09/24/2015 CBC w/ auto diff basos 0 % Not Available [facility] ([facility]) [address] [place], [address], 09/24/2015 17:11:41 09/23/19 16 09/24/2015 CBC w/ auto diff immature cells BUTCHER FISH Not Available [facility] ([facility]) [address] [place], [address], 09/24/2015 17:11:41 09/23/19 16 09/24/2015 CBC w/ auto diff neutrophils (absolute) 5.6 x10e3 /uL 1.4-7. 0 Not Available [facility] ([facility]) [address] [place], [address], 09/24/2015 17:11:41 09/23/19 16 09/24/2015 CBC w/ auto diff lymphs (absolute) 2.2 x10e3 /uL 0.7-3. 1 Not Available [facility] ([facility]) [address] [place], [address], 09/24/2015 17:11:41 09/23/19 16 09/24/2015 CBC w/ auto diff monocytes(ab solute) 0.5 x10e3 /uL 0.1-0. 9 Not Available [facility] ([facility]) [address] [place], [address], 09/24/2015 17:11:41 09/23/19 16 09/24/2015 CBC w/ auto diff eos (absolute) 0.1 x10e3 /uL 0.0-0. 4 Not Available [facility] ([facility]) [address] [place], [address], 09/24/2015 17:11:41 09/23/19 16 09/24/2015 CBC w/ auto diff baso (absolute) 0.0 x10e3 /uL 0.0-0. 2 Not Available [facility] ([facility]) [address] [place], [address], 09/24/2015 17:11:41 09/23/19 16 09/24/2015 CBC w/ auto diff immature granulocytes 0 % Not Available [facility]) [address] [place], [address], 09/24/2015 17:11:41 09/23/19 16 09/24/2015 CBC w/ auto diff immature grans (abs) 0.0 x10e3 /uL 0.0-0. 1 Not Available [facility] ([facility]) [address] [place], [address], 09/24/2015 17:11:41 09/23/19 16 09/24/2015 CBC w/ auto diff NRBC BUTCHER FISH Not Available [facility] ([facility]) [address] [place], [address], 09/24/2015 17:11:41 09/23/19 16 09/24/2015 CBC w/ auto diff hematology comments: BUTCHER FISH Not Available [facility] ([facility]) [address] [facility], [place], [address], 09/24/2015 17:11:41 09/23/19 16 09/24/2015 CMP, serum or plasm a glucose, serum 92 mg/dL 65-99 Not Available [facility] ([facility]) [address] [place], [address], 09/24/2015 17:11:41 09/23/19 16 09/24/2015 CMP, serum or plasm a BUN 28 mg/dL 6-20 above high normal Not Available [facility] ([facility]) [address] [place], [address], 09/24/2015 17:11:41 09/23/19 16 09/24/2015 CMP, serum or plasm a creatinine, serum 2.05 mg/dL 0.57-1 .00 above high normal Not Available [facility] ([facility]) [address] [place], [address], 09/24/2015 17:11:41 09/23/19 16 09/24/2015 CMP, serum or plasm a eGFR if nonafricn AM 32 mL/mi n/1.7 3 >59 below low normal Not Available [facility] ([facility]) [address] [place], [address], 09/24/2015 17:11:41 09/23/19 16 09/24/2015 CMP, serum or plasm a eGFR if africn AM 37 mL/mi n/1.7 3 >59 below low normal Not Available [facility] ([facility]) [address] [place], [address], 09/24/2015 17:11:41 09/23/19 16 09/24/2015 CMP, serum or plasm a BUN/creatini ne ratio 14 8-20 Not Available [facility] ([facility]) [address] [place], [address], 09/24/2015 17:11:41 09/23/19 16 09/24/2015 CMP, serum or plasm a sodium, serum 141 mmol/ L 134-14 4 Not Available [facility] ([facility]) [address] [place], [address], 09/24/2015 17:11:41 09/23/19 16 09/24/2015 CMP, serum or plasm a potassium, serum 4.9 mmol/ L 3.5-5. 2 Not Available [facility] ([facility]) [address] [place], [address], 09/24/2015 17:11:41 09/23/19 16 09/24/2015 CMP, serum or plasm a chloride, serum 104 mmol/ L 97-108 Not Available [facility] ([facility]) [address] [place], [address], 09/24/2015 17:11:41 09/23/19 16 09/24/2015 CMP, serum or plasm a carbon dioxide, total 16 mmol/ L 18-29 below low normal Not Available [facility] ([facility]) [address] [place], [address], 09/24/2015 17:11:41 09/23/19 16 09/24/2015 CMP, serum or plasm a calcium, serum 9.3 mg/dL 8.7-10 .2 Not Available [facility] ([facility]) [address] [place], [address], 09/24/2015 17:11:41 09/23/19 16 09/24/2015 CMP, serum or plasm a protein, total, serum 7.8 g/dL 6.0-8. 5 Not Available [facility] ([facility]) [address] [place], [address], 09/24/2015 17:11:41 09/23/1909/24/2015 CMP, serum or plasm a albumin, serum 4.6 g/dL 3.5-5. 5 Not Available [facility] ([facility]) [address] [place], [address], 09/24/2015 17:11:41 09/23/19 16 09/24/2015 CMP, serum or plasm a globulin, total 3.2 g/dL 1.5-4. 5 Not Available [facility] ([facility]) [address] [place], [address], 09/24/2015 17:11:41 09/23/19 16 09/24/2015 CMP, serum or plasm a A/G ratio 1.4 1.1-2. 5 Not Available [facility] ([facility]) [address] [place] [address], [address], 09/24/2015 17:11:41 09/23/19 16 09/24/2015 CMP, serum or plasm a bilirubin, total 0.2 mg/dL 0.0-1. 2 Not Available [facility] ([facility]) [address] [facility], [place], [address], 09/24/2015 17:11:41 09/23/19 16 09/24/2015 CMP, serum or plasm a alkaline phosphatase, S 82 IU/L 39-117 Not Available [facility] ([facility]) [address] [place], [address], 09/24/2015 17:11:41 09/23/19 16 09/24/2015 CMP, serum or plasm a AST (SGOT) 14 IU/L 0-40 Not Available [facility] ([facility]) [address] [facility], [place], [address], 09/24/2015 17:11:41 09/23/19 16 09/24/2015 CMP, serum or plasm a ALT (SGPT) 13 IU/L 0-32 Not Available [facility] ([facility]) [address] [facility], [place], [address], 09/24/2015 17:11:41 09/03/19 16 08/03/2012 elect akhil fagan am No observ ation record ed. [facility] [address], [place], [address], 09/05/2015 09:33:34 09/05/19 16 09/05/2015 US kidne ys bilat marlo TURNER,NA RCIZA MASHA 8823 ADMIT/ SERVIC E DATE: ACCT: [id number] DISCHA RGE DATE: : 1985 SEX: F ORD SITE: [facility] PT TYPE: REG CLI SAMMIE BERGMAN MD: Katy ACOSTA MD STUDY DATE REPORT # ORDER # EXT ORDER ID [id number] PROC CODE: KIDNEY BI PROCED URE [...] EXAMIN ATION: RENAL ULTRAS OUND ACCESS ION: [id number] EXAM DATE/T SAMUEL: 016 10:15 AM CLINIC [...] SIGNED BY: HAYLEY MARTIN IER6/ 1:53 PM [facility] [address] [facility], [place], [address], 09/23/2015 10:25:58 09/05/19 16 12/07/2013 ultra sound , kidne y No observ ation record ed. [facility] Scheduling [address] [facility], [place], [address], 09/23/2015 10:25:58 03/12/20 16 03/12/2016 ultra sound , kidne y No observ ation record ed. [facility] [address] [facility], [place], [address], 03/14/2016 15:48:07 Result Notes None recorded. 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 Abdirahman Acosta MD Attn: Zachary g,[address] [facility], [place], [address], [facility] 6 14:46:56 Constipation 23901078 Active Abdirahman Acosta MD Attn: Zachary g,[address] [facility], [place], [address], [facility] 6 10:41:33 Congenital postural scoliosis 14373943 Active Abdirahman Acosta MD Attn: Zachary g,[address] [facility], [place], [address], [facility] 6 14:46:56 Congenital pelvic obliquity 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 Active Abdirahman Acosta MD Attn: Zachary g,[address] [facility], [place], [address], [facility] 6 14:46:56 Anemia 569811042 Active Abdirahman Acosta MD Attn: Zachary g,[address] [facility], [place], [address], [facility] 6 10:41:33 Hyperkalemia 31571048 Active Abdirahman Acosta MD Attn: Zachary velazquez,[address] [facility], [place], [address], [facility] 6 10:41:33 Chronic progressive renal failure 748021876 Active Abdirahman Acosta MD Attn: Zachary velazquez,[address] [facility], [place], [address], [facility] 6 10:41:33 Eruption 581188162 Active Abdirahman Acosta MD Attn: Zachary velazquez,[address] [facility], [place], [address], [facility] 6 10:41:33 Problem Notes None recorded. Procedures Surgical History Date Name Laterality Status Provider Name and Address Organization Details Recorded Time 06/18/2014 Other completed Abdirahman Acosta MD Attn: Accounting,[address] [place], [place], [address] [place] [address], [facility] 09/01/2015 13:54:44 Other completed Abdirahman Acosta MD Attn: Accounting,[address] [place], [address], [facility] 09/01/2015 14:19:29 Imaging Results None recorded. Procedure Notes None recorded. Medical Equipment None Reported. Allergies Allergen ID Allergen Name Allergen Category Reaction Reaction Severity Criticality Documentation Date Start Date Code Code System Note Provider Name and Address Organization Details Recorded Time 17295 bacitraci n / neomycin / polymyxin B medicatio n rash mild Not available 09/01/2015 70572 9 RxNorm June [place], [place] - [facility] 6 14:06:48 Medications Name Sig Start [...] Body temperature Heart rate Respiratory rate Systolic And Diastolic Provider Name and Address Organization Details Last Updated DateTime 09/01/2015 97.1 [degF] 64 /min 16 /min 142/84 mm[Hg] June Evita [facility] 14:06:47 Date Recorded Oxygen saturation Oxygen saturation in Arterial blood by Pulse oximetry Body temperature Heart rate Systolic And Diastolic Provider Name and Address Organization Details Last Updated DateTime 100 % 100 % 97.4 [degF] 86 /min 138/74 mm[Hg] June Evita [facility] 10:07:37 Social History Question Answer Notes LastModified by Inmooat ion Details LastModified Time Tobacco Smoking Status Never Smoker [facility] [place] [facility] 09/01/2015 14:06:47 Do You Have An Advance [...] Skin Problems N Anemia N Heart Attack (MO) N Anxiety Disorder N Diabetes N Muscle, Joint, or Bone Problems N Seizures/Epilepsy Y Acid Reflux (GERD) N Cancer N Stroke N Asthma N Allergies N High Cholesterol N Hepatitis N Liver Disease Y Headaches N Osteoporosis N Heart Failure N Gynecological HistoryNo gynecological history recorded. Obstetrics History GPAL:G 0 P 0 0 0 0 Past Encounters Encounter ID Performer Location Encounter Start Date Encounter Closed Date Diagnosis/Indication Diagnosis SNOMED-CT Code Diagnosis ICD10 Code Diagnosis IMO Codes Diagnosis Note [id number] [facility] [address] [place] [phone] 09/01/2015 13:49:33 09/02/2015 09:47:50 General examination of patient [id number] Z00.01 29 y/o WF who presents with her mother, she previously saw Dr. Araujo ~ 2 years ago in [place], [place]. The records from her admission to [facility] in May 2014 were reviewed. Benign hypertension 1072 5009 I10 Polycystic kidney disease, adult type 42571744 Q61.2 Diagnosed on US at [facility], she was seen by Dr. Trang lópez. Her mother would let us know where they would like her to follow up, either with Dr. Hartman or with her dad's doctor in [place]. Obtain follow up US for now. Spastic ce rebral palsy 754044851 G80.0 Multiple surgical procedures ~ 50 mainly orthopedic in nature. Constipation 22805083 K5 9.00 Discussed Congenital postural scoliosis 07371059 Q67.5 Congenital pelvic obliquity 845705621 Q74.2 [id number] MD Shyanne Olivas (Adult Med) [address] [place] [phone] 09/23/2015 09:47:37 09/23/2015 18:16:21 Anemia 363641656 D64.9 Constipation 92144388 K5 9.00 Discussed Hyperkalemia 24785497 E8 7.5 Polycystic kidney disease, adult type 55946729 Q61.2 Diagnosed on US at [facility], the US results were discussed and she is scheduled to be seen at [facility] Chronic pr ogressive renal failure 461830077 N19 Eruption 277805451 R21 On Triamcinol one Health Concerns Section Related Observation LastModified by Organization Detai ls LastModified Time None Recorded Concern Status LastModified by Organization Details LastModified Time None Recorded Advance Directives Directive N: Payers Insurance Date Sequence Insurance Name Policy Number Policy Pierce Covered Member ID Pierce Member ID Guarantor Name 02/23/2016 1 [place] Anne Collins [id number] 1 Anne Collins 02/23/2016 [place] [facility] - FQ Anne Collins [id number] Anne Collins OBGyn Episode No OBEpisode recorded.
== END 2025-01-14 12:55 | disposition home or self-care (01) ==
DX: R22.2 Localized swelling, mass and lump, trunk (principal); T85.611A Breakdown (mechanical) of intraperitoneal dialysis catheter, initial encounter; T85.9XXA Unspecified complication of internal prosthetic device, implant and graft, initial encounter
CPT/HCPCS: 72100; 74018

== ENCOUNTER 2025-03-20 17:50 | Emergency (ER) | payer OTHER, SELFPAY ==
--- NOTE | ~2025-03-20 | XR_ITS ---
XR abdomen gastric tube insert 03/20/2025 23:12 Indication: OG tube placement Procedure: KUB Comparison: No prior studies for comparison. Findings: NG tube in the stomach. Nonspecific bowel gas pattern. No definite obstruction. Cecelia rods overlie the lower thoracic, lumbar and sacral regions. Impression: 1: NG tube in the stomach. Reviewed, dictated and finalized at location O. OGRAPH DEVELOPER Impression: 1: NG tube in the stomach.
--- NOTE | ~2025-03-20 | XR_ITS ---
XR chest 1V portable 03/20/2025 23:54 Indication: Endotracheal tube placement Procedure: AP portable chest Comparison: Comparison to multiple prior studies sequentially, with oldest reviewed study dated 02/01/2020. Findings: Endotracheal tube not well visualized due to overlying Sewell rods and rotation. NG tube in the stomach. Diffuse bilateral airspace disease unchanged. Bilateral pleural effusions. No acute osseous abnormality. Impression: 1: Endotracheal tube not well visualized due to overlying Sewell rods and rotation. Otherwise, no change. Reviewed, dictated and finalized at location O. ER CHARGER Impression: 1: Endotracheal tube not well visualized due to overlying Sewell rods and r otation. Otherwise, no change.
--- NOTE | ~2025-03-20 | XR_ITS ---
XR chest 1V portable 03/20/2025 18:22 Indication: Shortness of breath and chest pain Procedure: AP portable chest Comparison: Comparison to multiple prior studies sequentially, with oldest reviewed study dated 02/06/2018. Findings: Cardiomegaly with pulmonary edema. Bilateral pleural effusions. No pneumothorax. Sewell rods are present. There appear to be peritoneal calcifications in the upper abdomen, possibly from prior peritonitis. Impression: 1: Cardiomegaly with pulmonary edema. Reviewed, dictated and finalized at location O. DETAILER Impression: 1: Cardiomegaly with pulmonary edema.
--- NOTE | ~2025-03-20 | XR_ITS ---
XR chest ET placement 03/20/2025 23:12 Indication: Postintubation Procedure: AP portable chest Comparison: Comparison to multiple prior studies sequentially, with oldest reviewed study dated 06/15/2018. Findings: Endotracheal tube tip at the oscar. Recommend retraction. NG tube in the stomach. Cardiomegaly. Diffuse bilateral airspace disease has progressed, consistent with edema. Bilateral pleural effusions. Impression: 1: Endotracheal tube tip at the oscar. Recommend retraction. 2: Progression of diffuse bilateral airspace disease, consistent with edema. Differential diagnosis includes pneumonia and ARDS. 3: Bilateral pleural effusions. Reviewed, dictated and finalized at location O. RUCTOR DANCING Impression: 1: Endotracheal tube tip at the oscar. Recommend retraction. 2: Progression of diffuse bilateral airspace disease, consistent with edema. D ifferential diagnosis includes pneumonia and ARDS. 3: Bilateral pleural effusions.
--- NOTE | ~2025-03-20 | CT_ITS ---
EXAMINATION: CT chest abdomen pelvis wo con DATE: 03/20/2025 20:40 BANK SECRECY ACT OFFICER INDICATION: Shortness of breath and tachycardia TECHNIQUE: Computed tomography (CT) of the chest, abdomen, and pelvis was performed without intravenous contrast. The dose-length product was 209.49 mGy- cm. Automated exposure control and iterative reconstruction technique were employed. COMPARISON: 5 FINDINGS: CHEST CT: Large pleural effusions. There are groundglass opacities bilaterally, suspicious for pneumonia. Patchy distribution of groundglass disease and consolidation. No pneumothorax. Cardiomegaly. Extensive streak artifact from Sewell nikos which extends from T2-S1. 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 There is a peritoneal dialysis catheter present. There is residual contrast in the bladder lumen dependently. The liver and spleen are unremarkable. The pancreas and adrenal glands are not adequately visualized. Nonobstructive bowel gas pattern. IMPRESSION: 1. Extremely limited study due to streak artifact. 2: Extensive patchy groundglass opacification and airspace consolidation, consistent with pneumonia. 3: Cystic replacement of the kidneys which contain peripheral eggshell calcifications, consistent with polycystic kidney disease. 4: Large pleural effusions. Reviewed, dictated and finalized at location O. SECRECY ACT OFFICER IMPRESSION: 1. Extremely limited study due to streak artifact. 2: Extensive patchy groundglass opacification and airspace consolidation, consi stent with pneumonia. 3: Cystic replacement of the kidneys which contain peripheral eggshell calcific ations, consistent with polycystic kidney disease. 4: Large pleural effusions.
--- NOTE | 2025-03-20 17:57 | ECG_ITS ---
Test Date: 2025-03-20 18:10:28 Measurements Intervals [place] Rate: 102 P: 12 [place]: 116 QRS: -1 QRSD: 79 T: 0 QT: 379 QTc: 494 Interpretive Statements SINUS TACHYCARDIA WITH SHORT [place] INTERVAL LEFT ATRIAL ENLARGEMENT VOLAGE CRITERIA FOR LVH BORDERLINE R WAVE PROGRESSION, ANTERIOR LEADS NONSPECIFIC ST & T-WAVE ABNORMALITY- LAT/HIGH LAT LEADS BASELINE WANDER- V1-V2, V5 BORDERLINE ECG No previous ECG available for comparison Electronically Signed On 03-20-2025 18:49:58 TRAINING AND DEVELOPMENT DIRECTOR by Davon Frye D.O.
[2025-03-20 18:11] VITALS: BP 123/105; PULSE 107; RESP 30; TEMP 36.4; O2SAT 100
--- NOTE | 2025-03-20 18:28 | ED.SOB ---
HPI - SOB/Dyspnea General Chief Complaint: Shortness of Breath/Dyspnea <Phuong Flower PA-C - Last Filed: 03/22/25 19:31> Stated Complaint: c/o pain, SOB, not sleeping <Phuong Flower PA-C - Last Filed: 03/22/25 19:31> Time Seen by Provider: 03/20/25 17:57 <Phuong Flower PA-C - Last Filed: 03/22/25 19:31> Source: family <Phuong Flower PA-C - Last Filed: 03/22/25 19:31> Mode of arrival: wheelchair <PANKAJ Cunningham Last Filed: 03/22/25 19:31> Limitations: other (history of CP, not able to provide much history) <PANKAJ Cunningham Last Filed: 03/22/25 19:31> History of Present Illness HPI Narrative: This is a 39-year-old female that presents to the emergency department for generalized weakness. Ongoing since yesterday. Mother reports she has not been eating since yesterday. She stopped drinking this afternoon. She has been complaining of some back pain. Reports a cough, shortness of breath. Peritoneal dialysis fluid has been clear. Denies fevers. <Phuong Flower PA-C - Last Filed: 03/22/25 19:31> Related Data Home Medications: Home Medications ?Medication ?Instructions ?Recorded ?Confirmed ?Last Taken ?Type calcium carbonate 500 mg PO BID-TID 12/17/24 12/17/24 Unknown History cholecalciferol (vitamin D3) 25 1,000 unit PO DAILY 12/17/24 12/17/24 Unknown History mcg (1,000 unit) capsule (Vitamin D3) cinacalcet 60 mg tablet 60 mg PO DAILY 12/17/24 12/17/24 12/16/24 History ciprofloxacin HCl 250 mg tablet 250 mg PO BID 12/17/24 12/17/24 12/16/24 History ferric citrate 210 mg iron tablet 210 mg PO TID 12/17/24 12/17/24 12/16/24 History (Auryxia) ferric citrate 210 mg iron tablet 210 mg PO TID 12/17/24 12/17/24 12/16/24 History (Auryxia) fluconazole 100 mg tablet 100 mg PO Q48H 12/17/24 12/17/24 12/13/24 History tramadol 37.5 mg-acetaminophen 325 1 - 2 tablet PO ONCE PRN pain 12/17/24 12/17/24 Unknown History mg tablet <Phuong Flower PA-C - Last Filed: 03/22/25 19:31> Allergies/Adverse Reactions: Allergies Allergy/AdvReac Type Severity Reaction Status Date / Time bacitracin Allergy Unknown BLISTERS Verified 12/17/24 05:21 neomycin Allergy Unknown BLISTERS Verified 12/17/24 05:21 polymyxin B Allergy Unknown BLISTERS Verified 12/17/24 05:21 <Phuong Flower PA-C - Last Filed: 03/22/25 19:31> Review of Systems Review of Systems: ROS unobtainable: Yes unobtainable due to medical condition <Phuong Flower PA-C - Last Filed: 03/22/25 19:31> [facility] Past Medical History Medical History: Medical History (Updated 03/22/25 @ 19:24 by Phuong Flower PA-C) Hypertension DJD (degenerative joint disease) Dystonia Underweight Anemia End stage renal disease Scoliosis Peritoneal dialysis catheter in place Polycystic kidney disease Cerebral palsy <Phuong Flower PA-C - Last Filed: 03/22/25 19:31> Surgical History Surgical History: Surgical History H/O Spinal surgery <Phuong Flower PA-C - Last Filed: 03/22/25 19:31> Family History Family History: Family History Grandparent Bipolar 1 disorder Mother COPD (chronic obstructive pulmonary disease) Father Polycystic dysplastic kidney Sibling Depression Other Depression <Phuong Flower PA-C - Last Filed: 03/22/25 19:31> Social History Social History: Social History Smoking status: Never smoker Alcohol intake: never Substance use: never Spiritual care concerns: No <Phuong Flower PA-C - Last Filed: 03/22/25 19:31> Exam Narrative: GENERAL: Ill-appearing, thin, and in no acute distress. HEAD: Normocephalic, atraumatic. EYES: PERRLA ENT: Nares clear, no rhinorrhea or epistaxis. Mucous membranes dry. Oropharynx without tonsillar hypertrophy exudate or other lesions. NECK: Supple. No adenopathy or masses. CHEST: No respiratory distress. No wheezes or rhonchi HEART: Regular rate and rhythm. No murmur heard. Normal peripheral pulses. ABDOMEN: Soft, nontender, nondistended, normal active bowel sounds. EXTREMITIES: Normal range of motion. No edema. SKIN: Warm, dry, no rash. NEURO: No focal deficits. Alert and oriented x1. PSYCH: Normal mood and affect RECTAL: Hemoccult negative <PANKAJ Cunningham Last Filed: 03/22/25 19:31> Course Course Emergency Course: Called to bedside by patient's mother as she had just became unresponsive. Patient was bradycardic, gasping respirations. CPR was initiated. We did get ROSC after one round of Epinephring and a dose of Calcium <PANKAJ Cunningham Last Filed: 03/22/25 19:31> Vital Signs Vital signs: Vital Signs Temperature 97.6 F 03/20/25 18:11 Pulse Rate 107 H 03/20/25 18:11 Respiratory Rate 30 H 03/20/25 18:11 Blood Pressure 123/105 H 03/20/25 18:11 Pulse Oximetry 100 03/20/25 18:11 Oxygen Delivery Nasal Cannula 03/20/25 18:11 Oxygen Flow Rate 3 03/20/25 18:11 Temperature 97.6 F 03/21/25 02:44 Pulse Rate 79 03/21/25 04:35 Respiratory Rate 16 03/21/25 03:33 Blood Pressure 85/74 L 03/21/25 04:35 Pulse Oximetry 100 03/21/25 03:33 Oxygen Delivery Mechanical Ventilation 03/21/25 02:34 Oxygen Flow Rate 2 03/20/25 19:49 Fraction of Inspired Oxygen 90 03/21/25 02:34 <PANKAJ Cunningham Last Filed: 03/22/25 19:31> Vital Signs Temperature 97.6 F 03/20/25 18:11 Pulse Rate 107 H 03/20/25 18:11 Respiratory Rate 30 H 03/20/25 18:11 Blood Pressure 123/105 H 03/20/25 18:11 Pulse Oximetry 100 03/20/25 18:11 Oxygen Delivery Nasal Cannula 03/20/25 18:11 Oxygen Flow Rate 3 03/20/25 18:11 Temperature 97.6 F 03/21/25 02:44 Pulse Rate 79 03/21/25 04:35 Respiratory Rate 16 03/21/25 03:33 Blood Pressure 85/74 L 03/21/25 04:35 Pulse Oximetry 100 03/21/25 03:33 Oxygen Delivery Mechanical Ventilation 03/21/25 02:34 Oxygen Flow Rate 2 03/20/25 19:49 Fraction of Inspired Oxygen 90 03/21/25 02:34 <Franco Butterfield MD - Last Filed: 03/20/25 23:13> Transfer Transfered to: [facility] <Phuong Flower PA-C - Last Filed: 03/22/25 19:31> Transportation: ALS <Phuong Flower PA-C - Last Filed: 03/22/25 19:31> Transfer rationale: Cardiac arrest, pneumonia, ESRD, higher level of care <Phuong Flower PA-C - Last Filed: 03/22/25 19:31> Accepting physician: Dr. Clay <Phuong Folwer PA-C - Last Filed: 03/22/25 19:31> Procedures Intubation Intubation #1: Intubation Date: 03/20/25 <Franco Butterfield MD - Last Filed: 03/20/25 23:13> Intubation Time: 23:12 <Franco Butterfield MD - Last Filed: 03/20/25 23:13> Time out performed: Yes <Franco Butterfield MD - Last Filed: 03/20/25 23:13> sedative: Etomidate <Franco Butterfield MD - Last Filed: 03/20/25 23:13> Mg Given: 10 <Franco Butterfield MD - Last Filed: 03/20/25 23:13> paralytic: Rocuronium <Franco Butterfield MD - Last Filed: 03/20/25 23:13> Mg Given: 50 <Franco Butterfield MD - Last Filed: 03/20/25 23:13> Laryngoscope: Nate <Franco Butterfield MD - Last Filed: 03/20/25 23:13> Tube Size (cm): 6.0 <Franco Butterfield MD - Last Filed: 03/20/25 23:13> Method of Intubation: orotracheal <Franco Butterfield MD - Last Filed: 03/20/25 23:13> Number of Attempts: 1 <Franco Butterfield MD - Last Filed: 03/20/25 23:13> Tube Secured Location: lips <Franco Butterfield MD - Last Filed: 03/20/25 23:13> Tube Placement Confirmation: visualized tube passing through cords, equal breath sounds bilaterally, no breath sounds over epigastrium and confirmation by capnometry <Franco Butterfield MD - Last Filed: 03/20/25 23:13> Patient Tolerated Procedure: well and no complications <Franco Butterfield MD - Last Filed: 03/20/25 23:13> MDM MDM Narrative Medical decision making narrative: Patient presents to the ER for decreased PO intake, generalized weakness. Ongoing since yesterday. History of cerebral palsy, ESRD on peritoneal dialysis. Patient afebrile, noted to be hypoxic with oxygen saturation in the upper 80s on room air. Placed on 3L NC. Cbc without leukocytosis. Shows normocytic anemia with hemoglobin of 7.9. Metabolic panel with evidence of patient's end-stage renal disease. Potassium is mildly elevated at 5.3. Urine with evidence of infection. CT chest/abdomen/pelvis showing findings of pneumonia. Blood cultures were drawn, patient started on IV antibiotics. We were called to patient's bedside by mother as she became unresponsive. Patient was bradycardic, gasping respirations. Unable to feel a pulse. CPR was initiated. We did get ROSC after one round of Epinephrine and a dose of Calcium. Patient was intubated by Dr. Butterfield. Initial x-ray showing ET tube at the oscar. This was pulled back. KUB showing NG tube in the stomach. Patient's blood pressure initially with stable, it did start to drop. Patient was started on Levophed peripherally. ABG with pH of 7.316, pCO2 37.6, PO2 110.8. Hospitalist and [employer] Operator recommend transfer for higher level of care. Patient's mother prefers [facility]. Patient was accepted to [facility] <Phuong Flower PA-C - Last Filed: 03/22/25 19:31> Differential Diagnosis Differential Diagnosis: Pneumonia, sepsis, ESRD, fluid overload, anemia, UTI, COVID, influenza, cardiac arrest, respiratory failure <Phuong Flower PA-C - Last Filed: 03/22/25 19:31> Lab Data MDM Lab Attestation statement: I personally reviewed the patient's lab results. <Phuong Flower PA-C - Last Filed: 03/22/25 19:31> Result diagrams: 03/21/25 01:56 03/21/25 01:56 <PANKAJ Cunningham Last Filed: 03/22/25 19:31> Labs: Lab Results 03/20/25 03/20/25 03/21/25 Range/Units 19:37 22:49 00:20 WBC 9.0 (4.5-10.0) K/mm3 RBC 2.66 L (4.2-5.4) M/mm3 Hgb 7.9 L D (12.0-15.0) g/dL Hct 26.2 L (37.0-47.0) % MCV 98.5 (80-100) fl MCH 29.7 (26-34) pg MCHC 30.2 L (32-36) g/dl RDW 16.0 H (11.5-14.5) % Plt Count 363 (150-375) k/mm3 MPV 10.7 H (7.4-10.4) fl Immature Gran % (Auto) 0.7 H (0-0.5) % Neut % (Auto) 80.1 H (45.5-73.1) % Lymph % (Auto) 16.1 L (18.3-44.2) % [place] % (Auto) 2.9 (2.6-8.5) % Eos % (Auto) 0.1 (0-4.4) % Baso % (Auto) 0.1 L (0.2-1.2) % Lymph # (Auto) 1.45 (0.9-3.2) K/mm3 [place] # (Auto) 0.3 (0.1-0.6) K/mm3 Eos # (Auto) 0.0 (0-0.3) K/mm3 Baso # (Auto) 0.0 (0.0-0.1) K/mm3 Abs Immat Gran (auto) 0.06 H (0.00-0.031) K/mm3 Absolute Neuts (auto) 7.2 H (1.3-6.7) K/mm3 Absolute Nucleated RBC 0.000 (0.0-0.012) K/mm3 Band Neutrophils % Nucleated RBC % 0.0 (0.0-0.2) % Platelet Estimate (Adequate) Clumped Platelets % Immature Plt Fraction (0.9-11.2) % Polychromasia Hypochromasia Anisocytosis Microcytosis (NORMAL) Schistocytes PT 14.0 (11.1-14.7) Seconds INR 1.1 APTT 28.7 (22.3-36.8) Seconds Methemoglobin (0-1.5) %THb Minute Volume Vent Mode Tidal Volume ml PEEP cmH2O Peak Inspir Pressure Pressure Support Sodium 140 (137-145) mmol/L Potassium 5.3 H (3.4-5.0) mmol/L Chloride 97 L (98-107) mmol/L Carbon Dioxide 23 (22-30) mmol/L Anion Gap 20 H (4-12) mmol/L BUN 97 H D (7-17) mg/dL Creatinine 6.65 H (0.7-1.0) mg/dL Estim Creat Clear Calc Not Reportable Estimated GFR 7 L (59 - ) Glucose 95 (65-110) mg/dL POC Capillary Glucose 170 H (65-105) mg/dl Lactic Acid 2.0 (0.7-2.0) mmol/L Calcium 6.7 L (8.4-10.2) mg/dL Total Bilirubin 0.6 (0.2-1.3) mg/dL AST 28 (14-36) U/L ALT 13 (6-35) U/L Alkaline Phosphatase 112 (38-126) U/L C-Reactive Protein 1.9 H (<1.0) mg/dL Total Protein 6.9 (6.3-8.2) g/dL Albumin 3.5 (3.5-5.1) g/dL Urine Color Yellow (Yellow) Urine Appearance Turbid H (Clear) Urine pH 8.5 (5.0-9.0) Ur Specific [place] 1.009 (1.001-1.035) Urine Protein 2+ H (Negative) mg/dL Urine Glucose (UA) Negative (Negative) mg/dL Urine Ketones Negative (Negative) mg/dL Ur Blood (Man) 3+ H (Negative) Urine Nitrate Negative (Negative) Urine Bilirubin Negative (Negative) Urine Urobilinogen 0.2 (<2.0) mg/dL Add Ur Microanalysis Reviewed Leukocyte Esterase Rfl 2+ H (Negative) HUMPHREY/UL Urine RBC >100 H (0-2) /hpf Urine WBC >100 H (0-3) /hpf Ur Squamous Epith Cells Many H (Few) /hpf Calcium Oxalate Crystal Present (None) /hpf Urine Bacteria 2+ H /hpf Urine Casts 11-20 Urine Yeast (Budding) Present H (None) /hpf Influenza A (RT-PCR) (Negative) Influenza B (RT-PCR) (Negative) RSV (RT-PCR) (Negative) SARS-CoV-2 RNA (RT-PCR) (Negative) Blood Type Antibody Screen 03/21/25 03/21/25 03/21/25 Range/Units 00:43 01:18 01:56 WBC 9.1 (4.5-10.0) K/mm3 RBC 2.39 L (4.2-5.4) M/mm3 Hgb 7.1 L (12.0-15.0) g/dL Hct 24.6 L (37.0-47.0) % MCV 102.9 H (80-100) fl MCH 29.7 (26-34) pg MCHC 28.9 L (32-36) g/dl RDW 15.7 H (11.5-14.5) % Plt Count 289 (150-375) k/mm3 MPV 10.7 H (7.4-10.4) fl Immature Gran % (Auto) 2.2 H (0-0.5) % Neut % (Auto) 84.1 H (45.5-73.1) % Lymph % (Auto) 10.5 L (18.3-44.2) % [place] % (Auto) 3.0 (2.6-8.5) % Eos % (Auto) 0.1 (0-4.4) % Baso % (Auto) 0.1 L (0.2-1.2) % Lymph # (Auto) 0.96 (0.9-3.2) K/mm3 [place] # (Auto) 0.3 (0.1-0.6) K/mm3 Eos # (Auto) 0.0 (0-0.3) K/mm3 Baso # (Auto) 0.0 (0.0-0.1) K/mm3 Abs Immat Gran (auto) 0.20 H (0.00-0.031) K/mm3 Absolute Neuts (auto) 7.7 H (1.3-6.7) K/mm3 Absolute Nucleated RBC 0.000 (0.0-0.012) K/mm3 Band Neutrophils % Not Reportable Nucleated RBC % 0.0 (0.0-0.2) % Platelet Estimate Adequate (Adequate) Clumped Platelets Present % Immature Plt Fraction 3.6 (0.9-11.2) % Polychromasia Occasional Hypochromasia 1+ Anisocytosis 1+ Microcytosis 1+ (NORMAL) Schistocytes None seen PT (11.1-14.7) Seconds INR APTT (22.3-36.8) Seconds Methemoglobin 0.4 (0-1.5) %THb Minute Volume Not Reportable Vent Mode Cmv Tidal Volume 250 ml PEEP 10 cmH2O Peak Inspir Pressure Not Reportable Pressure Support Not Reportable Sodium 141 (137-145) mmol/L Potassium 4.8 (3.4-5.0) mmol/L Chloride 107 (98-107) mmol/L Carbon Dioxide 12 L (22-30) mmol/L Anion Gap 22 H (4-12) mmol/L BUN 84 H D (7-17) mg/dL Creatinine 6.30 H (0.7-1.0) mg/dL Estim Creat Clear Calc Not Reportable Estimated GFR 7 L (59 - ) Glucose 149 H (65-110) mg/dL POC Capillary Glucose (65-105) mg/dl Lactic Acid (0.7-2.0) mmol/L Calcium 7.1 L (8.4-10.2) mg/dL Total Bilirubin 0.5 (0.2-1.3) mg/dL AST 149 H (14-36) U/L ALT 68 H (6-35) U/L Alkaline Phosphatase 177 H (38-126) U/L C-Reactive Protein (<1.0) mg/dL Total Protein 5.8 L (6.3-8.2) g/dL Albumin 2.8 L (3.5-5.1) g/dL Urine Color (Yellow) Urine Appearance (Clear) Urine pH (5.0-9.0) Ur Specific [place] (1.001-1.035) Urine Protein (Negative) mg/dL Urine Glucose (UA) (Negative) mg/dL Urine Ketones (Negative) mg/dL Ur Blood (Man) (Negative) Urine Nitrate (Negative) Urine Bilirubin (Negative) Urine Urobilinogen (<2.0) mg/dL Add Ur Microanalysis Leukocyte Esterase Rfl (Negative) HUMPHREY/UL Urine RBC (0-2) /hpf Urine WBC (0-3) /hpf Ur Squamous Epith Cells (Few) /hpf Calcium Oxalate Crystal (None) /hpf Urine Bacteria /hpf Urine Casts Urine Yeast (Budding) (None) /hpf Influenza A (RT-PCR) Negative (Negative) Influenza B (RT-PCR) Negative (Negative) RSV (RT-PCR) Negative (Negative) SARS-CoV-2 RNA (RT-PCR) Negative (Negative) Blood Type Antibody Screen 03/21/25 Range/Units 03:21 WBC (4.5-10.0) K/mm3 RBC (4.2-5.4) M/mm3 Hgb (12.0-15.0) g/dL Hct (37.0-47.0) % MCV (80-100) fl MCH (26-34) pg MCHC (32-36) g/dl RDW (11.5-14.5) % Plt Count (150-375) k/mm3 MPV (7.4-10.4) fl Immature Gran % (Auto) (0-0.5) % Neut % (Auto) (45.5-73.1) % Lymph % (Auto) (18.3-44.2) % [place] % (Auto) (2.6-8.5) % Eos % (Auto) (0-4.4) % Baso % (Auto) (0.2-1.2) % Lymph # (Auto) (0.9-3.2) K/mm3 [place] # (Auto) (0.1-0.6) K/mm3 Eos # (Auto) (0-0.3) K/mm3 Baso # (Auto) (0.0-0.1) K/mm3 Abs Immat Gran (auto) (0.00-0.031) K/mm3 Absolute Neuts (auto) (1.3-6.7) K/mm3 Absolute Nucleated RBC (0.0-0.012) K/mm3 Band Neutrophils % Nucleated RBC % (0.0-0.2) % Platelet Estimate (Adequate) Clumped Platelets % Immature Plt Fraction (0.9-11.2) % Polychromasia Hypochromasia Anisocytosis Microcytosis (NORMAL) Schistocytes PT (11.1-14.7) Seconds INR APTT (22.3-36.8) Seconds Methemoglobin (0-1.5) %THb Minute Volume Vent Mode Tidal Volume ml PEEP cmH2O Peak Inspir Pressure Pressure Support Sodium (137-145) mmol/L Potassium (3.4-5.0) mmol/L Chloride (98-107) mmol/L Carbon Dioxide (22-30) mmol/L Anion Gap (4-12) mmol/L BUN (7-17) mg/dL Creatinine (0.7-1.0) mg/dL Estim Creat Clear Calc Estimated GFR (59 - ) Glucose (65-110) mg/dL POC Capillary Glucose (65-105) mg/dl Lactic Acid (0.7-2.0) mmol/L Calcium (8.4-10.2) mg/dL Total Bilirubin (0.2-1.3) mg/dL AST (14-36) U/L ALT (6-35) U/L Alkaline Phosphatase (38-126) U/L C-Reactive Protein (<1.0) mg/dL Total Protein (6.3-8.2) g/dL Albumin (3.5-5.1) g/dL Urine Color (Yellow) Urine Appearance (Clear) Urine pH (5.0-9.0) Ur Specific [place] (1.001-1.035) Urine Protein (Negative) mg/dL Urine Glucose (UA) (Negative) mg/dL Urine Ketones (Negative) mg/dL Ur Blood (Man) (Negative) Urine Nitrate (Negative) Urine Bilirubin (Negative) Urine Urobilinogen (<2.0) mg/dL Add Ur Microanalysis Leukocyte Esterase Rfl (Negative) HUMPHREY/UL Urine RBC (0-2) /hpf Urine WBC (0-3) /hpf Ur Squamous Epith Cells (Few) /hpf Calcium Oxalate Crystal (None) /hpf Urine Bacteria /hpf Urine Casts Urine Yeast (Budding) (None) /hpf Influenza A (RT-PCR) (Negative) Influenza B (RT-PCR) (Negative) RSV (RT-PCR) (Negative) SARS-CoV-2 RNA (RT-PCR) (Negative) Blood Type O Positive Antibody Screen Negative <Phuong Flower PA-C - Last Filed: 03/22/25 19:31> Lab Results 03/20/25 03/20/25 03/21/25 Range/Units 19:37 22:49 00:20 WBC 9.0 (4.5-10.0) K/mm3 RBC 2.66 L (4.2-5.4) M/mm3 Hgb 7.9 L D (12.0-15.0) g/dL Hct 26.2 L (37.0-47.0) % MCV 98.5 (80-100) fl MCH 29.7 (26-34) pg MCHC 30.2 L (32-36) g/dl RDW 16.0 H (11.5-14.5) % Plt Count 363 (150-375) k/mm3 MPV 10.7 H (7.4-10.4) fl Immature Gran % (Auto) 0.7 H (0-0.5) % Neut % (Auto) 80.1 H (45.5-73.1) % Lymph % (Auto) 16.1 L (18.3-44.2) % [place] % (Auto) 2.9 (2.6-8.5) % Eos % (Auto) 0.1 (0-4.4) % Baso % (Auto) 0.1 L (0.2-1.2) % Lymph # (Auto) 1.45 (0.9-3.2) K/mm3 [place] # (Auto) 0.3 (0.1-0.6) K/mm3 Eos # (Auto) 0.0 (0-0.3) K/mm3 Baso # (Auto) 0.0 (0.0-0.1) K/mm3 Abs Immat Gran (auto) 0.06 H (0.00-0.031) K/mm3 Absolute Neuts (auto) 7.2 H (1.3-6.7) K/mm3 Absolute Nucleated RBC 0.000 (0.0-0.012) K/mm3 Band Neutrophils % Nucleated RBC % 0.0 (0.0-0.2) % Platelet Estimate (Adequate) Clumped Platelets % Immature Plt Fraction (0.9-11.2) % Polychromasia Hypochromasia Anisocytosis Microcytosis (NORMAL) Schistocytes PT 14.0 (11.1-14.7) Seconds INR 1.1 APTT 28.7 (22.3-36.8) Seconds Methemoglobin (0-1.5) %THb Minute Volume Vent Mode Tidal Volume ml PEEP cmH2O Peak Inspir Pressure Pressure Support Sodium 140 (137-145) mmol/L Potassium 5.3 H (3.4-5.0) mmol/L Chloride 97 L (98-107) mmol/L Carbon Dioxide 23 (22-30) mmol/L Anion Gap 20 H (4-12) mmol/L BUN 97 H D (7-17) mg/dL Creatinine 6.65 H (0.7-1.0) mg/dL Estim Creat Clear Calc Not Reportable Estimated GFR 7 L (59 - ) Glucose 95 (65-110) mg/dL POC Capillary Glucose 170 H (65-105) mg/dl Lactic Acid 2.0 (0.7-2.0) mmol/L Calcium 6.7 L (8.4-10.2) mg/dL Total Bilirubin 0.6 (0.2-1.3) mg/dL AST 28 (14-36) U/L ALT 13 (6-35) U/L Alkaline Phosphatase 112 (38-126) U/L C-Reactive Protein 1.9 H (<1.0) mg/dL Total Protein 6.9 (6.3-8.2) g/dL Albumin 3.5 (3.5-5.1) g/dL Urine Color Yellow (Yellow) Urine Appearance Turbid H (Clear) Urine pH 8.5 (5.0-9.0) Ur Specific [place] 1.009 (1.001-1.035) Urine Protein 2+ H (Negative) mg/dL Urine Glucose (UA) Negative (Negative) mg/dL Urine Ketones Negative (Negative) mg/dL Ur Blood (Man) 3+ H (Negative) Urine Nitrate Negative (Negative) Urine Bilirubin Negative (Negative) Urine Urobilinogen 0.2 (<2.0) mg/dL Add Ur Microanalysis Reviewed Leukocyte Esterase Rfl 2+ H (Negative) HUMPHREY/UL Urine RBC >100 H (0-2) /hpf Urine WBC >100 H (0-3) /hpf Ur Squamous Epith Cells Many H (Few) /hpf Calcium Oxalate Crystal Present (None) /hpf Urine Bacteria 2+ H /hpf Urine Casts 11-20 Urine Yeast (Budding) Present H (None) /hpf Influenza A (RT-PCR) (Negative) Influenza B (RT-PCR) (Negative) RSV (RT-PCR) (Negative) SARS-CoV-2 RNA (RT-PCR) (Negative) Blood Type Antibody Screen 03/21/25 03/21/25 03/21/25 Range/Units 00:43 01:18 01:56 WBC 9.1 (4.5-10.0) K/mm3 RBC 2.39 L (4.2-5.4) M/mm3 Hgb 7.1 L (12.0-15.0) g/dL Hct 24.6 L (37.0-47.0) % MCV 102.9 H (80-100) fl MCH 29.7 (26-34) pg MCHC 28.9 L (32-36) g/dl RDW 15.7 H (11.5-14.5) % Plt Count 289 (150-375) k/mm3 MPV 10.7 H (7.4-10.4) fl Immature Gran % (Auto) 2.2 H (0-0.5) % Neut % (Auto) 84.1 H (45.5-73.1) % Lymph % (Auto) 10.5 L (18.3-44.2) % [place] % (Auto) 3.0 (2.6-8.5) % Eos % (Auto) 0.1 (0-4.4) % Baso % (Auto) 0.1 L (0.2-1.2) % Lymph # (Auto) 0.96 (0.9-3.2) K/mm3 [place] # (Auto) 0.3 (0.1-0.6) K/mm3 Eos # (Auto) 0.0 (0-0.3) K/mm3 Baso # (Auto) 0.0 (0.0-0.1) K/mm3 Abs Immat Gran (auto) 0.20 H (0.00-0.031) K/mm3 Absolute Neuts (auto) 7.7 H (1.3-6.7) K/mm3 Absolute Nucleated RBC 0.000 (0.0-0.012) K/mm3 Band Neutrophils % Not Reportable Nucleated RBC % 0.0 (0.0-0.2) % Platelet Estimate Adequate (Adequate) Clumped Platelets Present % Immature Plt Fraction 3.6 (0.9-11.2) % Polychromasia Occasional Hypochromasia 1+ Anisocytosis 1+ Microcytosis 1+ (NORMAL) Schistocytes None seen PT (11.1-14.7) Seconds INR APTT (22.3-36.8) Seconds Methemoglobin 0.4 (0-1.5) %THb Minute Volume Not Reportable Vent Mode Cmv Tidal Volume 250 ml PEEP 10 cmH2O Peak Inspir Pressure Not Reportable Pressure Support Not Reportable Sodium 141 (137-145) mmol/L Potassium 4.8 (3.4-5.0) mmol/L Chloride 107 (98-107) mmol/L Carbon Dioxide 12 L (22-30) mmol/L Anion Gap 22 H (4-12) mmol/L BUN 84 H D (7-17) mg/dL Creatinine 6.30 H (0.7-1.0) mg/dL Estim Creat Clear Calc Not Reportable Estimated GFR 7 L (59 - ) Glucose 149 H (65-110) mg/dL POC Capillary Glucose (65-105) mg/dl Lactic Acid (0.7-2.0) mmol/L Calcium 7.1 L (8.4-10.2) mg/dL Total Bilirubin 0.5 (0.2-1.3) mg/dL AST 149 H (14-36) U/L ALT 68 H (6-35) U/L Alkaline Phosphatase 177 H (38-126) U/L C-Reactive Protein (<1.0) mg/dL Total Protein 5.8 L (6.3-8.2) g/dL Albumin 2.8 L (3.5-5.1) g/dL Urine Color (Yellow) Urine Appearance (Clear) Urine pH (5.0-9.0) Ur Specific [place] (1.001-1.035) Urine Protein (Negative) mg/dL Urine Glucose (UA) (Negative) mg/dL Urine Ketones (Negative) mg/dL Ur Blood (Man) (Negative) Urine Nitrate (Negative) Urine Bilirubin (Negative) Urine Urobilinogen (<2.0) mg/dL Add Ur Microanalysis Leukocyte Esterase Rfl (Negative) HUMPHREY/UL Urine RBC (0-2) /hpf Urine WBC (0-3) /hpf Ur Squamous Epith Cells (Few) /hpf Calcium Oxalate Crystal (None) /hpf Urine Bacteria /hpf Urine Casts Urine Yeast (Budding) (None) /hpf Influenza A (RT-PCR) Negative (Negative) Influenza B (RT-PCR) Negative (Negative) RSV (RT-PCR) Negative (Negative) SARS-CoV-2 RNA (RT-PCR) Negative (Negative) Blood Type Antibody Screen 03/21/25 Range/Units 03:21 WBC (4.5-10.0) K/mm3 RBC (4.2-5.4) M/mm3 Hgb (12.0-15.0) g/dL Hct (37.0-47.0) % MCV (80-100) fl MCH (26-34) pg MCHC (32-36) g/dl RDW (11.5-14.5) % Plt Count (150-375) k/mm3 MPV (7.4-10.4) fl Immature Gran % (Auto) (0-0.5) % Neut % (Auto) (45.5-73.1) % Lymph % (Auto) (18.3-44.2) % [place] % (Auto) (2.6-8.5) % Eos % (Auto) (0-4.4) % Baso % (Auto) (0.2-1.2) % Lymph # (Auto) (0.9-3.2) K/mm3 [place] # (Auto) (0.1-0.6) K/mm3 Eos # (Auto) (0-0.3) K/mm3 Baso # (Auto) (0.0-0.1) K/mm3 Abs Immat Gran (auto) (0.00-0.031) K/mm3 Absolute Neuts (auto) (1.3-6.7) K/mm3 Absolute Nucleated RBC (0.0-0.012) K/mm3 Band Neutrophils % Nucleated RBC % (0.0-0.2) % Platelet Estimate (Adequate) Clumped Platelets % Immature Plt Fraction (0.9-11.2) % Polychromasia Hypochromasia Anisocytosis Microcytosis (NORMAL) Schistocytes PT (11.1-14.7) Seconds INR APTT (22.3-36.8) Seconds Methemoglobin (0-1.5) %THb Minute Volume Vent Mode Tidal Volume ml PEEP cmH2O Peak Inspir Pressure Pressure Support Sodium (137-145) mmol/L Potassium (3.4-5.0) mmol/L Chloride (98-107) mmol/L Carbon Dioxide (22-30) mmol/L Anion Gap (4-12) mmol/L BUN (7-17) mg/dL Creatinine (0.7-1.0) mg/dL Estim Creat Clear Calc Estimated GFR (59 - ) Glucose (65-110) mg/dL POC Capillary Glucose (65-105) mg/dl Lactic Acid (0.7-2.0) mmol/L Calcium (8.4-10.2) mg/dL Total Bilirubin (0.2-1.3) mg/dL AST (14-36) U/L ALT (6-35) U/L Alkaline Phosphatase (38-126) U/L C-Reactive Protein (<1.0) mg/dL Total Protein (6.3-8.2) g/dL Albumin (3.5-5.1) g/dL Urine Color (Yellow) Urine Appearance (Clear) Urine pH (5.0-9.0) Ur Specific [place] (1.001-1.035) Urine Protein (Negative) mg/dL Urine Glucose (UA) (Negative) mg/dL Urine Ketones (Negative) mg/dL Ur Blood (Man) (Negative) Urine Nitrate (Negative) Urine Bilirubin (Negative) Urine Urobilinogen (<2.0) mg/dL Add Ur Microanalysis Leukocyte Esterase Rfl (Negative) HUMPHREY/UL Urine RBC (0-2) /hpf Urine WBC (0-3) /hpf Ur Squamous Epith Cells (Few) /hpf Calcium Oxalate Crystal (None) /hpf Urine Bacteria /hpf Urine Casts Urine Yeast (Budding) (None) /hpf Influenza A (RT-PCR) (Negative) Influenza B (RT-PCR) (Negative) RSV (RT-PCR) (Negative) SARS-CoV-2 RNA (RT-PCR) (Negative) Blood Type O Positive Antibody Screen Negative <Franco Butterfield MD - Last Filed: 03/20/25 23:13> ABG Data ABG results: 03/21/25 01:18 Puncture Site Right radial ABG pH 7.316 L ABG pCO2 37.6 ABG pO2 110.8 H ABG PO2/FiO2 Ratio 1.11 ABG HCO3 18.8 L ABG O2 Saturation 97.7 ABG O2 Content 11.8 L ABG Base Excess -6.8 A-a Gradient 564.6 Oxyhemoglobin 96.0 Carboxyhemoglobin 0.6 Reduced Hemoglobin 3.0 Total Hemoglobin 8.6 L O2 Delivery Device Ventilator O2 Liters/Min Not Reportable Vent Rate 16 FiO2 100 <Phuong Flower PA-C - Last Filed: 03/22/25 19:31> 03/21/25 01:18 Puncture Site Right radial ABG pH 7.316 L ABG pCO2 37.6 ABG pO2 110.8 H ABG PO2/FiO2 Ratio 1.11 ABG HCO3 18.8 L ABG O2 Saturation 97.7 ABG O2 Content 11.8 L ABG Base Excess -6.8 A-a Gradient 564.6 Oxyhemoglobin 96.0 Carboxyhemoglobin 0.6 Reduced Hemoglobin 3.0 Total Hemoglobin 8.6 L O2 Delivery Device Ventilator O2 Liters/Min Not Reportable Vent Rate 16 FiO2 100 <Franco Butterfield MD - Last Filed: 03/20/25 23:13> Imaging Data Radiologist's impression: ITS Impressions Chest/Abdomen/Pelvis CT 03/20/25 20:39 IMPRESSION: 1. Extremely limited study due to streak artifact. 2: Extensive patchy groundglass opacification and airspace consolidation, consistent with pneumonia. 3: Cystic replacement of the kidneys which contain peripheral eggshell calcifications, consistent with polycystic kidney disease. 4: Large pleural effusions. Abdomen X-Ray 03/21/25 09:33 Impression: 1: NG tube in the stomach. Chest X-Ray 03/21/25 09:42 Impression: 1: Endotracheal tube not well visualized due to overlying Sewell rods and rotation. Otherwise, no change. KUB: Nonobstructing bowel gas pattern. This is significantly improved from prior exam Chest x-ray: Endotracheal tube with its tip at the oscar, this should be pulled back 3 cm. Multifocal pneumonia with large right pleural effusion <Phuong Flower PA-C - Last Filed: 03/22/25 19:31> ITS Impressions Chest/Abdomen/Pelvis CT 03/20/25 20:39 IMPRESSION: 1. Extremely limited study due to streak artifact. 2: Extensive patchy groundglass opacification and airspace consolidation, consistent with pneumonia. 3: Cystic replacement of the kidneys which contain peripheral eggshell calcifications, consistent with polycystic kidney disease. 4: Large pleural effusions. Abdomen X-Ray 03/21/25 09:33 Impression: 1: NG tube in the stomach. Chest X-Ray 03/21/25 09:42 Impression: 1: Endotracheal tube not well visualized due to overlying Sewell rods and rotation. Otherwise, no change. <Franco Butterfield MD - Last Filed: 03/20/25 23:13> ECG Data EKG #1: ECG completion date: 03/20/25 <Phuong Flower PA-C - Last Filed: 03/22/25 19:31> tachycardia, sinus rhythm, no ST changes and normal QT <Phuong Flower PA-C - Last Filed: 03/22/25 19:31> Critical Care Time Critical Care Time Critical Care Time: Yes <Phuong Flower PA-C - Last Filed: 03/22/25 19:31> Time Type: Continuous <Phuong Flower PA-C - Last Filed: 03/22/25 19:31> Initial evaluation, discuss w/ involved parties, attempting to gather old records: 30 minutes <Franco Butterfield MD - Last Filed: 03/20/25 23:13> Documenting medical record: 15 minutes <Franco Butterfield MD - Last Filed: 03/20/25 23:13> Review of results (EKG's, labs, imaging): 15 minutes <Franco Butterfield MD - Last Filed: 03/20/25 23:13> Serial repeat bedside evaluation: 30 minutes <Franco Butterfield MD - Last Filed: 03/20/25 23:13> Discussing case with multiple memebers of the care team and consultants: 20 minutes <Franco Butterfield MD - Last Filed: 03/20/25 23:13> Total Critical Care Time: 110 <Phuong Flower PA-C - Last Filed: 03/22/25 19:31> 110 <Franco Butterfield MD - Last Filed: 03/20/25 23:13> Discharge Plan Discharge Clinical Impression: Cardiac arrest, ESRD (end stage renal disease), Hypocalcemia Pneumonia Qualifiers: Pneumonia type: due to unspecified organism Laterality: bilateral Lung location: unspecified part of lung Qualified Code(s): J18.9 - Pneumonia, unspecified organism Anemia Qualifiers: Anemia type: unspecified type Qualified Code(s): D64.9 - Anemia, unspecified <Phuong Flower PA-C - Last Filed: 03/22/25 19:31> Patient Disposition: Acute Care Hospital <Phuong Flower PA-C - Last Filed: 03/22/25 19:31> Condition: Critical <Phuong Flower PA-C - Last Filed: 03/22/25 19:31> Patient Language: Khmer <PANKAJ Cunningham Last Filed: 03/22/25 19:31> Prescriptions: No Action cinacalcet 60 mg tablet 60 mg PO DAILY Rx Instructions: Take 1 tab daily with dinner fluconazole 100 mg tablet 100 mg PO Q48H ferric citrate [Auryxia] 210 mg iron tablet 210 mg PO TID Rx Instructions: administer with a meal tramadol-acetaminophen 37.5-325 mg tablet 1 - 2 tablet PO ONCE PRN (Reason: pain) ciprofloxacin HCl 250 mg tablet 250 mg PO BID cholecalciferol (vitamin D3) [Vitamin D3] 25 mcg (1,000 unit) capsule 1,000 unit PO DAILY calcium carbonate 500 mg calcium (1,250 mg) tablet,chewable 500 mg PO BID-TID ferric citrate [Auryxia] 210 mg iron tablet 210 mg PO TID Rx Instructions: administer with a meal <Phuong Flower PA-C - Last Filed: 03/22/25 19:31> Follow-up/Referrals: Kacie De La Garza PA-C [Primary Care Provider, Family Practice] <Phuong Flower PA-C - Last Filed: 03/22/25 19:31>
[2025-03-20] MEDS: SODIUM CHLORIDE 0.9% IV 500 ML 999 ML IV CONT (19:47)
[2025-03-20] MEDS: cefTRIAXone 1 GM in SODIUM CHLORIDE 0.9% IV 50 ML 100 ML IVPB (19:48)
[2025-03-20 19:49] VITALS: BP 119/95; PULSE 106; RESP 24; TEMP 36.9; O2SAT 100
[2025-03-20 19:58] LABS: Hematocrit 26.2 % (37.0-47.0); Hemoglobin 7.9 g/dL (12.0-15.0); Immature Granulocyte Percent A 0.7 % (0-0.5); Lymphocytes Absolute Auto 1.45 K/mm3 (0.9-3.2); Mean Corpuscular HGB Conc 30.2 g/dl (32-36); Mean Corpuscular Hemoglobin 29.7 pg (26-34); Mean Corpuscular Volume 98.5 fl (80-100); Nucleated Red Blood Cells Absolute Auto 0.000 K/mm3 (0.0-0.012); Nucleated Red Blood Cells Perc 0.0 % (0.0-0.2); Platelet Count Result 363 k/mm3 (150-375); Red Blood Count 2.66 M/mm3 (4.2-5.4); White Blood Count 9.0 K/mm3 (4.5-10.0)
[2025-03-20 20:11] LABS: Alanine Aminotransferase 13 U/L (6-35); Albumin Level 3.5 g/dL (3.5-5.1); Alkaline Phosphatase 112 U/L (38-126); Anion Gap 20 mmol/L (4-12); Aspartate Amino Transferase 28 U/L (14-36); Bilirubin,Total 0.6 mg/dL (0.2-1.3); Blood Urea Nitrogen 97 mg/dL (7-17); CRP 1.9 mg/dL (<1.0); Calcium 6.7 mg/dL (8.4-10.2); Carbon Dioxide 23 mmol/L (22-30); Chloride 97 mmol/L (98-107); Glucose 95 mg/dL (65-110); Potassium 5.3 mmol/L (3.4-5.0); Sodium 140 mmol/L (137-145); Total Protein 6.9 g/dL (6.3-8.2)
[2025-03-20 20:15] LABS: Estimated Glomerular Filt Rate 7
[2025-03-20 20:31] LABS: INR 1.1; Prothrombin Time 14.0 Seconds (11.1-14.7)
[2025-03-20 20:32] LABS: Partial Thromboplastin Time 28.7 Seconds (22.3-36.8)
[2025-03-20] MEDS: AZITHROMYCIN IV 500 MG in SODIUM CHLORIDE 0.9% IV 250 ML IVPB (21:57)
[2025-03-20 22:45] VITALS: PULSE 118; O2SAT 90
[2025-03-20 23:15] VITALS: PULSE 163; RESP 20
[2025-03-20] MEDS: FENTANYL 2,500MCG/NS250ML(*CRX 2,500 MCG/250 ML BAG IV CONT (23:15)
[2025-03-21] VITALS (10 sets, daily range): BP systolic 72–92; BP diastolic 57–79; PULSE 79–163; RESP 16–26; TEMP 36.4; O2SAT 94–100
[2025-03-21] MEDS: SODIUM CHLORIDE 0.9% IV 500 ML 999 ML (00:30)
[2025-03-21] MEDS: MIDAZOLAM 100MG/NS 100ML(*CRX) 100 MG/100 ML BAG IV CONT (00:34)
[2025-03-21 01:02] LABS: Budding Yeast Urine Present /hpf; Need Manual Microscopic Reviewed
[2025-03-21 01:03] LABS: Add Urine Microscopic? YES; Appearance Urine Turbid (Clear); Glucose Urine UA Negative (Negative); Leukocyte Esterase Ur 2+ LEU/UL (Negative); Nitrate Urine Negative (Negative); Specific Grav Ur 1.009 (1.001-1.035)
[2025-03-21 01:25] LABS: Influenza A QL RT-PCR Negative (Negative); Influenza B QL RT-PCR Negative (Negative); RSV RNA, RT-PCR Negative (Negative); SARS-CoV-2 RNA PCR Negative (Negative)
--- NOTE | 2025-03-21 01:29 | PC.NURSE ---
LATE ENTRY: 2238: EPI 2239: CALCIUM AMP NO PULSE 2241: ROSC HR 163 BP 175/124 INTUBATION: 2250: 10 MG ETOMIDATE 2251:50MG june 2252: SCOPE IN STYLET OUT/ + COLOR CHANGE VS BP 147/111 HR 142 OXYGEN: 97% VENT: A/C RR 16 VT250 PEEP 10 FiO2: 5%
[2025-03-21 01:33] LABS: Alveolar/Arterial O2 Gradient 564.6 mmHg; Carboxyhemoglobin 0.6 % THb (0-2.0); Fractional Inspired Oxygen 100 %; HCO3 ABG 18.8 mEq/l (22.0-26.0); Methemoglobin ABG 0.4 %THb (0-1.5); Oxygen Content ABG 11.8 %vol (16.0-22.0); Oxygen Saturation ABG 97.7 % (95.0-100.0); PCO2 ABG 37.6 mmHg (35.0-45.0); PO2 ABG 110.8 mmHg (80.0-100.0); PO2 FiO2 Ratio Arterial Blood 1.11 %; Reduced Hemoglobin 3.0 %THb (0-5.0)
[2025-03-21 01:35] LABS: Site Drawn RIGHT RADIAL
[2025-03-21 01:36] LABS: Arterial Blood Gas Tidal Volume 250 ml; Arterial Blood Gas Ventilator rate 16 /MIN
[2025-03-21 02:03] LABS: Hematocrit 24.6 % (37.0-47.0); Hemoglobin 7.1 g/dL (12.0-15.0); Immature Granulocyte Percent A 2.2 % (0-0.5); Immature Platelet Fraction Pct 3.6 % (0.9-11.2); Lymphocytes Absolute Auto 0.96 K/mm3 (0.9-3.2); Mean Corpuscular HGB Conc 28.9 g/dl (32-36); Mean Corpuscular Hemoglobin 29.7 pg (26-34); Mean Corpuscular Volume 102.9 fl (80-100); Nucleated Red Blood Cells Absolute Auto 0.000 K/mm3 (0.0-0.012); Nucleated Red Blood Cells Perc 0.0 % (0.0-0.2); Platelet Count Result 289 k/mm3 (150-375); Red Blood Count 2.39 M/mm3 (4.2-5.4); White Blood Count 9.1 K/mm3 (4.5-10.0)
[2025-03-21 02:20] LABS: Alanine Aminotransferase 68 U/L (6-35); Albumin Level 2.8 g/dL (3.5-5.1); Alkaline Phosphatase 177 U/L (38-126); Anion Gap 22 mmol/L (4-12); Aspartate Amino Transferase 149 U/L (14-36); Bilirubin,Total 0.5 mg/dL (0.2-1.3); Blood Urea Nitrogen 84 mg/dL (7-17); Calcium 7.1 mg/dL (8.4-10.2); Carbon Dioxide 12 mmol/L (22-30); Chloride 107 mmol/L (98-107); Estimated Glomerular Filt Rate 7; Glucose 149 mg/dL (65-110); Potassium 4.8 mmol/L (3.4-5.0); Sodium 141 mmol/L (137-145); Total Protein 5.8 g/dL (6.3-8.2)
[2025-03-21 02:27] LABS: Anisocytosis 1+; Hypochromasia 1+; Polychromasia Occasional
[2025-03-21 02:28] LABS: Microcytosis 1+ (NORMAL); Schistocytes None Seen
[2025-03-21] MEDS: NOREPINEPHRINE 8 MG/D5W 250 ML 8 MG/250 ML BAG 9.38 MG IV CONT (02:42)
--- NOTE | 2025-03-21 03:12 | PC.NURSE ---
pt accepted to [facility]
--- NOTE | 2025-03-21 03:13 | PC.NURSE ---
pt accepted to [facility] ICU Room #9; Accepting MD Clay
== END 2025-03-21 05:00 | disposition short-term general hospital (02) ==
PROVIDERS: Emergency Provider Physician Assistant
DX: I46.9 Cardiac arrest, cause unspecified (principal); I12.0 Hypertensive chronic kidney disease with stage 5 chronic kidney disease or end stage renal disease; N18.6 End stage renal disease; D64.9 Anemia, unspecified; E83.51 Hypocalcemia; Z20.822 Contact with and (suspected) exposure to COVID-19; Z99.2 Dependence on renal dialysis; Q61.3 Polycystic kidney, unspecified; G80.9 Cerebral palsy, unspecified; Z79.899 Other long term (current) drug therapy; R00.0 Tachycardia, unspecified; R94.31 Abnormal electrocardiogram [ECG] [EKG]
CPT/HCPCS: 31500; 36415; 36600; 71045; 71250; 74176; 80053; 81001; 82375; 82805; 82948; 83050; 83605; 85018; 85025; 85055; 85610; 85730; 86140; 86850; 86900; 86901; 87637; 92950; 93005; 94002; 96365; 96366; 96367; 99285; J0168; J0456; J0696; J2250; J3010; J7030; J7040; J7050